=== PATIENT | female | born 1955 | race Caucasian/White ===

== ENCOUNTER 2024-12-29 10:07 | Emergency (ER) | payer MEDICARE, SELFPAY ==
[2024-12-29 10:08] VITALS: BP 123/66; PULSE 81; RESP 14; TEMP 36.1; O2SAT 98; BMI 20.5
--- NOTE | 2024-12-29 10:15 | EDS_ITS ---
HPI HPI - Fall History of Present Illness Chief Complaint: Fall Informant: patient Occured/Mechanism Mechanism/Context: Yes same level fall and Yes trip Usually ambulates: Without assistance Pain/Injury Location: Nose and left infraorbital area Pain Location: face Quality of Pain: - (Pressure) Worsened by: Blowing her nose Relieved by: Nothing Associated Symptoms Associated Symptoms: Negative for Parasthesias, Weakness, Loss of function, Inability to ambulate, Loss of consciousness or Amnesia Narrative Narrative: Patient presents after a fall that occurred today. Patient states she was walking on the sidewalk when she tripped. Patient states she fell forward. Patient states she hit her head and her glasses cut her left eyebrow. Patient denies any loss of consciousness. Patient is unsure of her last tetanus. Patient states she blew her nose and then noted some swelling over the left infraorbital area. Patient describes the pain as a pressure. Patient states nothing makes it better. Patient admits to some abrasions on her left hand and bilateral knees. Tetanus Immunization: Unknown [facility] Medical History (Updated 12/29/24 @ 13:[address] Elliott Moura DO) Hypothyroidism Home Medications ?Medication ?Instructions ?Recorded ?Last Taken ?Type amitriptyline 50 mg tablet 50 mg PO QHS 12/29/2412/28 History amoxicillin 875 mg-potassium 875 mg PO Q12H #20 TABLET S 12/29/24 Unknown Rx clavulanate 125 mg tablet hydrocodone-acetaminophen 5-325mg 1 tab PO Q6H PRN PRN Pain 3 days 12/29/24 Unknown Rx 5mg-325mg #10 TABLETS latanoprost 0.005 % eye drops 1 drp ophthalmic (eye) Q HS 12/29/24 12/28/24 History levothyroxine 112 mcg tablet 112 mcg PO DAILY 12/29/24 12/29/24 History Allergy/AdvReac Type Severity Reaction Status Date / Time No Known Allergies Allergy Verified 12/29/24 10:07 Surgical History no surgical history no surgical history Social History Smoking Status: Never smoker ROS ROS ED Constitutional Constitutional ED: Denies chills or fever(s) Eyes Eyes: Denies blurry vision or change in vision ENT ENT ED: Denies rhinorrhea or sore throat Cardiovascular Cardiovascular: Denies chest pain or palpitations Respiratory/Chest Respiratory/Chest: Denies cough or dyspnea Gastrointestinal Gastrointestinal: Denies nausea or vomiting Genitourinary Genitourinary ED: Denies dysuria or hematuria Musculoskeletal Musculoskeletal: Denies back pain or neck pain Integumentary Denies abscess or rash Neurologic Neurologic: Reports headache(s); Denies weakness Allergic/Immunologic Allergic/Immunologic ED: Denies mouth swelling or urticaria EXAM Physical Exam Const Vital Signs: 12/29/24 10:07 12/29/24 10:08 12/29/24 12:31 Temperature 97 F L Temperature Source Temporal Pulse Rate 81 68 Respiratory Rate 14 12 Respiratory Effort Normal Respiratory Depth Normal Respiratory Pattern Normal Blood Pressure 123/66 H 134/60 H Blood Pressure Mean 85 84 Pulse Ox 98 100 Oxygen Delivery Method Room Air Room Air Room Air Positive well nourished and well developed General Appearance ED: well developed and NAD HEENT HEENT Narrative: There is a 2.5 cm full-thickness linear laceration over the lateral aspect of the left eyebrow. There is mild gapping of the wound margins. There is minimal bleeding noted. There is also mild tenderness over the left infraorbital area. There is no bony crepitance or step-off noted. Eyes PERRL and EOMs intact bilaterally Neck full ROM Chest Wall palpation of chest normal Resp normal respiratory effort and clear to auscultation bilaterally Cardio regular rate and regular rhythm GI non-tender and non-distended Palpation: soft Neuro oriented x3, CN's II-XII intact bilaterally, moves all extremities, no focal motor deficits and no sensory deficits noted Abhijit Coma Scale: document GCS findings Spontaneous Obeys Commands Oriented 15 Sensorium / Orientation: alert Motor Exam: strength 5/5 throughout Psych mental status grossly normal and thought process normal Skin Skin Narrative: There are superficial abrasions over the left hand and anterior knees bilaterally. MDM MDM MDM Narrative Medical decision making narrative: Differential diagnosis includes facial fracture, contusion, closed head injury, and left eyebrow laceration. CT scan of the facial bones will be obtained to assess for facial fracture. Radiography Diagnostic Testing: Clinical Impression(s) from Imaging Studies Facial/Sinus 12/29/24 10:47 IMPRESSION: Trauma to the left face/cheek abundant subcutaneous air in the superficial soft tissues of the cheek. Moderate preseptal air in the left orbit. 2 or 3 tiny bubbles of air in the retro septal fat [facility] scan of the facial bones were obtained. There is preseptal air in the left orbit. There are 2 or 3 tiny bubbles of air in the retro septal fat. There are fractures of the orbital floor. 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 The left eyebrow laceration was cleaned with chlorhexidine. The laceration was closed with Dermabond skin adhesive. Patient tolerated the procedure well. Patient was advised of her findings. Case was discussed with Dr. Romero from ophthalmology. He recommended following up with the patient in the office in 1 to 2 days. Patient was given a prescription for Augmentin and a short course of [place]. Patient was instructed to avoid blowing her nose. Patient was instructed to use ice to the area. Patient was instructed to return if worse in any way. Patient understood and was agreeable with the plan. All questions were answered. Procedures Lacerations Left eyebrow: Length: 2.5 cm Depth: Sub Q Shape: Linear Prep: Sterile Conditions and Chlorhexadine Laceration repair: Dermabond and Wound explored Discharge Plan Triage Chief Complaint: Fall ED Provider: Elliott Moura Dx/Rx/DC Orders Clinical Impression: Orbital floor fracture, Fall Instructions: ED Facial Fracture, ED Head Injury (Adult) Prescriptions: New hydrocodone-acetaminophen 5-325 mg tablet 1 tab PO Q6H PRN PRN (Reason: Pain) 3 Days Qty: 10 0RF amoxicillin-pot clavulanate 875-125 mg tablet 875 mg PO Q12H Qty: 20 0RF No Action levothyroxine 112 mcg tablet 112 mcg PO DAILY latanoprost 0.005 % drops 1 drp ophthalmic (eye) QHS amitriptyline 50 mg tablet 50 mg PO QHS Primary Care Provider: France Castelan Referrals: Derrek Goss MD [Med Staff - Active Staff] - As soon as possible (Call to schedule an appointment for tomorrow or Friday) France Castelan MD [Primary Care Provider] - Print Language: Turkmen Disposition Disposition: Home, Self Care
--- NOTE | 2024-12-29 10:47 | CT_ITS ---
PROCEDURE: SINUS/FACIAL BONE REASON FOR EXAM: FALL Initial encounter. TECHNIQUE: SINUS/FACIAL BONE Coronal and Sagittal reconstruction series were provided. One or more dose reduction techniques were used (e.g., Automated exposure control, adjustment of the mA and/or kV according to patient size, use of iterative reconstruction technique). COMPARISON: None. FINDINGS: Frontal: Clear. Ethmoid: Mucosal thickening in left ethmoid air cells. Sphenoid: Thin band of mucosal thickening sphenoid sinus septum. Sphenoid sinuses predominantly clear otherwise. Maxillary: Left orbital floor defect allows a tiny bubble of air in the left retro septal fat. Anterolateral maxillary sinus wall; fracture of the maxillary bone with extensive subcutaneous air in the left zygomatic face anterior wall. Maxillary sinus shows minimally displaced fracture air-fluid level the left maxillary sinus. Turbinates: Boggy turbinates. Nasal Septum: Left convex nasal septum. Mastoids/Middle Ears: Clear. CT/Sinus/Facial Bone IMPRESSION: Trauma to the left face/cheek abundant subcutaneous air in the superficial soft tissues of the cheek. Moderate preseptal air in the left orbit. 2 or 3 tiny bubbles of air in the retro septal fat [facility]
[2024-12-29] MEDS: Diphth,Pertuss(Acell),Tet Vac 0.5 ML Vial IM (11:08)
[2024-12-29 12:31] VITALS: BP 134/60; PULSE 68; RESP 12; O2SAT 100
[2024-12-29 13:44] VITALS: BP 126/67; PULSE 80; RESP 14; TEMP 36.7; O2SAT 98
== END 2024-12-29 13:46 | disposition home or self-care (01) ==
PROVIDERS: Emergency Provider Emergency Medicine; PCP Internal Medicine; Visit Provider Emergency Medicine
DX: S02.32XA Fracture of orbital floor, left side, initial encounter for closed fracture (principal); S01.112A Laceration without foreign body of left eyelid and periocular area, initial encounter; W01.0XXA Fall on same level from slipping, tripping and stumbling without subsequent striking against object, initial encounter; Y93.01 Activity, walking, marching and hiking; Y92.480 Sidewalk as the place of occurrence of the external cause; Z23 Encounter for immunization
CPT/HCPCS: 12011; 70486; 90471; 90715; 99283

== ENCOUNTER 2025-07-09 18:24 | Emergency (ER) | payer MEDICARE, SELFPAY ==
[2025-07-09 18:26] VITALS: BP 115/64; PULSE 110; RESP 16; TEMP 36.6; O2SAT 100
--- NOTE | 2025-07-09 18:36 | EDS_ITS ---
HPI History of Present Illness Chief Complaint: Chest Pain [facility] Medical History (Updated 07/09/25 @ 18:52 by America Judd) Glaucoma Migraine Hypothyroidism Home Medications ?Medication ?Instructions ?Recorded ?Last Taken ?Type amitriptyline 50 mg tablet 50 mg PO QHS 12/29/2412/28 History latanoprost 0.005 % eye drops 1 drp ophthalmic (eye) Q HS 12/29/24 12/28/24 History levothyroxine 112 mcg tablet 112 mcg PO DAILY 12/29/24 12/29/24 History pantoprazole 20 mg tablet,delayed 20 mg PO DAILY 30 da ys #30 tabs 07/09/25 Unknown Rx release (Protonix) Allergy/AdvReac Type Severity Reaction Status Date / Time No Known Allergies Allergy Verified 07/09/25 18:27 Social History Smoking Status: Never smoker EXAM Physical Exam Const Vital Signs: 07/09/25 18:26 07/09/25 18:50 07/09/25 19:35 Temperature 97.8 F Temperature Source Oral Pulse Rate 110 H 101 H Respiratory Rate 16 16 Respiratory Effort Normal Non-Labored Blood Pressure 115/64 122/63 H Blood Pressure Mean 81 82 Pulse Ox 100 100 Oxygen Delivery Method Room Air Room Air 07/09/25 20:00 07/09/25 21:00 07/09/25 21:21 Temperature 97.8 F Temperature Source Pulse Rate 102 H 98 105 H Respiratory Rate 28 H 15 20 H Respiratory Effort Blood Pressure 129/69 H 130/63 H 124/66 H Blood Pressure Mean 89 85 85 Pulse Ox 98 97 97 Oxygen Delivery Method Room Air Room Air 07/09/25 22:00 Temperature Temperature Source Pulse Rate 96 Respiratory Rate 14 Respiratory Effort Blood Pressure 125/67 H Blood Pressure Mean 86 Pulse Ox 95 Oxygen Delivery Method Room Air MDM MDM MDM Narrative Medical decision making narrative: HISTORY OF PRESENT ILLNESS: Chief complaint: Chest pain 70-year-old female history of hypothyroidism presents with pain around her chest on her breast. She thinks it could have been indigestion but she has no relief. She states this started approximately 4 PM (2-1/2 hours prior to arrival). She notes sharp left-sided chest pain that she thought was indigestion. She states she used her usual indigestion treatments with no relief. This is concerning to her so she presented to the ED. She denies shortness of breath. Denies cough fever chills. Denies history of heart attacks. Denies any exertional component to the discomfort. Denies any radiation component REVIEW OF SYSTEMS: Pertinent positives: Epigastric abdominal pain, left-sided chest pain Pertinent negatives: As per HPI PHYSICAL EXAM: Nursing triage notes reviewed, Vital signs reviewed Constitutional: please see [facility] HENT: MMM Eyes: Pupils equal round and reactive to light, Extraocular muscles intact Neck: No stridor, no JVD, full neck ROM Lungs: Clear to auscultation, No wheezing or rales. No increased work of breathing, no conversational dyspnea, no accessory muscle use, no nasal flaring. No respiratory distress noted Heart: Regular rate and rhythm, No murmurs, No rubs and No gallops, 2+ distal pulses (radial, femoral, posterior tibial) in all extremities Abdomen: Soft, there is no tenderness, rigidity, rebound or guarding, no obvious peritoneal signs, no palpable pulsatile abdominal masses, no auscultated abdominal bruit : No CVAT Extremities: No edema Neuro: No new focal neurological deficits, cranial nerves II through XII intact, 5/5 strength in all present extremities. Intact sensation to light touch in all present extremities, 2+ reflexes bilateral patella tendons. Skin: No rash or lesions noted MEDICAL DECISION MAKING: Chief Complaint: please see HPI External records reviewed: Reviewed prior cardiovascular history. No recent echocardiograms, stress test or cardiac catheterizations noted Factors affecting care: n as per [facility] Social determinants of health: Denies illicit drug use History obtained from others: Family Consults: none [facility] Narrative: The patient was initially hemodynamically stable, afebrile and nontoxic- appearing. Exam without focal cardiopulmonary formalities. Abdomen soft nontender. No stigmata of aortic dissection or PE on initial exam I considered the following differential diagnosis: ACS, arrhythmia, anemia, electrolyte disturbance, PE, aortic dissection, pneumonia I obtained a broad lab and imaging work to further determine if the patient was suffering from a life-threatening etiology. Initially treat the patient with 500 cc bolus, Pepcid and Carafate ALL IMAGES (IF OBTAINED) HAVE BEEN PERSONALLY REVIEWED AND INTERPRETED BY MYSELF. EKG shows normal sinus rhythm, left ax deviation, normal intervals, no STEMI D-dimer negative making VTE and aortic dissection less likely CBC without leukocytosis, severe anemia, no thrombocytopenia. High-sensitivity troponin is negative, no evidence of myocardial ischemia x2 essentially ruling out ACS based on [facility]'s high- sensitivity troponin protocol BMP without evidence of significant electrolyte abnormalities, no anion gap, no acute kidney injury. LFTs show no evidence of hepatobiliary pathology. Lipase is wnl indicating no pancreatic inflammation. I have personally reviewed the patient's chest x-ray. Chest x-ray is unremarkable for pulmonary edema, pneumothorax, pneumonia or focal cardiopulmonary abnormality. CT scan of the abdomen pelvis showed no evidence of obvious acute surgical pathology in the abdomen. Noted heterogeneous abnormality in the uterus. Incidental finding was discussed with the patient. Repeat abdominal exam is benign. Patient remained hemodynamically stable. Heart rate improved from 110-96. The synthesis of the patient's history, physical exam, labs images suggest no acute life or limb radiology specifically no sign of VTE, CHF, ACS, acute surgical pathology in the abdomen. The patient and/or family, caregivers express understanding. The patient and/or family, caregivers agrees with the plan. Shared decision making: I will have a discussion with the patient and or visitors regarding risk/benefits of further testing or admission. They will be made aware of of the risk/benefits inherent in this decision they will be given the opportunity to voice understanding. Total critical care time today provided was at least 0 minutes. This excludes separately billable procedures. Critical care time (if documented) is secondary to the patient having high probability of clinically significant/life threatening deterioration in the patient's condition which required my urgent intervention. Impression: 1. Chest pain 2. Epigastric abdominal pain Dispo: Discharge home This note was generated with [employer] dictation software. It may contain incorrect words, spelling, and punctuation that were not noted in review of the chart prior to signing. Lab Data Labs: Laboratory Results - last 24 hr 07/09/25 07/09/25 18:55 21:18 WBC 8.8 RBC 4.41 Hgb 14.2 Hct 41.9 MCV 95.0 MCH 32.2 H MCHC 33.9 RDW Std Deviation 46.6 H RDW Coeff of Colin 13.2 Plt Count 146 L MPV 9.7 Immature Gran % (Auto) 0.500 Neut % (Auto) 94.6 H Lymph % (Auto) 2.5 L [place] % (Auto) 1.8 Eos % (Auto) 0.5 Baso % (Auto) 0.1 Absolute Neuts (auto) 8.3 H Absolute Lymphs (auto) 0.22 L Nucleated RBC % 0 D-Dimer Quant (PE/DVT) 0.29 Sodium 138 Potassium 4.1 Chloride 101 Carbon Dioxide 27.9 Anion Gap 9 BUN 19 Creatinine 0.83 Estim Creat Clear Calc 56.98 Est GFR (MDRD) Non-Af 76 BUN/Creatinine Ratio 22.5 H Glucose 122 H Calcium 9.0 Total Bilirubin 0.34 AST 28 ALT 22 Alkaline Phosphatase 84 Troponin T High Sens 8 Troponin T Hi Sens 2 Hr 9 Total Protein 6.4 Albumin 4.4 Globulin 2.0 L Albumin/Globulin Ratio 2.2 Lipase 34 Radiography Diagnostic Testing: Clinical Impression(s) from Imaging Studies Abdomen/Pelvis CT 07/09/25 18:50 IMPRESSION: 1. Probable uterine fibroid. 2. Hepatomegaly with fatty infiltration. 3. Distended stomach. Decompression may be beneficial. 4. Fecal retention in the colon consistent with constipation. 5. No obstructive uropathy. Reading Location: [facility] Chest X-Ray 07/09/25 19:22 IMPRESSION: No acute cardiopulmonary process. Reading Location: [facility] Discharge Plan Triage Chief Complaint: Chest Pain ED Provider: Domo Gore Dx/Rx/DC Orders Instructions: ED Chest Pain, Uncertain Cause Prescriptions: New pantoprazole [Protonix] 20 mg tablet,delayed release (DR/EC) 20 mg PO DAILY 30 Days Qty: 30 0RF No Action levothyroxine 112 mcg tablet 112 mcg PO DAILY latanoprost 0.005 % drops 1 drp ophthalmic (eye) QHS amitriptyline 50 mg tablet 50 mg PO QHS Primary Care Provider: France Castelan Referrals: France Castelan MD [Primary Care Provider, Internal Medicine] Friend,DO Candelario [Med Staff - Active Staff, Gastroenterology] Activity Restrictions/Additional Instructions: Thank you for trusting us with your care today! Your labs images are reassuring. Specifically no sign of heart damage, blood clots or severe intra-abdominal surgical pathologies You may be suffering from inflammation of your GI tract. This can be relieved with beginning a medication called Protonix. This has been prescribed to you. Please take Tylenol (2 pills, 650 mg), every 6 hours as needed for pain and fever control. Please return to the emergency department if your symptoms change or worsen. Please follow with Gastroenterology (Dr. Gregg) for further outpatient evaluation and management. Print Language: Japanese Disposition Disposition: Home, Self Care
--- NOTE | 2025-07-09 18:50 | CT_ITS ---
EXAM: CT Abdomen and Pelvis With Intravenous Contrast CLINICAL INDICATION: UPPER ABDOMINAL PAIN TECHNIQUE: Axial computed tomography images of the abdomen and pelvis with intravenous contrast. This CT exam was performed using one or more of the following dose reduction techniques: automated exposure control, adjustment of the mA and/or kV according to patient size, and/or use of iterative reconstruction technique. CONTRAST: 100 cc Isovue 370 RADIATION DOSE: CTDIvol = 12 mGy, DLP = 592 mGy-cm COMPARISON: No relevant prior studies available. FINDINGS: LUNG BASES: Unremarkable. No mass. No consolidation. ABDOMEN: LIVER: Hepatomegaly with fatty infiltration. GALLBLADDER AND BILE DUCTS: Unremarkable. No calcified stones. No ductal dilation. PANCREAS: Unremarkable. No mass. No ductal dilation. SPLEEN: Unremarkable. No splenomegaly. ADRENALS: Unremarkable. No mass.
[2025-07-09] MEDS: Famotidine 200 MG/20 ML MDV 20 MG in 0.9% Normal Saline (Pres. free 8 ML 300 MG IV (19:03)
[2025-07-09] MEDS: 0.9% Normal Saline (500mL Bag) 500 ML IV (19:03)
[2025-07-09 19:07] LABS: Hematocrit 41.9 % (37-47); Hemoglobin 14.2 g/dL (12.0-15.0); Immature Granulocytes Count 0.040 X10^3/uL (0.0-0.0); Mean Corp Hgb Conc 33.9 g/dL (32-36); Mean Corpuscular Volume 95.0 fL (81-99); Mean Platelet Vol. 9.7 fl (6.2-12.0); NRBC Flagged by Analyzer 0 % (0-5); POSITIVE DIFFERENTIAL YES; Platelet Count 146 K/mm3 (150-450); RBC Distribution Width CV 13.2 % (11.6-14.6); RBC Distribution Width SD 46.6 fl (35.1-43.9); Red Blood Count 4.41 M/mm3 (4.2-5.4); White Blood Count 8.8 K/mm3 (4.4-11.0)
[2025-07-09 19:18] LABS: D-Dimer Quantitative (DVT/PE) 0.29 FEU/ug/m (0.27-0.49)
--- NOTE | 2025-07-09 19:22 | RAD_ITS ---
EXAM: XR Chest, 1 View CLINICAL INDICATION: CHEST PAIN TECHNIQUE: Frontal view of the chest. COMPARISON: No relevant prior studies available. FINDINGS: LUNGS AND PLEURAL SPACES: Unremarkable. No consolidation. No pneumothorax. HEART: Unremarkable. No cardiomegaly. MEDIASTINUM: Unremarkable. Normal mediastinal contour. BONES/JOINTS: Unremarkable. No acute fracture. RAD/Chest 1 View (Portable) IMPRESSION: No acute cardiopulmonary process. Reading Location: [id number]
--- OUTSIDE RECORDS SUMMARY | 2025-07-09 19:22 | XMS RPT_ITS | CCD ---
Author Organization [facility] CliniSyct Care Team Providers Care Puppy Walker Name Role Phone Octavio Ulloa MD Primary Care Provider Octavio Ulloa MD Primary Care Provider Cates TAILINGS MAN.PACKAGE LINE RELIEF OPERATOR, Estephania Unavailable Chao TAILINGS MAN.DRY CHAIN OFFBEARER, Omar Unavailable Chao TAILINGS MAN.DRY CHAIN OFFBEARER, Omar Unavailable Chao TAILINGS MAN.DRY CHAIN OFFBEARER, Omar Unavailable Dr. Octavio Ulloa MD Primary Care Provider Dr. Elliott Moura DO Emergency Provider [phone] Cates TAILINGS MAN.PACKAGE LINE RELIEF OPERATOR, Estephania Unavailable Elliott Moura Attending Unavailable Talampas, Octavio D Primary Care Unavailable CATES, ESTEPHANIA Referring Unavailable TALAMPAS, OCTAVIO D Primary Care Unavailable BELIALETICIA MAJOR Attending Unavailable TALAMPAS, OCTAVIO D Primary Care Unavailable TALAMPAS, OCTAVIO D Primary Care Unavailable JENA LR Attending Unavailable CHAOOMAR Attending Unavailable TALAMPAS, OCTAVIO D Primary Care Unavailable SHEILA DOMINIQUE Referring Unavailable TALAMPAS, OCTAVIO D Primary Care Unavailable CHAOOMAR Attending Unavailable SELF Referring Unavailable TALAMPAS, OCTAVIO D Primary Care Unavailable BELIALIDACA Attending Unavailable CATES, ESTEPHANIA Referring Unavailable TALAMPAS, OCTAVIO D Primary Care Unavailable SHEILA DOMINIQUE Attending Unavailable CHAO, OMAR Referring Unavailable TALAMPAS, OCATVIO D Primary Care Unavailable QUEENER SHEILA Referring Unavailable TALAMPAS, OCTAVIO D Primary Care Unavailable TALAMPAS, OCTAVIO D Attending Unavailable TALAMPAS, OCTAVIO D Primary Care Unavailable TALAMPAS, OCTAVIO D Referring Unavailable TALAMPAS, OCTAVIO D Primary Care Unavailable TALAMPAS, OCTAVIO D Referring Unavailable TALAMPAS, OCTAVIO D Primary Care Unavailable TONYAMPAS, OCTAVIO D Referring Unavailable TONYAMPAS, OCTAVIO D Primary Care Unavailable ESTEPHANIA CATES Attending Unavailable LAILA, OCTAVIO Janeen Primary Care Unavailable ESTEPHANIA CATES Referring Unavailable TONYAMPASTRID RIVERAA D Primary Care Unavailable Medications Current Medications Medication Drug Class(es) Dates Sig (Normalized) Sig (Original) acetaminophen 325 mg / HYDROcodone bitartrate 5 mg oral tablet (1 source) Opioid Agonist Start: 12-29-2024 take 1 tablet by mouth every six hours as needed for pain Hydrocodone-Aceta minophen 5-325 mg tablet Active 1 {tbl} PO EVERY 6 HOURS NEEDED as needed for Pain 10 December 29, 2024 Start: 12-29-2024 take 1 tablet by alan th every six hours as needed for pain Hydrocodone-Acetaminophen 5-325 mg table t Active 1 {tbl} PO EVERY 6 HOURS NEEDED as needed for Pain 10 December 29, 2024 amitriptyline hydrochloride 50 mg oral tablet (20 sources) Tricyclic Antidepressant Start: 02-04-2025 take 1 tablet by mouth once daily at bedtime amitriptyline (ELAVIL) 25 mg tablet Take 1 tablet by mouth daily at bedtime. 30 tablet 8 02/04/2025 Active Start: 04-16-2021 End: 03-25-2025 take 1 tablet by mouth once daily at bedtime amitriptyline (ELAVIL) 50 mg tablet Indications: Migraine without aura, not intractable, without status migrainosus Take 1 tablet by mouth daily at bedtime. 90 tablet 3 03/25/2025 Active Comment on above: Take 1 tablet by alan th daily at bedtime. amoxicillin 875 mg / clavulanate 125 mg oral tablet (1 source) Penicillin-class Antibacterial Start: take 1 tablet by mouth every twelve hours Amoxicillin-Pot Clavulanate 875-125 mg tablet Active 875 mg PO Q12H December 29, 2024 12:00am clonazePAM 0.5 mg oral tablet (20 sources) Benzodiazepine Start: 022 End: 025 take 1 tablet by mouth twice daily as needed clonazePAM (KLONOPIN) 0.5 mg tablet Indications: Vertigo Take 1 tablet by mouth two times a day as needed (for vertigo) for up to 30 days. 20 tablet 01/05/2025 Active Comment on above: Take 1 tablet by alan th twice daily as needed (for vertigo) for up to 30 days. Take 1 tablet by alan th twice daily for 30 days. CPAP/BIPAP/OTHER (14 sources) Start: End: CPAP/BIPAP/OTHER Indications: KIARA (obstructive sleep apnea) APAP 5-15 cmH2O 1 each 10/21/2024 03/07/2052 Active frovatriptan 2.5 mg oral tablet (20 sources) Serotonin-1b and Serotonin-1d Receptor Agonist Start: End: take 1 tablet by mouth every two hours as needed for headache, then take 3 tablets by mouth every twenty-four hours as needed for headache frovatriptan (FROVA) 2.5 mg tablet Indications: History of migraine Take 1 tablet by mouth as needed for migraine headache (see administration instructions). If headache recurs, may repeat after 2 hours. Max of 3 tablets in 24 hours. 9 tablet 5 01/05/2025 Active Start: 04-16-2021 End: 04-11-2023 take 1 tablet by mouth every two hours as needed for headache, then take 3 tablets by mouth every twenty-four hours as needed for headache frovatriptan (FROVA) 2.5 mg tablet Indications: History of migraine Take 1 tablet by mouth as needed for Migraine Headache (see administration instructions). If headache recurs, may repeat after 2 hours. Max of 3 tablets in 24 hours. 9 tablet 5 04/16/2021 04/11/2023 Discontinued Comment on above: Take 1 tablet by alan th as needed for Migraine Headache (see administration instructions). If headache recurs, may repeat after 2 hours. Max of 3 tablets in 24 hours. latanoprost 0.05 mg/ml ophthalmic solution (20 sources) Prostaglandin Analog Start: 12-29-2024 Latanoprost 0.005 % drops Active 1 NMA OPHTHALMIC AT BEDTIME December 29, 2024 12:00am Start: 02-09-2024 take 1 drop(s) into the eye(s) once daily at bedtime latanoprost (XALATAN) 0.005 % ophthalmic solution Use 1 Drop in both eyes daily at bedtime. 02/09/2024 Active levothyroxine sodium 0.112 mg oral tablet (20 sources) l-Thyroxine Start: 04-16-2021 End: 03-25-2025 take 1 tablet by mouth once daily, then take 0.5 tablet by mouth every week, then take 7.5 tablets by mouth every week levothyroxine (SYNTHROID) 112 mcg tablet Take 1 tablet by mouth once daily. plus extra half pill once weekly or as directed (7.5 pills per week) 90 tablet 3 03/25/2025 Active Comment on above: Take 1 tablet by alan th once daily. plus extra half pill once weekly or as directed (7.5 pills per week) OTC NUTRITIONAL SUPPLEMENT (1 source) Start: 03-25-2025 OTC NUTRITIONAL SUPPLEMENT Magnesium 500 1.5 tablets daily 03/25/2025 Active traMADol hydrochloride 50 mg oral tablet (2 sources) Opioid Agonist Start: 01-17-2025 End: 01-24-2025 take 1 tablet by mouth three times daily as needed for pain traMADol (ULTRAM) 50 mg tablet Indications: Closed fracture of left orbital floor with routine healing, subsequent encounter Take 1 tablet by mouth three times a day as needed for pain for up to 7 days. 21 tablet 01/17/2025 01/24/2025 Active Completed/Discontinued Medications Medication Drug Class(es) Dates Sig (Normalized) Sig (Original) brimonidine tartrate 2 mg/ml ophthalmic solution (5 sources) alpha-Adrenergic Agonist Start: 02-11-2023 End: 03-17-2024 take 1 drop(s) into the eye(s) twice daily brimonidine (ALPHAGAN) 0.2 % ophthalmic solution Use 1 Drop in the left eye two times a day. 02/11/2023 03/17/2024 Discontinued Comment on above: Use 1 Drop in the le ft eye two times a day. gabapentin 100 mg oral capsule (3 sources) Anti-epileptic Agent Start: 02-01-2025 End: 05-02-2025 take 1 capsule by mouth three times daily gabapentin (NEURONTIN) 100 mg capsule Take 1 capsule by mouth three times a day for 90 days. 90 capsule 2 02/01/2025 03/25/2025 Discontinued predniSONE 10 mg oral tablet (4 sources) Start: 01-05-2025 End: 01-17-2025 predniSONE (DELTASONE) 10 mg tablet Take 2 tabs po BID for 2 days then 1 tab po BID for 2 days then 1/2 tab po BID for 2 days then 1/2 tab daily for 2 days then stop 15 tablet 01/05/2025 01/17/2025 Discontinued Problems Active Problems Problem Classification Problem Date Documented Da te Episodic/Chronic E Codes: Fall (1 source) Fall; Translations: [Unspecified fall, initial encounter] 12-29-2024 Episodic Genitourinary symptoms and ill-defined conditions (1 source) Urgent desire to urinate; Translations: [Urgency of urination] 04-11-2023 Episodic Glaucoma (20 sources) Glaucoma of left eye; Translations: [Unspecified glaucoma] Onset: 05-14-2022 04-11-2023 Chronic Headache; including migraine (4 sources) Migraine variants; Translations: [Other migraine, not intractable, without status migrainosus] Onset: 01-05-2025 Chronic Heart valve disorders (20 sources) Mitral valve prolapse; Translations: [Nonrheumatic mitral (valve) prolapse] Onset: 02-24-2007 07-31-2017 Chronic Open wounds of head; neck; and trunk (1 source) Laceration of left eyelid; Translations: [Laceration without foreign body of left eyelid and periocular area, initial encounter] 12-29-2024 Episodic Osteoporosis (20 sources) Senile osteoporosis; Translations: [Age-related osteoporosis without current pathological fracture] Onset: 04-16-2021 04-16-2021 Chronic Other ear and sense organ disorders (1 source) Bilateral tinnitus; Translations: [Tinnitus, bilateral] Episodic Other gastrointestinal disorders (1 source) Constipation; Translations: [Constipation, unspecified] 03-17-2024 Episodic Other hereditary and degenerative nervous system conditions (2 sources) Essential tremor; Translations: [Essential tremor] 03-17-2024 Chronic Other hereditary and degenerative nervous system conditions (1 source) Essential tremor; Translations: [Benign essential tremor] Onset: 03-25-2025 Chronic Other injuries and conditions due to external causes (1 source) Injury of head; Translations: [Unspecified injury of head, initial encounter] 12-29-2024 Episodic Other injuries and conditions due to external causes (1 source) Encounter for examination and observation following other accident; Translations: [Encounter for examination and observation following other accident] Onset: 01-04-2025 Episodic Other nervous system disorders (10 sources) H/O: migraine; Translations: [Personal history of other diseases of the nervous system and sense organs] Episodic Other non-traumatic joint disorders (1 source) Pain in right knee; Translations: [Pain in joint, lower leg] Episodic Other screening for suspected conditions (not mental disorders or infectious disease) (20 sources) Patient encounter status; Translations: [Encounter for screening mammogram for malignant neoplasm of breast] Onset: 03-25-2025 Episodic Other upper respiratory disease (1 source) Bleeding from nose; Translations: [Epistaxis] 12-29-2024 Episodic Residual codes; unclassified (5 sources) Obstructive sleep apnea syndrome; Translations: [Obstructive sleep apnea (adult) (pediatric)] 08-30-2024 Chronic Residual codes; unclassified (1 source) Daytime somnolence; Translations: [Other hypersomnia] 10-24-2024 Chronic Residual codes; unclassified (2 sources) Obstructive sleep apnea (adult) (pediatric); Translations: [KIARA on CPAP] Onset: 10-21-2024 Chronic Residual codes; unclassified (1 source) Other hypersomnia; Translations: [Excessive daytime sleepiness] Onset: 10-21-2024 Chronic Residual codes; unclassified (2 sources) Postmenopausal state; Translations: [Asymptomatic menopausal state] 03-17-2024 Episodic Residual codes; unclassified (1 source) Medical care unavailable; Translations: [Procedure and treatment not carried out for other reasons] 12-29-2024 Episodic Screening and history of mental health and substance abuse codes (2 sources) Encounter for screening examination for other mental health and behavioral disorders; Translations: [Encounter for screening for depression] Onset: 03-25-2025 Episodic Thyroid disorders (20 sources) Hypothyroidism; Translations: [Hypothyroidism, unspecified] Onset: 02-24-2007 07-31-2017 Chronic Unclassified (1 source) Call to schedule an appointment for tomorrow or Friday Unclassified (1 source) Patient encounter status 03-25-2025 Unclassified (1 source) Persistent headaches; Translations: [Persistent headaches] Onset: 02-10-2025 Past or Other Problems Problem Classification Problem Date Documented Da te Episodic/Chronic Conditions associated with dizziness or vertigo (4 sources) Vertigo; Translations: [Dizziness and giddiness] Onset: 01-05-2025 Episodic Headache; including migraine (20 sources) Headache; Translations: [Headache] Onset: 02-24-2007 01-31-2014 Episodic Intracranial injury (8 sources) Concussion with no loss of consciousness; Translations: [Concussion without loss of consciousness, subsequent encounter] Onset: 01-05-2025 01-05-2025 Episodic Malaise and fatigue (3 sources) Fatigue; Translations: [Other fatigue] Onset: 08-09-2024 08-03-2024 Episodic Other and unspecified benign neoplasm (20 sources) Benign neoplasm of skin of upper limb; Translations: [Other benign neoplasm of skin of unspecified upper limb, including shoulder] Onset: 06-08-2007 06-08-2007 Episodic Other and unspecified benign neoplasm (20 sources) Benign neoplasm of skin of lower limb; Translations: [Other benign neoplasm of skin of unspecified lower limb, including hip] Onset: 01-18-2008 01-18-2008 Episodic Other ear and sense organ disorders (20 sources) Tinnitus; Translations: [Tinnitus, unspecified ear] Onset: 07-14-2021 04-11-2023 Episodic Other nervous system disorders (1 source) Personal history of other diseases of the nervous system and sense organs; Translations: [History of migraine] Onset: 01-05-2025 Episodic Other non-epithelial cancer of skin (20 sources) Malignant neoplasm of skin of face; Translations: [Other and unspecified malignant neoplasm of skin of other and unspecified parts of face] Onset: 07-03-2007 07-03-2007 Episodic Other skin disorders (20 sources) Seborrheic keratosis; Translations: [Other seborrheic keratosis] Onset: 06-08-2007 06-08-2007 Episodic Other skin disorders (20 sources) Sebaceous cyst of skin; Translations: [Sebaceous cyst] Onset: 06-08-2007 Resolved: 01-31-2014 01-31-2014 Episodic Other upper respiratory disease (20 sources) Deviated nasal septum; Translations: [Deviated nasal septum] Onset: 04-27-2015 04-11-2023 Episodic Skull and face fractures (4 sources) Fracture of orbital floor; Translations: [Fracture of orbital floor, unspecified side, initial encounter for closed fracture] Onset: 01-05-2025 12-29-2024 Episodic Superficial injury; contusion (2 sources) Contusion of left hand; Translations: [Contusion of left hand, subsequent encounter] Onset: 01-05-2025 01-05-2025 Episodic Viral infection (20 sources) Hand wart; Translations: [Viral wart, unspecified] Onset: 06-08-2007 01-26-2018 Episodic Results Test Name Value Interpretation Reference Range Facility [facility] LTon 05-24 [facility] * * *Final Report* * * DATE OF EXAM: May 24 2025 1:05PM [facility] 0593 - [facility] / PROCEDURE REASON: Abnormal mammogram * * * * Physician Interpretation * * * * [place] [address] #[id number] - [facility] HISTORY: 69 year-old patient presents for diagnostic evaluation of the finding(s) described on prior mammogram in the left breast. Patient states no personal history of breast cancer. COMPARISOnSTUDIES: No prior imaging studies are available for comparison. ULTRASOUND TECHNIQUE: Targeted ultrasound of the indicated area was performed. Mendoza scale images were saved. ULTRASOUND FINDINGS: There is a simple cyst measuring 1.1 cm at 4 o'clock in the left breast. There are no suspicious findings in the imaged area. IMPRESSION: There are no suspicious sonographic findings in the imaged area. Return to annual screening mammogram is recommended. Annual mammogram will be due in 1 year. BI-RADS Category 2: Benign Interpreting Radiologist: Kaycee Bello M.D. Electronically signed on: 05/24/2025 Restaurant Maintenance Technician: GERBER Transcribe Date/Time: May 24 2025 12:55P Dictated by : KAYCEE BELLO MD This examination was interpreted and the report reviewed and electronically signed by: KAYCEE BELLO MD on May 24 2025 1:11PM EST [id number] Normal [facility] SCREENING W TOMOon 05-11 [facility] SCREENING W GAVIN * * *Final Report* * * DATE OF EXAM: May 11 2025 1:46PM [facility] 0582 - [facility] SCRE[facility]ING [facility] / PROCEDURE REASON: Encounter for screening mammogram for breast cancer * * * * Physician Interpretation * * * * RESULT: [facility] [address] [id number] #[id number] - [facility] SCREENING W GAVIN HISTORY: 69 year-old patient presents for screening. Patient is asymptomatic in both breasts. Patient states no personal history of breast cancer. COMPARISON STUDIES: The present examination has been compared to prior imaging studies dated 01/13/2019 (mammogram), 11/13/2020 (mammogram), 11/14/2021 (mammogram), 02/25/2023 (mammogram) and 05/10/2024 (mammogram). MAMMOGRAM TECHNIQUE: The study was acquired using full field digital technology and interpreted from soft copy. Digital Breast Tomosynthesis (DBT) images were obtained and used to assist in the interpretation of this examination. MAMMOGRAM FINDINGS: There are scattered areas of fibroglandular density. There is an oval mass in the middle depth lower outer quadrant of the left breast. No suspicious masses, calcifications or other abnormalities are seen in the right breast. IMPRESSION: The oval mass in the middle depth lower outer quadrant of the left breast requires additional evaluation. Diagnostic ultrasound is recommended. BI-RADS Category 0: Incomplete: Needs Additional Imaging Evaluation RISK: Based on the Tyrer-Cuzick (TC) risk assessment model, this patient has a 2.2% lifetime risk of developing breast cancer, meaning they are at average risk for developing breast cancer. However, this is only an estimate based on available history provided on the patient's questionnaire. We encourage all patients to talk with their providers about these results, further recommendations for managing breast health, and appropriate supplemental screening options if the patient has dense breast tissue. REF#[id number]. Interpreting Radiologist: Ilia Finley M.D. Electronically signed on: 05/12/2025 Restaurant Maintenance Technician: GERBER Transcribe Date/Time: May 11 2025 1:25P Dictated by: ILIA FINLEY MD This examination was interpreted and the report reviewed and electronically signed by: ILIA FINLEY MD on May 12 2025 12:39PM EST [id number] Normal [facility] [place] 05-10-2025 [facility] Telephone ([facility]) YANET ARAYA ([id number]) 1955 F Date Time Provider Department 05/10/25 LETICIA CELAYA [facility] During your visit today, we recorded the following information about you: Lm Toure RN 05/10/2025 9:01 AM Signed Faxed pressure change order and last office visit notes to: DME name: Sumit Hendrickson Fax confirmation received electronically. Patient notified via [employer] message Thank you, Lm GUERRIER, RN Neuro/Sleep Front Office Supervisor Allergies As of Date: 05/10/2025 (No Known Allergies) Date Reviewed: 03/25/2025 Reviewed by: Yeni Marquez LPN - Fully Assessed Reason for Visit: PAP Rx Faxed [[phone]] Prescriptions as of 05/10/2025 - CPAP/BIPAP/OTHER APAP 5-13 cmH2O [facility] Sumit Landry - amitriptyline (ELAVIL) 50 mg tablet Take 1 tablet by mouth daily at bedtime. - OTC NUTRITIONAL SUPPLEMENT Magnesium 500 1.5 tablets daily - levothyroxine (SYNTHROID) 112 mcg tablet Take 1 tablet by mouth once daily. plus extra half pill once weekly or as directed (7.5 pills per week) - amitriptyline (ELAVIL) 25 mg tablet Take 1 tablet by mouth daily at bedtime. - frovatriptan (FROVA) 2.5 mg tablet Take 1 tablet by mouth as needed for migraine headache (see administration instructions). If headache recurs, may repeat after 2 hours. Max of 3 tablets in 24 hours. - clonazePAM (KLONOPIN) 0.5 mg tablet Take 1 tablet by mouth two times a day as needed (for vertigo) for up to 30 days. - latanoprost (XALATAN) 0.005 % ophthalmic solution Use 1 Drop in both eyes daily at bedtime. Problem List As Of Date 05/10/2025 Noted Resolved Hypothyroidism [E03.9] 02/24/2007 Headache [R51.9] 02/24/2007 MVP (mitral valve prolapse) [I34.1] 02/24/2007 Viral wart on right thumb [B07.9] 06/08/2007 Sebaceous cyst [L72.3] 06/08/2007 01/31/2014 SEBORRHEIC KERATOSIS NOS [L82.1] 06/08/2007 BLUE NEVUS WRIST///BENIGN CAROLYN SKIN ARM [D23.60] 06/08/2007 H/O BCC RIGHT FOREHEADMALIG NEOPLASM SKIN FACE *07/03/2007 BENIGN CAROLYN SKIN LEG [D23.70] 01/18/2008 PERS HX SKIN MALIGNANCY NEC: H/O BCC [Z85.828] 01/18/2008 Age-related osteoporosis without current pathol*04/16/2021 Tinnitus [H93.19] 07/14/2021 Diagnosed: 04/11/2023 Glaucoma [H40.9] 05/14/2022 Diagnosed: 04/11/2023 Deviated septum [J34.2] 04/27/2015 Diagnosed: 04/11/2023 Encounter Status:Closed by LM TOURE on 05/10/25 Normal [facility] 25(OH)D3 [facility] 25-hydroxyvitamin D3 [Mass/Vol] 72.3 ng/mL Normal 31.0-80.0 [facility] Comment on above: Order Comment: Speci men Type: BLOOD SPECIMEN Ordering Facility: [facility] Address: [address] [place] [address] Result Comment: Clas sification of 25 [place] Vitamin D status: Deficiency/Insufficiency: < or = 30 ng/ml. Sufficiency/Optimal Levels: 31-80 ng/mL Toxicity: > 100 ng/mL. Test performed by chemiluminescent immunoassay. Performed By: #### 1 989-3 #### [facility] CLIA [id number] [address] [place] [address] [place] [address] [place] CBC panel Auto (Bld)on 03-25 Erythrocyte distribution width (RBC) [Ratio] 12.6 % Normal 11.5-15.0 [facility] Comment on above: Order Comment: Speci men Type: BLOOD SPECIMEN Ordering Facility: [facility] Address: [address] [place] [address] Performed By: #### 5 8410-2 #### [facility] CLIA [id number] [address] [place] [address] [place] Hematocrit (Bld) [Volume fraction] 42.8 % Normal 36.0-46.0 [facility] Comment on above: Order Comment: Speci men Type: BLOOD SPECIMEN Ordering Facility: [facility] Address: [address] [place] [address] Performed By: #### 5 8410-2 #### [facility] CLIA [id number] [address] [address] [place] Hemoglobin (Bld) [Mass/Vol] 13.9 g/dL Normal 11.5-15.5 [facility] Comment on above: Order Comment: Speci men Type: BLOOD SPECIMEN Ordering Facility: [facility] Address: [address] [place] [address] Performed By: #### 5 8410-2 #### [facility] CLIA [id number] [address] [address] [place] MCH (RBC) [Entitic mass] 32.5 pg Normal 26.0-34.0 [facility] Comment on above: Order Comment: Speci men Type: BLOOD SPECIMEN Ordering Facility: [facility] Address: [address] [place] [address] Performed By: #### 5 8410-2 #### [facility] CLIA [id number] [address] [address] [place] MCHC (RBC) [Mass/Vol] 32.5 g/dL Normal 30.5-36.0 [facility] Comment on above: Order Comment: Speci men Type: BLOOD SPECIMEN Ordering Facility: [facility] Address: [address] [place] [address] Performed By: #### 5 8410-2 #### [facility] CLIA [id number] [address] [address] [place] MCV (RBC) [Entitic vol] 100.0 fL Normal 80.0-100.0 [facility] Comment on above: Order Comment: Speci men Type: BLOOD SPECIMEN Ordering Facility: [facility] Address: [address] [place] [address] Performed By: #### 5 8410-2 #### [facility] CLIA [id number] [address] [address] [place] Nucleated RBC (Bld) [#/Vol] 10*3/uL Normal <0.01 [facility] Comment on above: Order Comment: Speci men Type: BLOOD SPECIMEN Ordering Facility: [facility] Address: [address] [place] [address] Performed By: #### 5 8410-2 #### [facility] CLIA [id number] [address] [address] [place] Platelet mean volume (Bld) [Entitic vol] 10.8 fL Normal 9.0-12.7 [facility] Comment on above: Order Comment: Speci men Type: BLOOD SPECIMEN Ordering Facility: [facility] Address: [address] [place] [address] Performed By: #### 5 8410-2 #### [facility] CLIA [id number] [address] [place] [address] [place] Platelets (Bld) [#/Vol] 177 10*3/uL Normal 150-400 [facility] Comment on above: Order Comment: Speci men Type: BLOOD SPECIMEN Ordering Facility: [facility] Address: [address] [place] [address] Performed By: #### 5 8410-2 #### [facility] CLIA [id number] [address] [address] [place] RBC (Bld) [#/Vol] 4.28 10*6/uL Normal 3.90-5.20 [facility] Comment on above: Order Comment: Speci men Type: BLOOD SPECIMEN Ordering Facility: [facility] Address: [address] [place] [address] Performed By: #### 5 8410-2 #### [facility] CLIA [id number] [address] [address] [place] WBC (Bld) [#/Vol] 5.89 10*3/uL Normal 3.70-11.00 [facility] Comment on above: Order Comment: Speci men Type: BLOOD SPECIMEN Ordering Facility: [facility] Address: [address] [place] [address] Performed By: #### 5 8410-2 #### [facility] CLIA [id number] [address] [place] [address] [place] CNOVon 03-25-2025 CNOV Office Visit (INTMWS ) YANET ARAYA ([id number]) 1955 F Date Time Provider Department 03/25/25 1:40 PM OCTAVIO ULLOA INTMWS During your visit today, we recorded the following information about you: Temperature Pulse Respiration Blood pressure 98.2 degrees 82/minute 12/minute 116/64 Weight Height 60.1 kg 1.702 m Yeni Marquez LPN 03/25/2025 2:52 PM Signed Eye doctor is : Dr.Scott Lemus sees every 6 months Octavio Ulloa MD 03/25/2025 2:52 PM Signed Subjective Yanet Araya is a 69 year old female. 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 plus extra half pill once weekly or as directed (7.5 pills per week) frovatriptan (FROVA) 2.5 mg tablet Take 1 tablet by mouth as needed for migraine headache (see administration instructions). If headache recurs, may repeat after 2 hours. Max of 3 tablets in 24 hours. clonazePAM (KLONOPIN) 0.5 mg tablet Take 1 tablet by mouth two times a day as needed (for vertigo) for up to 30 days. CPAP/BIPAP/OTHER APAP 5-15 cmH2O latanoprost (XALATAN) 0.005 % ophthalmic solution Use 1 Drop in both eyes daily at bedtime. amitriptyline (ELAVIL) 50 mg tablet Take 1 tablet by mouth daily at bedtime. amitriptyline (ELAVIL) 25 mg tablet Take 1 tablet by mouth daily at bedtime. (Patient not taking: Reported on 03/25/2025) No current facility-administered medications for this visit. ALLERGIES No Known Allergies FAMILY HISTORY Problem Relation Age of Onset Diabetes Father other (heart) Father end complications with CHF None Mother SOCIAL HISTORY[1] Review of Systems Objective BP 116/64 Pulse 82 Temp 36.8 ?C (98.2 ?F) (Temporal) Resp 12 Ht 170.2 cm (5' 7) Wt 60.1 kg (132 lb 7.9 oz) SpO2 100% BMI 20.75 kg/m? Physical Exam Vitals reviewed. Constitutional: Appearance: Normal appearance. She is well-developed. HENT: Head: Normocephalic and atraumatic. Right Ear: Tympanic membrane, ear canal and external ear normal. Left Ear: Tympanic membrane, ear canal and external ear normal. Nose: Nose normal. Mouth/Throat: Mouth: Mucous membranes are moist. Eyes: Conjunctiva/sclera: Conjunctivae normal. Pupils: Pupils are equal, round, and reactive to light. Neck: Thyroid: No thyromegaly. Vascular: No carotid bruit. Cardiovascular: Rate and Rhythm: Normal rate and regular rhythm. Pulses: Normal pulses. Heart sounds: Normal heart sounds. No murmur heard. No friction rub. No gallop. Pulmonary: Effort: Pulmonary effort is normal. Breath sounds: Normal breath sounds. Abdominal: General: Bowel sounds are normal. There is no distension. Palpations: Abdomen is soft. There is no mass. Tenderness: There is no abdominal tenderness. Musculoskeletal: General: No deformity. Normal range of motion. Right lower leg: No edema. Left lower leg: No edema. Lymphadenopathy: Cervical: No cervical adenopathy. Skin: General: Skin is warm and dry. Coloration: Skin is not jaundiced or pale. Findings: No rash. Neurological: General: No focal deficit present. Mental Status: She is alert and oriented to person, place, and time. Cranial Nerves: No cranial nerve deficit. Sensory: No sensory deficit. Motor: No abnormal muscle tone. Coordination: Coordination normal. Deep Tendon Reflexes: Reflexes normal. Psychiatric: Attention and Perception: Attention and perception normal. Mood and Affect: Mood and affect normal. Speech: Speech normal. Behavior: Behavior normal. Thought Content: Thought content normal. Cognition and Memory: Cognition and memory normal. Judgment: Judgment normal. Latest Ref Rn 03/17/2024 04/30/2024 08/03/2024 02/01/2025 WBC 3.70 - 11.00 k/uL 5.48 6.49 RBC 3.90 - 5.20 m/uL 4.25 4.34 Hemoglobin 11.5 - 15.5 g/dL 13.9 13.7 Hematocrit 36.0 - 46.0 % 42.4 42.8 MCV 80.0 - 100.0 fL 99.8 98.6 MCH 26.0 - 34.0 pg 32.7 31.6 MCHC 30.5 - 36.0 g/dL 32.8 32.0 RDW-CV 11.5 - 15.0 % 13.0 13.4 Platelet Count 150 - 400 k/uL 172 172 MPV 9.0 - 12.7 fL 10.9 10.8 Neut% % 65.4 Abs Neut (ANC) 1.45 - 7.50 k/uL 4.24 Lymph% % 22.0 Abs Lymph 1.00 - 4.00 k/uL 1.43 [place]% % 9.9 Abs [place] <0.87 k/uL 0.64 Eosin% % 1.8 Abs Eosin <0.46 k/uL 0.12 Baso% % 0.6 Abs Baso <0.11 k/uL 0.04 Immature Gran % % 0.3 IMMATURE GR (more content not included)... Normal [facility] Comprehensive metabolic 2000 panelon 03-25-2025 Albumin [Mass/Vol] 4.7 g/dL Normal 3.9-4.9 [place] Comment on above: Order Comment: Speci men Type: BLOOD SPECIMEN Ordering Facility: [facility] Address: [address] [place] [address] Performed By: #### 1 989-3 #### [facility] CLIA [id number] [address] [place] [address] [place] ALP [Catalytic activity/Vol] 93 U/L Normal 34-123 [facility] Comment on above: Order Comment: Speci men Type: BLOOD SPECIMEN Ordering Facility: [facility] Address: [address] [place] [address] Performed By: #### 1 989-3 #### [facility] CLIA [id number] [address] [address] [place] ALT [Catalytic activity/Vol] 21 U/L Normal 7-38 [facility] Comment on above: Order Comment: Speci men Type: BLOOD SPECIMEN Ordering Facility: [facility] Address: [address] [place] [address] Performed By: #### 1 989-3 #### [facility] CLIA [id number] [address] [address] [place] Anion gap [Moles/Vol] 13 mmol/L Normal 8-15 [facility] Comment on above: Order Comment: Speci men Type: BLOOD SPECIMEN Ordering Facility: [facility] Address: [address] [place] [address] Performed By: #### 1 989-3 #### [facility] CLIA [id number] [address] [address] [place] AST [Catalytic activity/Vol] 32 U/L Normal 13-35 [facility] Comment on above: Order Comment: Speci men Type: BLOOD SPECIMEN Ordering Facility: [facility] Address: [address] [place] [address] Performed By: #### 1 989-3 #### [facility] CLIA [id number] [address] [address] [place] Bilirubin [Mass/Vol] 0.2 mg/dL Normal 0.2-1.3 [facility] Comment on above: Order Comment: Speci men Type: BLOOD SPECIMEN Ordering Facility: [facility] Address: [address] [place] [address] Performed By: #### 1 989-3 #### [facility] CLIA [id number] [address] [address] [place] Calcium [Mass/Vol] 9.1 mg/dL Normal 8.5-10.2 [place] Comment on above: Order Comment: Speci men Type: BLOOD SPECIMEN Ordering Facility: [facility] Address: [address] [place] [address] Performed By: #### 1 989-3 #### [facility] CLIA [id number] [address] [address] [place] Chloride [Moles/Vol] 102 mmol/L Normal 98-107 [facility] Comment on above: Order Comment: Speci men Type: BLOOD SPECIMEN Ordering Facility: [facility] Address: [address] [place] [address] Performed By: #### 1 989-3 #### [facility] CLIA [id number] [address] [place], [place] [id number] [place] CO2 [Moles/Vol] 24 mmol/L Normal 22-30 [facility] Comment on above: Order Comment: Speci men Type: BLOOD SPECIMEN Ordering Facility: [facility] Address: [address] [place] [address] Performed By: #### 1 989-3 #### [facility] CLIA [id number] [address] [place], [place] [id number] [place] Creatinine [Mass/Vol] 0.87 mg/dL Normal 0.58-0.96 [facility] Comment on above: Order Comment: Speci men Type: BLOOD SPECIMEN Ordering Facility: [facility] Address: [address] [place] [address] Performed By: #### 1 989-3 #### [facility] CLIA [id number] [address] [address] [place] eGFRcr SerPlBld CKD-EPI 2020 72 mL/min/1.73m??? Normal >=60 [facility] Comment on above: Order Comment: Speci men Type: BLOOD SPECIMEN Ordering Facility: [facility] Address: [address] [place] [address] Result Comment: Margie mated Glomerular Filtration Rate (eGFR) is calculated using the 2020 CKD-EPI creatinine equation. This equation utilizes serum creatinine, sex, and age as parameters. The creatinine assay has traceable calibration to isotope dilution-mass spectrometry. Refer to KDIGO guidelines for clinical interpretation. In patients with unstable renal function, e.g. those with acute kidney injury, the eGFR may not accurately reflect actual GFR. Performed By: #### 1 989-3 #### [facility] CLIA [id number] [address] [place], [place] [id number] [place] Glucose [Mass/Vol] 87 mg/dL Normal 74-99 [place] Comment on above: Order Comment: Speci men Type: BLOOD SPECIMEN Ordering Facility: [facility] Address: [address] [place] [address] Result Comment: The [place] Diabetes [employer] (ADA) provides guidance for cutoff values for fasting glucose and random glucose. The ADA defines fasting as no caloric intake for at least 8 hours. Fasting plasma glucose results between 100 to 125 mg/dL indicate increased risk for diabetes (prediabetes). Fasting plasma glucose results greater than or equal to 126 mg/dL meet the criteria for diagnosis of diabetes. In the absence of unequivocal hyperglycemia, results should be confirmed by repeat testing. In a patient with classic symptoms of hyperglycemia or hyperglycemic crisis, random plasma glucose results greater than or equal to 200 mg/dL meet the criteria for diagnosis of diabetes. Reference: Standards of Medical Care in Diabetes 2016, [place] [employer] Association. Diabetes Care. 2016.39(Suppl 1). Performed By: #### 1 989-3 #### [facility] CLIA [id number] [address] [address] [place] Potassium [Moles/Vol] 4.4 mmol/L Normal 3.7-5.1 [facility] Comment on above: Order Comment: Speci men Type: BLOOD SPECIMEN Ordering Facility: [facility] Address: [address] [place] [address] Performed By: #### 1 989-3 #### [facility] CLIA [id number] [address] [address] [place] Protein [Mass/Vol] 6.6 g/dL Normal 6.3-8.0 [place] Comment on above: Order Comment: Speci men Type: BLOOD SPECIMEN Ordering Facility: [facility] Address: [address] [place] [address] Performed By: #### 1 989-3 #### [facility] CLIA [id number] [address] [address] [place] Sodium [Moles/Vol] 139 mmol/L Normal 136-144 [place] Comment on above: Order Comment: Speci men Type: BLOOD SPECIMEN Ordering Facility: [facility] Address: [address] [place] [address] Performed By: #### 1 989-3 #### [facility] CLIA [id number] [address] [address] [place] Urea nitrogen [Mass/Vol] 25 mg/dL High 7-21 [facility] Comment on above: Order Comment: Speci men Type: BLOOD SPECIMEN Ordering Facility: [facility] Address: [address] [place] [address] Performed By: #### 1 989-3 #### [facility] CLIA [id number] [address] [address] [place] LIPID PANEL, NONFASTINGon Cholesterol [Mass/Vol] 203 mg/dL High <200 [facility] Comment on above: Order Comment: Speci men Type: BLOOD SPECIMEN Ordering Facility: [facility] Address: [address] [place] [address] Result Comment: <200 mg/dL, Desirable 200-239 mg/dL, Borderline high >239 mg/dL, High Performed By: #### 1 989-3 #### [facility] CLIA [id number] [address] [address] [place] HDL CHOLESTEROL, NF 82 mg/dL Normal >39 [facility] Comment on above: Order Comment: Speci men Type: BLOOD SPECIMEN Ordering Facility: [facility] Address: [address] [place] [address] Result Comment: 40-5 9 mg/dL, Acceptable >59 mg/dL, High: Negative risk factor for coronary heart disease <40 mg/dL, Low: Positive risk factor for coronary heart disease Performed By: #### 1 989-3 #### [facility] CLIA [id number] [address] [address] [place] LDL CHOLESTEROL CALCULATED, NF 111 mg/dL High <100 [facility] Comment on above: Order Comment: Speci men Type: BLOOD SPECIMEN Ordering Facility: [facility] Address: [address] [place] [address] Result Comment: <100 mg/dL, Optimal 100-129 mg/dL, Near optimal/above optimal 130-159 mg/dL, Borderline high 160-189 mg/dL, High >189 mg/dL, Very high Secondary prevention optimal LDL Cholesterol levels are recommended to be <70 mg/dL LDL cholesterol is calculated using the Correia-NIH equation. Performed By: #### 1 989-3 #### [facility] CLIA [id number] [address] [place] [address] LDL/HDL RATIO, NF 1.35 mg/dL Normal <2.54 [facility] Comment on above: Order Comment: Omar velasco Type: BLOOD SPECIMEN Ordering Facility: [facility] Address: [address] [place] [address] Result Comment: Refe rence: 1. National Cholesterol Education Program ATP III Guideline At-A-Glance Quick Desk Reference: National Heart, Lung, and Blood [place]. National Institutes of Health. 2001: NIH Publication No. 01-3305. 2. An International Atherosclerosis Society position paper: global recommendations for the management of dyslipidemia: executive summary, Atherosclerosis. 2014: 232(2):410-413. Performed By: #### 1 989-3 #### [facility] CLIA [id number] [address] [place] [address] NON HDL CHOL, NF 121 mg/dL Normal <130 [facility] Comment on above: Order Comment: Omar velasco Type: BLOOD SPECIMEN Ordering Facility: [facility] Address: [address] [place] [address] Result Comment: <130 mg/dL, Optimal 130-159 mg/dL, Near optimal/above optimal 160-189 mg/dL, Borderline high 190-219 mg/dL, High >219 mg/dL, Very high Secondary prevention optimal non HDL Cholesterol levels are recommended to be <100 mg/dL Performed By: #### 1 989-3 #### [facility] CLIA [id number] [address] [place], [place] [address] [address] [place] T CHOL/HDL RATIO NF 2.48 mg/dL Normal <5.10 [facility] Comment on above: Order Comment: Speci men Type: BLOOD SPECIMEN Ordering Facility: [facility] Address: [address] [place] [address] Performed By: #### 1 989-3 #### [facility] CLIA [id number] [address] [address] [place] TRIGLYCERIDES, NF 54 mg/dL Normal <150 [facility] Comment on above: Order Comment: Speci men Type: BLOOD SPECIMEN Ordering Facility: [facility] Address: [address] [place] [address] Result Comment: <150 mg/dL, Normal 150-199 mg/dL, Borderline high 200-499 mg/dL, High >499 mg/dL, Very high Performed By: #### 1 989-3 #### [facility] CLIA [id number] [address] [address] [place] VLDL CHOLESTEROL, NF 9 mg/dL Normal <30 [facility] Comment on above: Order Comment: Speci men Type: BLOOD SPECIMEN Ordering Facility: [facility] Address: [address] [place] [address] Performed By: #### 1 989-3 #### [facility] CLIA [id number] [address] [address] [place] T4 Free SerPl-mCncon 025 Free T4 [Mass/Vol] 1.6 ng/dL Normal 0.9-1.7 [place] Comment on above: Order Comment: Speci men Type: BLOOD SPECIMEN Ordering Facility: [facility] Address: [address] [place] [address] Performed By: #### 1 989-3 #### [facility] CLIA [id number] [address] [address] [place] TSH SerPl-aCncon 03-25-2025 TSH Qn 1.050 m[IU]/L Normal 0.270-4.200 [facility] Comment on above: Order Comment: Speci men Type: BLOOD SPECIMEN Ordering Facility: [facility] Address: [address] [place] [address] Performed By: #### 1 989-3 #### [facility] CLIA [id number] [address] [place] [address] [place] [address] [place] MR Brain WO contraston 02-10 IMPRESSION: No acute brain findings. Mild chronic microvascular change. Otherwise general brain morphology and volume is within normal limits of age. Restaurant Maintenance Technician: PSCB Transcribe Date/Time: Feb 10 2025 1:43P Dictated by : KRISTIN SMITH MD This examination was interpreted and the report reviewed and electronically signed by: BENJAMIN SOMMER MD on Feb 10 2025 3:32PM [facility] DIVISION OF RADIOLOGY * * *Final Report* * * DATE OF EXAM: Feb 10 2025 1:14PM [facility] 0294 - MRI BRAIN WO IVCON / PROCEDURE REASON: Persistent headaches * * * * Physician Interpretation * * * * EXAMINATION: MRI BRAIN WO IVCON CLINICAL HISTORY: Persistent headaches, worsening. Concussion. TECHNIQUE: Routine noncontrast MRI protocol including diffusion images. MQ: MRBWO_2 COMPARISON: None. RESULT: Acute Change: There is no evidence of restricted diffusion to suggest an acute infarct. Hemorrhage: No evidence of prior parenchymal hemorrhage on the susceptibility weighted images. Mass Lesion/ Mass Effect: No evidence of an intracranial mass or extra-axial fluid collection. No significant mass effect. Chronic Change: Scattered punctate foci of increased T2 and FLAIR signal are noted in the supratentorial white matter which is a nonspecific finding, but likely represents mild chronic microvascular ischemia. Parenchyma: No significant volume loss for age. The brain parenchyma is otherwise within normal limits of morphology. Ventricles: Normal caliber and morphology. Skull Base: Hypothalamic and pituitary region are grossly normal. Craniocervical junction is normal. No significant marrow replacement process. Vasculature: Major intracranial arterial structures, and dural venous sinuses show typical flow void, suggesting patency by spin echo criteria. Other: The visualized paranasal sinuses and mastoid air cells are clear. The orbits and extracranial soft tissues are unremarkable. DIVISION OF RADIOLOGY Provider, Ccjose Mao [facility] - 02/10/2025 * * *Final Report* * * DATE OF EXAM: Feb 10 2025 1:14PM [facility] 0294 - MRI BRAIN WO IVCON / PROCEDURE REASON: Persistent headaches * * * * Physician Interpretation * * * * EXAMINATION: MRI BRAIN WO IVCON CLINICAL HISTORY: Persistent headaches, worsening. Concussion. TECHNIQUE: Routine noncontrast MRI protocol including diffusion images. MQ: MRBWO_2 COMPARISON: None. RESULT: Acute Change: There is no evidence of restricted diffusion to suggest an acute infarct. Hemorrhage: No evidence of prior parenchymal hemorrhage on the susceptibility weighted images. Mass Lesion/ Mass Effect: No evidence of an intracranial mass or extra-axial fluid collection. No significant mass effect. Chronic Change: Scattered punctate foci of increased T2 and FLAIR signal are noted in the supratentorial white matter which is a nonspecific finding, but likely represents mild chronic microvascular ischemia. Parenchyma: No significant volume loss for age. The brain parenchyma is otherwise within normal limits of morphology. Ventricles: Normal caliber and morphology. Skull Base: Hypothalamic and pituitary region are grossly normal. Craniocervical junction is normal. No significant marrow replacement process. Vasculature: Major intracranial arterial structures, and dural venous sinuses show typical flow void, suggesting patency by spin echo criteria. Other: The visualized paranasal sinuses and mastoid air cells are clear. The orbits and extracranial soft tissues are unremarkable. IMPRESSION IMPRESSION: No acute brain findings. Mild chronic microvascular change. Otherwise general brain morphology and volume is within normal limits of age. Restaurant Maintenance Technician: CARLEY Transcribe Date/Time: Feb 10 2025 1:43P Dictated by : KRISTIN SMITH MD This examination was interpreted and the report reviewed and electronically signed by: BENJAMIN SOMMER MD on Feb 10 2025 3:32PM EST [facility] Radiology Study observation (narrative) [facility] MR Brain WO contrastOrdered By: [facility] Provider on 02-10-2025 [facility] MRI BRAIN WO IVCONon 025 MRI BRAIN WO IVCON * * *Final Report* * * DATE OF EXAM: Feb 10 2025 1:14PM [facility] 0294 - MRI BRAIN WO IVCON / PROCEDURE REASON: Persistent headaches * * * * Physician Interpretation * * * * EXAMINATION: MRI BRAIN WO IVCON CLINICAL HISTORY: Persistent headaches, worsening. Concussion. TECHNIQUE: Routine noncontrast MRI protocol including diffusion images. MQ: MRBWO_2 COMPARISON: None. RESULT: Acute Change: There is no evidence of restricted diffusion to suggest an acute infarct. Hemorrhage: No evidence of prior parenchymal hemorrhage on the susceptibility weighted images. Mass Lesion/ Mass Effect: No evidence of an intracranial mass or extra-axial fluid collection. No significant mass effect. Chronic Change: Scattered punctate foci of increased T2 and FLAIR signal are noted in the supratentorial white matter which is a nonspecific finding, but likely represents mild chronic microvascular ischemia. Parenchyma: No significant volume loss for age. The brain parenchyma is otherwise within normal limits of morphology. Ventricles: Normal caliber and morphology. Skull Base: Hypothalamic and pituitary region are grossly normal. Craniocervical junction is normal. No significant marrow replacement process. Vasculature: Major intracranial arterial structures, and dural venous sinuses show typical flow void, suggesting patency by spin echo criteria. Other: The visualized paranasal sinuses and mastoid air cells are clear. The orbits and extracranial soft tissues are unremarkable. IMPRESSION: No acute brain findings. Mild chronic microvascular change. Otherwise general brain morphology and volume is within normal limits of age. Restaurant Maintenance Technician: PSCB Transcribe Date/Time: Feb 10 2025 1:43P Dictated by : KRISTIN SMITH MD This examination was interpreted and the report reviewed and electronically signed by: BENJAMIN SOMMER MD on Feb 10 2025 3:32PM EST [id number] Normal [facility] CNOVon 02-01-2025 CNOV Office Visit (NEMKEVIN ) YANET ARAYA ([id number]) 1955 F Date Time Provider Department 02/01/25 12:30 PM SHEILA DOMINIQUE During your visit today, we recorded the following information about you: Pulse Respiration Blood pressure Weight 86/minute 16/minute 99/66 59.6 kg Sheila Dominique PA-C 02/01/2025 1:23 PM Signed [facility] Name: Yanet Araya Age: [age] year old Gender: female Primary Care Provider: Octavio Ulloa MD Consult requested for concussion by Omar Guidry. Recommendations will be communicated via shared medical record or US mail. Chief Complaint:New Patient (Concussion w/o loss of consciousness, vertigo, KIARA(sees sleep), Hx of Migraine- since fall 12/27/24 having increased, has tingling in head and feeling off but not dizziness.) and Tremor (Not sure if related but tremors have been worse since fall) 02/01/2025 - General Neurology, Sheila Dominique PA-C ASSESSMENT ASSESSMENT/PLAN: 1. Persistent headaches - ICD9: 784.0, ICD10: R51.9 (primary diagnosis) 2. History of migraine - ICD9: V12.49, ICD10: Z86.69 3. Concussion without loss of consciousness, initial encounter - ICD9: 850.0, ICD10: S06.0X0A Patient with chronic migraines, sustained her first concussion on 12-29-24. Mechanism was a trip and fall, she fell face first onto the sidewalk sustaining an orbital floor fracture. No loss of consciousness. She did see ophtho and exam was normal. Went to the emergency department where CT of the face revealed a fracture but no CT of the head was obtained. Initially had worsening headaches, fatigue and concentration issues but now she only has persistent headaches. Prior to fall she was having about 2 migraines a month that were well aborted with frovatriptan but now she is having difficulty aborting the headaches and is having about 8-10 headaches a month since the fall. Does note recently that her frovatriptan did work on her last headache. Headaches are consistent with her migraines along with some occasional stabbing pain over the right eye. Due to persistent headaches in a patient above the age of 50 will order repeat MRI, her last MRI was while she was living in [place] about 23 years ago. Does have history of cervical MRI as well and this was normal in 2016. Additionally, due to the stabbing nature over the I will obtain CRP and ESR to ensure no signs of inflammation or GCA although my suspicion is very low. At this time she is taking Elavil 50 mg which has been a good preventative for her for a long time but is no longer controlling her headaches. Has tried other preventatives including Effexor and Topamax in the past, discussed gabapentin as she does have a tremor as well. Will start at 100 mg and titrate up to 3 times a day if needed and tolerated. Discussed common side effects patient is amenable. Discussed abortive use of frovatriptan or Advil, no more than 10 doses in a month. Patient agreeable to treatment plan of care at this time, questions were answered. Patient to follow-up in 6 to 8 weeks should her headaches persist. Sheila Dominique PA-C -photophobia: blue light filter on glasses, try shift foreman mode for blue light Encounter Diagnosis ICD-10-CM 1. Concussion without loss of consciousness, subsequent encounter S06.0X0D 2. History of migraine Z86.69 No follow-ups on file. Chart, labs,and relevant images reviewed. HPI: Seen on 12/29/24 after head injury. 1. Injury of head, initial encounter (S09.90XA) - Sustained head injury from a fall this morning; denies loss of consciousness. - Experiencing headache and feeling a little off. - Given patient's age, there is a concern for potential intracranial injury. - Referred to the emergency room for further evaluation and CT head. - Patient declined EMS transport, stating she has a friend to take her. Saw PCP on 01/05/25 for FU. Lena reports a fall on the , during which she tripped on a part of the sidewalk, landing on the left side of her face. She was initially seen at [facility] and then referred to the emergency room, where an orbital floor fracture was diagnosed. She expresses concern about a possible concussion, noting an increase in her usual headaches since the fall. Lena has taken Frova three times since the incident due to the severity of the headaches, which are described as involving tingling, numbness, pressure, and pain across the forehead, similar to her typical migraines. She usually manages her headaches with Advil, reserving Frova for more persistent episodes. She denies any neck pain, stiffness, or difficulty moving her neck. Lena also sustained a significant contusion on her hand, which was evaluated by a chiropractor who found no fractures. She reports no vision changes and was evaluated by an dish room worker who confirmed her eye (more content not included)... [facility] CRP [Mass/Vol] mg/L Normal <0.9 [facility] Comment on above: Order Comment: Omar velasco Type: BLOOD SPECIMENOrdering Facility: [facility] Address: [address] [place] [address] Performed By: #### 1 988-5, 2132-03 ####[facility] [id number] [place] [address] [place] ESR Westergren method (Bld) [Velocity]on 02-01-2025 ESR (Bld) [Velocity] 2 mm/h [facility] Interpretation and review of laboratory results Normal [facility] ESR (Bld) [Velocity] 2 mm/h Normal 0-20 [facility] Comment on above: Order Comment: Omar velasco Type: BLOOD SPECIMEN Ordering Facility: [facility] Address: [address] [place] [address] Performed By: #### 1 989-3 #### [facility] CLIA [id number] [address] [place] [address] [facility] Vit B12 [facility] 025 Cobalamin (Vitamin B12) [Mass/Vol] 1450 pg/mL High 232-1245 [facility] Comment on above: Order Comment: Omar velasco Type: BLOOD SPECIMENOrdering Facility: [facility] Address: [address] [place] [address] Performed By: #### 1 988-5, 2132-03 ####[facility] [id number] [address] [place] CNOVon 01-17-2025 CNOV Office Visit (INTMWS ) YANET ARAYA ([id number]) 1955 F Date Time Provider Department 01/17/25 11:20 AM OMAR GUIDRY During your visit today, we recorded the following information about you: Pulse Blood pressure Weight 84/minute 90/62 58.6 kg Omar Guidry APRN.CNP 01/17/2025 12:04 PM Signed SUBJECTIVE Yanet Araya is a 69 year old female here today for a check up on her medical problems. Chief Complaint Patient presents with: Headaches: continues after fall with occasional dizziness HPI Yanet Araya is a 69 year old female. She is an established patient of Octavio Ulloa MD. Here today for follow up. Seen on 01/05 following an ER visit after a fall on 12/29 which resulted in concussion and closed left orbital floor fracture. She has a history of migraines which were exacerbated from the fall. Sleep is okay, took 1 mg melatonin. Still getting intermittent headaches. Frova helps some and ibuprofen helps some. Gets a dull ache across the forehead. Some dizziness occasionally. Meclizine helpful. Her medications were reviewed today and her list is now up to date. Medications Current Outpatient Medications Medication Sig levothyroxine (SYNTHROID) 112 mcg tablet Take 1 tablet by mouth once daily. plus extra half pill once weekly or as directed (7.5 pills per week) frovatriptan (FROVA) 2.5 mg tablet Take 1 tablet by mouth as needed for migraine headache (see administration instructions). If headache recurs, may repeat after 2 hours. Max of 3 tablets in 24 hours. clonazePAM (KLONOPIN) 0.5 mg tablet Take 1 tablet by mouth two times a day as needed (for vertigo) for up to 30 days. latanoprost (XALATAN) 0.005 % ophthalmic solution Use 1 Drop in both eyes daily at bedtime. amitriptyline (ELAVIL) 50 mg tablet Take 1 tablet by mouth daily at bedtime. traMADol (ULTRAM) 50 mg tablet Take 1 tablet by mouth three times a day as needed for pain for up to 7 days. CPAP/BIPAP/OTHER APAP 5-15 cmH2O No current facility-administered medications for this visit. 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 Cardiovascular: Negative. Neurological: Positive for dizziness and headaches. Negative for tremors, seizures, syncope, facial asymmetry, speech difficulty, weakness, light-headedness and numbness. OBJECTIVE BP 90/62 Pulse 84 Wt 129 lb 3 oz (58.6kg) SpO2 98% Physical Exam Vitals and nursing note reviewed. Constitutional: General: She is awake. She is not in acute distress. Appearance: Normal appearance. She is well-developed and well-groomed. She is not ill-appearing, toxic-appearing or diaphoretic. HENT: Head: Normocephalic. Right Ear: External ear normal. Left Ear: External ear normal. Nose: Nose normal. Eyes: General: Vision grossly intact. Conjunctiva/sclera: Conjunctivae normal. Pupils: Pupils are equal, round, and reactive to light. Neck: Vascular: No JVD. Trachea: Trachea normal. Cardiovascular: Heart sounds: Normal heart sounds. Pulmonary: Effort: Pulmonary effort is normal. No accessory muscle usage, prolonged expiration or respiratory distress. Musculoskeletal: Cervical back: Neck supple. Skin: General: Skin is warm and dry. Capillary Refill: Capillary refill takes less than 2 seconds. Neurological: General: No focal deficit present. Mental Status: She is alert and oriented to person, place, and time. Mental status is at baseline. Cranial Nerves: Cranial nerves 2-12 are intact. Motor: Motor function is intact. Coordination: Coordination is intact. Psychiatric: Attention and Perception: Attention and perception normal. Mood and Affect: Mood and affect normal. Speech: Speech normal. Behavior: Behavior normal. Behavior is cooperative. Thought Content: Thought content normal. Cognition and Memory: Cognition and memory normal. Judgment: Judgment normal. ASSESSMENT/PLAN: 1. Closed fracture of left orbital floor with routine healing, subsequent encounter - ICD9: V54.19, ICD10: S02.32XD (primary diagnosis) Suspect she is getting pain secondary to her fracture which is still healing. Wade (more content not included)... Normal [facility] CNOVon 01-05-2025 CNOV Office Visit (INTMWS ) YANET ARAYA ([id number]) 1955 F Date Time Provider Department 01/05/25 3:20 PM OMAR GUIDRY INTDAE During your visit today, we recorded the following information about you: Pulse Blood pressure Weight 85/minute 110/78 58.7 kg Omar Guidry APRN.DRY CHAIN OFFBEARER 01/05/2025 4:01 PM Signed SUBJECTIVE Yanet Araya is a 69 year old female here today for an ER follow up. Chief Complaint Patient presents with: ER F/U: [facility] 12/29/24 from a fall with noted orbital floor fracture on x-ray. HPI Lena Araya is a 69-year-old female presenting for follow-up after a fall resulting in an orbital floor fracture. Lena reports a fall on the , during which she tripped on a part of the sidewalk, landing on the left side of her face. She was initially seen at [facility] and then referred to the emergency room, where an orbital floor fracture was diagnosed. She expresses concern about a possible concussion, noting an increase in her usual headaches since the fall. Lena has taken Frova three times since the incident due to the severity of the headaches, which are described as involving tingling, numbness, pressure, and pain across the forehead, similar to her typical migraines. She usually manages her headaches with Advil, reserving Frova for more persistent episodes. She denies any neck pain, stiffness, or difficulty moving her neck. Lena also sustained a significant contusion on her hand, which was evaluated by a chiropractor who found no fractures. She reports no vision changes and was evaluated by an dish room worker who confirmed her eye is fine. She experienced a significant nosebleed on the side of the fracture immediately after the fall, followed by swelling when she blew her nose. Lena has not been using her CPAP due to discomfort with the nasal interface and plans to resume it after trying a full mask upon returning from a trip to [facility] in 2 weeks. She notes that her headaches interfered with sleep last night, but not prior to that. Her medications were reviewed today and her list is now up to date. Medications Current Outpatient Medications Medication Sig latanoprost (XALATAN) 0.005 % ophthalmic solution Use 1 Drop in both eyes daily at bedtime. amitriptyline (ELAVIL) 50 mg tablet Take 1 tablet by mouth daily at bedtime. levothyroxine (SYNTHROID) 112 mcg tablet Take 1 tablet by mouth once daily. plus extra half pill once weekly or as directed (7.5 pills per week) frovatriptan (FROVA) 2.5 mg tablet Take 1 tablet by mouth as needed for migraine headache (see administration instructions). If headache recurs, may repeat after 2 hours. Max of 3 tablets in 24 hours. clonazePAM (KLONOPIN) 0.5 mg tablet Take 1 tablet by mouth two times a day as needed (for vertigo) for up to 30 days. predniSONE (DELTASONE) 10 mg tablet Take 2 tabs po BID for 2 days then 1 tab po BID for 2 days then 1/2 tab po BID for 2 days then 1/2 tab daily for 2 days then stop CPAP/BIPAP/OTHER APAP 5-15 cmH2O No current facility-administered medications for this visit. 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, Including Hip - 01/18/2008 PERS HX SKIN MALIGNANCY NEC: H/O BCC - 01/18/2008 H/O BCC RIGHT FOREHEADMALIG NEOPLASM SKIN FACE NEC - 07/03/2007 Viral Wart On Right Thumb - 06/08/2007 Other Seborrheic Keratosis - 06/08/2007 BLUE NEVUS WRIST///BENIGN CAROLYN SKIN ARM - 06/08/2007 Hypothyroidism - 02/24/2007 Headache - 02/24/2007 Mvp (Mitral Valve Prolapse) - 02/24/2007 Social History Tobacco Use Smoking status: Never Smokeless tobacco: Never Substance Use Topics Alcohol use: No Drug use: No Constitutional: (+) sleep disturbance Head: (+) headaches, (+) forehead pain Eyes: (-) vision changes Ears/Nose/Mouth/Throa t: (+) nasal congestion Neck: (-) neck pain, (-) neck stiffness, (-) limited neck range of motion Musculoskeletal: (+) left hand swelling Skin: (+) left hand bruising Neurological: (+) tingling, (+) numbness OBJECTIVE BP 110/78 Pulse 85 Wt 129 lb 6.6 oz (58.7kg) SpO2 100% Physical Exam Vitals and nursing note reviewed. Constitutional: General: She is awake. She is not in acute distress. Appearance: Normal appearance. She is well-developed and well-groomed. She is not ill-appearing, toxic-appearing or diaphoretic. HENT: Head: Normocephalic. Comments: Bruising to the left side of face with abrasion above the eye Right Ear: External ear normal. Left Ear: External ear normal. Nose: Nose normal. Eyes: General: Vision grossly intact. Conjunctiva/sclera: Conjunctivae normal. Pupils: Pupils are equal, round, and reactive to light. Neck: Vascular: No J (more content not included)... [facility] ([id number]) 1955 F Date Time Provider Department 01/04/25 OCTAVIO ULLOA During your visit today, we recorded the following information about you: Mira You RN 01/04/2025 1:49 PM Signed Patient calls and states that she took a bad fall last Friday. Patient was seen in ER for this fall and has an orbital fracture. Patient states that she has headaches that are kind of like the migraines that she has had previously. Patient asking if it is ok to take the frovatriptan? Please review and advise, JESICA Singh Terri, APRN.PACKAGE LINE RELIEF OPERATOR 01/06/2025 1:20 PM Signed Triptan medications are for migraines. If she is having a migraine she should be able to take the triptan medication unless she was advised otherwise in the ER. Was she provided with pain medication for her fracture in the ER? if so would recommend taking this if she is not currently. She can be seen in the office if not continuing to feel improved. Schedule if willing. Cony Levi LPN 01/06/2025 2:27 PM Signed Lena given below recommendation, verbalized understanding. Patient is not having an pain d/t fx, has not had to take any pain medication. Cony Levi LPN Allergies As of Date: 01/04/2025 (No Known Allergies) Date Reviewed: 12/22/2024 Reviewed by: Katy Davenport LPN - Fully Assessed Reason for Visit: Patient Question [2297] Prescriptions as of 01/06/2025 - levothyroxine (SYNTHROID) 112 mcg tablet Take 1 tablet by mouth once daily. plus extra half pill once weekly or as directed (7.5 pills per week) - frovatriptan (FROVA) 2.5 mg tablet Take 1 tablet by mouth as needed for migraine headache (see administration instructions). If headache recurs, may repeat after 2 hours. Max of 3 tablets in 24 hours. - clonazePAM (KLONOPIN) 0.5 mg tablet Take 1 tablet by mouth two times a day as needed (for vertigo) for up to 30 days. - predniSONE (DELTASONE) 10 mg tablet Take 2 tabs po BID for 2 days then 1 tab po BID for 2 days then 1/2 tab po BID for 2 days then 1/2 tab daily for 2 days then stop - CPAP/BIPAP/OTHER APAP 5-15 cmH2O - latanoprost (XALATAN) 0.005 % ophthalmic solution Use 1 Drop in both eyes daily at bedtime. - amitriptyline (ELAVIL) 50 mg tablet Take 1 tablet by mouth daily at bedtime. Problem List As Of Date 01/04/2025 Noted Resolved Hypothyroidism [E03.9] 02/24/2007 Headache [R51.9] 02/24/2007 MVP (mitral valve prolapse) [I34.1] 02/24/2007 Viral wart on right thumb [B07.9] 06/08/2007 Sebaceous cyst [L72.3] 06/08/2007 01/31/2014 SEBORRHEIC KERATOSIS NOS [L82.1] 06/08/2007 BLUE NEVUS WRIST///BENIGN CAROLYN SKIN ARM [D23.60] 06/08/2007 H/O BCC RIGHT FOREHEADMALIG NEOPLASM SKIN FACE *07/03/2007 BENIGN CAROLYN SKIN LEG [D23.70] 01/18/2008 PERS HX SKIN MALIGNANCY NEC: H/O BCC [Z85.828] 01/18/2008 Age-related osteoporosis without current pathol*04/16/2021 Tinnitus [H93.19] 07/14/2021 Diagnosed: 04/11/2023 Glaucoma [H40.9] 05/14/2022 Diagnosed: 04/11/2023 Deviated septum [J34.2] 04/27/2015 Diagnosed: 04/11/2023 Encounter Status:Closed by CONY LEVI on 01/06/25 [facility] ([id number]) 1955 F Date Time Provider Department 01/02/25 LETICIA CELAYA During your visit today, we recorded the following information about you: Leticia Celaya APRN.CNP 01/02/2025 8:02 PM Signed Do we have a ResMed AirFit F20 fit pack sample we can give her? Order for PAP supplies to [facility] please JAMEY Robertson Rebecca, APRN.CNP 01/03/2025 12:09 PM Signed We don't get fit pack samples of the F20. Please tell pt. I wrote order to send to [facility] for when she is eligible. JAMEY Robertson Gillian, OCCA 01/03/2025 2:52 PM Signed TC to patient who verbalized understanding of below. Patient states she is not currently using her Cpap and will not be until after she returns from a trip in February. Patient states this was discussed with provider. Order faxed to [facility] as requested. HALLE Goldberg Rebecca, APRN.CNP 01/03/2025 4:56 PM Signed Yes, thanks Leticia Celaya APRN.CNP Allergies As of Date: 01/02/2025 (No Known Allergies) Date Reviewed: 12/22/2024 Reviewed by: Katy Davenport LPN - Fully Assessed Primary Visit Diagnosis:KIARA on CPAP [G47.33] Order(s):PAP THERAPY ORDER [[id number]] Order #: [id number]: 1 Prescriptions as of 01/03/2025 - CPAP/BIPAP/OTHER APAP 5-15 cmH2O - frovatriptan (FROVA) 2.5 mg tablet Take 1 tablet (2.5 mg) by mouth as needed for migraine headache (see administration instructions). If headache recurs, may repeat after 2 hours. Max of 3 tablets in 24 hours. - latanoprost (XALATAN) 0.005 % ophthalmic solution Use 1 Drop in both eyes daily at bedtime. - levothyroxine (SYNTHROID) 112 mcg tablet Take 1 tablet by mouth once daily. plus extra half pill once weekly or as directed (7.5 pills per week) - amitriptyline (ELAVIL) 50 mg tablet Take 1 tablet by mouth daily at bedtime. - clonazePAM (KLONOPIN) 0.5 mg tablet Take 1 tablet by mouth twice daily as needed (for vertigo) for up to 30 days. Problem List As Of Date 01/02/2025 Noted Resolved Hypothyroidism [E03.9] 02/24/2007 Headache [R51.9] 02/24/2007 MVP (mitral valve prolapse) [I34.1] 02/24/2007 Viral wart on right thumb [B07.9] 06/08/2007 Sebaceous cyst [L72.3] 06/08/2007 01/31/2014 SEBORRHEIC KERATOSIS NOS [L82.1] 06/08/2007 BLUE NEVUS WRIST///BENIGN CAROLYN SKIN ARM [D23.60] 06/08/2007 H/O BCC RIGHT FOREHEADMALIG NEOPLASM SKIN FACE *07/03/2007 BENIGN CAROLYN SKIN LEG [D23.70] 01/18/2008 PERS HX SKIN MALIGNANCY NEC: H/O BCC [Z85.828] 01/18/2008 Age-related osteoporosis without current pathol*04/16/2021 Tinnitus [H93.19] 07/14/2021 Diagnosed: 04/11/2023 Glaucoma [H40.9] 05/14/2022 Diagnosed: 04/11/2023 Deviated septum [J34.2] 04/27/2015 Diagnosed: 04/11/2023 Encounter Status:Closed by DEEPTI SHAFFER on 01/03/25 [facility] CNOVon 12-29-2024 CNOV Office Visit (UCWSTR ) YANET ARAYA ([id number]) 1955 F Date Time Provider Department 12/29/24 10:15 AM JENA LR [facility] During your visit today, we recorded the following information about you: Jena Lr APRN.DRY CHAIN OFFBEARER 12/29/2024 10:15 AM Signed [facility] Subjective Yanet Araya is a 69 year old female. No chief complaint on file. HPI Fall with Head Trauma: - Fall occurred this morning, resulting in head trauma. - Laceration above the left eyebrow with dried blood noted. - Denies loss of consciousness. - Experiencing headache and feeling a little off. Review of Systems Constitutional: (+) malaise Head: (+) headache Skin: (+) left eyebrow laceration Neurological: (-) loss of consciousness Objective There were no vitals taken for this visit. Physical Exam General: No acute distress. HEENT: Laceration above left eyebrow with dried blood. {1. Injury of head, initial encounter (S09.90XA) - Sustained head injury from a fall this morning; denies loss of consciousness. - Experiencing headache and feeling a little off. - Given patient's age, there is a concern for potential intracranial injury. - Referred to the emergency room for further evaluation and CT head. - Patient declined EMS transport, stating she has a friend to take her. 2. Laceration of eyelid of left eye without foreign body, initial encounter (S01.112A) - Laceration noted above the left eyebrow with dried blood present. - Will be addressed in the emergency room. 3. Epistaxis (R04.0) 4. Treatment not available (Z53.8) and Recording using [employer] software for draft documentation of the visit was discussed with the patient/authorized sales representative marine supplies; all questions welcomed and answered. 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 supplies agreed to proceed MDM Procedures Allergies As of Date: 12/29/2024 (No Known Allergies) Date Reviewed: 12/22/2024 Reviewed by: Katy Davenport LPN - Fully Assessed Reason for Visit: Fall [218] Primary Visit Diagnosis:Injury of head, initial encounter [S09.90XA] Other Visit Diagnoses:Laceration of eyelid of left eye without foreign body, initial encounter [S01.112A] Epistaxis [R04.0] Treatment not available [Z53.8] Prescriptions as of 12/29/2024 - CPAP/BIPAP/OTHER APAP 5-15 cmH2O - frovatriptan (FROVA) 2.5 mg tablet Take 1 tablet (2.5 mg) by mouth as needed for migraine headache (see administration instructions). If headache recurs, may repeat after 2 hours. Max of 3 tablets in 24 hours. - latanoprost (XALATAN) 0.005 % ophthalmic solution Use 1 Drop in both eyes daily at bedtime. - levothyroxine (SYNTHROID) 112 mcg tablet Take 1 tablet by mouth once daily. plus extra half pill once weekly or as directed (7.5 pills per week) - amitriptyline (ELAVIL) 50 mg tablet Take 1 tablet by mouth daily at bedtime. - clonazePAM (KLONOPIN) 0.5 mg tablet Take 1 tablet by mouth twice daily as needed (for vertigo) for up to 30 days. Problem List As Of Date 12/29/2024 Noted Resolved Hypothyroidism [E03.9] 02/24/2007 Headache [R51.9] 02/24/2007 MVP (mitral valve prolapse) [I34.1] 02/24/2007 Viral wart on right thumb [B07.9] 06/08/2007 Sebaceous cyst [L72.3] 06/08/2007 01/31/2014 SEBORRHEIC KERATOSIS NOS [L82.1] 06/08/2007 BLUE NEVUS WRIST///BENIGN CAROLYN SKIN ARM [D23.60] 06/08/2007 H/O BCC RIGHT FOREHEADMALIG NEOPLASM SKIN FACE *07/03/2007 BENIGN CAROLYN SKIN LEG [D23.70] 01/18/2008 PERS HX SKIN MALIGNANCY NEC: H/O BCC [Z85.828] 01/18/2008 Age-related osteoporosis without current pathol*04/16/2021 Tinnitus [H93.19] 07/14/2021 Diagnosed: 04/11/2023 Glaucoma [H40.9] 05/14/2022 Diagnosed: 04/11/2023 Deviated septum [J34.2] 04/27/2015 Diagnosed: 04/11/2023 Encounter Status:Closed by JENA LR on 12/29/24 Normal [facility] Emergency Department Summary on 12-29-2024 Emergency Department Summary [facility] Medical Records Department [address] [place] [id number] Emergency Department Summary 12/29/24 MR#: [id number] Acct: [id number] Name: YANET ARAYA Rep #: [id number] : 1955 69 From: Elliott Moura DO PCP: Dr. Octavio Ulloa MD Status:DEP ER Location: ED HPI HPI - Fall History of Present Illness Chief Complaint: Fall Informant: patient Occured/Mechanism Mechanism/Context: Yes same level fall and Yes trip Usually ambulates: Without assistance Pain/Injury Location: Nose and left infraorbital area Pain Location: face Quality of Pain: - (Pressure) Worsened by: Blowing her nose Relieved by: Nothing Associated Symptoms Associated Symptoms: Negative for Parasthesias, Weakness, Loss of function, Inability to ambulate, Loss of consciousness or Amnesia Narrative Narrative: Patient presents after a fall that occurred today. Patient states she was walking on the sidewalk when she tripped. Patient states she fell forward. Patient states she hit her head and her glasses cut her left eyebrow. Patient denies any loss of consciousness. Patient is unsure of her last tetanus. Patient states she blew her nose and then noted some swelling over the left infraorbital area. Patient describes the pain as a pressure. Patient states nothing makes it better. Patient admits to some abrasions on her left hand and bilateral knees. Tetanus Immunization: Unknown [facility] Medical History (Updated 12/29/24 @ 13:[address] Elliott Moura, ) Hypothyroidism Home Medications ???Medication ???Instructions ???Recorded ???Last Taken ???Type amitriptyline 50 mg tablet 50 mg PO QHS 12/29/24 12/28/24 His tory amoxicillin 875 mg-potassium 875 mg PO Q12H #20 TABLETS 5 Unknown Rx clavulanate 125 mg tablet hydrocodone-acetamino phen 5-325mg 1 tab PO Q6H PRN PRN Pain 3 days 12/29/24 Unknown Rx 5mg-325mg #10 TABLETS latanoprost 0.005 % eye drops 1 drp ophthalmic (eye) QHS 5 12/28/24 History levothyroxine 112 mcg tablet 112 mcg PO DAILY 12/29/24 12/29/24 History Allergy/AdvReac Type Severity Reaction Status Date / Time No Known Allergies Allergy Verified 12/29/24 10:07 Surgical History no surgical history no surgical history Social History Smoking Status: Never smoker ROS ROS ED Constitutional Constitutional ED: Denies chills or fever(s) Eyes Eyes: Denies blurry vision or change in vision ENT ENT ED: Denies rhinorrhea or sore throat Cardiovascular Cardiovascular: Denies chest pain or palpitations Respiratory/Chest Respiratory/Chest: Denies cough or dyspnea Gastrointestinal Gastrointestinal: Denies nausea or vomiting Genitourinary Genitourinary ED: Denies dysuria or hematuria Musculoskeletal Musculoskeletal: Denies back pain or neck pain Integumentary Denies abscess or rash Neurologic Neurologic: Reports headache(s); Denies weakness Allergic/Immunologic Allergic/Immunologic ED: Denies mouth swelling or urticaria EXAM Physical Exam Const Vital Signs: 12/29/24 10:07 12/29/24 10:08 12/29/24 12:31 Temperature 97 F L Temperature Source Temporal Pulse Rate 81 68 Respiratory Rate 14 12 Respiratory Effort Normal Respiratory Depth Normal Respiratory Pattern Normal Blood Pressure 123/66 H 134/60 H Blood Pressure Mean 85 84 Pulse Ox 98 100 Oxygen Delivery Method Room Air Room Air Room Air Positive well nourished and well developed General Appearance ED: well developed and NAD HEENT HEENT Narrative: There is a 2.5 cm full-thickness linear laceration over the lateral aspect of the left eyebrow. There is mild gapping of the wound margins. There is minimal bleeding noted. There is also mild tenderness over the left infraorbital area. There is no bony crepitance or step-off noted. Eyes PERRL and EOMs intact bilaterally Neck full ROM Chest Wall palpation of chest normal Resp normal respiratory effort and clear to auscultation bilaterally Cardio regular rate and regular rhythm GI non-tender and non-distended Palpation: soft Neuro oriented x3, CN's II-XII intact bilaterally, moves all extremities, no focal motor deficits and no sensory deficits noted [place] Coma Scale: document GCS findings Spontaneous Obeys Commands Oriented 15 Sensorium / Orientation: alert Motor Exam: strength 5/5 throughout Psych mental status grossly normal and thought process normal Skin Skin Narrative: There are superficial abrasions over the left hand and anterior knees bilaterally. MDM MDM MDM Narrative Medical decision making narrative: Differential diagnosis includes facial fracture, contusion, closed head injury, and left eyebrow laceration. CT scan of the facial bones will be obtai (more content not included)... Normal [facility] Sinus/Facial Boneon 12-30-19 Sinus/Facial Bone [facility] Imaging Services [address] [place] [address] Sinus/Facial Bone MR#: [id number] Acct: [id number] Name: YANET ARAYA Rep #: [id number] : 1955 F 69 From: Kevin Castro DO PCP: Dr. Octavio Ulloa MD Status: [facility] ER Study: Sinus/Facial Bone Date of Exam: 12/29/24 Exam# [id number] Ordering Dr: Elliott Moura DO PROCEDURE: SINUS/FACIAL BONE REASON FOR EXAM: FALL Initial encounter. TECHNIQUE: SINUS/FACIAL BONE Coronal and Sagittal reconstruction series were provided. One or more dose reduction techniques were used (e.g., Automated exposure control, adjustment of the mA and/or kV according to patient size, use of iterative reconstruction technique). COMPARISON: None. FINDINGS: Frontal: Clear. Ethmoid: Mucosal thickening in left ethmoid air cells. Sphenoid: Thin band of mucosal thickening sphenoid sinus septum. Sphenoid sinuses predominantly clear otherwise. Maxillary: Left orbital floor defect allows a tiny bubble of air in the left retro septal fat. Anterolateral maxillary sinus wall; fracture of the maxillary bone with extensive subcutaneous air in the left zygomatic face anterior wall. Maxillary sinus shows minimally displaced fracture air-fluid level the left maxillary sinus. Turbinates: Boggy turbinates. Nasal Septum: Left convex nasal septum. Mastoids/Middle Ears: Clear. CT/Sinus/Facial Bone IMPRESSION: Trauma to the left face/cheek abundant subcutaneous air in the superficial soft tissues of the cheek. Moderate preseptal air in the left orbit. 2 or 3 tiny bubbles of air in the retro septal fat Reading Location: [facility] CC: Dr. Elliott Moura DO; Dr. Octavio Ulloa MD Restaurant Maintenance Technician: Signed [facility] CNOVon 12-22-2024 CNOV Office Visit (SLEWST ) YANET ARAYA ([id number]) 1955 F Date Time Provider Department 12/22/24 1:00 PM LETICIA CELAYA During your visit today, we recorded the following information about you: Pulse Respiration Blood pressure Weight 81/minute 16/minute 98/62 59.3 kg Leticia Celaya APRN.CNP 01/02/2025 8:02 PM Signed [facility] Follow up/ Established patient visit Recording using ambient [employer] software for draft documentation of the visit was discussed with the patient/authorized sales representative marine supplies; all questions welcomed and answered. 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 supplies agreed to proceed Assessment/Plan from last visit: Date of last visit : 10/21/2024 Kiara (obstructive sleep apnea) (primary encounter diagnosis) Excessive daytime sleepiness 1. KIARA (obstructive sleep apnea) (G47.33) Home sleep study revealed 102 apneas and 11 hypopneas, with an AHI of 14.2, indicating mild obstructive sleep apnea. Oxygen saturation dropped to 78% with 6.5 minutes at or below 88%. Patient has a crowded oropharynx with scalloping of the tongue, contributing to airway obstruction. Patient experiences excessive daytime sleepiness and morning headaches, likely related to KIARA. - Discussed treatment options, including CPAP therapy. - Prescribed auto CPAP with a pressure range of 5-15 cm H2O. - Patient prefers nasal mask; advised on potential use of chin strap or bandana to maintain nasal breathing. - Referred to [facility] for CPAP equipment and mask fitting. - Scheduled follow-up appointment in 31-90 days to assess compliance and effectiveness of CPAP therapy. 2. ESS 07/06. Will look for possible improvement with treatment of KIARA. Leticia Celaya APRN.CNP CURRENT VISIT: 12/22/2024 1. Concerns: - CPAP Mask Issues - Patient is a 69-year-old female presenting with concerns about her CPAP mask. - Reports that the nasal mask is uncomfortable, especially in warm weather. - Wakes up frequently with the CPAP, initially every hour, then up to four hours before taking it off. - Occasionally, if very tired and able to distract her mind, she can fall asleep with the mask on, but this has only happened two or three times. - Feels that sometimes the pressure gets too high, especially when air comes through her mouth. - Experiences mask leaks, which are irritating and can wake her up. - Has tried nasal pillows during a home sleep study and did not find them bothersome. - Snoring - Reports that snoring is not completely gone. - sometimes hears the machine fluttering or her breathing being 'fluttery'. - Sleepiness - Reports that her sleepiness has worsened, with her [place] Sleepiness Scale score increasing from 12 to 13. 2. Sleep history: - Overall goals of treatment: Improve sleep quality and reduce sleepiness. - Sleep habits: - Nighttime awakening number: Wakes up frequently with the CPAP, initially every hour, then up to four hours. - Use of PAP or prior treatments: - PAP experience: Finds the nasal mask uncomfortable, especially in warm weather. Wakes up frequently with the CPAP, initially every hour, then up to four hours before taking it off. Feels that sometimes the pressure gets too high, especially when air comes through her mouth. Experiences mask leaks, which are irritating and can wake her up. Has tried nasal pillows during a home sleep study and did not find them bothersome. - Current PAP usage: Yes - Types of masks tried: Nasal mask, Nasal pillows - Prior trial with oral appliance: No SLEEP APNEA Sleep apnea type : KIARA, Most Recent Apnea-Hypopnea Index (AHI): 14.2 on HSAT Treatment : PAP therapy DME: [employer] PAP History: Uses AutoPAP for 4.5 hours per night, 7 nights per week (except when she went out of town) Current PAP settin-15 cm H2O. Reviewed objective PAP compliance data: AHI 1.5, P95 12.3 cmH2O Mask type: nasal mask Mask issues: uncomfortable There is a perceived benefit by the patient: health benefits --------- PATIENT-ENTERED QUESTIONNAIRE SLEEP SCORES: 12/20/2024 Sleep Questions Reason for visit: Sleep apnea Average hours of CPAP per night: 4 Percent of nights CPAP used at least 4 hours: 70 Accidents or near accidents due to drowsy drivin 10/19/2024 12/20/2024 [place] Sleepiness Scale Score 12 (Excessive daytime sleepiness present) 13 (Excessive daytime sleepiness present) 10/19/2024 12/20/2024 PROMIS CAT Sleep Disturbance PROMIS Sleep Disturbance T-Score 52 (within normal limits) 56 (mild) PROMIS Sleep Disturbance Percentile 42 27 12/20/2024 Insomnia Severity Index Score 15 03/13/2024 10/19/2024 12/20/2024 PHQ-9 Score 2 2 4 03/13/2024 08/03/2024 12/20/2024 PROMIS Global Health - (T-Scores - the mean of (more content not included)... Normal [facility] CNOVon 10-21-2024 CNOV Office Visit (SLEWST ) YANET ARAYA ([id number]) 1955 F Date Time Provider Department 10/21/24 1:00 PM LETICIA CELAYA During your visit today, we recorded the following information about you: Pulse Blood pressure Weight 75/minute 108/62 59.5 kg Leticia Celaya APRN.CNP 10/24/2024 3:09 PM Addendum Addendum: Recording using ambient [employer] software for draft documentation of the visit was discussed with the patient/authorized sales representative marine supplies; all questions welcomed and answered. 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 supplies agreed to proceed Leticia Celaya APRN.CNP [facility] New Patient Evaluation PATIENT NAME: Yanet Araya DATE OF SERVICE: October 21, 2024 CONSULTING PROVIDER: Estephania Cates [address] [facility] [address] REASON FOR CONSULT: Estephania Cates sends the patient for an opinion about KIARA. My findings and recommendations will be transmitted electronically via shared medical record to the consulting provider. HPI: Yanet Araya is a 69 year old female. Sleep-related history: new diagnosis of at least mild KIARA wondered if KIARA 1. Concerns: - Snoring and Sleep Apnea - Patient is a 69-year-old female presenting with concerns of snoring and potential sleep apnea. - Patient's noticed that she sometimes stops breathing and then gasps for air during sleep. - Patient has been sleeping on her back for the past 9 years due to vertigo, which has exacerbated her snoring. - She has tried various remedies such as nasal inserts, chin straps, and bandanas, but none have been effective. - Patient underwent a home sleep study earlier this year, which recorded 102 apneas and 11 hypopneas, resulting in an AHI of 14.2, indicating at least mild sleep apnea. - Her lowest oxygen saturation during the study was 78%, with 6.5 minutes spent at or below 88%. - Sinus Issues and Nasal Congestion - Patient reports frequent sinus issues and nasal congestion. - She often uses Vicks and nasal sprays to alleviate congestion. - Patient has a deviated septum on the left side, which she believes contributes to her snoring and breathing difficulties. - Daytime Sleepiness and Napping - Patient experiences significant daytime sleepiness and often takes naps, even if just for 15 minutes. - She feels sleepy a lot during the day and believes this has become more prominent in the last 4-5 years. - Headaches - Patient experiences headaches, sometimes waking up with them, which she attributes to possible dehydration. - She drinks 3-4 glasses of water every morning to mitigate this. - Patient was diagnosed with vestibular migraine in [place] and takes amitriptyline for headache management, which she finds helpful. - She also has Fruva Triptan for intense headaches, which she uses sparingly due to cost. - Vertigo - Patient has a history of vertigo, which began with severe attacks and was diagnosed as vestibular migraine. - She takes clonazepam as needed for vertigo, which helps her sleep and alleviates symptoms. 2. Sleep history: - Overall goals of treatment: Reduce snoring, improve sleep quality, and alleviate daytime sleepiness. - Sleep habits: - Typical bedtime: 22:00 - Typical wake time: 06:30-07:00 - Time to fall asleep: Approximately 30 minutes - Nighttime awakening number: Wakes up once or twice to use the bathroom - Time to fall back asleep: Falls back asleep quickly - Nap schedule: Often takes short naps, even if just for 15 minutes - Prior trial with oral appliance: No - Nose Symptoms: - Laterality: Left - Medications tried for nasal symptoms: Nasal sprays 3. Sleep study: - Type: Home sleep study - Date: Earlier this year - Apnea-hypopnea index (AHI): 14.2 - Lowest oxygen saturation: 78% - T90 (Time with saturation <90%): 6.5 minutes at or below 88% Patient Questionnaires Sleep Scores 10/19/2024 Sleep Questions Reason for visit: Sleep apnea Difficulty falling or staying asleep or poor sleep quality On average, hours of sleep in 24 hours: 8 Accidents or near accidents due to drowsy drivin Multiple values from one day are sorted in reverse-chronological order 10/19/2024 [place] Sleepiness Scale Score 12 (Excessive daytime sleepiness present) 10/19/2024 PROMIS CAT Sleep Disturbance PROMIS Sleep Disturbance T-Score 52 (within normal limits) PROMIS Sleep Disturbance Percentile 42 10/19/2024 PHQ-9 Score 2 08/03/2024 PROMIS Global Health - (T-Scores - the mean of general population = 50. Five points is a clinically meaningful difference.) Physical T-Score 47.7 Mental T-Score 59 PAST TREATMENTS: None PRIOR SLEEP STUDIES: A Home Sleep Test (HST) performed on 08/10/24 revealed an AHI of 14.2; supine index of 14.3; and a minimum oxygen saturation of 78%. PAST MEDICAL HISTORY Diagnosis Date ACTINIC DAMAGE// (more content not included)... Normal [facility] POLYSOMNOGRAM (PSG)/HOME SLE EP APNEA TEST (HSAT)on 08-10-2024 POLYSOMNOGRAM (PSG)/HOME SLEEP APNEA TEST (HSAT) [facility] at [address], [address], [place] [id number] ; Home Sleep Apnea Test (HSAT) Study Report Name: YANET ARAYA Date of Study: 08/10/2024 [facility]#: [id number] Age: 69 (: 1955) ESS: Neck Circ. (cm): 32.0 Height (cm): 170.0 Weight (kg): 59.0 BMI: 20.4 Referring Provider: ESTEPHANIA CATES Mailcode: Sleep history: The patient is a 69 year old female with a history of fatigue, daytime napping, snoring, witnessed apneas, snorting, waking up with dry mouth/sore throat, and difficulty initiating sleep. The patient is here for assessment of obstructive sleep apnea. The patient endorses being a habitual supine sleeper. Pertinent medical history: Headaches, Hypothyroidism Medications: Levothyroxine, Amitriptyline, Latanoprost Sleep procedure: PSG unattended Type III, minimum of 4 parameters ([id number]) Procedure: This study was performed using a Type III ambulatory PSG device and was unattended. The patient was instructed on proper use of the device by a registered staff technologist. The monitored parameters included heart rate, oxygen saturation, continuous airflow with thermistor and nasal pressure transducer, snoring via nasal pressure transducer, chest and abdominal effort, and body position. DELROY definition: Respiratory event index (DELROY), calculated as respiratory events x 60 / TRT (total recording time in minutes). Note: the apnea hypopnea index has been replaced by the respiratory event index for home sleep apnea test. Since the home sleep apnea test does not measure sleep, the DELROY is most accurate index of respiratory events. The DELROY is a surrogate of the AHI per the AASM Manual for Scoring of Sleep and Associated Events version 3. Apnea definition: The peak signal excursions drop by >90% of pre-event baseline using an oronasal thermal sensor (diagnostic study), PAP device flow (titration study) or an alternative apnea sensor (diagnostic study). The duration of the >90% drop in signal excursion is >=10 seconds. Hypopnea definition: The peak signal excursions drop by >= 30% of pre-event baseline using nasal pressure (diagnostic study), PAP device flow (titration study) or an alternative hypopnea sensor (diagnostic study). The duration of the >= 30% drop in signal excursion is >=10 seconds. There is a greater than or equal to 4% oxygen desaturation from pre-event baseline. RESPIRATORY DATA: The study started at 22:15:19 and ended at 06:13:19 and the total recording time was 478 minutes. By convention, sleep is assumed for the whole recording. Snoring was noted. There was a total of 113 respiratory events. Of these events, the total number of apneas was 102 (95 obstructive, 0 mixed, and 7 central (6.2%)) and 11 hypopneas. The central apnea index (ITALO) was 0.9. The respiratory event index (DELROY) was 14.2 events per hour of study time. The mean oxygen saturation during the study was 95.0%, with a minimum oxygen saturation of 78.0%. The patient spent 8.4 minutes at oxygen saturation measured less than 90% (1.8% of recording time) and 6.5 minutes at oxygen saturation measured at or less than 88% (1.4% of recording time). Time DELROY/AHI Supine 475.5 min 14.3 Off-Supine 2.5 min 0.0 Total 478.0 min 14.2 ECG DATA: The average heart rate was 66 bpm with a range of 57 bpm to 102 bpm. ICSD DIAGNOSIS: Obstructive Sleep Apnea Syndrome [G47.33] IMPRESSION/RECOMMENDA TIONS: 1. This study confirms a diagnosis of at least mild obstructive sleep apnea. 2. The results of this study may represent an underestimation of the degree of obstructive sleep apnea, especially hypopneas, because of the known limitations of HSAT, such as inability to record arousals because EEG is not recorded. 3. Treatment of mild sleep apnea can include weight loss, positional therapy, treatment of allergies, oral appliance therapy or ENT evaluation of any airway abnormalities. PAP therapy may be considered in patients with documented symptoms of daytime sleepiness, impaired cognition, mood disorder, insomnia, or documented hypertension, ischemic heart disease, or history of stroke. INTERPRETING PHYSICIAN: Nick Barroso MD I attest that I have performed epoch by epoch review of the entire raw data. Report Digitally Signed By: NICK BARROSO (08/17/2024 8:47:36 AM) Normal [facility] CBC W Auto Differential pane l (Bld)on 08-03-2024 Basophils (Bld) [#/Vol] 0.04 10*3/uL [facility] Basophils/100 WBC (Bld) 0.6 % [facility] Differential cell count method Nom (Bld) Auto [facility] Eosinophils (Bld) [#/Vol] 0.12 10*3/uL [facility] Eosinophils/100 WBC (Bld) 1.8 % [facility] Erythrocyte distribution width (RBC) [Ratio] 13.4 % 11.5 - 15.0 % [facility] Hematocrit (Bld) [Volume fraction] 42.8 % 36.0 - 46.0 % [facility] Hemoglobin (Bld) [Mass/Vol] 13.7 g/dL 11.5 - 15.5 g/dL [facility] Immature granulocytes (Bld) [#/Vol] [facility] Immature granulocytes/100 WBC (Bld) 0.3 % [facility] Lymphocytes (Bld) [#/Vol] 1.43 10*3/uL [facility] Lymphocytes/100 WBC (Bld) 22.0 % [facility] MCH (RBC) [Entitic mass] 31.6 pg 26.0 - 34.0 pg [facility] MCHC (RBC) [Mass/Vol] 32.0 g/dL 30.5 - 36.0 g/dL [facility] MCV (RBC) [Entitic vol] 98.6 fL 80.0 - 100.0 fL [facility] Monocytes (Bld) [#/Vol] 0.64 10*3/uL [facility] Monocytes/100 WBC (Bld) 9.9 % [facility] Neutrophils (Bld) [#/Vol] 4.24 10*3/uL [facility] Neutrophils/100 WBC (Bld) 65.4 % [facility] Nucleated RBC (Bld) [#/Vol] [facility] Nucleated RBC/100 WBC (Bld) [Ratio] 0.0 % /100 WBC [facility] Platelet mean volume (Bld) [Entitic vol] 10.8 fL 9.0 - 12.7 fL [facility] Platelets (Bld) [#/Vol] 172 10*3/uL [facility] RBC (Bld) [#/Vol] 4.34 10*6/uL 3.90 - 5.2 0 m/uL [facility] WBC (Bld) [#/Vol] 6.49 10*3/uL [facility] Basophils (Bld) [#/Vol] 0.04 10*3/uL Normal <0.11 [facility] Comment on above: Order Comment: Speci men Type: BLOOD SPECIMENOrdering Facility: [facility] Address: [address] [place] [address] Performed By: #### 5 7021-8 ####[facility] LABCLIA [id number] [place] [address] [place] Basophils/100 WBC (Bld) 0.6 % Normal [facility] Comment on above: Order Comment: Speci men Type: BLOOD SPECIMENOrdering Facility: [facility] Address: [address] [place] [address] Performed By: #### 5 7021-8 ####[facility] LABCLIA [id number] [place] [address] [place] Differential cell count method Nom (Bld) Auto Normal [facility] Comment on above: Order Comment: Speci men Type: BLOOD SPECIMENOrdering Facility: [facility] Address: [address] [place] [address] Performed By: #### 5 7021-8 ####[facility] LABCLIA [id number] [place] [address] [place] Eosinophils (Bld) [#/Vol] 0.12 10*3/uL Normal <0.46 [facility] Comment on above: Order Comment: Speci men Type: BLOOD SPECIMENOrdering Facility: [facility] Address: [address] [place] [address] Performed By: #### 5 7021-8 ####[facility] LABCLIA [id number] [place] [address] [place] Eosinophils/100 WBC (Bld) 1.8 % Normal [facility] Comment on above: Order Comment: Speci men Type: BLOOD SPECIMENOrdering Facility: [facility] Address: [address] [place] [address] Performed By: #### 5 7021-8 ####[facility] LABIA [id number] [place] [address] [place] Erythrocyte distribution width (RBC) [Ratio] 13.4 % Normal 11.5-15.0 [facility] Comment on above: Order Comment: Speci men Type: BLOOD SPECIMENOrdering Facility: [facility] Address: [address] [place] [address] Performed By: #### 5 7021-8 ####[facility] LABIA [id number] [place] [address] [place] Hematocrit (Bld) [Volume fraction] 42.8 % Normal 36.0-46.0 [facility] Comment on above: Order Comment: Speci men Type: BLOOD SPECIMENOrdering Facility: [facility] Address: [address] [place] [address] Performed By: #### 5 7021-8 ####[facility] LABIA [id number] [place] [address] [place] Hemoglobin (Bld) [Mass/Vol] 13.7 g/dL Normal 11.5-15.5 [facility] Comment on above: Order Comment: Speci men Type: BLOOD SPECIMENOrdering Facility: [facility] Address: [address] [place] [address] Performed By: #### 5 7021-8 ####[facility] LABIA [id number] [place] [address] [place] Immature granulocytes (Bld) [#/Vol] 10*3/uL Normal <0.10 [facility] Comment on above: Order Comment: Speci men Type: BLOOD SPECIMENOrdering Facility: [facility] Address: [address] [place] [address] Performed By: #### 5 7021-8 ####[facility] LABCLIA [id number] [place] [address] [place] Immature granulocytes/100 WBC (Bld) 0.3 % Normal [facility] Comment on above: Order Comment: Speci men Type: BLOOD SPECIMENOrdering Facility: [facility] Address: [address] [place] [address] Performed By: #### 5 7021-8 ####[facility] LABCLIA [id number] [place] [address] [place] Lymphocytes (Bld) [#/Vol] 1.43 10*3/uL Normal 1.00-4.00 [facility] Comment on above: Order Comment: Speci men Type: BLOOD SPECIMENOrdering Facility: [facility] Address: [address] [place] [address] Performed By: #### 5 7021-8 ####[facility] LABIA [id number] [place] [address] [place] Lymphocytes/100 WBC (Bld) 22.0 % Normal [facility] Comment on above: Order Comment: Speci men Type: BLOOD SPECIMENOrdering Facility: [facility] Address: [address] [place] [address] Performed By: #### 5 7021-8 ####[facility] LABCLIA [id number] [place] [address] [place] MCH (RBC) [Entitic mass] 31.6 pg Normal 26.0-34.0 [facility] Comment on above: Order Comment: Speci men Type: BLOOD SPECIMENOrdering Facility: [facility] Address: [address] [place] [address] Performed By: #### 5 7021-8 ####[facility] LABCLIA [id number] [place] [address] [place] MCHC (RBC) [Mass/Vol] 32.0 g/dL Normal 30.5-36.0 [facility] Comment on above: Order Comment: Speci men Type: BLOOD SPECIMENOrdering Facility: [facility] Address: [address] [place] [address] Performed By: #### 5 7021-8 ####[facility] LABIA [id number] [place] [address] [place] MCV (RBC) [Entitic vol] 98.6 fL Normal 80.0-100.0 [facility] Comment on above: Order Comment: Speci men Type: BLOOD SPECIMENOrdering Facility: [facility] Address: [address] [place] [address] Performed By: #### 5 7021-8 ####[facility] LABIA [id number] [place] [address] [place] Monocytes (Bld) [#/Vol] 0.64 10*3/uL Normal <0.87 [facility] Comment on above: Order Comment: Speci men Type: BLOOD SPECIMENOrdering Facility: [facility] Address: [address] [place] [address] Performed By: #### 5 7021-8 ####[facility] LABCLIA [id number] [place] [address] [place] Monocytes/100 WBC (Bld) 9.9 % Normal [facility] Comment on above: Order Comment: Speci men Type: BLOOD SPECIMENOrdering Facility: [facility] Address: [address] [place] [address] Performed By: #### 5 7021-8 ####[facility] LABIA [id number] [place] [address] [place] Neutrophils (Bld) [#/Vol] 4.24 10*3/uL Normal 1.45-7.50 [facility] Comment on above: Order Comment: Speci men Type: BLOOD SPECIMENOrdering Facility: [facility] Address: [address] [place] [address] Performed By: #### 5 7021-8 ####[facility] LABCLIA [id number] [place] [address] [place] Neutrophils/100 WBC (Bld) 65.4 % Normal [facility] Comment on above: Order Comment: Speci men Type: BLOOD SPECIMENOrdering Facility: [facility] Address: [address] [place] [address] Performed By: #### 5 7021-8 ####[facility] LABCLIA [id number] [place] [address] [place] Nucleated RBC (Bld) [#/Vol] 10*3/uL Normal <0.01 [facility] Comment on above: Order Comment: Speci men Type: BLOOD SPECIMENOrdering Facility: [facility] Address: [address] [place] [address] Performed By: #### 5 7021-8 ####[facility] LABIA [id number] [place] [address] [place] Nucleated RBC/100 WBC (Bld) [Ratio] 0.0 /100 WBC Normal [facility] Comment on above: Order Comment: Speci men Type: BLOOD SPECIMENOrdering Facility: [facility] Address: [address] [place] [address] Performed By: #### 5 7021-8 ####[facility] LABCLIA [id number] [place] [address] [place] Platelet mean volume (Bld) [Entitic vol] 10.8 fL Normal 9.0-12.7 [facility] Comment on above: Order Comment: Speci men Type: BLOOD SPECIMENOrdering Facility: [facility] Address: [address] [place] [address] Performed By: #### 5 7021-8 ####[facility] LABCLIA [id number] [place] [address] [place] Platelets (Bld) [#/Vol] 172 10*3/uL Normal 150-400 [facility] Comment on above: Order Comment: Speci men Type: BLOOD SPECIMENOrdering Facility: [facility] Address: [address] [place] [address] Performed By: #### 5 7021-8 ####[facility] LABCLIA [id number] [place] [address] [place] RBC (Bld) [#/Vol] 4.34 10*6/uL Normal 3.90-5.20 [facility] Comment on above: Order Comment: Speci men Type: BLOOD SPECIMENOrdering Facility: [facility] Address: [address] [place] [address] Performed By: #### 5 7021-8 ####[facility] LABCLIA [id number] [place] [address] [place] WBC (Bld) [#/Vol] 6.49 10*3/uL Normal 3.70-11.00 [facility] Comment on above: Order Comment: Speci men Type: BLOOD SPECIMENOrdering Facility: [facility] Address: [address] [place] [address] Performed By: #### 5 7021-8 ####[facility] LABIA [id number] [place] [address] [place] CNOVon 08-03-2024 CNOV Office Visit (INTMWS ) YANET ARAYA ([id number]) 1955 F Date Time Provider Department 08/03/24 1:00 PM ESTEPHANIA CATES INTMWS During your visit today, we recorded the following information about you: Pulse Respiration Blood pressure Weight 89/minute 16/minute 113/69 59 kg Estephania Cates APRN.[employer] RELIEF OPERATOR 08/03/2024 1:50 PM Signed SUBJECTIVE: Advance Directive Discussion due on 07/14/2024 DTaP,Tdap,Td Vaccine(2 - Td or Tdap) due on 08/04/2024 HPI Yanet Araya is a 66 year old female. Her past medical history significant for hypothyroid, migraine headache MVP osteoporosis. Presents today reporting fatigue and weakness happening every few months for about 1 year. Notes less frequent occurrences for 10 to 20 years prior to that. She reports earlier this week that she cici from a meal and broke out in a sweat feeling hungry so she sat down and ate more food and felt last week and tired. She reports no recent illness, no fever. She reports sufficient fluid intake and routine meals. She reports no sick contacts. She reports typically sleeping 8 hours. States that she may snore and does not always feel rested when she wakes. She reports no chest pain shortness of breath palpitations edema. She reports no abdominal pain nausea vomiting diarrhea constipation BRBPR black or tarry stool. No change in functional capacity, able to walk flat surface unlimited, can take 2 flight of stairs without difficulty. She notes that blood pressures can run low at home. Notes that she often adds sodium to her diet. Notes blood pressures can range in the 90 systolic range. She notes typically when she has symptoms that if she eats she feels better. She notes family history of diabetes. . STOP BANG Questionnaire 1. Snoring Do you snore loudly (louder than talking or loud enough to be heard through closed doors)? NO 2. Tired Do you often feel tired, fatigued, or sleepy during daytime? Yes 3. Observed Has anyone observed you stop breathing during your sleep? Yes 4. Blood Pressure Do you have or are you being treated for high blood pressure? NO 5. BMI BMI more than 35 kg/m2? NO 6. Age Age over 50 yr old? YES 7. Neck circumference Neck circumference greater than 40 cm? NO 8. Gender Gender male? NO * Neck circumference is measured by staff High risk of KIARA: answering yes to three or more items Low risk of KIARA: answering yes to less than three items Last 14 Encounter BP Readings: Date: BP: 08/03/2024 113/69 03/17/2024 102/62 04/11/2023 90/60 04/02/2022 110/80 11/12/2021 116/74 04/16/2021 100/60 04/11/2020 108/70 01/21/2018 110/72 01/16/2018 102/68 01/12/2018 110/62 12/23/2016 100/49[alan bp- left arm - regular cuff - sitting[ 01/16/2016 106/64 10/20/2014 106/68 01/31/2014 114/66 Review of Systems Constitutional: Positive for fatigue. Respiratory: Negative. Cardiovascular: Negative. Endocrine: Negative. Neurological: Positive for weakness. Objective BP 113/69 (BP Site: Left Arm, BP Position: Standing, BP Cuff Size: Regular Adult) Pulse 89 Resp 16 Wt 59 kg (130 lb 1.1 oz) BMI 20.18 kg/m? Physical Exam Vitals and nursing note reviewed. Constitutional: Appearance: Normal appearance. She is normal weight. HENT: Head: Normocephalic and atraumatic. Eyes: Conjunctiva/sclera: Conjunctivae normal. Neck: Thyroid: No thyromegaly or thyroid tenderness. Vascular: Normal carotid pulses. No JVD. Cardiovascular: Rate and Rhythm: Normal rate and regular rhythm. Pulses: Carotid pulses are 2+ on the right side and 2+ on the left side. Radial pulses are 2+ on the right side and 2+ on the left side. Heart sounds: Normal heart sounds. Pulmonary: Effort: Pulmonary effort is normal. Breath sounds: Normal breath sounds. Abdominal: General: Bowel sounds are normal. Palpations: Abdomen is soft. Musculoskeletal: Right lower leg: No edema. Left lower leg: No edema. Neurological: General: No focal deficit present. Mental Status: She is alert and oriented to person, place, and time. ALLERGIES No Known Allergies Medications frovatriptan (FROVA) 2.5 mg tablet Take 1 tablet (2.5 mg) by mouth as needed for migraine headache (see administration instructions). If headache recurs, may repeat after 2 hours. Max of 3 tablets in 24 hours. latanoprost (XALATAN) 0.005 % ophthalmic solution Use 1 Drop in both eyes daily at bedtime. levothyroxine (SYNTHROID) 112 mcg tablet Take 1 tablet by mouth once daily. plus extra half pill once weekly or as directed (7.5 pills per week) amitriptyline (ELAVIL) 50 mg tablet Take 1 tablet by mouth daily at bedtime. clonazePAM (KLONOPIN) 0.5 mg tablet Take 1 tablet by mouth twice daily as needed (for vertigo) for up to 30 days. PAST MEDICAL HISTORY Diagnosis Date ACTINIC DAMAGE///CHR SOLAR SKIN DAMAGE NOS 06/08/2007 (more content not included)... Normal [facility] Comprehensive metabolic 2000 panelon 08-03-2024 Albumin [Mass/Vol] 4.8 g/dL Normal 3.9-4.9 [place] Comment on above: Order Comment: Speci men Type: BLOOD SPECIMEN [facility] Address: [address] [place] [address] Performed By: #### 1 989-3 #### [facility] CLIA [id number] [address] [address] [place] ALP [Catalytic activity/Vol] 101 U/L Normal 34-123 [facility] Comment on above: Order Comment: Speci men Type: BLOOD SPECIMEN [facility] Address: [address] [place] [address] Performed By: #### 1 989-3 #### [facility] CLIA [id number] [address] [address] [place] ALT [Catalytic activity/Vol] 23 U/L Normal 7-38 [facility] Comment on above: Order Comment: Speci men Type: BLOOD SPECIMEN [facility] Address: [address] [place] [address] Performed By: #### 1 989-3 #### [facility] CLIA [id number] [address] [address] [place] Anion gap [Moles/Vol] 10 mmol/L Normal 8-15 [facility] Comment on above: Order Comment: Speci men Type: BLOOD SPECIMEN [facility] Address: [address] [place] [id number] Performed By: #### 1 989-3 #### [facility] CLIA [id number] [address] [address] [place] AST [Catalytic activity/Vol] 29 U/L Normal 13-35 [facility] Comment on above: Order Comment: Speci men Type: BLOOD SPECIMEN [facility] Address: [address] [place] [address] Performed By: #### 1 989-3 #### [facility] CLIA [id number] [address] [address] [place] Bilirubin [Mass/Vol] mg/dL Low 0.2-1.3 [facility] Comment on above: Order Comment: Speci men Type: BLOOD SPECIMEN [facility] Address: [address] [place] [address] Performed By: #### 1 989-3 #### [facility] CLIA [id number] [address] [address] [place] Calcium [Mass/Vol] 9.5 mg/dL Normal 8.5-10.2 [place] Comment on above: Order Comment: Speci men Type: BLOOD SPECIMEN [facility] Address: [address] [place] [address] Performed By: #### 1 989-3 #### [facility] CLIA [id number] [address] [place], [place] [address] [place] Chloride [Moles/Vol] 101 mmol/L Normal 98-107 [facility] Comment on above: Order Comment: Speci men Type: BLOOD SPECIMEN [facility] Address: [address] [place] [address] Performed By: #### 1 989-3 #### [facility] CLIA [id number] [address] [place], [place] [address] [place] CO2 [Moles/Vol] 29 mmol/L Normal 22-30 [facility] Comment on above: Order Comment: Speci men Type: BLOOD SPECIMEN [facility] Address: [address] [place] [address] Performed By: #### 1 989-3 #### [facility] CLIA [id number] [address] [address] [place] Creatinine [Mass/Vol] 0.96 mg/dL Normal 0.58-0.96 [facility] Comment on above: Order Comment: Speci men Type: BLOOD SPECIMEN [facility] Address: [address] [place] [address] Performed By: #### 1 989-3 #### [facility] CLIA [id number] [address] [address] [place] [facility] Creatinine and Glomerular filtration rate.predicted panel (S/P/Bld) 64 mL/min/1.73m??? Normal >=60 [facility] Comment on above: Order Comment: Speci men Type: BLOOD SPECIMEN [facility] Address: [address] [place] [address] Result Comment: Margie mated Glomerular Filtration Rate (eGFR) is calculated using the 2020 CKD-EPI creatinine equation. This equation utilizes serum creatinine, sex, and age as parameters. The creatinine assay has traceable calibration to isotope dilution-mass spectrometry. Refer to KDIGO guidelines for clinical interpretation. In patients with unstable renal function, e.g. those with acute kidney injury, the eGFR may not accurately reflect actual GFR. Performed By: #### 1 989-3 #### [facility] CLIA [id number] [address] [address] [place] Glucose [Mass/Vol] 81 mg/dL Normal 74-99 [place] Comment on above: Order Comment: Speci men Type: BLOOD SPECIMEN [facility] Address: [address] [place] [address] Result Comment: The [place] [employer] (ADA) provides guidance for cutoff values for fasting glucose and random glucose. The ADA defines fasting as no caloric intake for at least 8 hours. Fasting plasma glucose results between 100 to 125 mg/dL indicate increased risk for diabetes (prediabetes). Fasting plasma glucose results greater than or equal to 126 mg/dL meet the criteria for diagnosis of diabetes. In the absence of unequivocal hyperglycemia, results should be confirmed by repeat testing. In a patient with classic symptoms of hyperglycemia or hyperglycemic crisis, random plasma glucose results greater than or equal to 200 mg/dL meet the criteria for diagnosis of diabetes. Reference: Standards of Medical Care in Diabetes 2016, [place] [employer]. Diabetes Care. 2016.39(Suppl 1). Performed By: #### 1 989-3 #### [facility] CLIA [id number] [address] [address] [place] Potassium [Moles/Vol] 4.6 mmol/L Normal 3.7-5.1 [facility] Comment on above: Order Comment: Speci men Type: BLOOD SPECIMEN [facility] Address: [address] [place] [address] Performed By: #### 1 989-3 #### [facility] CLIA [id number] [address] [address] [place] Protein [Mass/Vol] 6.7 g/dL Normal 6.3-8.0 [place] Comment on above: Order Comment: Speci men Type: BLOOD SPECIMEN [facility] Address: [address] [place] [address] Performed By: #### 1 989-3 #### [facility] CLIA [id number] [address] [address] [place] Sodium [Moles/Vol] 140 mmol/L Normal 136-144 [place] Comment on above: Order Comment: Speci men Type: BLOOD SPECIMEN [facility] Address: [address] [place] [address] Performed By: #### 1 989-3 #### [facility] CLIA [id number] [address] [address] [place] Urea nitrogen [Mass/Vol] 23 mg/dL High - [facility] Comment on above: Order Comment: Speci men Type: BLOOD SPECIMEN [facility] Address: [address] [place] [address] Performed By: #### 1 989-3 #### [facility] CLIA [id number] [address] [address] [place] HbA1c (Bld)on 08-03-2024 Average glucose Estimated from glycated hemoglobin (Bld) [Mass/Vol] 100 mg/dL Normal [facility] Comment on above: Order Comment: Speci men Type: BLOOD SPECIMEN [facility] Address: [address] [place] [address] Result Comment: eAG: (Estimated average glucose) is a calculated value from HgbA1c and is sales representative [employer] of the average blood glucose level in the last 2-3 month period. Performed By: #### 1 989-3 #### [facility] CLIA [id number] [address] [address] [place] HbA1c (Bld) [Mass fraction] 5.1 % Normal 4.3-5.6 [facility] Comment on above: Order Comment: Miriami krista Type: BLOOD SPECIMEN Ordering Facility: [facility] Address: [address] [place] [address] Result Comment: [place] Diabetes Association guidelines indicate that patients with HgbA1c in the range 5.7-6.4% are at increased risk for development of diabetes, and intervention by lifestyle modification may be beneficial. HgbA1c greater or equal to 6.5% is considered diagnostic of diabetes. Performed By: #### 1 989-3 #### [facility] CLIA [id number] [address] [place] [address] [place] TSH W/REFLEX FT4on 5 TSH Qn 2.330 m[IU]/L Normal 0.270-4.200 [facility] Comment on above: Order Comment: Speci men Type: BLOOD SPECIMEN Ordering Facility: [facility] Address: [address] [place] [address] Performed By: #### 1 989-3 #### [facility] CLIA [id number] [address] [place] [address] [place] [address] [place] FECAL IMMUNOCHEMICAL TEST (F IT)on 05-05-2024 Occult Blood, Stool Negative [facility] 25-hydroxyvitamin D3 [Mass/V ol]on 03-18-2024 Interpretation and review of laboratory results Normal [facility] Comprehensive metabolic 2000 panelon 03-18-2024 Albumin [Mass/Vol] 4.5 g/dL 3.9 - 4.9 g/dL [facility] ALP [Catalytic activity/Vol] 87 U/L 34 - 123 U/L [facility] ALT [Catalytic activity/Vol] 21 U/L 7 - 38 U/L [facility] Anion gap [Moles/Vol] 12 mmol/L 8 - 15 mmol/L [facility] AST [Catalytic activity/Vol] 29 U/L 13 - 35 U/L [facility] Bilirubin [Mass/Vol] mg/dL Low 0.2 - 1 .3 mg/dL [facility] Calcium [Mass/Vol] 9.2 mg/dL 8.5 - 10. 2 mg/dL [facility] Chloride [Moles/Vol] 102 mmol/L 98 - 10 7 mmol/L [facility] CO2 [Moles/Vol] 25 mmol/L 22 - 30 mmol/L [facility] Creatinine [Mass/Vol] 0.83 mg/dL 0.58 - 0.96 mg/dL [facility] GFR/1.73 sq M.predicted among non-blacks MDRD (S/P/Bld) [Vol rate/Area] 76 mL/min/{1.73_m2} - PINF [facility] Comment on above: Estimated Glomerular Filtration Rate (eGFR) is calculated using the 2020 CKD-EPI creatinine equation. This equation utilizes serum creatinine, sex, and age as parameters. The creatinine assay has traceable calibration to isotope dilution-mass spectrometry. Refer to KDIGO guidelines for clinical interpretation. In patients with unstable renal function, e.g. those with acute kidney injury, the eGFR may not accurately reflect actual GFR. Glucose [Mass/Vol] 99 mg/dL 74 - 99 mg/dL [facility] Comment on above: The [place] Diab[employer] s Association (ADA) provides guidance for cutoff values for fasting glucose and random glucose. The ADA defines fasting as no caloric intake for at least 8 hours. Fasting plasma glucose results between 100 to 125 mg/dL indicate increased risk for diabetes (prediabetes). Fasting plasma glucose results greater than or equal to 126 mg/dL meet the criteria for diagnosis of diabetes. In the absence of unequivocal hyperglycemia, results should be confirmed by repeat testing. In a patient with classic symptoms of hyperglycemia or hyperglycemic crisis, random plasma glucose results greater than or equal to 200 mg/dL meet the criteria for diagnosis of diabetes. Reference: Standards of Medical Care in Diabetes 2016, [place] Diabetes Association. Diabetes Care. 2016.39(Suppl 1). Interpretation and review of laboratory results Abnormal [facility] Potassium [Moles/Vol] 4.4 mmol/L 3.7 - 5.1 mmol/L [facility] Protein [Mass/Vol] 6.7 g/dL 6.3 - 8.0 g/dL [facility] Sodium [Moles/Vol] 139 mmol/L 136 - 144 mmol/L [facility] Urea nitrogen [Mass/Vol] 24 mg/dL High 7 - 21 mg/dL [facility] No Panel Informationon 03-18 Interpretation and review of laboratory results Normal [facility] T4 FREE/FREE THYROXINEon Free T4 [Mass/Vol] 1.5 ng/dL 0.9 - 1.7 ng/dL [facility] THYROID STIMULATING HORMONEo n 03-18-2024 TSH Qn 1.500 m[IU]/L [facility] VITAMIN D 25 HYDROXYon 03-18 25-hydroxyvitamin D3 [Mass/Vol] 62.0 ng/mL 31.0 - 80.0 ng/mL [facility] CBC panel Auto (Bld)on 03-17 Erythrocyte distribution width (RBC) [Ratio] 13.0 % 11.5 - 15.0 % [facility] Hematocrit (Bld) [Volume fraction] 42.4 % 36.0 - 46.0 % [facility] Hemoglobin (Bld) [Mass/Vol] 13.9 g/dL 11.5 - 15.5 g/dL [facility] Interpretation and review of laboratory results Normal [facility] MCH (RBC) [Entitic mass] 32.7 pg 26.0 - 34.0 pg [facility] MCHC (RBC) [Mass/Vol] 32.8 g/dL 30.5 - 36.0 g/dL [facility] MCV (RBC) [Entitic vol] 99.8 fL 80.0 - 100.0 fL [facility] Nucleated RBC (Bld) [#/Vol] NINF [facility] Platelet mean volume (Bld) [Entitic vol] 10.9 fL 9.0 - 12.7 fL [facility] Platelets (Bld) [#/Vol] 172 10*3/uL [facility] RBC (Bld) [#/Vol] 4.25 10*6/uL 3.90 - 5.2 0 m/uL [facility] WBC (Bld) [#/Vol] 5.48 10*3/uL [facility] CBC W Auto Differential pane l (Bld)on 04-11-2023 Basophils (Bld) [#/Vol] 0.04 10*3/uL <0.11 k/uL [facility] Basophils/100 WBC (Bld) 0.6 % [facility] Differential cell count method Nom (Bld) Auto [facility] Eosinophils (Bld) [#/Vol] 0.08 10*3/uL <0.46 k/uL [facility] Eosinophils/100 WBC (Bld) 1.3 % [facility] Erythrocyte distribution width (RBC) [Ratio] 13.0 % 11.5 - 15.0 % [facility] Hematocrit (Bld) [Volume fraction] 44.3 % 36.0 - 46.0 % [facility] Hemoglobin (Bld) [Mass/Vol] 14.7 g/dL 11.5 - 15.5 g/dL [facility] Immature granulocytes (Bld) [#/Vol] <0.10 k/uL [facility] Immature granulocytes/100 WBC (Bld) 0.3 % [facility] Lymphocytes (Bld) [#/Vol] 1.27 10*3/uL 1.00 - 4.00 k/uL [facility] Lymphocytes/100 WBC (Bld) 20.6 % [facility] MCH (RBC) [Entitic mass] 32.7 pg 26.0 - 34.0 pg [facility] MCHC (RBC) [Mass/Vol] 33.2 g/dL 30.5 - 36.0 g/dL [facility] MCV (RBC) [Entitic vol] 98.4 fL 80.0 - 100.0 fL [facility] Monocytes (Bld) [#/Vol] 0.54 10*3/uL <0.87 k/uL [facility] Monocytes/100 WBC (Bld) 8.7 % [facility] Neutrophils (Bld) [#/Vol] 4.23 10*3/uL 1.45 - 7.50 k/uL [facility] Neutrophils/100 WBC (Bld) 68.5 % [facility] Nucleated RBC (Bld) [#/Vol] <0.01 k/uL [facility] Nucleated RBC/100 WBC (Bld) [Ratio] 0.0 /100 WBC [facility] Platelet mean volume (Bld) [Entitic vol] 10.4 fL 9.0 - 12.7 fL [facility] Platelets (Bld) [#/Vol] 168 10*3/uL 150 - 400 k/uL [facility] RBC (Bld) [#/Vol] 4.50 10*6/uL 3.90 - 5.2 0 m/uL [facility] WBC (Bld) [#/Vol] 6.18 10*3/uL 3.70 - 11. 00 k/uL [facility] Comprehensive metabolic 2000 panelon 04-11-2023 Albumin [Mass/Vol] 4.7 g/dL 3.9 - 4.9 g/dL [facility] ALP [Catalytic activity/Vol] 85 U/L 34 - 123 U/L [facility] ALT [Catalytic activity/Vol] 19 U/L 7 - 38 U/L [facility] Anion gap [Moles/Vol] 12 mmol/L 9 - 18 mmol/L [facility] AST [Catalytic activity/Vol] 30 U/L 13 - 35 U/L [facility] Bilirubin [Mass/Vol] 0.4 mg/dL 0.2 - 1 .3 mg/dL [facility] Calcium [Mass/Vol] 9.7 mg/dL 8.5 - 10. 2 mg/dL [facility] Chloride [Moles/Vol] 99 mmol/L 97 - 10 5 mmol/L [facility] CO2 [Moles/Vol] 27 mmol/L 22 - 30 mmol/L [facility] Creatinine [Mass/Vol] 0.88 mg/dL 0.58 - 0.96 mg/dL [facility] Estimated Glomerular Filtration Rate 72 mL/min/1.73m >=60 mL/min/1.73m [facility] Glucose [Mass/Vol] 80 mg/dL 74 - 99 mg/dL [facility] Potassium [Moles/Vol] 4.8 mmol/L 3.7 - 5.1 mmol/L [facility] Protein [Mass/Vol] 7.1 g/dL 6.3 - 8.0 g/dL [facility] Sodium [Moles/Vol] 138 mmol/L 136 - 144 mmol/L [facility] Urea nitrogen [Mass/Vol] 18 mg/dL 7 - 21 mg/dL [facility] TSH BLDon 04-11-2023 TSH Qn 1.890 m[IU]/L 0.270 - 4.200 mIU/L [facility] LATRICE SCREENINGon 02-25-2023 [facility] LATRICE SCREENINGon 11-14-2021 [facility] CBC panel Auto (Bld)on 11-13 Erythrocyte distribution width (RBC) [Ratio] 12.8 % 11.5 - 15.0 % [facility] Hematocrit (Bld) [Volume fraction] 44.1 % 36.0 - 46.0 % [facility] Hemoglobin (Bld) [Mass/Vol] 14.3 g/dL 11.5 - 15.5 g/dL [facility] MCH (RBC) [Entitic mass] 32.1 pg 26.0 - 34.0 pg [facility] MCHC (RBC) [Mass/Vol] 32.4 g/dL 30.5 - 36.0 g/dL [facility] MCV (RBC) [Entitic vol] 98.9 fL 80.0 - 100.0 fL [facility] Nucleated RBC (Bld) [#/Vol] 10*3/uL <0.01 k/uL [facility] Platelet mean volume (Bld) [Entitic vol] 10.3 fL 9.0 - 12.7 fL [facility] Platelets (Bld) [#/Vol] 161 10*3/uL 150 - 400 k/uL [facility] RBC (Bld) [#/Vol] 4.46 10*6/uL 3.90 - 5.2 0 m/uL [facility] WBC (Bld) [#/Vol] 5.11 10*3/uL 3.70 - 11. 00 k/uL [facility] Comprehensive metabolic 2000 panelon 11-13-2021 Albumin [Mass/Vol] 4.6 g/dL 3.9 - 4.9 g/dL [facility] ALP [Catalytic activity/Vol] 94 U/L 34 - 123 U/L [facility] ALT [Catalytic activity/Vol] 20 U/L 7 - 38 U/L [facility] Anion gap [Moles/Vol] 8 mmol/L Low 9 - 18 mmol/L [facility] AST [Catalytic activity/Vol] 30 U/L 13 - 35 U/L [facility] Bilirubin [Mass/Vol] 0.3 mg/dL 0.2 - 1 .3 mg/dL [facility] Calcium [Mass/Vol] 9.3 mg/dL 8.5 - 10. 2 mg/dL [facility] Chloride [Moles/Vol] 100 mmol/L 97 - 10 5 mmol/L [facility] CO2 [Moles/Vol] 31 mmol/L High 22 - 30 mmol/L [facility] Creatinine [Mass/Vol] 0.83 mg/dL 0.58 - 0.96 mg/dL [facility] Estimated Glomerular Filtration Rate 77 mL/min/1.73m >=60 mL/min/1.73m [facility] Glucose [Mass/Vol] 55 mg/dL Low 74 - 99 mg/dL [facility] Potassium [Moles/Vol] 4.0 mmol/L 3.7 - 5.1 mmol/L [facility] Protein [Mass/Vol] 6.8 g/dL 6.3 - 8.0 g/dL [facility] Sodium [Moles/Vol] 139 mmol/L 136 - 144 mmol/L [facility] Urea nitrogen [Mass/Vol] 16 mg/dL 7 - 21 mg/dL [facility] T3 FREE BLDon 11-13-2021 Free T3 [Mass/Vol] 2.4 pg/mL 2.3 - 4.1 pg/mL [facility] T4 FREE/FREE THYROXon 2021 Free T4 [Mass/Vol] 1.6 ng/dL 0.9 - 1.7 ng/dL [facility] TSH BLDon 11-13-2021 TSH Qn 3.690 m[IU]/L 0.270 - 4.200 mIU/L [facility] VITAMIN D 25 HYDROXYon 11-13 25-hydroxyvitamin D3 [Mass/Vol] 58.1 ng/mL 31.0 - 80.0 ng/mL [facility] Vital Signs Date Time Vital Sign Value Performing Clinician Faci lity 03-25-2025 13:32-0400 Body height 170.2 cm Octavio Ulloa MD Work Phone: [facility] 03-25-2025 13:32-0400 Body mass index (BMI) [Ratio] 20.75 kg/m2 Octavio Ulloa MD Work Phone: [facility] 03-25-2025 13:32-0400 Body temperature 98.2 [degF] Octavio Ulloa MD Work Phone: [facility] 03-25-2025 13:32-0400 Body weight 60.1 kg Octavio Ulloa MD Work Phone: [facility] 03-25-2025 13:32-0400 Diastolic blood pressure 64 mm[Hg] Octavio Ulloa MD Work Phone: [facility] 03-25-2025 13:32-0400 Heart rate 82 /min Octavio Ulloa MD Work Phone: [facility] 03-25-2025 13:32-0400 Respiratory rate 12 /min Octavio Ulloa MD Work Phone: [facility] 03-25-2025 13:32-0400 SaO2% (BldA) [Mass fraction] 100 % Octavio Ulloa MD Work Phone: [facility] 03-25-2025 13:32-0400 Systolic blood pressure 116 mm[Hg] Octavio Ulloa MD Work Phone: [facility] 02-01-2025 12:26-0400 Body mass index (BMI) [Ratio] 20.38 kg/m2 Sheila Queener PA-C Work Phone: [facility] 02-01-2025 12:26-0400 Body weight 59.6 kg Sheila Bradleyer PA-C Work Phone: [facility] 02-01-2025 12:26-0400 Diastolic blood pressure 66 mm[Hg] Sheila Bradleyer PA-C Work Phone: [facility] 02-01-2025 12:26-0400 Heart rate 86 /min Sheila Bradleyer PA-C Work Phone: [facility] 02-01-2025 12:26-0400 Respiratory rate 16 /min Sheila Bradleyer PA-C Work Phone: [facility] 02-01-2025 12:26-0400 SaO2% (BldA) [Mass fraction] 100 % Sheila Bradleyer PA-C Work Phone: [facility] 02-01-2025 12:26-0400 Systolic blood pressure 99 mm[Hg] Sheila Bradleyer PA-C Work Phone: [facility] 01-17-2025 11:15-0400 Body mass index (BMI) [Ratio] 20.04 kg/m2 Omar Chao [employer] Work Phone: [facility] 01-17-2025 11:15-0400 Body weight 58.6 kg Omar Chao [employer] Work Phone: [facility] 01-17-2025 11:15-0400 Diastolic blood pressure 62 mm[Hg] Omar Chao [employer] Work Phone: [facility] 01-17-2025 11:15-0400 Heart rate 84 /min Omar Chao [employer] Work Phone: [facility] 01-17-2025 11:15-0400 SaO2% (BldA) [Mass fraction] 98 % Omar Chao [employer] OFF[employer]ER Work Phone: [facility] 01-17-2025 11:15-0400 Systolic blood pressure 90 mm[Hg] Omar Chao [employer] OFF[employer] Work Phone: [facility] 01-05-2025 15:21-0400 Body mass index (BMI) [Ratio] 20.07 kg/m2 Omar Chao [employer] Work Phone: [facility] 01-05-2025 15:21-0400 Body weight 58.7 kg Omar Chao [employer] Work Phone: [facility] 01-05-2025 15:21-0400 Diastolic blood pressure 78 mm[Hg] Omar Chao [employer] Work Phone: [facility] 01-05-2025 15:21-0400 Heart rate 85 /min Omar Chao [employer] OFF[employer] Work Phone: [facility] 01-05-2025 15:21-0400 SaO2% (BldA) [Mass fraction] 100 % Omar Chao [employer] Work Phone: [facility] 01-05-2025 15:21-0400 Systolic blood pressure 110 mm[Hg] Omar Chao [employer] Work Phone: [facility] 12-29-2024 13:44-0400 Body temperature 98 [degF] Dr. Octavio Ulloa MD Work Phone: [facility] 12-29-2024 13:44-0400 Diastolic blood pressure 67 mm[Hg] Dr. Octavio Ulloa MD Work Phone: [facility] 12-29-2024 13:44-0400 Heart rate 80 /min Dr. Octavio Ulloa MD Work Phone: [facility] 12-29-2024 13:44-0400 Respiratory rate 14 /min Dr. Octavio Ulloa MD Work Phone: [facility] 12-29-2024 13:44-0400 SaO2% (BldA) [Mass fraction] 98 % Dr. Octavio Ulloa MD Work Phone: [facility] 12-29-2024 13:44-0400 Systolic blood pressure 126 mm[Hg] Dr. Octavio Ulloa MD Work Phone: [facility] 12-29-2024 10:08-0400 Body height 170.[address] Octavio Ulloa MD Work Phone: [facility] 12-29-2024 10:08-0400 Body mass index (BMI) [Ratio] 20.5 kg/m2 Dr. Octavio Ulloa MD Work Phone: [facility] 12-29-2024 10:08-0400 Body weight 59.[address] Octavio Ulloa MD Work Phone: [facility] 12-22-2024 12:58-0400 Body mass index (BMI) [Ratio] 20.29 kg/m2 Leticia Belia [employer] Work Phone: [facility] 12-22-2024 12:58-0400 Body weight 59.33 kg Leticia Belia [employer] Work Phone: [facility] 12-22-2024 12:58-0400 Diastolic blood pressure 62 mm[Hg] Leticia Belia [employer] Work Phone: [facility] 12-22-2024 12:58-0400 Heart rate 81 /min Leticia Belia [employer] Work Phone: [facility] 12-22-2024 12:58-0400 Respiratory rate 16 /min Leticia Belia [employer] Work Phone: [facility] 12-22-2024 12:58-0400 SaO2% (BldA) [Mass fraction] 98 % Leticia Belia [employer] OFF[employer]ER Work Phone: [facility] 12-22-2024 12:58-0400 Systolic blood pressure 98 mm[Hg] Letciia Belia [employer] Work Phone: [facility] 10-21-2024 12:56-0400 Body mass index (BMI) [Ratio] 20.35 kg/m2 Leticia Belia [employer] Work Phone: [facility] 10-21-2024 12:56-0400 Body weight 59.51 kg Leticia Belia [employer] Work Phone: [facility] 10-21-2024 12:56-0400 Diastolic blood pressure 62 mm[Hg] Leticia Belia [employer]ER Work Phone: [facility] 10-21-2024 12:56-0400 Heart rate 75 /min Leticia Belia [employer] OFF[employer]ER Work Phone: [facility] 10-21-2024 12:56-0400 SaO2% (BldA) [Mass fraction] 100 % Leticia Belia [employer] OFF[employer]ER Work Phone: [facility] 10-21-2024 12:56-0400 Systolic blood pressure 108 mm[Hg] Leticia Belia [employer]IL[employer] OFF[employer]ER Work Phone: [facility] 08-03-2024 13:06-0500 Diastolic blood pressure 69 mm[Hg] Estephania Cates [employer]IE[employer] OPERATOR Work Phone: [facility] 08-03-2024 13:06-0500 Heart rate 89 /min Estephania Cates [employer]IEF OPERATOR Work Phone: [facility] 08-03-2024 13:06-0500 Systolic blood pressure 113 mm[Hg] Estephania Cates [employer]IL[employer]IEF OPERATOR Work Phone: [facility] 08-03-2024 13:04-0500 Body mass index (BMI) [Ratio] 20.18 kg/m2 Estephania Catse [employer]IL[employer]IEF OPERATOR Work Phone: [facility] 08-03-2024 13:04-0500 Body weight 59 kg Estephania Cates [employer]IL[employer]IEF OPERATOR Work Phone: [facility] 08-03-2024 13:04-0500 Respiratory rate 16 /min Estephania Cates [employer]IL[employer]IEF OPERATOR Work Phone: [facility] 03-17-2024 13:48-0400 Body height 171 cm Octavio Ulloa MD Work Phone: [facility] 03-17-2024 13:48-0400 Body mass index (BMI) [Ratio] 20.55 kg/m2 Octavio Ulloa MD Work Phone: [facility] 03-17-2024 13:48-0400 Body temperature 96.6 [degF] Octavio Ulloa MD Work Phone: [facility] 03-17-2024 13:48-0400 Body weight 60.1 kg Octavio Ulloa MD Work Phone: [facility] 03-17-2024 13:48-0400 Diastolic blood pressure 62 mm[Hg] Octavio Ulloa MD Work Phone: [facility] 03-17-2024 13:48-0400 Heart rate 80 /min Octavio Ulloa MD Work Phone: [facility] 03-17-2024 13:48-0400 Respiratory rate 16 /min Octavio Ulloa MD Work Phone: [facility] 03-17-2024 13:48-0400 SaO2% (BldA) [Mass fraction] 98 % Octavio Ulloa MD Work Phone: [facility] 03-17-2024 13:48-0400 Systolic blood pressure 102 mm[Hg] Octavio Ulloa MD Work Phone: [facility] 04-11-2023 10:03-0400 Diastolic blood pressure 60 mm[Hg] Estephania Cates [employer]IEF OPERATOR Work Phone: [facility] 04-11-2023 10:03-0400 Systolic blood pressure 90 mm[Hg] Estephania Cates [employer]IEF OPERATOR Work Phone: [facility] 04-11-2023 09:26-0400 Body height 170.2 cm Estephania Cates [employer]IEF OPERATOR Work Phone: [facility] 04-11-2023 09:26-0400 Body weight 58.06 kg Estephania Cates [employer]IEF OPERATOR Work Phone: [facility] 04-11-2023 09:26-0400 Heart rate 88 /min Estephania Cates [employer]IL[employer]IEF OPERATOR Work Phone: [facility] 04-11-2023 09:26-0400 Respiratory rate 16 /min Estephania Cates [employer]IL[employer]IEF OPERATOR Work Phone: [facility] 04-02-2022 12:22-0400 Body weight 57.61 kg Estephania Cates [employer]IL[employer]IEF OPERATOR Work Phone: [facility] 04-02-2022 12:22-0400 Diastolic blood pressure 80 mm[Hg] Estephania Cates TAILINGS MAN.PACKAGE LINE RELIEF OPERATOR Work Phone: [facility] 04-02-2022 12:22-0400 Heart rate 83 /min Estephania Cates TAILINGS MAN.PACKAGE LINE RELIEF OPERATOR Work Phone: [facility] 04-02-2022 12:22-0400 Respiratory rate 16 /min Estephania Cates TAILINGS MAN.PACKAGE LINE RELIEF OPERATOR Work Phone: [facility] 04-02-2022 12:22-0400 SaO2% (BldA) [Mass fraction] 98 % Estephania Cates TAILINGS MAN.PACKAGE LINE RELIEF OPERATOR Work Phone: [facility] 04-02-2022 12:22-0400 Systolic blood pressure 110 mm[Hg] Estephania Cates TAILINGS MAN.PACKAGE LINE RELIEF OPERATOR Work Phone: [facility] 11-12-2021 12:56-0400 Body height 175.6 cm Octavio Ulloa MD Work Phone: [facility] 11-12-2021 12:56-0400 Body weight 56.7 kg Octavio Ulloa MD Work Phone: [facility] 11-12-2021 12:56-0400 Diastolic blood pressure 74 mm[Hg] Octavio Ulloa MD Work Phone: [facility] 11-12-2021 12:56-0400 Heart rate 76 /min Octavio Ulloa MD Work Phone: [facility] 11-12-2021 12:56-0400 Respiratory rate 16 /min Octavio Ulloa MD Work Phone: [facility] 11-12-2021 12:56-0400 Systolic blood pressure 116 mm[Hg] Octavio Ulloa MD Work Phone: [facility] Encounters Encounter Date Encounter Type Care Provider Facility Start: 05-24-2025 ambulatory OCTAVIO D TALAMPAS Facilit y:[facility] Start: 05-11-2025 ambulatory OCTAVIO D TALAMPAS Facilit y:[facility] Start: 03-25-2025 End: 03-25-2025 ambulatory OCTAVIO D TALAMPAS Facility:[facility] Start: 03-25-2025 End: 03-25-2025 ambulatory OCTAVIO D TALAMPAS Facility:[facility] Start: 03-25-2025 End: 03-25-2025 Patient encounter procedure Octavio Ulloa MD Work Phone: [facility] [place] Comment on above: Medicare annual well ness visit, subsequent (Primary Dx); Acquired hypothyroidism; Migraine without aura, not intractable, without status migrainosus; Vertigo; Age-related osteoporosis without current pathological fracture; Encounter for screening examination for other mental health and behavioral disorders; Screening for depression; Encounter for screening mammogram for breast cancer; Screening for lipid disorders; Benign essential tremor Start: 02-10-2025 ambulatory SHEILA CAROL Facilit y:[facility] Start: 02-10-2025 End: 02-10-2025 Subsequent hospital visit by physician Mri Radio [facility] (I-Stat/1.5t) Work Phone: Radiology Comment on above: Persistent headaches [R51.9] Start: 02-01-2025 End: 02-01-2025 Patient encounter procedure Sheila Dominique PARylee Work Phone: Neurology Comment on above: Persistent headaches (Primary Dx); History of migraine; Concussion without loss of consciousness, initial encounter Start: 02-01-2025 End: 02-01-2025 ambulatory SHEILA DOMINIQUE Facility:[facility] Start: 01-28-2025 End: 01-28-2025 ambulatory [facility] Provider [facility] [place] Start: 01-28-2025 End: 01-28-2025 Patient encounter procedure [facility] Provider [facility] [place] Comment on above: Cancellation of appo intment Start: 01-20-2025 End: 01-21-2025 ambulatory [facility] [place] Start: 01-20-2025 End: 01-21-2025 Letter encounter [facility] [place] Comment on above: Letter for airline Start: 01-17-2025 End: 01-17-2025 Patient encounter procedure Omar Guidry APRN.DRY CHAIN OFFBEARER Work Phone: [facility] [place] Comment on above: Closed fracture of l eft orbital floor with routine healing, subsequent encounter (Primary Dx); Post-concussion headache; History of migraine Start: 01-17-2025 End: 01-17-2025 [facility] Facility:[facility] Start: 01-11-2025 End: 01-11-2025 ambulatory [facility] Provider [facility] [place] Comment on above: Headaches Start: 01-06-2025 End: 01-07-2025 ambulatory [facility] Provider [facility] [place] Comment on above: Frova prescription Start: 01-05-2025 End: 01-05-2025 Patient encounter procedure Omar Guidry TAILINGS MAN.DRY CHAIN OFFBEARER Work Phone: [facility] [place] Comment on above: Closed fracture of l eft orbital floor with routine healing, subsequent encounter (Primary Dx); Contusion of left hand, subsequent encounter; History of migraine; Vertigo; Concussion without loss of consciousness, subsequent encounter; Migraine without aura, not intractable, without status migrainosus Start: 01-05-2025 End: 01-05-2025 [facility] Facility:[facility] Start: 01-04-2025 End: 01-06-2025 Telephone encounter Octavio Ulloa MD Work Phone: [facility] [place] Comment on above: Patient Question Start: 01-02-2025 End: 01-03-2025 Telephone encounter Leticia Celaya APRN.CNP Work Phone: Neurology Start: 12-29-2024 End: 12-29-2024 Patient encounter procedure Jena Lr APRN.DRY CHAIN OFFBEARER Work Phone: [facility] Comment on above: Injury of head, init ial encounter (Primary Dx); Laceration of eyelid of left eye without foreign body, initial encounter; Epistaxis; Treatment not available Start: 12-29-2024 End: 12-29-2024 Emergency department patient visit Dr. Octavio Ulloa MD Work Phone: -Emergency Department Work Phone: Start: 12-29-2024 End: 12-29-2024 ambulatory OCTAVIO ULLOA Facility:[facility] Start: 12-22-2024 End: 12-22-2024 Patient encounter procedure Leticia Belia TAILINGS MAN.DRY CHAIN OFFBEARER Work Phone: Neurology Comment on above: KIARA on CPAP (Primary Dx) Start: 12-22-2024 End: 12-22-2024 ambulatory LETICIA BELIA Facility:[facility] Start: 10-21-2024 End: 10-21-2024 Patient encounter procedure Leticia Belia TAILINGS MAN.DRY CHAIN OFFBEARER Work Phone: Neurology Comment on above: KIARA (obstructive sle ep apnea) (Primary Dx); Excessive daytime sleepiness Start: 10-21-2024 End: 10-21-2024 ambulatory LETICIA BELIA Facility:[facility] Start: 09-14-2024 End: 11-14-2024 Follow-up encounter Estephania Cates TAILINGS MAN.PACKAGE LINE RELIEF OPERATOR Work Phone: [facility] [place] Start: 08-18-2024 End: 08-30-2024 ambulatory Estephania Cates TAILINGS MAN.PACKAGE LINE RELIEF OPERATOR Work Phone: [facility] [place] Comment on above: Test results Start: 08-13-2024 End: 08-13-2024 ambulatory Estephania Cates TAILINGS MAN.PACKAGE LINE RELIEF OPERATOR Work Phone: [facility] [place] Comment on above: Dtap, Tdap, Td vacci ne Start: 08-09-2024 End: 08-10-2024 ambulatory ESTEPHANIA CATES Facility:[facility] Start: 08-06-2024 End: 08-12-2024 [facility] Work Phone: Neurology Start: 08-03-2024 End: 08-03-2024 ambulatory ESTEPHANIA CATES Facility:[facility] Start: 08-03-2024 End: 08-03-2024 Office outpatient visit 25 minutes Estephania Cates APRN.PACKAGE LINE RELIEF OPERATOR Work Phone: [facility] [place] Comment on above: Other fatigue (Prima ry Dx); Weakness; Encounter for immunization Start: 05-10-2024 End: 05-10-2024 Subsequent hospital visit by physician Screen Mammo [facility] Mammogram Comment on above: Encounter for screen ing mammogram for breast cancer [Z12.31] Start: 05-05-2024 End: 05-11-2024 Telephone encounter Octavio Ulloa MD Work Phone: [facility] [place] Comment on above: Results Start: 04-29-2024 End: 04-29-2024 Subsequent hospital visit by physician Bone Density [facility] Work Phone: Radiology Comment on above: Asymptomatic postmen opausal status [Z78.0] Start: 03-31-2024 End: 03-31-2024 Telephone encounter Octavio Ulloa MD Work Phone: [facility] [place] Comment on above: Patient Request Start: 03-30-2024 End: 03-30-2024 Refill Octavio Ulloa MD Work Phone: [facility] [place] Comment on above: Refill Request; Migr faina Start: 03-17-2024 End: 03-17-2024 Patient encounter procedure Octavio Ulloa MD Work Phone: [facility] [place] Comment on above: Medicare annual well ness visit, subsequent (Primary Dx); Benign essential tremor; Asymptomatic postmenopausal status; Acquired hypothyroidism; Age-related osteoporosis without current pathological fracture; Encounter for screening mammogram for breast cancer; Screening for colon cancer; Encounter for immunization; Screening for depression; Encounter for screening examination for other mental health and behavioral disorders; Constipation, unspecified constipation type Start: 03-04-2024 End: 03-04-2024 Refill Estephania Cates APRN.CNS Work Phone: [facility] [place] Comment on above: Refill Request Start: 05-07-2023 Refill Estephania Cates A PRN.PACKAGE LINE RELIEF OPERATOR Work Phone: [facility] [place] Comment on above: Refill Request Start: 04-11-2023 End: 04-11-2023 Patient encounter procedure Estephania Cates TAILINGS MAN.PACKAGE LINE RELIEF OPERATOR Work Phone: [facility] [place] Comment on above: Medicare annual well ness visit, subsequent (Primary Dx); Glaucoma of left eye, unspecified glaucoma type; Acquired hypothyroidism; Urinary urgency; Encounter for screening mammogram for breast cancer Start: 03-17-2023 Refill Estephania Cates A PRN.PACKAGE LINE RELIEF OPERATOR Work Phone: [facility] [place] Comment on above: Refill Request Start: 02-26-2023 Documentation procedure Mammog des Coordinator [facility] Start: 02-26-2023 Letter encounter Mammography Coordinator [facility] Department Start: 02-25-2023 End: 02-25-2023 Subsequent hospital visit by physician Screen Mammo [facility] Mammogram Comment on above: Encounter for screen ing mammogram for breast cancer [Z12.31] Start: 04-02-2022 End: 04-02-2022 Patient encounter procedure Estephania Cates TAILINGS MAN.PACKAGE LINE RELIEF OPERATOR Work Phone: [facility] [place] Comment on above: Acquired hypothyroid ism (Primary Dx); History of migraine; Encounter for immunization; Colon cancer screening; Vertigo; Age-related osteoporosis without current pathological fracture Start: 01-22-2022 ambulatory Estephania Moraless A PRN.PACKAGE LINE RELIEF OPERATOR Work Phone: [facility] [place] Comment on above: Clonazepam 0.5 mg Start: 11-28-2021 ambulatory Octavio moe MD Work Phone: [facility] [place] Comment on above: Claritox Pro Start: 11-14-2021 Documentation procedure Mammog des Coordinator [facility] Start: 11-14-2021 Letter encounter Mammography Coordinator [facility] Department Start: 11-14-2021 End: 11-14-2021 Subsequent hospital visit by physician Screen Mammo [facility] Mammogram Comment on above: Encounter for screen ing mammogram for breast cancer [Z12.31] Start: 11-13-2021 Telephone encounter Estephania luciano TAILINGS MAN.PACKAGE LINE RELIEF OPERATOR Work Phone: [facility] [place] Comment on above: Results (BMD) Start: 11-12-2021 End: 11-12-2021 Patient encounter procedure Octavio Ulloa MD Work Phone: [facility] [place] Comment on above: Medicare annual well ness visit, subsequent (Primary Dx); Acquired hypothyroidism; Encounter for long-term current use of medication; Vestibular migraine; Tinnitus of both ears; Age-related osteoporosis without current pathological fracture; Chronic pain of right knee Start: 11-07-2021 Telephone encounter Octavio sorto MD Work Phone: [facility] [place] Comment on above: Opened In Error Procedures Date Procedure Procedure Detail Performing Clinician Start: 03-25-2025 Adult depression scr eening assessment Octavio Ulloa MD Work Phone: Start: 02-10-2025 Mri brain brain stem w/o contrast material Sheila Dominique PA-C Work Phone: Start: 12-29-[address] Octavio suresh MD Work Phone: Start: 04-19-2024 Hemoglobin.gastroint estina l.lower [Presence] in Stool by Immunoassay [facility] Provider Start: 03-17-2024 Adult depression scr eening assessment Octavio Ulloa MD Work Phone: Start: 02-25-2023 End: 02-25-2023 Mammography Bulk Order Provider Start: 11-14-2021 End: 11-14-2021 Screening mammography bi 2-view breast inc cad Estephania Cates TAILINGS MAN.PACKAGE LINE RELIEF OPERATOR Work Phone: Start: 04-12-2021 Adult depression scr eening assessment Octavio Ulloa MD Work Phone: Start: 11-13-2020 Mammography Octavio mckay MD Work Phone: Start: 04-12-2020 Lipid 1996 panel - S apryl or Plasma Estephania Cates TAILINGS MAN.PACKAGE LINE RELIEF OPERATOR Work Phone: Start: 03-08-2011 Colonoscopy Octavio mckay MD Work Phone: Plan of Treatment Date Care Activity Detail Author Start: 12-29-2034 Urine microalbumin profile DTaP,Tdap,Td Vaccine (4 - Td or Tdap) [facility] Start: 08-13-2034 Urine microalbumin profile DTaP,Tdap,Td Vaccine (3 - Td or Tdap) [facility] Start: 2029 RSV Vaccine (1 - 1-d ose 75+ series) RSV Vaccine (1 - 1-dose 75+ series) [facility] Start: 08-03-2027 Diabetes Screening Diabetes Screenin g [facility] Start: 04-30-2027 Screening for malign ant neoplasm of colon [facility] Start: 03-17-2027 Diabetes Screening Diabetes Screenin [facility] Start: 04-29-2026 Screening for osteoporosis Bone Density Screening [facility] Start: 04-11-2026 [facility] Start: 03-25-2026 Annual PCP Team Binder Cutter pam Disease Visit Annual PCP Team Chronic Disease Visit [facility] Start: 03-25-2026 Anxiety Screening Anxiety Screening [facility] Start: 03-25-2026 Depression Screening Depression Scre ing [facility] Start: 03-25-2026 Pneumococcal Vaccine : 50+ (2 of 2 - PCV) Pneumococcal Vaccine: 50+ (2 of 2 - PCV) [facility] Comment on above: Postponed from 04/11 (Declined at this time) Start: 03-17-2026 End: 03-17-2026 Patient encounter procedure 03/17/2026 1:40 PM EDT Office Visit [facility] [place] [address] [place], [place] [id number] Octavio Ulloa MD [address] [place], [place] [id number] medicare wellness [facility] [place] Comment on above: medicare wellness Start: 01-17-2026 Annual PCP Team Binder Cutter pam Disease Visit Annual PCP Team Chronic Disease Visit [facility] Start: 01-10-2026 Influenza vaccination Influenza Vacc ine (#1) [facility] Comment on above: Postponed from 03/14 (Declined at this time) Start: 01-05-2026 Annual PCP Team Binder Cutter pam Disease Visit Annual PCP Team Chronic Disease Visit [facility] Start: 05-11-2025 End: 05-11-2025 Patient encounter procedure 05/11/2025 1:30 PM EDT Appointment Mammogram [address] [place], [place] [id number] Dx: Encounter for screening mammogram for breast cancer [Z12.31] Mammogram Comment on above: Dx: Encounter for sc reening mammogram for breast cancer [Z12.31] Start: 05-10-2025 Screening for malign ant neoplasm of breast Mammogram Screening [facility] Start: 04-19-2025 Screening for malign ant neoplasm of colon Fecal Occult Blood [facility] Start: 04-12-2025 Lipid 1996 panel - S apryl or Plasma Lipid Screening [facility] Start: 04-12-2025 Lipid panel Lipid Screening [facility] Start: 04-12-2025 LIPID SCREEN LIPID SCREEN [facility] Start: 03-25-2025 End: 06-24-2025 25-hydroxyvitamin D3 [Mass/volume] in Serum or Plasma [facility] Comment on above: Expected: 03/25/2025 , Expires: 06/24/2025 Start: 03-25-2025 End: 06-24-2025 CBC panel - Blood by Automated count [facility] Comment on above: Expected: 03/25/2025 , Expires: 06/24/2025 Start: 03-25-2025 End: 06-24-2025 Comprehensive metabolic 2000 panel - Serum or Plasma [facility] Comment on above: Expected: 03/25/2025 , Expires: 06/24/2025 Start: 03-25-2025 End: 06-24-2025 LIPID PANEL, NONFASTING [facility] Comment on above: Expected: 03/25/2025 , Expires: 06/24/2025 Start: 03-25-2025 End: 06-24-2025 Thyrotropin [Units/volume] in Serum or Plasma [facility] Comment on above: Expected: 03/25/2025 , Expires: 06/24/2025 Start: 03-25-2025 End: 06-24-2025 Thyroxine (T4) free [Mass/volume] in Serum or Plasma [facility] Comment on above: Expected: 03/25/2025 , Expires: 06/24/2025 Start: 03-25-2025 End: 03-25-2025 Patient encounter procedure 03/25/2025 1:40 PM EDT Office Visit [facility] [place] [address] [place] [address] Octavio Ulloa MD [address] [place] [address] Medicare Wellness [facility] [place] Comment on above: Medicare Wellness Start: 03-17-2025 Annual PCP Team Binder Cutter pam Disease Visit Annual PCP Team Chronic Disease Visit [facility] Start: 03-17-2025 Anxiety Screening Anxiety Screening [facility] Start: 03-17-2025 Depression Screening Depression Scre ening [facility] Start: 03-17-2025 Pneumococcal Vaccine : 50+ (2 of 2 - PCV) Pneumococcal Vaccine: 50+ (2 of 2 - PCV) [facility] Comment on above: Postponed from 04/11 (Declined at this time) Start: 03-17-2025 Pneumococcal Vaccine : 65+ (2 of 2 - PCV) Pneumococcal Vaccine: 65+ (2 of 2 - PCV) [facility] Comment on above: Postponed from 04/11 (Declined at this time) Start: 03-17-2025 RSV Vaccine (1 - 1-d ose 60+ series) RSV Vaccine (1 - 1-dose 60+ series) [facility] Comment on above: Postponed from 05/31 (Declined at this time) Start: 03-14-2025 Influenza vaccination Influenza Vacc ine (#1) [facility] Start: 02-16-2025 End: 02-16-2025 Patient encounter procedure 02/16/2025 12:30 PM EDT Office Visit Neurology [address] [place] [address] Sheila Dominique PA-C [address] [place], [place] [address] Concussion without loss of consciousness, subsequent encounter [S06.0X0D] Neurology Comment on above: Concussion without l oss of consciousness, subsequent encounter [S06.0X0D] Start: 02-16-2025 End: 02-16-2025 Patient encounter procedure 02/16/2025 8:30 AM EDT Office Visit Neurology [address] [facility] [address] Sheila Dominique PA-C [address] [place] [address] Concussion without loss of consciousness, subsequent encounter [S06.0X0D] Neurology Comment on above: Concussion without l oss of consciousness, subsequent encounter [S06.0X0D] Start: 02-10-2025 End: 02-10-2025 Patient encounter procedure 02/10/2025 1:00 PM EDT Appointment Radiology [address] [place] [address] Dx: Persistent headaches [R51.9] Radiology Comment on above: Dx: Persistent heada ches [R51.9] Start: 02-01-2025 End: 05-03-2025 C reactive protein [Mass/volume] in Serum or Plasma [facility] Comment on above: Expected: 02/01/2025 , Expires: 05/03/2025 Start: 02-01-2025 End: 05-03-2025 Cobalamin (Vitamin B12) [Mass/volume] in Serum or Plasma [facility] Comment on above: Expected: 02/01/2025 , Expires: 05/03/2025 Start: 01-31-2025 End: 01-31-2025 Patient encounter procedure 01/31/2025 1:40 PM EDT Office Visit [facility] [place] [address] [facility] [address] Omar Guidry APRN.DRY CHAIN OFFBEARER [address] [place] [address] 2 week follow up of headaches from fall [facility] [place] Comment on above: 2 week follow up of headaches from fall Start: 01-17-2025 End: 01-17-2025 Patient encounter procedure 01/17/2025 11:20 AM EDT Office Visit [facility] [place] [address] [facility] [address] Omar Guidry APRN.DRY CHAIN OFFBEARER [address] [facility] [place] [id number] headaches [facility] [place] Comment on above: headaches Start: 12-29-2024 [place] [facility] Start: 12-22-2024 End: 12-22-2024 Patient encounter procedure 12/22/2024 1:00 PM EDT Office Visit Neurology [address] [place] [address] Leticia Celaya APRN.DRY CHAIN OFFBEARER [address] [place] [address] CHAVA 10/21/24- 2-3 mth F/U KIARA Neurology Comment on above: CHAVA 10/21/24- 2-3 mth F/U KIARA Start: 11-13-2024 DIABETES SCREEN DIABETES SCREEN [facility] Start: 11-13-2024 Diabetes Screening Diabetes Screenin g [facility] Start: 08-04-2024 Urine microalbumin profile [facility] Start: 08-03-2024 End: 11-02-2024 Comprehensive metabolic 2000 panel - Serum or Plasma [facility] Comment on above: Expected: 08/03/2024 , Expires: 11/02/2024 Start: 08-03-2024 End: 11-02-2024 Hemoglobin A1c in Blood [facility] Comment on above: Expected: 08/03/2024 , Expires: 11/02/2024 Start: 08-03-2024 End: 11-02-2024 TSH W/REFLEX FT4 [facility] Work Phone: Comment on above: Expected: 08/03/2024 , Expires: 11/02/2024 Start: 07-14-2024 Advance Directive Discussion Advance Directive Discussion [facility] Start: 07-14-2024 Medicare Advantage Annual Wellness Visit Medicare Advantage Annual Wellness Visit [facility] Start: 05-10-2024 End: 05-10-2024 Patient encounter procedure 05/10/2024 2:50 PM EDT Appointment Mammogram [address] [place] [address] Encounter for screening mammogram for breast cancer [Z12.31 Mammogram Comment on above: Encounter for screen ing mammogram for breast cancer [Z12.31 Start: 04-29-2024 End: 04-29-2024 Patient encounter procedure 04/29/2024 2:10 PM EDT Appointment Mammogram [address] [place], [place] [address] Encounter for screening mammogram for breast cancer [Z12.31] Mammogram Comment on above: Encounter for screen ing mammogram for breast cancer [Z12.31] Start: 04-29-2024 End: 04-29-2024 Patient encounter procedure 04/29/2024 1:05 PM EDT Appointment Radiology [address] [place] [id number] Asymptomatic postmenopausal status [Z78.0]; Age-related osteoporosis without current pathological fracture [M81.0] Radiology Comment on above: Asymptomatic postmen opausal status [Z78.0]; Age-related osteoporosis without current pathological fracture [M81.0] Start: 04-20-2024 Screening for malign ant neoplasm of colon [facility] Start: 04-16-2024 DIABETES SCREEN DIABETES SCREEN [facility] Start: 04-13-2024 Cologuard (FIT-DNA) Cologuard (FIT-D NA) [facility] Start: 04-13-2024 Colorectal Cancer Screening Colorectal Cancer Screening [facility] Start: 04-11-2024 Annual PCP Team Binder Cutter pam Disease Visit Annual PCP Team Chronic Disease Visit [facility] Start: 04-11-2024 Covid-19 Vaccine ( season) Covid-19 Vaccine () [facility] Comment on above: Postponed from 03/14 (Declined at this time) Start: 04-11-2024 Covid-19 Vaccine (5 - Pfizer series) Covid-19 Vaccine (5 - Pfizer series) [facility] Comment on above: Postponed from 12/21 (Declined at this time) Start: 03-17-2024 End: 03-17-2024 Patient encounter procedure 03/17/2024 1:40 PM EDT Office Visit [facility] [place] [address] [place] [address] Octavio Ulloa MD [address] [place], [place] [id number] Medicare wellness visit [facility] Comment on above: Medicare wellness vi sit Start: 03-14-2024 Influenza vaccination Influenza Vacc ine (#1) [facility] Start: 02-27-2024 End: 05-10-2024 LATRICE SCREENING LATRICE SCREENING Radiology Routine Encounter for screening mammogram for breast cancer Expected: 02/27/2024 (Approximate), Expires: 05/10/2024 [facility] Work Phone: Comment on above: Expected: 02/27/2024 (Approximate), Expires: 05/10/2024 Start: 02-26-2024 Mammography [facility] Start: 02-26-2024 Screening for malign ant neoplasm of breast Mammogram Screening [facility] Start: 11-14-2023 Screening for osteoporosis Bone Density Screening [facility] Start: 07-14-2023 Advance Directive Discussion Advance Directive Discussion [facility] Start: 07-14-2023 Influenza vaccination Influenza Vacc ine (#1) [facility] Comment on above: Postponed from 03/14 (Declined at this time) Start: 07-14-2023 Pneumococcal Vaccine : 65+ (2 - PCV) Pneumococcal Vaccine: 65+ (2 - PCV) [facility] Comment on above: Postponed from 04/11 (Postponed To Appropriate Date) Start: 03-14-2023 Influenza vaccination INFLUENZA (#1) [facility] Start: 02-11-2023 End: 04-01-2023 25-hydroxyvitamin D3 [Mass/volume] in Serum or Plasma VITAMIN D 25 HYDROXY Lab Routine Age-related osteoporosis without current pathological fracture Expected: 02/11/2023, Expires: 04/01/2023 [facility] Work Phone: Comment on above: Expected: 02/11/2023 , Expires: 04/01/2023 Start: 02-11-2023 End: 04-01-2023 CBC W Auto Differential panel - Blood CBC + DIFF Lab Routine History of migraine Expected: 02/11/2023, Expires: 04/01/2023 [facility] Work Phone: Comment on above: Expected: 02/11/2023 , Expires: 04/01/2023 Start: 02-11-2023 End: 04-01-2023 Comprehensive metabolic 2000 panel - Serum or Plasma COMP METABOLIC PANEL Lab Routine Acquired hypothyroidism History of migraine Expected: 02/11/2023, Expires: 04/01/2023 [facility] Work Phone: Comment on above: Expected: 02/11/2023 , Expires: 04/01/2023 Start: 02-11-2023 End: 04-01-2023 Thyrotropin [Units/volume] in Serum or Plasma TSH BLD Lab Routine Acquired hypothyroidism Expected: 02/11/2023, Expires: 04/01/2023 [facility] Work Phone: Comment on above: Expected: 02/11/2023 , Expires: 04/01/2023 Start: 02-11-2023 End: 04-01-2023 Thyroxine (T4) free [Mass/volume] in Serum or Plasma T4 FREE/FREE THYROX Lab Routine Acquired hypothyroidism Expected: 02/11/2023, Expires: 04/01/2023 [facility] Work Phone: Comment on above: Expected: 02/11/2023 , Expires: 04/01/2023 Start: 11-14-2022 Mammography MAMMOGRAM [facility] Start: 11-12-2022 ANNUAL PCP TEAM RELIABILITY TECHNICIAN PAM DISEASE VISIT ANNUAL PCP TEAM CHRONIC DISEASE VISIT [facility] Start: 07-14-2022 ADVANCE DIRECTIVE DISCUSSION ADVANCE DIRECTIVE DISCUSSION [facility] Start: 07-14-2022 DEPRESSION ASSESSMENT DEPRESSION ASS ESSMENT [facility] Start: 04-12-2022 Adult depression screening assessment DEPRESSION SCREENING [facility] Start: 03-14-2022 Influenza vaccination INFLUENZA (#1) [facility] Start: 12-21-2021 COVID-19 VACCINE (5 - Booster for Pfizer series) COVID-19 VACCINE (5 - Booster for Pfizer series) [facility] Start: 12-21-2021 COVID-19 VACCINE (5 - Pfizer series) COVID-19 VACCINE (5 - Pfizer series) [facility] Start: 11-13-2021 Mammography MAMMOGRAM [facility] Start: 11-07-2021 SHINGRIX VACCINE (2 of 2) SHINGRIX VACCINE (2 of 2) [facility] Start: 07-14-2021 ADVANCE DIRECTIVE DISCUSSION ADVANCE DIRECTIVE DISCUSSION [facility] Start: 07-14-2021 DEPRESSION ASSESSMENT DEPRESSION ASS ESSMENT [facility] Start: 04-12-2021 COLORECTAL CANCER SCREENING COLORECTAL CANCER SCREENING [facility] Start: 04-12-2021 FECAL OCCULT BLOOD FECAL OCCULT BLOO D [facility] Start: 04-12-2021 Screening for malign ant neoplasm of colon Fecal Occult Blood [facility] Start: 04-11-2021 ANNUAL PCP TEAM RELIABILITY TECHNICIAN PAM DISEASE VISIT ANNUAL PCP TEAM CHRONIC DISEASE VISIT [facility] Start: 04-11-2021 Pneumococcal Vaccine : 65+ (2 of 2 - PCV) Pneumococcal Vaccine: 65+ (2 of 2 - PCV) [facility] Start: 04-11-2021 PNEUMOCOCCAL: 65+ (2 - PCV) PNEUMOCOCCAL: 65+ (2 - PCV) [facility] Start: 03-12-2021 COVID-19 VACCINE (3 - Booster for Pfizer series) COVID-19 VACCINE (3 - Booster for Pfizer series) [facility] Start: 04-13-2020 COLORECTAL CANCER SCREENING COLORECTAL CANCER SCREENING [facility] Start: 2014 RSV Vaccine (1 - 1-d ose 60+ series) RSV Vaccine (1 - 1-dose 60+ series) [facility] Start: 03-08-2012 Colonoscopy COLONOSCOPY [facility] Start: 03-08-2012 Screening for malign ant neoplasm of colon Colonoscopy [facility] Start: 2004 SHINGRIX VACCINE (1 of 2) SHINGRIX VACCINE (1 of 2) [facility] Start: 1999 COLOGUARD (FIT-DNA) COLOGUARD (FIT-D NA) [facility] Start: [address] COLONOGRAPHY [facility] Start: 1999 Screening for malign ant neoplasm of colon [facility] Start: 1999 SIGMOIDOSCOPY SIGMOIDOSCOPY [facility] Start: 1972 Anxiety Screening Anxiety Screening [facility] Start: 1972 Depression Screening Depression Scre ening [facility] End: 04-16-2025 BD DXA TRABECULAR BONE SCORE (TBS) BD DXA TRABECULAR BONE SCORE (TBS) Radiology Routine Asymptomatic postmenopausal status Age-related osteoporosis without current pathological fracture 1 Occurrences starting 03/17/2024 until 04/16/2025 [facility] Comment on above: 1 Occurrences starti ng 03/17/2024 until 04/16/2025 BD DXA TRABECULAR JUICE NE SCORE (TBS) BD DXA TRABECULAR BONE SCORE (TBS) Radiology Routine Asymptomatic postmenopausal status Age-related osteoporosis without current pathological fracture 04/29/2024 1:32 PM EDT [facility] COLOGUARD COLOGUARD Lab Ro utine Screening for colon cancer Ordered: 03/17/2024 [facility] Comment on above: Ordered: 03/17/2024 End: 04-24-2026 DBT Breast - bilateral screening LATRICE SCREENING W GAVIN Radiology Routine Encounter for screening mammogram for breast cancer 1 Occurrences starting 03/25/2025 until 04/24/2026 [facility] Work Phone: Comment on above: 1 Occurrences starti ng 03/25/2025 until 04/24/2026 End: 04-16-2025 DXA Skeletal system.axial Views for bone density DXA-AXIAL SKELETON Radiology Routine Asymptomatic postmenopausal status Age-related osteoporosis without current pathological fracture 1 Occurrences starting 03/17/2024 until 04/16/2025 [facility] Work Phone: Comment on above: 1 Occurrences starti ng 03/17/2024 until 04/16/2025 DXA Skeletal system.axial Views for bone density DXA-AXIAL SKELETON Radiology Routine Asymptomatic postmenopausal status Age-related osteoporosis without current pathological fracture 04/29/2024 1:32 PM EDT [facility] Work Phone: End: 08-03-2025 HOME SLEEP APNEA TEST (HSAT) HOME SLEEP APNEA TEST (HSAT) Procedures Routine Other fatigue 1 Occurrences starting 08/03/2024 until 08/03/2025 [facility] Comment on above: 1 Occurrences starti ng 08/03/2024 until 08/03/2025 MG Breast Screening LATRICE SCREENIN G Radiology Routine Encounter for screening mammogram for breast cancer 05/10/2024 3:08 PM EDT [facility] Work Phone: End: 03-03-2026 MR Brain WO contrast MRI BRAIN WO IVCON Radiology Routine Persistent headaches 1 Occurrences starting 02/01/2025 until 03/03/2026 [facility] Work Phone: Comment on above: 1 Occurrences starti ng 02/01/2025 until 03/03/2026 Patient Education ED Facial Frac ture ED Head Injury (Adult) [facility] Work Phone: Patient referral [facility] Work Phone: PFIZER-BIONTECH COVI D-19 BIVALENT BOOSTER VACCINE, AGE 12+ YR PFIZER-BIONTECH COVID-19 BIVALENT BOOSTER VACCINE, AGE 12+ YR Immunization/Injection Routine Encounter for immunization 1 Occurrences starting 04/02/2022 [facility] Work Phone: Comment on above: 1 Occurrences starti ng 04/02/2022 Pneumococcal vaccination PNEUMOC OCCAL VACCINE (PREVNAR 20) Immunization/Injection Routine Encounter for immunization 1 Occurrences starting 04/02/2022 [facility] Work Phone: Comment on above: 1 Occurrences starti ng 04/02/2022 [facility] Immunizations Immunization Date Immunization Notes Care Provider [facility] 12-29-2024 tetanus toxoid, redu christine diphtheria toxoid, and acellular pertussis vaccine, adsorbed Dr. Octavio Ulloa MD Work Phone: [facility] 08-13-2024 tetanus toxoid, redu christine diphtheria toxoid, and acellular pertussis vaccine, adsorbed Estephania Cates APRN.PACKAGE LINE RELIEF OPERATOR Work Phone: [facility] 03-17-2024 influenza, high dose seasonal, preservative-free Octavio Ulloa MD Work Phone: [facility] 03-17-2024 influenza virus vacc ine, unspecified formulation [facility] Provider [facility] 05-01-2023 influenza (HD-IIV4) vaccine, age 65+ yr, high dose, quadrivalent, PF (FLUZONE HIGH-DOSE) Octavio Ulloa MD Work Phone: [facility] 02-25-2022 influenza virus vacc ine, unspecified formulation Estephania Cates TAILINGS MAN.PACKAGE LINE RELIEF OPERATOR Work Phone: [facility] Work Phone: 02-25-2022 zoster vaccine recombinant Estephania Darryn TAILINGS MAN.PACKAGE LINE RELIEF OPERATOR Work Phone: [facility] 10-26-2021 COVID-19 vaccine, ag e 12+ yr (PFIZER-BIONTECH - PURPLE TOP) Screen [facility] 09-12-2021 zoster vaccine recombinant Screen [facility] 05-01-2021 COVID-19 vaccine, ag e 12+ yr (PFIZER-BIONTECH - PURPLE TOP) Screen [facility] 04-16-2021 influenza, high-dose , quadrivalent vaccine (FLUZONE HIGH DOSE QUADRIVALENT) Octavio Ulloa MD Work Phone: [facility] Work Phone: 10-10-2020 COVID-19 vaccine, ag e 12+ yr (PFIZER-BIONTECH - PURPLE TOP) Octavio Ulloa MD Work Phone: [facility] Work Phone: 09-11-2020 COVID-19 vaccine, ag e 12+ yr (PFIZER-BIONTECH - PURPLE TOP) Octavio Ulloa MD Work Phone: [facility] Work Phone: 04-11-2020 influenza, high-dose , quadrivalent vaccine (FLUZONE HIGH DOSE QUADRIVALENT) Octavio Ulloa MD Work Phone: [facility] Work Phone: 04-11-2020 pneumococcal polysaccharide vaccine, 23 valent Octavio Ulloa MD Work Phone: [facility] Work Phone: 07-03-2018 influenza, injectabl e, quadrivalent, preservative free [facility] TAILINGS MAN.PACKAGE LINE RELIEF OPERATOR Work Phone: [facility] Work Phone: 08-04-2014 tetanus toxoid, redu christine diphtheria toxoid, and acellular pertussis vaccine, adsorbed Octavio Ulloa MD Work Phone: [facility] Payers Date Payer Category Payer Self-pay 2023 Medicare (Managed Care) [employer] [place] [id number] 2023 Private Health Insurance 101 [id number] 2021 Medicare AETNA MEDICARE A ETNA MEDICARE PPO [id number] 2021-Present [phone] [address] [place] [address] [facility] [id number] 2021 Medicare [id number] Unknown COMMERCIAL OTHER [id number] Unknown [id number] Social History Date Type Detail Facility Start: 01-12-2018 End: 04-02-2022 Tobacco smoking status NHIS Never smoked tobacco [facility] Work Phone: Start: 04-16-2021 End: 03-25-2025 Alcohol intake Current non-drinker of alcohol (finding) [facility] Start: 04-12-2021 End: 11-08-2021 History SDOH Alcohol Frequency 1 [facility] Start: 04-12-2021 History SDOH Alcohol Std Drinks 98 [facility] Start: 04-12-2021 End: 11-08-2021 History SDOH Social Connections Get Together 2 [facility] Start: 04-12-2021 History SDOH Social Connections Moravian 3 [facility] Start: 04-12-2021 History SDOH Physical Activity DPW 6 [facility] Start: 04-12-2021 History SDOH Financial 5 [facility] Start: 04-12-2021 Education 18 [facility] Start: 1955 Sex Assigned At Not on file [facility] Start: 11-04-2021 End: 11-14-2021 Exposure to SARS-CoV-2 (event) Not sure [facility] Start: 01-12-2018 End: 04-02-2022 Tobacco use and exposure Smokeless tobacco non-user [facility] Work Phone: Start: 04-12-2021 End: 04-08-2023 History of Social function [facility] Start: 04-12-2021 End: 04-08-2023 Social connection and isolation panel [facility] Start: 06-14-2012 In a typical week, how many times do you talk on the telephone with family, friends, or neighbors? Patient refused [facility] Do you belong to any clubs or organizations such as mormonism groups, unions, fraCollactive or athletic groups, or school groups? Yes [facility] Are you now , , , , never or living with a partner? [facility] How often to you hav e a drink containing alcohol? Never [facility] Do you feel stress - tense, restless, nervous, or anxious, or unable to sleep at night because your mind is troubled all the time - these days [OSQ] Not at all [facility] (I/We) worried wheth er (my/our) food would run out before (I/we) got money to buy more. Never true [facility] In the past 12 month s, was there a time when you were not able to pay the mortgage or rent on time? No [facility] Start: 11-07-2020 Sexual orientation Heterosexual (finding) [facility] Start: 1955 Sex Assigned At Female [facility] Functional Status Date Assessment Result Facility 10-20-2014 Are you deaf, or do you have serious difficulty hearing No 10/20/2014 12:48 PM EDT Deysi Willoughby LPN No [facility] 10-20-2014 Are you blind, or do you have serious difficulty seeing, even when wearing glasses No 10/20/2014 12:48 PM EDT Deysi Willoughby LPN No [facility] 10-20-2014 Do you have serious difficulty walking or climbing stairs No 10/20/2014 12:48 PM EDT Deysi Willoughby LPN No [facility] 10-20-2014 Do you have difficul ty dressing or bathing No 10/20/2014 12:48 PM EDT Deysi Willoughby LPN [facility] 10-20-2014 Because of a physica l, mental, or emotional condition, do you have difficulty doing errands alone such as visiting a physician's office or shopping No 10/20/2014 12:48 PM EDT Deysi Willoughby LPN No [facility] Mental Status Date Assessment Result Facility 10-20-2014 Because of a physica l, mental, or emotional condition, do you have serious difficulty concentrating, remembering, or making decisions No 10/20/2014 12:48 PM EDT Deysi Willoughby LPN [facility] Clinical Notes 06-08-2007 to 05-11-2025 Octavio Ulloa MD - 03/25/2025 2:04 PM EDTCYeni howe LPN - 03/25/2025 1:41 PM EDTPatient InstructionsKanika Brice RT(R) - 02/10/2025 1:00 PM EDTPatient InstructionsPatient Instructions Note Date & Type Note Facility 05-11-2025 Note HNO ID: [id number] Author: RINA BRICENO [employer] Service: ? Author Type: Broke Man Type: Progress Notes Filed: 05/11/2025 14:14 Note Text: Radiology Service Progress Note PATIENT NAME: Yanet Araya DATE OF SERVICE: May 11, 2025 TIME: 2:08 PM PATIENT IDENTITY VERIFICATION COMPLETED USING TWO (2) IDENTIFIERS: Name and Date of confirmed by patient verbally. FALL SCREENING: Has the patient had 2 falls in the last year or 1 fall with injury or currently using an Ambulatory Assistive Device (Walker, Cane, Wheelchair, Crutches, etc.)? No PATIENT GENDER DATA: Assigned female at . status: : No status: NO. PATIENT RELEVANT IMPLANT DATA REVIEWED: Not Applicable PATIENT PRESENTS WITH AN IMPLANTABLE OR ATTACHED SAILOR: No RADIOLOGY DEPARTMENT: Mammography PERIPHERAL IV DATA: Not applicable SIGNED BY: Rina Briceno Táximo May 11, 2025 2:08 PM [facility] 03-25-2025 Note HNO ID: [id number] Author: OCTAVIO ULLOA MD Service: ? Author Type: Physician Type: Progress Notes Filed: 03/25/2025 14:52 Note Text: Subjective Yanet Araya is a 69 year old female. 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 plus extra half pill once weekly or as directed (7.5 pills per week) frovatriptan (FROVA) 2.5 mg tablet Take 1 tablet by mouth as needed for migraine headache (see administration instructions). If headache recurs, may repeat after 2 hours. Max of 3 tablets in 24 hours. clonazePAM (KLONOPIN) 0.5 mg tablet Take 1 tablet by mouth two times a day as needed (for vertigo) for up to 30 days. CPAP/BIPAP/OTHER APAP 5-15 cmH2O latanoprost (XALATAN) 0.005 % ophthalmic solution Use 1 Drop in both eyes daily at bedtime. amitriptyline (ELAVIL) 50 mg tablet Take 1 tablet by mouth daily at bedtime. amitriptyline (ELAVIL) 25 mg tablet Take 1 tablet by mouth daily at bedtime. (Patient not taking: Reported on 03/25/2025) No current facility-administered medications for this visit. ALLERGIES No Known Allergies FAMILY HISTORY Problem Relation Age of Onset Diabetes Father other (heart) Father end complications with CHF None Mother SOCIAL HISTORY[1] Review of Systems Objective BP 116/64 Pulse 82 Temp 36.8 ?C (98.2 ?F) (Temporal) Resp 12 Ht 170.2 cm (5' 7) Wt 60.1 kg (132 lb 7.9 oz) SpO2 100% BMI 20.75 kg/m? Physical Exam Vitals reviewed. Constitutional: Appearance: Normal appearance. She is well-developed. HENT: Head: Normocephalic and atraumatic. Right Ear: Tympanic membrane, ear canal and external ear normal. Left Ear: Tympanic membrane, ear canal and external ear normal. Nose: Nose normal. Mouth/Throat: Mouth: Mucous membranes are moist. Eyes: Conjunctiva/sclera: Conjunctivae normal. Pupils: Pupils are equal, round, and reactive to light. Neck: Thyroid: No thyromegaly. Vascular: No carotid bruit. Cardiovascular: Rate and Rhythm: Normal rate and regular rhythm. Pulses: Normal pulses. Heart sounds: Normal heart sounds. No murmur heard. No friction rub. No gallop. Pulmonary: Effort: Pulmonary effort is normal. Breath sounds: Normal breath sounds. Abdominal: General: Bowel sounds are normal. There is no distension. Palpations: Abdomen is soft. There is no mass. Tenderness: There is no abdominal tenderness. Musculoskeletal: General: No deformity. Normal range of motion. Right lower leg: No edema. Left lower leg: No edema. Lymphadenopathy: Cervical: No cervical adenopathy. Skin: General: Skin is warm and dry. Coloration: Skin is not jaundiced or pale. Findings: No rash. Neurological: General: No focal deficit present. Mental Status: She is alert and oriented to person, place, and time. Cranial Nerves: No cranial nerve deficit. Sensory: No sensory deficit. Motor: No abnormal muscle tone. Coordination: Coordination normal. Deep Tendon Reflexes: Reflexes normal. Psychiatric: Attention and Perception: Attention and perception normal. Mood and Affect: Mood and affect normal. Speech: Speech normal. Behavior: Behavior normal. Thought Content: Thought content normal. Cognition and Memory: Cognition and memory normal. Judgment: Judgment normal. Latest Ref Rng 03/17/2024 04/30/2024 08/03/2024 02/01/2025 WBC 3.70 - 11.00 k/uL 5.48 6.49 RBC 3.90 - 5.20 m/uL 4.25 4.34 Hemoglobin 11.5 - 15.5 g/dL 13.9 13.7 Hematocrit 36.0 - 46.0 % 42.4 42.8 MCV 80.0 - 100.0 fL 99.8 98.6 MCH 26.0 - 34.0 pg 32.7 31.6 MCHC 30.5 - 36.0 g/dL 32.8 32.0 RDW-CV 11.5 - 15.0 % 13.0 13.4 Platelet Count 150 - 400 k/uL 172 172 MPV 9.0 - 12.7 fL 10.9 10.8 Neut% % 65.4 Abs Neut (ANC) 1.45 - 7.50 k/uL 4.24 Lymph% % 22.0 Abs Lymph 1.00 - 4.00 k/uL 1.43 [place]% % 9.9 Abs [place] <0.87 k/uL 0.64 Eosin% % 1.8 Abs Eosin <0.46 k/uL 0.12 Baso% % 0.6 Abs Baso <0.11 k/uL 0.04 Immature Gran % % 0.3 IMMATURE GRANS (ABS) <0.10 k/uL <0.03 NRBC /100 WBC 0.0 Absolute nRBC <0.01 k/uL <0.01 <0.01 DTYPE Auto Protein, Total 6.3 - 8.0 g/dL 6.7 6.7 Albumin 3.9 - 4.9 g/dL 4.5 4.8 Calcium 8.5 - 10.2 mg/dL 9.2 9.5 Bilirubin, Total 0.2 - 1.3 mg/dL <0.2 (L) <0.2 (L) Alkaline Phosphatase 34 - 123 U/L 87 101 AST 13 - 35 U/L 29 29 ALT 7 - 38 U/L 21 23 Glucose 74 - 99 mg/dL 99 81 BUN 7 - 21 mg/dL 24 (H) 23 (H) Crea (more content not included)... [facility] 03-25-2025 History of Presen t illness Narrative Images from the original note were not included. Subjective Yanet Araya is a 69 year old female. 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 plus extra half pill once weekly or as directed (7.5 pills per week) frovatriptan (FROVA) 2.5 mg tablet Take 1 tablet by mouth as needed for migraine headache (see administration instructions). If headache recurs, may repeat after 2 hours. Max of 3 tablets in 24 hours. clonazePAM (KLONOPIN) 0.5 mg tablet Take 1 tablet by mouth two times a day as needed (for vertigo) for up to 30 days. CPAP/BIPAP/OTHER APAP 5-15 cmH2O latanoprost (XALATAN) 0.005 % ophthalmic solution Use 1 Drop in both eyes daily at bedtime. amitriptyline (ELAVIL) 50 mg tablet Take 1 tablet by mouth daily at bedtime. amitriptyline (ELAVIL) 25 mg tablet Take 1 tablet by mouth daily at bedtime. (Patient not taking: Reported on 03/25/2025) No current facility-administered medications for this visit. ALLERGIES No Known Allergies FAMILY HISTORY Problem Relation Age of Onset Diabetes Father other (heart) Father end complications with CHF None Mother SOCIAL HISTORY[1] Review of Systems Objective BP 116/64 Pulse 82 Temp 36.8 C (98.2 F) (Temporal) Resp 12 Ht 170.2 cm (5' 7) Wt 60.1 kg (132 lb 7.9 oz) SpO2 100% BMI 20.75 kg/m Physical Exam Vitals reviewed. Constitutional: Appearance: Normal appearance. She is well-developed. HENT: Head: Normocephalic and atraumatic. Right Ear: Tympanic membrane, ear canal and external ear normal. Left Ear: Tympanic membrane, ear canal and external ear normal. Nose: Nose normal. Mouth/Throat: Mouth: Mucous membranes are moist. Eyes: Conjunctiva/sclera: Conjunctivae normal. Pupils: Pupils are equal, round, and reactive to light. Neck: Thyroid: No thyromegaly. Vascular: No carotid bruit. Cardiovascular: Rate and Rhythm: Normal rate and regular rhythm. Pulses: Normal pulses. Heart sounds: Normal heart sounds. No murmur heard. No friction rub. No gallop. Pulmonary: Effort: Pulmonary effort is normal. Breath sounds: Normal breath sounds. Abdominal: General: Bowel sounds are normal. There is no distension. Palpations: Abdomen is soft. There is no mass. Tenderness: There is no abdominal tenderness. Musculoskeletal: General: No deformity. Normal range of motion. Right lower leg: No edema. Left lower leg: No edema. Lymphadenopathy: Cervical: No cervical adenopathy. Skin: General: Skin is warm and dry. Coloration: Skin is not jaundiced or pale. Findings: No rash. Neurological: General: No focal deficit present. Mental Status: She is alert and oriented to person, place, and time. Cranial Nerves: No cranial nerve deficit. Sensory: No sensory deficit. Motor: No abnormal muscle tone. Coordination: Coordination normal. Deep Tendon Reflexes: Reflexes normal. Psychiatric: Attention and Perception: Attention and perception normal. Mood and Affect: Mood and affect normal. Speech: Speech normal. Behavior: Behavior normal. Thought Content: Thought content normal. Cognition and Memory: Cognition and memory normal. Judgment: Judgment normal. Latest Ref [facility] 03/17/2024 04/30/2024 08/03/2024 02/01/2025 WBC 3.70 - 11.00 k/uL 5.48 6.49 RBC 3.90 - 5.20 m/uL 4.25 4.34 Hemoglobin 11.5 - 15.5 g/dL 13.9 13.7 Hematocrit 36.0 - 46.0 % 42.4 42.8 MCV 80.0 - 100.0 fL 99.8 98.6 MCH 26.0 - 34.0 pg 32.7 31.6 MCHC 30.5 - 36.0 g/dL 32.8 32.0 RDW-CV 11.5 - 15.0 % 13.0 13.4 Platelet Count 150 - 400 k/uL 172 172 MPV 9.0 - 12.7 fL 10.9 10.8 Neut% % 65.4 Abs Neut (ANC) 1.45 - 7.50 k/uL 4.24 Lymph% % 22.0 Abs Lymph 1.00 - 4.00 k/uL 1.43 [place]% % 9.9 Abs [place] <0.87 k/uL 0.64 Eosin% % 1.8 Abs Eosin <0.46 k/uL 0.12 Baso% % 0.6 Abs Baso <0.11 k/uL 0.04 Immature Gran % % 0.3 IMMATURE GRANS (ABS) <0.10 k/uL <0.03 NRBC /100 WBC 0.0 Absolute nRBC <0.01 k/uL <0.01 <0.01 DTYPE Auto Protein, Total 6.3 - 8.0 g/dL 6.7 6.7 Albumin 3.9 - 4.9 g/dL 4.5 4.8 Calcium 8.5 - 10.2 mg/dL 9.2 9.5 Bilirubin, Total 0.2 - 1.3 mg/dL <0.2 (L) <0.2 (L) Alkaline Phosphatase 34 - 123 U/L 87 101 AST 13 - 35 U/L 29 29 ALT 7 - 38 U/L 21 23 Glucose 74 - 99 mg/dL 99 81 BUN 7 - 21 mg/dL 24 (H) 23 (H) Creatinine 0.58 - 0.96 mg/dL 0.83 0.96 Sodium 136 - 144 mmol/L 139 140 Potassium 3.7 - 5.1 mmol/L 4.4 4.6 Chloride 98 - 107 mmol/L 102 101 CO2 22 - 30 mmol/L 25 29 Anion Gap 8 - 15 mmol/L 12 10 eGFR >=60 mL/min/1.73m 76 64 Hemoglobin A1C 4.3 - 5.6 % 5.1 Estimated Average Glucose mg/dL 100 Stool DNA Negative Negative TSH 0.270 - 4.200 mIU/L 1.500 2.330 Free T4 0.9 - 1.7 ng/dL 1.5 Vitamin D 25 Hydroxy 31.0 - 80.0 ng/mL 62.0 CRP <0.9 mg/dL <0.3 WSR 0 - 20 mm/hr 2 Vitamin B12 232 - 1,245 pg/mL 1,450 (H) Legend: (L) Low (H) High ASSESSMENT AND PLAN Yanet Araya is a 69 year old female here for a Medicare wellness visit. Medicare Health Risk Assessment General Health Very good Exercise: Minutes/Day 20 min Exercise: Days/Week 6 days Alcohol: Daily Use Never Alcohol: Drinks/Day Patient does not drink Alcohol: 6 or more drinks Never Feel off balance No Concerns: Teeth/Dentures No Concerns: Sexual function No Troubled by feelings None of the above Frequency: Eating healthy diet Nearly every day ADLs requiring help Managing urine leakage--with urgency Safety precautions in home/vehicle Decline Smoke, vape, chews tobacco No Difficulty hearing No Difficulty seeing No Current Providers Specialists: I have reviewed specialist-related care of the patient in the medical record. Outside specialists seen: Dr. Fabien Lemus ([facility]); [facility] Dermatology (Superficial spreading melanoma so every 3 months for 2 years then every 6 months afterwards--Grace Torres) Medical/Family history review Reviewed and updated problem list, medical/surgical/family/social history, medications, and allergies. Opioid use review Opioid Medications (last 90 days) 01/17/2025 00:00 01/24/2025 23:59 Opioid Medications tramadol HCl 50 mg TID PRN PO -Rx End Details Outpatient prescription Anxiety/Depression screening PHQ-2 Score: 0 (Lower risk for depression) CRISTA-7 Score: 0. Recommendation: no further intervention at this time Cognitive screening Mini Cog Score: 5 Cognitive screening reviewed and No further action needed (score 3-5). Functional Observation Was the patient's Timed Up & Go test unsteady or >= 12 seconds? No Advance Care Planning Surrogate decision maker and/or advance care plan documented Will drop off copy again. is surrogate decision maker. Measurements BP 116/64 Pulse 82 Temp 36.8 C (98.2 F) (Temporal) Resp 12 Ht 170.2 cm (5' 7) Wt 60.1 kg (132 lb 7.9 oz) SpO2 100% BMI 20.75 kg/m Vision Screening: Follows with optometry/ophthalmology Assessment/Plan Medicare annual wellness visit, subsequent (Z00.00) - Counseled on healthy diet and regular exercise - Fall avoidance information provided - Personalized prevention plan provided Octavio Ulloa MD Recording using ambient [employer] software for draft documentation of the visit was discussed with the patient/authorized sales representative [employer]; all questions welcomed and answered. 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 agreed to proceed [1] Social History Tobacco Use Smoking status: Never Smokeless tobacco: Never Substance Use Topics Alcohol use: No Drug use: No Eye doctor is : Dr.Scott Lemus sees every 6 months documented in this encounter [facility] 03-25-2025 Instructions Octavio Ulloa MD - 03/25/2025 2:04 PM EDT - Continue amitriptyline as prescribed. - Continue to take 500 mg magnesium supplement plus half of a 250 mg tablet each day to help with constipation and prevent headaches. - Aim for 1,200-1,500 mg of calcium daily from food and supplements. Review how much you get from dairy and other foods before adding pills. - If you feel shakiness or weakness a few hours after eating, have a fast-acting carbohydrate first (for example, juice or a piece of fruit), then follow with protein (cheese, nuts, or a protein shake). To prevent these episodes, include more protein at meals and plan a protein-rich snack 2-3 hours after meals. - Continue walking daily and use your stretching/balance exercise DVD a few times a week to support muscle strength, balance, and body composition. - Okay to reduce overall carbs, shift toward lean protein and healthy oils, and keep up regular exercise to help manage weight and redistribute body fat. - Stay well hydrated and increase your salt intake to help prevent lightheadedness when you stand up. Consider wearing compression stockings on hot days if you notice persistent drops in blood pressure. - When you feel a sudden urge to urinate, pause for a moment and let the bladder settle before hurrying to the bathroom. Track your fluid and caffeine intake, and let us know if urgency worsens. - During balance exercises or when changing positions, keep your eyes open and lightly hold on to a stable surface to offset vertigo-related signals. - Upload or bring a copy of your Advance Directives to the clinic so we can add it to your chart. Your , Fabien Araya, is your designated surrogate decision maker. - Complete the bundled non-fasting lipid panel and metabolic labs today--or within the next 3 months, whichever is easiest for you. These orders include cholesterol, thyroid, B12, vitamin D, and sed rate. - Declined the influenza vaccine today. Get your flu shot and the updated pneumococcal vaccine (PCV 20/21) at your pharmacy when you go next. - Your next bone density test is due in one year. Keep up weight-bearing exercises, vitamin D intake, and the daily calcium goal above. - Continue routine eye care with Dr. Fabien Lemus at [facility] - Maintain melanoma surveillance visits at [facility] with Grace Torres every 3 months for 2 years, then every 6 months as advised. Screening schedule The following prevention plan is recommended: Lipid Screening due on 04/12/2025 Mammogram Screening due on 05/10/2025 WHAT YOU CAN DO TO PREVENT FALLS Many falls can be prevented. By making some changes, you can lower your chances of falling. Four things YOU can do to prevent falls for you* and your caregiver 1. Begin a regular exercise program Exercise is one of the most important ways to lower your chances of falling. It makes you stronger and helps you feel better. Exercises that improve balance and coordination (like Cj Chi) are the most helpful. Lack of exercise leads to weakness and increases your chances of falling. Ask your doctor or health care provider about the best type of exercise program for you. 2. Have your health care provider review your medicines Have your doctor or pharmacist review all the medicines you take, even [id number] medicines. As you get older, the way medicines work in your body can change. Some medicines, or combinations of medicines, can make you sleepy or dizzy and can cause you to fall. 3. Have your vision checked Have your eyes checked by an eye doctor at least once a year. You may be wearing the wrong glasses or have a condition like glaucoma or cataracts that limits your vision. Poor vision can increase your chances of falling. 4. Make your home safer About half of all falls happen at home. To make your home safer: Remove things you can trip over (like papers, books, clothes, and shoes) from stairs and places where you walk. Remove small throw rugs or use double-sided tape to keep the rugs from slipping. Keep items you use often in cabinets you can reach easily without using a step stool. Have grab bars put in next to your toilet and in the tub or shower. Use non-slip mats in the bathtub and on shower floors. Improve the lighting in your home. As you get older, you need brighter lights to see well. Hang light-weight curtains or shades to reduce glare. Have handrails and lights put in on all staircases. Wear shoes both inside and outside the house. Avoid going barefoot or wearing slippers. For more information, contact: Centers for Disease Control and Prevention www.cdc.gov/injury * This information may not apply if you have certain medical conditions. documented in this encounter [facility] 03-25-2025 Note HNO ID: [id number] Author: YENI MARQUEZ LPN Service: ? Author Type: Licensed Nurse Type: Progress Notes Filed: 03/25/2025 14:52 Note Text: Eye doctor is : Dr.Scott Lemus sees every 6 months [facility] 02-10-2025 History of Presen t illness Narrative Radiology Service Progress Note PATIENT NAME: Yanet Araya DATE OF SERVICE: February 10, 2025 TIME: 12:54 PM PATIENT IDENTITY VERIFICATION COMPLETED USING TWO (2) IDENTIFIERS: Name and Date of confirmed by patient verbally. FALL SCREENING: Has the patient had 2 falls in the last year or 1 fall with injury or currently using an Ambulatory Assistive Device (Walker, Cane, Wheelchair, Crutches, etc.)? No PATIENT GENDER DATA: Assigned female at . status: : No status: NO. PATIENT RELEVANT IMPLANT DATA REVIEWED: Yes PATIENT PRESENTS WITH AN IMPLANTABLE OR ATTACHED SAILOR: No RADIOLOGY DEPARTMENT: MR; Exam(s) Completed: Head: Routine Brain. Aromatherapy Administered: No PERIPHERAL IV DATA: Not applicable SIGNED BY: RT Guillermina(R) February 10, 2025 12:54 PM documented in this encounter [facility] 02-10-2025 Note HNO ID: [id number] Author: KANIKA BRICE RT(R) Service: ? Author Type: Technologist Type: Progress Notes Filed: 02/10/2025 12:54 Note Text: Radiology Service Progress Note PATIENT NAME: Yanet Araya DATE OF SERVICE: February 10, 2025 TIME: 12:54 PM PATIENT IDENTITY VERIFICATION COMPLETED USING TWO (2) IDENTIFIERS: Name and Date of confirmed by patient verbally. FALL SCREENING: Has the patient had 2 falls in the last year or 1 fall with injury or currently using an Ambulatory Assistive Device (Walker, Cane, Wheelchair, Crutches, etc.)? No PATIENT GENDER DATA: Assigned female at . status: : No status: NO. PATIENT RELEVANT IMPLANT DATA REVIEWED: Yes PATIENT PRESENTS WITH AN IMPLANTABLE OR ATTACHED SAILOR: No RADIOLOGY DEPARTMENT: MR; Exam(s) Completed: Head: Routine Brain. Aromatherapy Administered: No PERIPHERAL IV DATA: Not applicable SIGNED BY: LAINEY Sarmiento) February 10, 2025 12:54 PM [facility] 02-01-2025 Instructions Sheila Dominique PA-C - 02/01/2025 12:59 PM EDT Images from the original note were not included. Will start gabapentin 100mg at bedtime (can increase to 3 times a day) MRI of the brain Laboratory studies Follow up in 6-8 weeks if symptoms persist Frequently Asked Questions about Concussion What is a concussion? A concussion, or mild traumatic brain injury, is caused by a bump, jolt, or blow to the head that causes the brain to shift or twist rapidly inside the skull. A jolt to the body can also cause concussion if the impact causes the head to jerk forcefully backwards, forwards, rotate, or move to the side as in whiplash. A concussion is called mild because it is not usually life-threatening, and the symptoms are usually short-lived. However, the effects from a concussion can be serious and can last for days, weeks, or even longer. What are the common causes of concussion? The most common causes of concussions are falls, motor vehicle accidents, bicycling, and sport injuries. Any sport in which there is contact among the players, or which involves moving objects like a puck or a ball, can place the athlete at a higher risk for a concussion. Suffering a concussion increases the risk of suffering another during the first year following the injury. People with a history of previous concussion(s) are also at increased risk for prolonged symptoms after concussion. How is a concussion diagnosed? A medical professional should provide a thorough examination. This includes a history of the injury, a review of concussion symptoms, a comprehensive physical and neurological exam, balance testing and cognitive function testing. Most concussions do not require brain imaging with a CT or MRI. All [facility] states have laws to protect youth/student athletes from returning to the sport before it is safe. A note from a licensed medical professional is required to certify the athlete s is recovered prior to athletic return. What are the common symptoms of concussion? Concussion symptoms usually appear immediately or just a few minutes after the head injury however, in some instances, symptoms may take several hours or even days to appear. The most common symptom of a concussion is a headache. Other common symptoms include dizziness, nausea, sensitivity to light and noise, sleep difficulties, fatigue, trouble with concentration, changes in behavior, irritability, sadness, nervousness and anxiety. For additional information or to make an appointment, go to [email or web address] on or call [phone] ([phone]). What does concussion treatment/management involve? Most patients symptoms can be managed by observation and encouraging rest for the first few days. An appointment with a health care provider will individualize a gradual return to work/school and physical activity after initial rest. Medications for pain relief, unless prescribed, are not recommended as they may hide symptoms are worsening each day. If symptoms are only worsening, seek medical evaluation immediately. Treatment of concussion is based on a plan called relative rest . The purpose is for the brain to be active, but not overactive and it should not become underactive either. There is a need to find balance in activities because the overactive brain can develop more symptoms and the underactive brain can become more sluggish. Both scenarios can make concussion recovery take longer. Four Principles of Relative Rest are as follows: Recognize when your symptoms worsen with activity. Temporarily remove yourself from those activities - take a break. Rest until the symptoms improve or go away - close your eyes and put head down. Return to those activities once you feel better. Can I exercise with a concussion? Yes, light cardiovascular exercise 2 days after concussion injury has been shown to improve a patient s recovery time and symptoms however, it is recommended that a patient refrain from the same level of physical activity as prior to the injury. Gym classes should not be attended until cleared by your medical team. Walking or light riding on a stationary bike for exercise is okay in order to keep the body moving increasing blood flow to the brain but you ll want to avoid anything that significantly increases heart rate. Exercise should not provoke symptoms. If symptoms worsen with light cardiovascular exercise, slow down the tempo of the exercise and see if symptoms improve. If it does, continue at that intensity. If symptoms continue despite slowing down, discontinue activity for the day. Patients who are student athletes should focus on becoming a student first, adding athletic activity as their recovery allows under the guidance of a licensed medical professional whenever possible. For additional information or to make an appointment, go to [email or web address] on or call [phone] ([phone]). I can t seem to focus or concentrate now. Should I be going to school? It's helpful to identify and limit things that cause symptoms to return or increase. Most of the time, you can control the environment at home, where the lights can be turned down, the noise level controlled, and studies paced by taking frequent breaks and resting as needed. Patients can go back to work/school as soon as they feel they are ready. For many, this means when patients can handle 25-45 minutes of reading/studying at home without increasing symptoms but requiring breaks. When going back to work/school, start with the easiest subjects/activities and increase as tolerated. That doesn t necessarily mean that a patient go to work/school for a set amount of time. The patient should start off with some easier tasks/classes each day and moving towards the harder ones when they feel able. If symptoms start during work/class, the patient should take a small break by closing their eyes or putting their head down until symptoms start to go away. If symptoms don t improve or start to get worse, they can go to the nurse s office/quiet room to lie down, or even go home to rest. Note taking can be challenging with a concussion due to light sensitivity from screens, painful eye and neck movements or even multi-tasking. To control symptoms, pre-printed notes in advance of a meeting or lesson are helpful. Focus on one task at a time. Utilize the sheet to add content from the discussion as needed. Just like getting into shape, mental stamina will improve as the patient listens to and manages symptoms. A patient shouldn t be afraid to rest and recover when they get home, they may be very tired and fatigued. Just like a phone they need to recharge and can nap but should do so briefly to not affect sleep. The power of diet and hydration: Though you may not be hungry or thirsty, make sure to get a balanced diet and hydration. Low blood sugar and dehydration mimic concussion symptoms. Making sure these are not a factor aids in faster recovery. What should I do if I have trouble falling asleep or sleeping through the night? Avoid screen time at least 1 hour prior to going to bed. This include phones, TVs, computers and other electronic devices. Blue light wavelengths affects the body s natural ability to produce melatonin, a hormone that helps regulate sleep. An over the counter supplement of melatonin is also available and can be used to assist in falling and staying asleep. Begin with 1-3mg if needed. If sleep does not improve, see your medical provider as soon as possible. For additional information or to make an appointment, go to [email or web address] on or call [phone] ([phone]). 1 How to Manage Concussion Symptoms The following information is to help guide you through the different symptoms that you may experience during your recovery. Symptom management is designed to give you tips to assist you in decreasing symptoms, as well as speeding up your recovery. LIMIT TRIGGERS CAUSING SYMPTOMS: TIPS FOR MANAGEMENT Any activity that produces or increases your symptoms is considered a trigger. It is important for you to know what aggravates your individual symptoms. Limiting triggers will help decrease symptoms each day This can allow for faster recovery and a return to activities sooner RELATIVE REST: We want the brain to remain active, but only as tolerated. This will require you to limit physical and mental activities that worsen your symptoms. When symptoms develop or worsen, stop that activity immediately, rest until your symptoms improve or resolve, and then resume the activity as tolerated. Try shorter activity periods (start at 5 minutes & increase as tolerated) Limit electronic device use (cellphones, computers, tablet pcs, etc.) as these can aggravate symptoms Adapt your schedule to accommodate your symptoms each day APPROPRIATE SLEEP: Our brains recover during sleep. Sleep makes you feel more rested and focused. Your sleep pattern may be disrupted after a concussion, causing daytime tiredness. If sleep is difficult, inform your medical team. Go to bed and get up at the same time each day Take a short nap (30-60 minutes) if tired during the day Naps should not affect night time sleep Eliminate bedroom distractions: i.e. TV, cellphones, computers, tablet pcs, etc. HEADACHE: May vary in location and intensity Typically will worsen with mental/physical stress as the day progresses Can worsen with the position of your head and neck, especially with reading, working on a computer, texting or studying If your headache becomes more intense or worsens, consult your medical team Take medication sparingly as directed. Do not mask symptoms and push through tasks. DIZZINESS: Common after concussion and is described as: Lightheadedness Room is spinning Pressure or feeling of a full head Fogginess or can t think clearly Woozy Off balance It is important that you communicate any of these symptoms of dizziness to your medical team, even if the symptoms are temporary or come and go For more information or to make an appointment, go to [email or web address] or call [phone] ([phone]). 1 NECK PAIN: TIPS FOR MANAGEMENT Discomfort along your hairline or on the top of your shoulders is common with concussion Numbness and pain into your arms and hands is not common and should be reported can worsen with the position of your head and neck, especially with reading, working on a computer, texting or studying Physical therapy may be needed for resolution. It is important to let your medical team know if you develop neck pain after your concussion Use ice or cold pack at the base of the skull as needed for neck pain for about 15-20 minutes Try to use correct back and neck posture for relief LIGHT AND NOISE SENSITIVITY: Both are common after an injury Different kinds of light and noise can affect each person differently Limit exposure to these triggers by controlling the environment around you whenever possible Gradually reintroduce these stimuli, increasing exposure over time Turning indoor lights down and closing blinds may be necessary Sunglasses and hats can be used outside or with bright lights Limit electronic devices (cellphones, computers, TV, etc.) as these are known to aggravate symptoms Keep volume low on TVs or music Use foam earplugs to control noise in outdoor/public environments Report these to your medical team For more information or to make an appointment, go to [email or web address] on or call [phone] ([phone]). documented in this encounter [facility] 02-01-2025 Note HNO ID: [id number] Author: SHEILA DOMINIQUE PA-C Service: ? Author Type: Physician Installer Inspector Final Type: Progress Notes Filed: 02/01/2025 13:23 Note Text: [facility] Name: Yanet Araya Age: [age] year old Gender: female Primary Care Provider: Octavio Ulloa MD Consult requested for concussion by Omar Guidry. Recommendations will be communicated via shared medical record or US mail. Chief Complaint:New Patient (Concussion w/o loss of consciousness, vertigo, KIARA(sees sleep), Hx of Migraine- since fall 12/27/24 having increased, has tingling in head and feeling off but not dizziness.) and Tremor (Not sure if related but tremors have been worse since fall) 02/01/2025 - General Neurology, Sheila Dominique PA-C ASSESSMENT ASSESSMENT/PLAN: 1. Persistent headaches - ICD9: 784.0, ICD10: R51.9 (primary diagnosis) 2. History of migraine - ICD9: V12.49, ICD10: Z86.69 3. Concussion without loss of consciousness, initial encounter - ICD9: 850.0, ICD10: S06.0X0A Patient with chronic migraines, sustained her first concussion on 12-29-24. Mechanism was a trip and fall, she fell face first onto the sidewalk sustaining an orbital floor fracture. No loss of consciousness. She did see ophtho and exam was normal. Went to the emergency department where CT of the face revealed a fracture but no CT of the head was obtained. Initially had worsening headaches, fatigue and concentration issues but now she only has persistent headaches. Prior to fall she was having about 2 migraines a month that were well aborted with frovatriptan but now she is having difficulty aborting the headaches and is having about 8-10 headaches a month since the fall. Does note recently that her frovatriptan did work on her last headache. Headaches are consistent with her migraines along with some occasional stabbing pain over the right eye. Due to persistent headaches in a patient above the age of 50 will order repeat MRI, her last MRI was while she was living in [place] about 23 years ago. Does have history of cervical MRI as well and this was normal in 2016. Additionally, due to the stabbing nature over the I will obtain CRP and ESR to ensure no signs of inflammation or GCA although my suspicion is very low. At this time she is taking Elavil 50 mg which has been a good preventative for her for a long time but is no longer controlling her headaches. Has tried other preventatives including Effexor and Topamax in the past, discussed gabapentin as she does have a tremor as well. Will start at 100 mg and titrate up to 3 times a day if needed and tolerated. Discussed common side effects patient is amenable. Discussed abortive use of frovatriptan or Advil, no more than 10 doses in a month. Patient agreeable to treatment plan of care at this time, questions were answered. Patient to follow-up in 6 to 8 weeks should her headaches persist. Sheila Dominique PA-C -photophobia: blue light filter on glasses, try shift foreman mode for blue light Encounter Diagnosis ICD-10-CM 1. Concussion without loss of consciousness, subsequent encounter S06.0X0D 2. History of migraine Z86.69 No follow-ups on file. Chart, labs,and relevant images reviewed. HPI: Seen on 12/29/24 after head injury. 1. Injury of head, initial encounter (S09.90XA) - Sustained head injury from a fall this morning; denies loss of consciousness. - Experiencing headache and feeling a little off. - Given patient's age, there is a concern for potential intracranial injury. - Referred to the emergency room for further evaluation and CT head. - Patient declined EMS transport, stating she has a friend to take her. Saw PCP on 01/05/25 for FU. Lena reports a fall on the , during which she tripped on a part of the sidewalk, landing on the left side of her face. She was initially seen at [facility] and then referred to the emergency room, where an orbital floor fracture was diagnosed. She expresses concern about a possible concussion, noting an increase in her usual headaches since the fall. Lena has taken Frova three times since the incident due to the severity of the headaches, which are described as involving tingling, numbness, pressure, and pain across the forehead, similar to her typical migraines. She usually manages her headaches with Advil, reserving Frova for more persistent episodes. She denies any neck pain, stiffness, or difficulty moving her neck. Lena also sustained a significant contusion on her hand, which was evaluated by a chiropractor who found no fractures. She reports no vision changes and was evaluated by an dish room worker who confirmed her eye is fine. She experienced a significant nosebleed on the side of the fracture immediately after the fall Was given 8 days of steroids. This is a 69 year old female presenting with headaches after head injury. Patient notes around 12-29-2024 she was on her (more content not included)... [facility] 02-01-2025 History of Presen t illness Narrative Images from the original note were not included. [facility] Name: Yanet Araya Age: [age] year old Gender: female Primary Care Provider: Octavio Ulloa MD Consult requested for concussion by Omar Guidry. Recommendations will be communicated via shared medical record or US mail. Chief Complaint:New Patient (Concussion w/o loss of consciousness, vertigo, KIARA(sees sleep), Hx of Migraine- since fall 12/27/24 having increased, has tingling in head and feeling off but not dizziness.) and Tremor (Not sure if related but tremors have been worse since fall) 02/01/2025 - General Neurology, Sheila Dominique PA-C ASSESSMENT ASSESSMENT/PLAN: 1. Persistent headaches - ICD9: 784.0, ICD10: R51.9 (primary diagnosis) 2. History of migraine - ICD9: V12.49, ICD10: Z86.69 3. Concussion without loss of consciousness, initial encounter - ICD9: 850.0, ICD10: S06.0X0A Patient with chronic migraines, sustained her first concussion on 12-29-24. Mechanism was a trip and fall, she fell face first onto the sidewalk sustaining an orbital floor fracture. No loss of consciousness. She did see ophtho and exam was normal. Went to the emergency department where CT of the face revealed a fracture but no CT of the head was obtained. Initially had worsening headaches, fatigue and concentration issues but now she only has persistent headaches. Prior to fall she was having about 2 migraines a month that were well aborted with frovatriptan but now she is having difficulty aborting the headaches and is having about 8-10 headaches a month since the fall. Does note recently that her frovatriptan did work on her last headache. Headaches are consistent with her migraines along with some occasional stabbing pain over the right eye. Due to persistent headaches in a patient above the age of 50 will order repeat MRI, her last MRI was while she was living in [facility] about 23 years ago. Does have history of cervical MRI as well and this was normal in 2016. Additionally, due to the stabbing nature over the I will obtain CRP and ESR to ensure no signs of inflammation or GCA although my suspicion is very low. At this time she is taking Elavil 50 mg which has been a good preventative for her for a long time but is no longer controlling her headaches. Has tried other preventatives including Effexor and Topamax in the past, discussed gabapentin as she does have a tremor as well. Will start at 100 mg and titrate up to 3 times a day if needed and tolerated. Discussed common side effects patient is amenable. Discussed abortive use of frovatriptan or Advil, no more than 10 doses in a month. Patient agreeable to treatment plan of care at this time, questions were answered. Patient to follow-up in 6 to 8 weeks should her headaches persist. Sheila Dominique PA-C -photophobia: blue light filter on glasses, try shift foreman mode for blue light Encounter Diagnosis ICD-10-CM 1. Concussion without loss of consciousness, subsequent encounter S06.0X0D 2. History of migraine Z86.69 No follow-ups on file. Chart, labs,and relevant images reviewed. HPI: Seen on 12/29/24 after head injury. 1. Injury of head, initial encounter (S09.90XA) - Sustained head injury from a fall this morning; denies loss of consciousness. - Experiencing headache and feeling a little off. - Given patient's age, there is a concern for potential intracranial injury. - Referred to the emergency room for further evaluation and CT head. - Patient declined EMS transport, stating she has a friend to take her. Saw PCP on 01/05/25 for FU. Lena reports a fall on the , during which she tripped on a part of the sidewalk, landing on the left side of her face. She was initially seen at [facility] and then referred to the emergency room, where an orbital floor fracture was diagnosed. She expresses concern about a possible concussion, noting an increase in her usual headaches since the fall. Lena has taken Frova three times since the incident due to the severity of the headaches, which are described as involving tingling, numbness, pressure, and pain across the forehead, similar to her typical migraines. She usually manages her headaches with Advil, reserving Frova for more persistent episodes. She denies any neck pain, stiffness, or difficulty moving her neck. Lena also sustained a significant contusion on her hand, which was evaluated by a chiropractor who found no fractures. She reports no vision changes and was evaluated by an dish room worker who confirmed her eye is fine. She experienced a significant nosebleed on the side of the fracture immediately after the fall Was given 8 days of steroids. This is a 69 year old female presenting with headaches after head injury. Patient notes around 12-29-2024 she was on her normal walk when she tripped on the sidewalk and fell face first. Also injured her left hand. Sustained an orbital floor fracture after being seen in the emergency department. Was not admitted, did follow-up with ophthalmology which exam was normal. Notes she did have some concentration issues as well as some fatigue but these significantly improved. However her headaches have persisted. Does have chronic migraines, states that she lived in [place] for 37 years and saw neurology over there, [place] she has been following with her primary care. Was getting about 2 migraines a month that were well aborted with her frovatriptan and occasionally, plan for her vestibular migraines. However, since her head injury she has been getting anywhere from 8-10 headaches in a month. Many are consistent with her previous migraines, but she will occasionally get a stabbing pain in her right eye. Has been using Advil and frovatriptan with good relief but her headaches have not improved since her head injury. Has had some dizziness consistent with her previous vestibular migraines, no room spinning or presyncope. Will occasionally take meclizine which does help with the dizziness feeling. Associated with her headaches includes some mild nausea and dizziness, no real photophobia or phonophobia. Patient was given 8 days of prednisone by primary care for headaches which she notes was helpful initially but at day 5 her headaches returned. Notes some numbness over the left cheek still since the fall. She did have some numbness over the teeth on the left side but this has resolved. Of note, patient does have a chronic tremor, slightly worse in the left upper extremity but present in both upper extremities. Father with similar tremor. Is never been treated for it in the past. Date of head injury 12/29/24 Mechanism of injury mechanical fall Lost of consciousness? No Memory issues: Yes, concentration issues, but this resolved. Mood issues:No Headaches: Yes, see above Balance/dizziness: Yes, but has this chronically Sleep issues: waking up, has a CPAP but does not help Fatigue: Yes, at first but improved Photosensitivity: no Vision changes (double/blurred): no Previous meds: TPM Elavil Effexor Frova Review of Systems ACTIVE PROBLEM LIST Hypothyroidism Headache Mvp (Mitral Valve Prolapse) Viral Wart On Right Thumb Other Seborrheic Keratosis BLUE NEVUS WRIST///BENIGN CAROLYN SKIN ARM H/O BCC RIGHT FOREHEADMALIG NEOPLASM SKIN FACE NEC Benign Neoplasm of Skin of Lower Limb, Including Hip PERS HX SKIN MALIGNANCY NEC: H/O BCC Age-Related Osteoporosis Without Current Pathological Fracture Tinnitus Glaucoma Deviated Septum PAST MEDICAL HISTORY Diagnosis Date ACTINIC DAMAGE///CHR SOLAR SKIN DAMAGE NOS 06/08/2007 Basal cell carcinoma 2007 scalp Headache(784.0) 1993 diagnosed was worked up by neurologist and was treated as migraine; also managed as tension type headache with doxepin MVP (mitral valve prolapse) last echocardiogram in [place] SEBORRHEIC KERATOSIS NOS 06/08/2007 Unspecified hypothyroidism Medications: Reviewed levothyroxine (SYNTHROID) 112 mcg tablet Take 1 tablet by mouth once daily. plus extra half pill once weekly or as directed (7.5 pills per week) frovatriptan (FROVA) 2.5 mg tablet Take 1 tablet by mouth as needed for migraine headache (see administration instructions). If headache recurs, may repeat after 2 hours. Max of 3 tablets in 24 hours. clonazePAM (KLONOPIN) 0.5 mg tablet Take 1 tablet by mouth two times a day as needed (for vertigo) for up to 30 days. CPAP/BIPAP/OTHER APAP 5-15 cmH2O latanoprost (XALATAN) 0.005 % ophthalmic solution Use 1 Drop in both eyes daily at bedtime. amitriptyline (ELAVIL) 50 mg tablet Take 1 tablet by mouth daily at bedtime. ALLERGIES No Known Allergies FAMILY HISTORY Problem Relation Age of Onset Diabetes Father other (heart) Father end complications with CHF None Mother PAST SURGICAL HISTORY Procedure Laterality Date COLONOSCOPY FLX DX W/COLLJ SPEC WHEN PFRMD 03/08/11 PAST SURGICAL HISTORY OF 01/19/1998 Excision right breast mass PAST SURGICAL HISTORY OF 09/13/1986 hystersalpingogram & EMB PAST SURGICAL HISTORY OF 2007 cyst removed from finger PAST SURGICAL HISTORY OF 2006 removal of BCC from scalp SOCIAL HISTORY No social history on file. Tobacco Use: Low Risk (01/17/2025) Patient History Smoking Tobacco Use: Never Smokeless Tobacco Use: Never Passive Exposure: Not on file PHYSICAL EXAM 02/01/25 1226 BP: 99/66 Pulse: 86 Neurological Exam Cognitive and Language: Alert and answered questions appropriately. Language was fluent. Followed simple and complex commands. Cranial Nerves: Visual melchor were full tested binocularly to finger counting in all 4 quadrants with no visual extinction. Pupils were equal and both reactive to light. Extraocular movements were full with no diplopia or nystagmus.. Facial sensation was normal to light touch in V1 to V3. Facial strength was symmetric. Normal hearing grossly bilaterally. Palatal raise was symmetric. Shoulder shrug was symmetric. Tongue protrusion was symmetric with no fasciculations. Right Left Shoulder Abduction: 5 5 Elbow Extension 5 5 Elbow Flexion 5 5 Wrist Extension 5 5 Finger Extension 5 5 Finger Abduction 5 5 Right Left Hip Flexion 5 5 Knee Extension 5 5 Knee Flexion 5 5 Dorsiflexion 5 5 Plantar Flexion 5 5 Rest tremor: absent Tone: Normal in all four limbs Reflexes: Right Left Brachioradialis 2 2 Biceps 2 2 Triceps 2 2 Patella 2 2 Ankle 2 2 Sensory: normal to light touch and pinprick x 4 limbs. Coordination: Normal finger to nose. Negative romberg. Normal gait. Labs: Lab Results Component Value Date WBC 6.49 08/03/2024 HCT 42.8 08/03/2024 MCV 98.6 08/03/2024 PLT 172 08/03/2024 Lab Results Component Value Date HBA1C 5.1 08/03/2024 Cholesterol, Total Date Value Ref Range Status 04/12/2020 186 <200 mg/dL Final Comment: <200 mg/dL, Desirable 200-239 mg/dL, Borderline high >239 mg/dL, High HDL Cholesterol Date Value Ref Range Status 04/12/2020 74 >39 mg/dL Final Comment: 40-59 mg/dL, Acceptable >59 mg/dL, High: Negative risk factor for coronary heart disease <40 mg/dL, Low: Positive risk factor for coronary heart disease LDL Cholesterol, Calculated Date Value Ref Range Status 04/12/2020 99 <100 mg/dL Final Comment: <100 mg/dL, Optimal 100-129 mg/dL, Near optimal/above optimal 130-159 mg/dL, Borderline high 160-189 mg/dL, High >189 mg/dL, Very high Secondary prevention optimal LDL Cholesterol levels are recommended to be < 70 mg/dL Triglyceride Date Value Ref Range Status 04/12/2020 63 <150 mg/dL Final Comment: <150 mg/dL, Normal 150-199 mg/dL, Borderline high 200-499 mg/dL, High >499 mg/dL, Very high Radiology: MRI Head/Brain - Last 2 Impressions No resulted procedures found. , MRI Spine - Last 2 Impressions MRI CERVICAL SPINE WO CONTRAST Collected: 01/18/2016 10:51 AM (Final result) Impression: IMPRESSION: NORMAL EXAMINATION. Restaurant Maintenance Technician: CARLEY Transcribe Date/Time: Jan 18 2016 12:11P Dictated by : CHEYENNE CHRISTIAN MD This examination was interpreted and the report reviewed and electronically signed by: CHEYENNE CHRISTIAN MD on Jan 18 2016 12:13PM EST , and CT Head/Brain - Last 2 Impressions No resulted procedures found. This note was dictated using [employer] speech recognition software and may contain some errors that were a result of the program not accurately transcribing what was dictated, despite efforts to make corrections. Note that unless urgent, test and MRI results will be discussed at next follow-up visit. PROMIS (Patient-Reported Outcomes Measurement Information System) is a set of person-centered measures that evaluates and monitors physical, social, and emotional health. It can be used with the general population and with individuals living with chronic conditions. PROMIS 10: PHYSICAL AND MENTAL HEALTH: 12/20/2024 PHQ-9 PHQ-2 Score 0 PHQ-9 Score 4 I spent a total of 50 minutes on the date of the service which included preparing to see the patient, [id number] patient care, completing clinical documentation, obtaining and/or reviewing separately obtained history, performing a medically appropriate examination, counseling and educating the patient/family/caregiver, and ordering medications, tests, or procedures. 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 [employer] agreed to proceed 01/29/2025 Sleep Apnea Probability Snores loudly: Yes Tired, fatigued or sleepy in daytime: Yes Stops breathing or choking/gasping during sleep: Yes High blood pressure: No Sleep Apnea Probability Score: 33 (Sleep study not recommended) documented in this encounter [facility] 01-21-2025 Telephone encounter Note Letter wrote [facility] 01-21-2025 Miscellaneous Notes Letter wrote documented in this encounter [facility] 01-17-2025 Note HNO ID: [id number] Author: OMAR GUIDRY APRN.CNP Service: ? Author Type: Nurse Practitioner Type: Progress Notes Filed: 01/17/2025 12:04 Note Text: SUBJECTIVE Yanet Araya is a 69 year old female here today for a check up on her medical problems. Chief Complaint Patient presents with: Headaches: continues after fall with occasional dizziness HPI Yanet Araya is a 69 year old female. She is an established patient of Octavio Ulloa MD. Here today for follow up. Seen on 01/05 following an ER visit after a fall on 12/29 which resulted in concussion and closed left orbital floor fracture. She has a history of migraines which were exacerbated from the fall. Sleep is okay, took 1 mg melatonin. Still getting intermittent headaches. Frova helps some and ibuprofen helps some. Gets a dull ache across the forehead. Some dizziness occasionally. Meclizine helpful. Her medications were reviewed today and her list is now up to date. Medications Current Outpatient Medications Medication Sig levothyroxine (SYNTHROID) 112 mcg tablet Take 1 tablet by mouth once daily. plus extra half pill once weekly or as directed (7.5 pills per week) frovatriptan (FROVA) 2.5 mg tablet Take 1 tablet by mouth as needed for migraine headache (see administration instructions). If headache recurs, may repeat after 2 hours. Max of 3 tablets in 24 hours. clonazePAM (KLONOPIN) 0.5 mg tablet Take 1 tablet by mouth two times a day as needed (for vertigo) for up to 30 days. latanoprost (XALATAN) 0.005 % ophthalmic solution Use 1 Drop in both eyes daily at bedtime. amitriptyline (ELAVIL) 50 mg tablet Take 1 tablet by mouth daily at bedtime. traMADol (ULTRAM) 50 mg tablet Take 1 tablet by mouth three times a day as needed for pain for up to 7 days. CPAP/BIPAP/OTHER APAP 5-15 cmH2O No current facility-administered medications for this visit. 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 Cardiovascular: Negative. Neurological: Positive for dizziness and headaches. Negative for tremors, seizures, syncope, facial asymmetry, speech difficulty, weakness, light-headedness and numbness. OBJECTIVE BP 90/62 Pulse 84 Wt 129 lb 3 oz (58.6kg) SpO2 98% Physical Exam Vitals and nursing note reviewed. Constitutional: General: She is awake. She is not in acute distress. Appearance: Normal appearance. She is well-developed and well-groomed. She is not ill-appearing, toxic-appearing or diaphoretic. HENT: Head: Normocephalic. Right Ear: External ear normal. Left Ear: External ear normal. Nose: Nose normal. Eyes: General: Vision grossly intact. Conjunctiva/sclera: Conjunctivae normal. Pupils: Pupils are equal, round, and reactive to light. Neck: Vascular: No JVD. Trachea: Trachea normal. Cardiovascular: Heart sounds: Normal heart sounds. Pulmonary: Effort: Pulmonary effort is normal. No accessory muscle usage, prolonged expiration or respiratory distress. Musculoskeletal: Cervical back: Neck supple. Skin: General: Skin is warm and dry. Capillary Refill: Capillary refill takes less than 2 seconds. Neurological: General: No focal deficit present. Mental Status: She is alert and oriented to person, place, and time. Mental status is at baseline. Cranial Nerves: Cranial nerves 2-12 are intact. Motor: Motor function is intact. Coordination: Coordination is intact. Psychiatric: Attention and Perception: Attention and perception normal. Mood and Affect: Mood and affect normal. Speech: Speech normal. Behavior: Behavior normal. Behavior is cooperative. Thought Content: Thought content normal. Cognition and Memory: Cognition and memory normal. Judgment: Judgment normal. ASSESSMENT/PLAN: 1. Closed fracture of left orbital floor with routine healing, subsequent encounter - ICD9: V54.19, ICD10: S02.32XD (primary diagnosis) Suspect she is getting pain secondary to her fracture which is still healing. Short term tramadol script given. Although Ultram/tramadol is not a narcotic it does carry the risk of addiction if taken over a long period of time. OARRS report reviewed and prescription is reasonable. Discussed that in addition this (more content not included)... [facility] 01-17-2025 History of Presen t illness Narrative SUBJECTIVE Yanet Araya is a 69 year old female here today for a check up on her medical problems. Chief Complaint Patient presents with: Headaches: continues after fall with occasional dizziness HPI Yanet Araya is a 69 year old female. She is an established patient of Octavio Ulloa MD. Here today for follow up. Seen on 01/05 following an ER visit after a fall on 12/29 which resulted in concussion and closed left orbital floor fracture. She has a history of migraines which were exacerbated from the fall. Sleep is okay, took 1 mg melatonin. Still getting intermittent headaches. Frova helps some and ibuprofen helps some. Gets a dull ache across the forehead. Some dizziness occasionally. Meclizine helpful. Her medications were reviewed today and her list is now up to date. Medications Current Outpatient Medications Medication Sig levothyroxine (SYNTHROID) 112 mcg tablet Take 1 tablet by mouth once daily. plus extra half pill once weekly or as directed (7.5 pills per week) frovatriptan (FROVA) 2.5 mg tablet Take 1 tablet by mouth as needed for migraine headache (see administration instructions). If headache recurs, may repeat after 2 hours. Max of 3 tablets in 24 hours. clonazePAM (KLONOPIN) 0.5 mg tablet Take 1 tablet by mouth two times a day as needed (for vertigo) for up to 30 days. latanoprost (XALATAN) 0.005 % ophthalmic solution Use 1 Drop in both eyes daily at bedtime. amitriptyline (ELAVIL) 50 mg tablet Take 1 tablet by mouth daily at bedtime. traMADol (ULTRAM) 50 mg tablet Take 1 tablet by mouth three times a day as needed for pain for up to 7 days. CPAP/BIPAP/OTHER APAP 5-15 cmH2O No current facility-administered medications for this visit. 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 Cardiovascular: Negative. Neurological: Positive for dizziness and headaches. Negative for tremors, seizures, syncope, facial asymmetry, speech difficulty, weakness, light-headedness and numbness. OBJECTIVE BP 90/62 Pulse 84 Wt 129 lb 3 oz (58.6kg) SpO2 98% Physical Exam Vitals and nursing note reviewed. Constitutional: General: She is awake. She is not in acute distress. Appearance: Normal appearance. She is well-developed and well-groomed. She is not ill-appearing, toxic-appearing or diaphoretic. HENT: Head: Normocephalic. Right Ear: External ear normal. Left Ear: External ear normal. Nose: Nose normal. Eyes: General: Vision grossly intact. Conjunctiva/sclera: Conjunctivae normal. Pupils: Pupils are equal, round, and reactive to light. Neck: Vascular: No JVD. Trachea: Trachea normal. Cardiovascular: Heart sounds: Normal heart sounds. Pulmonary: Effort: Pulmonary effort is normal. No accessory muscle usage, prolonged expiration or respiratory distress. Musculoskeletal: Cervical back: Neck supple. Skin: General: Skin is warm and dry. Capillary Refill: Capillary refill takes less than 2 seconds. Neurological: General: No focal deficit present. Mental Status: She is alert and oriented to person, place, and time. Mental status is at baseline. Cranial Nerves: Cranial nerves 2-12 are intact. Motor: Motor function is intact. Coordination: Coordination is intact. Psychiatric: Attention and Perception: Attention and perception normal. Mood and Affect: Mood and affect normal. Speech: Speech normal. Behavior: Behavior normal. Behavior is cooperative. Thought Content: Thought content normal. Cognition and Memory: Cognition and memory normal. Judgment: Judgment normal. ASSESSMENT/PLAN: 1. Closed fracture of left orbital floor with routine healing, subsequent encounter - ICD9: V54.19, ICD10: S02.32XD (primary diagnosis) Suspect she is getting pain secondary to her fracture which is still healing. Short term tramadol script given. Although Ultram/tramadol is not a narcotic it does carry the risk of addiction if taken over a long period of time. OARRS report reviewed and prescription is reasonable. Discussed that in addition this medicine can lower the seizure threshold and if patient had any history of seizures or seizure like activity which was not shared with provider today, they should not take this medicine. While taking ultram/tramadol patient was instructed to not drive or operate or be in vicinity of heavy machinery. - TRAMADOL 50 MG TABLET 2. Post-concussion headache - ICD9: 339.20, ICD10: G44.309 See above. 3. History of migraine - ICD9: V12.49, ICD10: Z86.69 See above. Portions of this note have been entered by ancillary staff. I have reviewed and when necessary edited, so that they are an adequate record of my encounter with this patient Please note that parts of this document were created using voice recognition software and therefore may contain grammatical errors. Patient verbalizes understanding of instructions from today's visit and in agreement with treatment plan. Questions answered. Agrees to call the office if questions, concerns of issues with acute symptoms not improving or if they worsen. See diagnoses and orders for additional plan(s). Allergies and medications were reviewed, list was updated, and refills given if needed. Past medical, surgical, social, and family history reviewed and updated as appropriate. Encouraged proper diet & exercise as well as compliance with taking medications. Age-appropriate health preventative measures were discussed. Return in about 2 weeks (around 01/31/2025) for Follow up on chronic conditions and medications.. ZITA Licona documented in this encounter [facility] 01-06-2025 Telephone encounter Note Lena given below recommendation, verbalized understanding. Patient is not having an pain d/t fx, has not had to take any pain medication. Cony Levi LPN [facility] 01-06-2025 Miscellaneous Notes Lena given below recommendation, verbalized understanding. Patient is not having an pain d/t fx, has not had to take any pain medication. Cony Levi LPN Triptan medications are for migraines. If she is having a migraine she should be able to take the triptan medication unless she was advised otherwise in the ER. Was she provided with pain medication for her fracture in the ER? if so would recommend taking this if she is not currently. She can be seen in the office if not continuing to feel improved. Schedule if willing. Patient calls and states that she took a bad fall last Friday. Patient was seen in ER for this fall and has an orbital fracture. Patient states that she has headaches that are kind of like the migraines that she has had previously. Patient asking if it is ok to take the frovatriptan? Please review and advise, Mira You RN documented in this encounter [facility] 01-06-2025 Telephone encounter Note Triptan medications are for migraines. If she is having a migraine she should be able to take the triptan medication unless she was advised otherwise in the ER. Was she provided with pain medication for her fracture in the ER? if so would recommend taking this if she is not currently. She can be seen in the office if not continuing to feel improved. Schedule if willing. [facility] 01-05-2025 Note HNO ID: [id number] Author: OMAR GUIDRY APRN.DRY CHAIN OFFBEARER Service: ? Author Type: Nurse Practitioner Type: Progress Notes Filed: 01/05/2025 16:01 Note Text: SUBJECTIVE Yanet Araya is a 69 year old female here today for an ER follow up. Chief Complaint Patient presents with: ER F/U: [facility] 12/29/24 from a fall with noted orbital floor fracture on x-ray. HPI Lena Araya is a 69-year-old female presenting for follow-up after a fall resulting in an orbital floor fracture. Lena reports a fall on the , during which she tripped on a part of the sidewalk, landing on the left side of her face. She was initially seen at [facility] and then referred to the emergency room, where an orbital floor fracture was diagnosed. She expresses concern about a possible concussion, noting an increase in her usual headaches since the fall. Lena has taken Frova three times since the incident due to the severity of the headaches, which are described as involving tingling, numbness, pressure, and pain across the forehead, similar to her typical migraines. She usually manages her headaches with Advil, reserving Frova for more persistent episodes. She denies any neck pain, stiffness, or difficulty moving her neck. Lena also sustained a significant contusion on her hand, which was evaluated by a chiropractor who found no fractures. She reports no vision changes and was evaluated by an dish room worker who confirmed her eye is fine. She experienced a significant nosebleed on the side of the fracture immediately after the fall, followed by swelling when she blew her nose. Lena has not been using her CPAP due to discomfort with the nasal interface and plans to resume it after trying a full mask upon returning from a trip to [facility] in 2 weeks. She notes that her headaches interfered with sleep last night, but not prior to that. Her medications were reviewed today and her list is now up to date. Medications Current Outpatient Medications Medication Sig latanoprost (XALATAN) 0.005 % ophthalmic solution Use 1 Drop in both eyes daily at bedtime. amitriptyline (ELAVIL) 50 mg tablet Take 1 tablet by mouth daily at bedtime. levothyroxine (SYNTHROID) 112 mcg tablet Take 1 tablet by mouth once daily. plus extra half pill once weekly or as directed (7.5 pills per week) frovatriptan (FROVA) 2.5 mg tablet Take 1 tablet by mouth as needed for migraine headache (see administration instructions). If headache recurs, may repeat after 2 hours. Max of 3 tablets in 24 hours. clonazePAM (KLONOPIN) 0.5 mg tablet Take 1 tablet by mouth two times a day as needed (for vertigo) for up to 30 days. predniSONE (DELTASONE) 10 mg tablet Take 2 tabs po BID for 2 days then 1 tab po BID for 2 days then 1/2 tab po BID for 2 days then 1/2 tab daily for 2 days then stop CPAP/BIPAP/OTHER APAP 5-15 cmH2O No current facility-administered medications for this visit. 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, Including Hip - 01/18/2008 PERS HX SKIN MALIGNANCY NEC: H/O BCC - 01/18/2008 H/O BCC RIGHT FOREHEADMALIG NEOPLASM SKIN FACE NEC - 07/03/2007 Viral Wart On Right Thumb - 06/08/2007 Other Seborrheic Keratosis - 06/08/2007 BLUE NEVUS WRIST///BENIGN CAROLYN SKIN ARM - 06/08/2007 Hypothyroidism - 02/24/2007 Headache - 02/24/2007 Mvp (Mitral Valve Prolapse) - 02/24/2007 Social History Tobacco Use Smoking status: Never Smokeless tobacco: Never Substance Use Topics Alcohol use: No Drug use: No Constitutional: (+) sleep disturbance Head: (+) headaches, (+) forehead pain Eyes: (-) vision changes Ears/Nose/Mouth/Throat: (+) nasal congestion Neck: (-) neck pain, (-) neck stiffness, (-) limited neck range of motion Musculoskeletal: (+) left hand swelling Skin: (+) left hand bruising Neurological: (+) tingling, (+) numbness OBJECTIVE BP 110/78 Pulse 85 Wt 129 lb 6.6 oz (58.7kg) SpO2 100% Physical Exam Vitals and nursing note reviewed. Constitutional: General: She is awake. She is not in acute distress. Appearance: Normal appearance. She is well-developed and well-groomed. She is not ill-appearing, toxic-appearing or diaphoretic. HENT: Head: Normocephalic. Comments: Bruising to the left side of face with abrasion above the eye Right Ear: External ear normal. Left Ear: External ear normal. Nose: Nose normal. Eyes: General: Vision grossly intact. Conjunctiva/sclera: Conjunctivae normal. Pupils: Pupils are equal, round, and reactive to light. Neck: Vascular: No JVD. Trachea: Trachea normal. Pulmonary: Effort: Pulmonary effort is normal. No accessory muscle usage, prolonged expiration or respiratory distress. Musculoskeletal: Cervical back: Neck supple. Skin: General: Skin is warm a (more content not included)... [facility] 01-05-2025 History of Presen t illness Narrative Images from the original note were not included. SUBJECTIVE Yanet Araya is a 69 year old female here today for an ER follow up. Chief Complaint Patient presents with: ER F/U: [facility] 12/29/24 from a fall with noted orbital floor fracture on x-ray. HPI Lena Araya is a 69-year-old female presenting for follow-up after a fall resulting in an orbital floor fracture. Lena reports a fall on the , during which she tripped on a part of the sidewalk, landing on the left side of her face. She was initially seen at [facility] and then referred to the emergency room, where an orbital floor fracture was diagnosed. She expresses concern about a possible concussion, noting an increase in her usual headaches since the fall. Lena has taken Frova three times since the incident due to the severity of the headaches, which are described as involving tingling, numbness, pressure, and pain across the forehead, similar to her typical migraines. She usually manages her headaches with Advil, reserving Frova for more persistent episodes. She denies any neck pain, stiffness, or difficulty moving her neck. Lena also sustained a significant contusion on her hand, which was evaluated by a chiropractor who found no fractures. She reports no vision changes and was evaluated by an dish room worker who confirmed her eye is fine. She experienced a significant nosebleed on the side of the fracture immediately after the fall, followed by swelling when she blew her nose. Lena has not been using her CPAP due to discomfort with the nasal interface and plans to resume it after trying a full mask upon returning from a trip to [facility] in 2 weeks. She notes that her headaches interfered with sleep last night, but not prior to that. Her medications were reviewed today and her list is now up to date. Medications Current Outpatient Medications Medication Sig latanoprost (XALATAN) 0.005 % ophthalmic solution Use 1 Drop in both eyes daily at bedtime. amitriptyline (ELAVIL) 50 mg tablet Take 1 tablet by mouth daily at bedtime. levothyroxine (SYNTHROID) 112 mcg tablet Take 1 tablet by mouth once daily. plus extra half pill once weekly or as directed (7.5 pills per week) frovatriptan (FROVA) 2.5 mg tablet Take 1 tablet by mouth as needed for migraine headache (see administration instructions). If headache recurs, may repeat after 2 hours. Max of 3 tablets in 24 hours. clonazePAM (KLONOPIN) 0.5 mg tablet Take 1 tablet by mouth two times a day as needed (for vertigo) for up to 30 days. predniSONE (DELTASONE) 10 mg tablet Take 2 tabs po BID for 2 days then 1 tab po BID for 2 days then 1/2 tab po BID for 2 days then 1/2 tab daily for 2 days then stop CPAP/BIPAP/OTHER APAP 5-15 cmH2O No current facility-administered medications for this visit. 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, Including Hip - 01/18/2008 PERS HX SKIN MALIGNANCY NEC: H/O BCC - 01/18/2008 H/O BCC RIGHT FOREHEADMALIG NEOPLASM SKIN FACE NEC - 07/03/2007 Viral Wart On Right Thumb - 06/08/2007 Other Seborrheic Keratosis - 06/08/2007 BLUE NEVUS WRIST///BENIGN CAROLYN SKIN ARM - 06/08/2007 Hypothyroidism - 02/24/2007 Headache - 02/24/2007 Mvp (Mitral Valve Prolapse) - 02/24/2007 Social History Tobacco Use Smoking status: Never Smokeless tobacco: Never Substance Use Topics Alcohol use: No Drug use: No Constitutional: (+) sleep disturbance Head: (+) headaches, (+) forehead pain Eyes: (-) vision changes Ears/Nose/Mouth/Throat: (+) nasal congestion Neck: (-) neck pain, (-) neck stiffness, (-) limited neck range of motion Musculoskeletal: (+) left hand swelling Skin: (+) left hand bruising Neurological: (+) tingling, (+) numbness OBJECTIVE BP 110/78 Pulse 85 Wt 129 lb 6.6 oz (58.7kg) SpO2 100% Physical Exam Vitals and nursing note reviewed. Constitutional: General: She is awake. She is not in acute distress. Appearance: Normal appearance. She is well-developed and well-groomed. She is not ill-appearing, toxic-appearing or diaphoretic. HENT: Head: Normocephalic. Comments: Bruising to the left side of face with abrasion above the eye Right Ear: External ear normal. Left Ear: External ear normal. Nose: Nose normal. Eyes: General: Vision grossly intact. Conjunctiva/sclera: Conjunctivae normal. Pupils: Pupils are equal, round, and reactive to light. Neck: Vascular: No JVD. Trachea: Trachea normal. Pulmonary: Effort: Pulmonary effort is normal. No accessory muscle usage, prolonged expiration or respiratory distress. Musculoskeletal: Cervical back: Neck supple. Skin: General: Skin is warm and dry. Capillary Refill: Capillary refill takes less than 2 seconds. Comments: Left hand with contusion Neurological: General: No focal deficit present. Mental Status: She is alert and oriented to person, place, and time. Mental status is at baseline. Psychiatric: Attention and Perception: Attention and perception normal. Mood and Affect: Mood and affect normal. Speech: Speech normal. Behavior: Behavior normal. Behavior is cooperative. Thought Content: Thought content normal. Cognition and Memory: Cognition and memory normal. Judgment: Judgment normal. ASSESSMENT/PLAN: 1. Closed fracture of left orbital floor with routine healing, subsequent encounter (S02.32XD) Minimally displaced fracture confirmed by imaging in the emergency room on the . Ophthalmology evaluation on Friday confirmed no vision impairment. - Advised against blowing nose for 1-2 weeks to allow healing. - Recommended saline nasal spray and use of a humidifier to alleviate congestion. 2. Contusion of left hand, subsequent encounter (S60.222D) Significant bruising observed, no fractures detected by chiropractor. Past initial swelling phase. - Advised application of heat and gentle massage to facilitate healing. 3. History of migraine (Z86.69) Migraine without aura, not intractable, without status migrainosus (G43.009) Exacerbation of migraine symptoms post-fall, with headaches described as tingling, numbness, and pressure. Relief achieved with Advil and Frova. - Prescribed an 8-day prednisone taper to interrupt headache cycle and reduce inflammation. - Advised against use of Aleve or ibuprofen during prednisone course; Tylenol and Frova are permissible. - Refilled prescriptions for Frova, levothyroxine, and clonazepam. 4. Vertigo (R42) Chronic issue, no new symptoms reported post-fall. 5. Concussion without loss of consciousness, subsequent encounter (S06.0X0D) Likely concussion due to significant impact during fall. Headaches and cognitive strain noted. - Recommended mental rest: avoid bright lights, limit screen time, and reduce cognitive activities. - Monitor headache severity as a guide for activity level; expect symptom improvement over 1-2 weeks. 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 agreed to proceed Portions of this note have been entered by ancillary staff. I have reviewed and when necessary edited, so that they are an adequate record of my encounter with this patient Please note that parts of this document were created using voice recognition software and therefore may contain grammatical errors. Patient verbalizes understanding of instructions from today's visit and in agreement with treatment plan. Questions answered. Agrees to call the office if questions, concerns of issues with acute symptoms not improving or if they worsen. See diagnoses and orders for additional plan(s). Allergies and medications were reviewed, list was updated, and refills given if needed. Past medical, surgical, social, and family history reviewed and updated as appropriate. Encouraged proper diet & exercise as well as compliance with taking medications. Age-appropriate health preventative measures were discussed. Return if symptoms worsen or fail to improve, for Keep next scheduled appointment.. Omar Guidry APRN-ANNA documented in this encounter [facility] 01-04-2025 Telephone encounter Note Patient calls and states that she took a bad fall last Friday. Patient was seen in ER for this fall and has an orbital fracture. Patient states that she has headaches that are kind of like the migraines that she has had previously. Patient asking if it is ok to take the frovatriptan? Please review and advise, Mira You RN [facility] 01-03-2025 Telephone encounter Note Yes, thanks Leticia Celaya APRN.CNP [facility] 01-03-2025 Miscellaneous Notes Yes, thanks Leticia Celaya APRN.CNP TC to patient who verbalized understanding of below. Patient states she is not currently using her Cpap and will not be until after she returns from a trip in February. Patient states this was discussed with provider. Order faxed to [facility] as requested. HALLE Goldberg We don't get fit pack samples of the F20. Please tell pt. I wrote order to send to [facility] for when she is eligible. Leticia Celaya APRN.CNP Do we have a [employer]Med AirFit F20 fit pack sample we can give her? Order for PAP supplies to [facility] please Leticia Celaya APRN.CNP documented in this encounter [facility] 01-03-2025 Telephone encounter Note TC to patient who verbalized understanding of below. Patient states she is not currently using her Cpap and will not be until after she returns from a trip in February. Patient states this was discussed with provider. Order faxed to [facility] as requested. HALLE Goldberg [facility] 01-03-2025 Note HNO ID: [id number] Author: SUDHAKAR LAU LPN Service: ? Author Type: LICENSED NURSE Type: Progress Notes Filed: 01/03/2025 13:34 Note Text: Cpap settings/pressure change order faxed to [facility]. Sudhakar Lau LPN [facility] 01-03-2025 Telephone encounter Note We don't get fit pack samples of the F20. Please tell pt. I wrote order to send to [facility] for when she is eligible. Leticia Celaya APRN.ANNA [facility] 01-02-2025 Telephone encounter Note Do we have a ResMed AirFit F20 fit pack sample we can give her? Order for PAP supplies to [facility] please Leticia Celaya APRN.DRY CHAIN OFFBEARER [facility] 12-29-2024 Radiology Diagnostic study note [facility] Imaging Services [address], [place] [id number] Sinus/Facial Bone MR#: [id number] Acct: [id number] Name: YANET ARAYA Rep #: [id number] : [id number] F 69 From: [facility] DO PCP: Dr. Octavio Ulloa MD Status: RE G ER Study:Sinus/Facial Bone Date of Exam: Exam# [id number] Ordering Dr: Elliott Moura DO PROCEDURE: SINUS/FACIAL BONE REASON FOR EXAM: FALL Initial encounter. TECHNIQUE: SINUS/FACIAL BONE Coronal and Sagittal reconstruction series were provided. One or more dose reduction techniques were used (e.g., Automated exposure control, adjustment of the mA and/or kV according to patient size, use of iterative reconstruction technique). COMPARISON: None. FINDINGS: Frontal: Clear. Ethmoid: Mucosal thickening in left ethmoid air cells. Sphenoid: Thin band of mucosal thickening sphenoid sinus septum. Sphenoid sinuses predominantly clear otherwise. Maxillary: Left orbital floor defect allows a tiny bubble of air in the left retro septal fat. Anterolateral maxillary sinus wall; fracture of the maxillary bone with extensive subcutaneous air in the leftzygomatic face anterior wall. Maxillary sinus shows minimally displaced fracture air-fluid level the left maxillary sinus. Turbinates: Boggy turbinates. Nasal Septum: Left convex nasal septum. Mastoids/Middle Ears: Clear. CT/Sinus/Facial Bone IMPRESSION: Trauma to the left face/cheek abundant subcutaneous air in the superficial soft tissues of the cheek. Moderate preseptal air in the left orbit. 2 or 3 tiny bubbles of air in the retro septal fat Reading Location: [facility] CC: Dr. Elliott Moura DO; Dr. Octavio Ulloa MD ~ Restaurant Maintenance Technician: Signed [facility] 12-29-2024 Note HNO ID: [id number] Author: JENA LR APRN.[facility] Service: ? Author Type: Nurse Practitioner Type: Progress Notes Filed: 12/29/2024 10:15 Note Text: [facility] Subjective Yanet Araya is a 69 year old female. No chief complaint on file. HPI Fall with Head Trauma: - Fall occurred this morning, resulting in head trauma. - Laceration above the left eyebrow with dried blood noted. - Denies loss of consciousness. - Experiencing headache and feeling a little off. Review of Systems Constitutional: (+) malaise Head: (+) headache Skin: (+) left eyebrow laceration Neurological: (-) loss of consciousness Objective There were no vitals taken for this visit. Physical Exam General: No acute distress. HEENT: Laceration above left eyebrow with dried blood. {1. Injury of head, initial encounter (S09.90XA) - Sustained head injury from a fall this morning; denies loss of consciousness. - Experiencing headache and feeling a little off. - Given patient's age, there is a concern for potential intracranial injury. - Referred to the emergency room for further evaluation and CT head. - Patient declined EMS transport, stating she has a friend to take her. 2. Laceration of eyelid of left eye without foreign body, initial encounter (S01.112A) - Laceration noted above the left eyebrow with dried blood present. - Will be addressed in the emergency room. 3. Epistaxis (R04.0) 4. Treatment not available (Z53.8) and Recording using [employer] software for draft documentation of the visit was discussed with the patient/authorized sales representative marine supplies; all questions welcomed and answered. 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 supplies agreed to proceed MDM Procedures [facility] 12-29-2024 History of Presen t illness Narrative [facility] Subjective Yanet Araya is a 69 year old female. No chief complaint on file. HPI Fall with Head Trauma: - Fall occurred this morning, resulting in head trauma. - Laceration above the left eyebrow with dried blood noted. - Denies loss of consciousness. - Experiencing headache and feeling a little off. Review of Systems Constitutional: (+) malaise Head: (+) headache Skin: (+) left eyebrow laceration Neurological: (-) loss of consciousness Objective There were no vitals taken for this visit. Physical Exam General: No acute distress. HEENT: Laceration above left eyebrow with dried blood. {1. Injury of head, initial encounter (S09.90XA) - Sustained head injury from a fall this morning; denies loss of consciousness. - Experiencing headache and feeling a little off. - Given patient's age, there is a concern for potential intracranial injury. - Referred to the emergency room for further evaluation and CT head. - Patient declined EMS transport, stating she has a friend to take her. 2. Laceration of eyelid of left eye without foreign body, initial encounter (S01.112A) - Laceration noted above the left eyebrow with dried blood present. - Will be addressed in the emergency room. 3. Epistaxis (R04.0) 4. Treatment not available (Z53.8) and Recording using ambient AI software for draft documentation of the visit was discussed with the patient/authorized sales representative marine supplies; all questions welcomed and answered. 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 supplies agreed to proceed MDM Procedures documented in this encounter [facility] 12-22-2024 Instructions Leticia Celaya APRN.CNP - 12/22/2024 1:32 PM EDT PAP Supply Guidelines Below are the guidelines for reordering your supplies. You will be responsible for your deductible, co-payments, and out of pocket expenses. Item Medicare & Commercial Insurance Medicaid & HCAP Nasal Mask (no headgear) 1 every 3 months 1 per year Nasal Mask Cushion 1 every month 2 per year Full Face Mask (no headgear) 1 every 3 months 1 per year Full Face Mask Cushion 1 every month *Self-Pay Nasal Pillows 2 every month 2 per year Headgear 1 every 6 months 1 per year Chin Strap 1 every 6 months 2 per year Tubing 1 every 3 months 1 per year Filters: Reusable 1 every 6 months 4 per year Filters: Disposable 2 every month 1 per month Humidifier Chamber(disposable) 1 every 6 months *Self-Pay documented in this encounter [facility] 12-22-2024 History of Presen t illness Narrative Images from the original note were not included. [facility] Follow up/ Established patient visit Recording using ambient [employer] software for draft documentation of the visit was discussed with the patient/authorized sales representative marine supplies; all questions welcomed and answered. 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 supplies agreed to proceed Assessment/Plan from last visit: Date of last visit : 10/21/2024 Kiara (obstructive sleep apnea) (primary encounter diagnosis) Excessive daytime sleepiness 1. KIARA (obstructive sleep apnea) (G47.33) Home sleep study revealed 102 apneas and 11 hypopneas, with an AHI of 14.2, indicating mild obstructive sleep apnea. Oxygen saturation dropped to 78% with 6.5 minutes at or below 88%. Patient has a crowded oropharynx with scalloping of the tongue, contributing to airway obstruction. Patient experiences excessive daytime sleepiness and morning headaches, likely related to KIARA. - Discussed treatment options, including CPAP therapy. - Prescribed auto CPAP with a pressure range of 5-15 cm H2O. - Patient prefers nasal mask; advised on potential use of chin strap or bandana to maintain nasal breathing. - Referred to [facility] in [facility] for CPAP equipment and mask fitting. - Scheduled follow-up appointment in 31-90 days to assess compliance and effectiveness of CPAP therapy. 2. ESS 07/06. Will look for possible improvement with treatment of KIARA. Leticia Celaya APRN.DRY CHAIN OFFBEARER CURRENT VISIT: 12/22/2024 1. Concerns: - CPAP Mask Issues - Patient is a 69-year-old female presenting with concerns about her CPAP mask. - Reports that the nasal mask is uncomfortable, especially in warm weather. - Wakes up frequently with the CPAP, initially every hour, then up to four hours before taking it off. - Occasionally, if very tired and able to distract her mind, she can fall asleep with the mask on, but this has only happened two or three times. - Feels that sometimes the pressure gets too high, especially when air comes through her mouth. - Experiences mask leaks, which are irritating and can wake her up. - Has tried nasal pillows during a home sleep study and did not find them bothersome. - Snoring - Reports that snoring is not completely gone. - sometimes hears the machine fluttering or her breathing being 'fluttery'. - Sleepiness - Reports that her sleepiness has worsened, with her [place] Sleepiness Scale score increasing from 12 to 13. 2. Sleep history: - Overall goals of treatment: Improve sleep quality and reduce sleepiness. - Sleep habits: - Nighttime awakening number: Wakes up frequently with the CPAP, initially every hour, then up to four hours. - Use of PAP or prior treatments: - PAP experience: Finds the nasal mask uncomfortable, especially in warm weather. Wakes up frequently with the CPAP, initially every hour, then up to four hours before taking it off. Feels that sometimes the pressure gets too high, especially when air comes through her mouth. Experiences mask leaks, which are irritating and can wake her up. Has tried nasal pillows during a home sleep study and did not find them bothersome. - Current PAP usage: Yes - Types of masks tried: Nasal mask, Nasal pillows - Prior trial with oral appliance: No SLEEP APNEA Sleep apnea type : KIARA, Most Recent Apnea-Hypopnea Index (AHI): 14.2 on HSAT Treatment : PAP therapy DME: [facility] PAP History: Uses AutoPAP for 4.5 hours per night, 7 nights per week (except when she went out of town) Current PAP settin-15 cm H2O. Reviewed objective PAP compliance data: AHI 1.5, P95 12.3 cmH2O Mask type: nasal mask Mask issues: uncomfortable There is a perceived benefit by the patient: health benefits PATIENT-ENTERED QUESTIONNAIRE SLEEP SCORES: 12/20/2024 Sleep Questions Reason for visit: Sleep apnea Average hours of CPAP per night: 4 Percent of nights CPAP used at least 4 hours: 70 Accidents or near accidents due to drowsy drivin 10/19/2024 12/20/2024 [place] Sleepiness Scale Score 12 (Excessive daytime sleepiness present) 13 (Excessive daytime sleepiness present) 10/19/2024 12/20/2024 PROMIS CAT Sleep Disturbance PROMIS Sleep Disturbance T-Score 52 (within normal limits) 56 (mild) PROMIS Sleep Disturbance Percentile 42 27 12/20/2024 Insomnia Severity Index Score 15 03/13/2024 10/19/2024 12/20/2024 PHQ-9 Score 2 2 4 03/13/2024 08/03/2024 12/20/2024 PROMIS Global Health - (T-Scores - the mean of general population = 50. Five points is a clinically meaningful difference.) Physical T-Score 47.7 47.7 44.9 Mental T-Score 62.5 59 56 ALLERGIES No Known Allergies CURRENT MEDICATIONS: CPAP/BIPAP/OTHER APAP 5-15 cmH2O frovatriptan (FROVA) 2.5 mg tablet Take 1 tablet (2.5 mg) by mouth as needed for migraine headache (see administration instructions). If headache recurs, may repeat after 2 hours. Max of 3 tablets in 24 hours. latanoprost (XALATAN) 0.005 % ophthalmic solution Use 1 Drop in both eyes daily at bedtime. levothyroxine (SYNTHROID) 112 mcg tablet Take 1 tablet by mouth once daily. plus extra half pill once weekly or as directed (7.5 pills per week) amitriptyline (ELAVIL) 50 mg tablet Take 1 tablet by mouth daily at bedtime. clonazePAM (KLONOPIN) 0.5 mg tablet Take 1 tablet by mouth twice daily as needed (for vertigo) for up to 30 days. PHYSICAL EXAMINATION: Vital Signs: BP 98/62 Pulse 81 Resp 16 Wt 59.3 kg (130 lb 12.8 oz) SpO2 98% BMI 20.29 kg/m PHYSICAL EXAM: General appearance: pleasant, NAD Mental status: alert and oriented, able to provide own history Constitutional: WNL Skin: No visible rashes on exposed skin Neuro: No focal deficits observed, no tremors Assessment /Plan Kiara on cpap (primary encounter diagnosis) Yanet Araya is a 69 year old female with 1. KIARA on CPAP (G47.33) Patient experiencing frequent awakenings and discomfort with current nasal mask, particularly during warmer weather. AHI is well-controlled at 1.5, but mask leaks are present, contributing to sleep disturbances. Patient reports feeling pressure is sometimes too high, especially when air escapes through the mouth. Snoring is not completely resolved. Sleepiness has worsened - Discussed trying a different mask to improve comfort and reduce leaks. Patient expressed interest in a full face mask. - Will write a prescription for a full face mask and coordinate with [facility] to see if they can provide one. - Patient advised to check with [facility] regarding insurance coverage for new mask and supplies. - Patient planning to travel to [facility] from January 20 to February 15 and may not use CPAP during this time. Will arrange for a sample Air8digits F20 mask to be available for trial upon return. - Documented current usage and benefits of CPAP in the medical record. - Follow-up as needed based on patient's comfort and effectiveness of new mask. --Patient is compliant with PAP therapy and reports subjective benefits from treatment --We reviewed PAP compliance report; AHI is normalized Sleeps with Invisalign retainers so OAT not an option Get her a sample AirFit F20 mask January 20-Feb 15 Bob Celaya APRN.CNP documented in this encounter [facility] 12-22-2024 Note HNO ID: [id number] Author: LETICIA CELAYA APRN.CNP Service: ? Author Type: Nurse Practitioner Type: Progress Notes Filed: 01/02/2025 20:02 Note Text: [facility] Follow up/ Established patient visit Recording using ambient AI software for draft documentation of the visit was discussed with the patient/authorized sales representative marine supplies; all questions welcomed and answered. 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 supplies agreed to proceed Assessment/Plan from last visit: Date of last visit : 10/21/2024 Kiara (obstructive sleep apnea) (primary encounter diagnosis) Excessive daytime sleepiness 1. KIARA (obstructive sleep apnea) (G47.33) Home sleep study revealed 102 apneas and 11 hypopneas, with an AHI of 14.2, indicating mild obstructive sleep apnea. Oxygen saturation dropped to 78% with 6.5 minutes at or below 88%. Patient has a crowded oropharynx with scalloping of the tongue, contributing to airway obstruction. Patient experiences excessive daytime sleepiness and morning headaches, likely related to KIARA. - Discussed treatment options, including CPAP therapy. - Prescribed auto CPAP with a pressure range of 5-15 cm H2O. - Patient prefers nasal mask; advised on potential use of chin strap or bandana to maintain nasal breathing. - Referred to [facility] for CPAP equipment and mask fitting. - Scheduled follow-up appointment in 31-90 days to assess compliance and effectiveness of CPAP therapy. 2. ESS 07/06. Will look for possible improvement with treatment of KIARA. Leticia Celaya APRN.CNP CURRENT VISIT: 12/22/2024 1. Concerns: - CPAP Mask Issues - Patient is a 69-year-old female presenting with concerns about her CPAP mask. - Reports that the nasal mask is uncomfortable, especially in warm weather. - Wakes up frequently with the CPAP, initially every hour, then up to four hours before taking it off. - Occasionally, if very tired and able to distract her mind, she can fall asleep with the mask on, but this has only happened two or three times. - Feels that sometimes the pressure gets too high, especially when air comes through her mouth. - Experiences mask leaks, which are irritating and can wake her up. - Has tried nasal pillows during a home sleep study and did not find them bothersome. - Snoring - Reports that snoring is not completely gone. - sometimes hears the machine fluttering or her breathing being 'fluttery'. - Sleepiness - Reports that her sleepiness has worsened, with her [place] Sleepiness Scale score increasing from 12 to 13. 2. Sleep history: - Overall goals of treatment: Improve sleep quality and reduce sleepiness. - Sleep habits: - Nighttime awakening number: Wakes up frequently with the CPAP, initially every hour, then up to four hours. - Use of PAP or prior treatments: - PAP experience: Finds the nasal mask uncomfortable, especially in warm weather. Wakes up frequently with the CPAP, initially every hour, then up to four hours before taking it off. Feels that sometimes the pressure gets too high, especially when air comes through her mouth. Experiences mask leaks, which are irritating and can wake her up. Has tried nasal pillows during a home sleep study and did not find them bothersome. - Current PAP usage: Yes - Types of masks tried: Nasal mask, Nasal pillows - Prior trial with oral appliance: No SLEEP APNEA Sleep apnea type : KIARA, Most Recent Apnea-Hypopnea Index (AHI): 14.2 on HSAT Treatment : PAP therapy DME: [facility] PAP History: Uses AutoPAP for 4.5 hours per night, 7 nights per week (except when she went out of town) Current PAP settin-15 cm H2O. Reviewed objective PAP compliance data: AHI 1.5, P95 12.3 cmH2O Mask type: nasal mask Mask issues: uncomfortable There is a perceived benefit by the patient: health benefits PATIENT-ENTERED QUESTIONNAIRE SLEEP SCORES: 12/20/2024 Sleep Questions Reason for visit: Sleep apnea Average hours of CPAP per night: 4 Percent of nights CPAP used at least 4 hours: 70 Accidents or near accidents due to drowsy drivin 10/19/2024 12/20/2024 [place] Sleepiness Scale Score 12 (Excessive daytime sleepiness present) 13 (Excessive daytime sleepiness present) 10/19/2024 12/20/2024 PROMIS CAT Sleep Disturbance PROMIS Sleep Disturbance T-Score 52 (within normal limits) 56 (mild) PROMIS Sleep Disturbance Percentile 42 27 12/20/2024 Insomnia Severity Index Score 15 03/13/2024 10/19/2024 12/20/2024 PHQ-9 Score 2 2 4 03/13/2024 08/03/2024 12/20/2024 PROMIS Global Health - (T-Scores - the mean of general population = 50. Five points is a clinically meaningful difference.) Physical T-Score 47.7 47.7 44.9 Mental T-Score 62.5 59 56 ALLERGIES No Known Allergies CURRENT MEDICATIONS: CPAP/BIPAP/OTHER APAP 5-15 cmH2O frovatriptan (FROVA) 2.5 mg ta (more content not included)... [facility] 10-21-2024 Instructions Leticia Celaya APRN.DRY CHAIN OFFBEARER - 10/21/2024 1:22 PM EDT Images from the original note were not included. Sleep Apnea What is sleep apnea? Sleep apnea is a serious sleep disorder that occurs when a person s breathing is interrupted during sleep. People with untreated sleep apnea stop breathing repeatedly during their sleep, sometimes hundreds of times during the night. There are two types of sleep apnea: obstructive and central. Obstructive sleep apnea (KIARA) is the more common of the two. Obstructive sleep apnea occurs as repetitive episodes of complete or partial upper airway blockage during sleep. During an apnea episode, the diaphragm and chest muscles work harder as the pressure increases to open the airway. Breathing usually resumes with a loud gasp or body jerk. These episodes can interfere with sound sleep, reduce the flow of oxygen to vital organs, and cause heart rhythm irregularities. In central sleep apnea (CSA), the airway is not blocked but the brain fails to signal the muscles to breathe due to instability in the respiratory control center. Central apnea is named as such because it is related to the function of the central nervous system. Who gets sleep apnea? Sleep apnea occurs in about 25 percent of men and nearly 10 percent of women. Sleep apnea can affect people of all ages, including babies and children and particularly people over the age of forty and those who are overweight. Certain physical traits and clinical features are common in patients with obstructive sleep apnea. These include excessive weight, large neck, and structural abnormalities reducing the diameter of the upper airway, such as nasal obstruction, a low-hanging soft palate, enlarged tonsils, or a small jaw with an overbite. The figures below illustrate the upper airway in normal sleep: (A) person is lying on back, face up, and (B) in obstructive sleep apnea. The arrows indicate complete obstruction in the back of the throat. Normal (A) Sleep apnea (B): What causes sleep apnea? Obstructive sleep apnea is caused by a blockage of the airway, usually when the soft tissues in the rear of the throat collapse during sleep. Central sleep apnea is usually observed in patients with central nervous system dysfunction, such as following a stroke or in patients with neuromuscular diseases like amyotrophic lateral sclerosis. It is also common in patients with heart failure and other forms of cardiac and pulmonary disease. What are the symptoms of sleep apnea? Often the first signs of obstructive sleep apnea are recognized not by the patient, but by the bed partner. Many of those affected have no sleep complaints. The most common symptoms of KIARA include: Snoring Daytime sleepiness or fatigue Restlessness during sleep Sudden awakenings with a sensation of gasping or choking Dry mouth or sore throat upon awakening Intellectual impairment, such as trouble concentrating, forgetfulness, or irritability Night sweats Sexual dysfunction Headaches People with central sleep apnea more often report recurrent awakenings or insomnia, although they may also experience a choking or gasping sensation with sudden awakenings. Symptoms in children may not be as obvious and include: Poor school performance Sluggishness or sleepiness, often misinterpreted as laziness in the classroom Daytime mouth breathing and swallowing difficulty Inward movement of the ribcage when inhaling Unusual sleeping positions, such as sleeping on the hands and knees, or with the neck hyper-extended Excessive sweating at night Learning and behavioral disorders Bedwetting What are the effects of sleep apnea? If left untreated, sleep apnea can result in a number of health problems including hypertension, stroke, arrhythmias, cardiomyopathy (enlargement of the muscle tissue of the heart), congestive heart failure, diabetes, and heart attacks. In addition, untreated sleep apnea may be responsible for job impairment, work-related accidents, and motor vehicle crashes as well as academic underachievement. How is sleep apnea diagnosed? The diagnosis of sleep apnea is relatively straightforward, based on sleep history and an overnight sleep study called a polysomnogram. Polysomnogram is performed in a sleep laboratory under the direct supervision of a trained technologist. During the test, a variety of body functions, such as the electrical activity of the brain, eye movements, muscle activity, heart rate, breathing patterns, air flow, and blood oxygen levels are recorded at night during sleep. After the study is completed, the number of times breathing is impaired during sleep is tallied and the severity of sleep apnea is graded. In some cases, a multiple sleep latency test is performed on the day after the overnight test to measure the speed of falling asleep. In this test, patients are given several opportunities to fall asleep during the course of a day when they normally would be awake. If you have symptoms of sleep apnea, your doctor may ask you to have a sleep evaluation in a sleep disorder center. What are the treatments for sleep apnea? Conservative treatments: In mild cases of sleep apnea, conservative therapy may be all that is needed. Overweight persons can benefit from losing weight. Even a ten percent weight loss can reduce the number of apneic events for most patients. Individuals with apnea should avoid the use of alcohol and sleeping pills, which make the airway more likely to collapse during sleep and prolong the apneic periods. In some patients with mild sleep apnea, breathing pauses occur only when they sleep on their backs. In such cases, using pillows and other devices that help them sleep in a side position may be helpful. People with sinus problems or nasal congestion (such people are more likely to experience sleep apnea) should use nasal sprays or breathing strips to reduce snoring and improve airflow for more comfortable nighttime breathing. Avoiding sleep deprivation is important for all patients with sleep disorders. Mechanical therapy: Continuous Positive Airway Pressure (CPAP) is the preferred initial treatment for most people with obstructive sleep apnea. With CPAP, patients wear a mask over their nose and/or mouth. An air blower forces air through the nose and/or mouth. The air pressure is adjusted so that it is just enough to prevent the upper airway tissues from collapsing during sleep. The pressure is constant and continuous. CPAP prevents airway closure while in use, but apnea episodes return when CPAP is stopped or it is used improperly. Other styles and types of positive airway pressure devices are available for people who have difficulty tolerating CPAP. These include Bilevel Positive Airway Pressure (BiPAP), Auto Positive Airway Pressure (AutoPAP), Auto/Adaptive Servo-Ventilation (ASV), etc Oral appliances: For patients with mild/moderate sleep apnea, dental appliances or oral mandibular advancement devices that prevent the tongue from blocking the throat and/or advance the lower jaw forward can be made. These devices help keep the airway open during sleep. A sleep specialist and auto club travel counselor (with expertise in oral appliances for this purpose) should jointly determine if this treatment is best for you. Surgery: Surgical procedures may help people with sleep apnea. There are many types of surgical procedures, some of which are performed as outpatient procedures. Surgery is reserved for people who have excessive or malformed tissue obstructing airflow through the nose or throat, such as a deviated nasal septum, markedly enlarged tonsils, or small lower jaw with an overbite that causes the throat to be abnormally narrow. These procedures are typically performed after sleep apnea has failed to respond to conservative measures and a trial of positive airway pressure treatment. Types of surgery include: Somnoplasty: A minimally invasive procedure that uses radiofrequency energy to reduce the soft tissue in the upper airway. Uvulopalatopharyngoplasty (UPPP): A procedure that removes soft tissue on the back of the throat and palate, increasing the width of the airway at the throat opening. Maxillary/Mandibular advancement surgery: A surgical correction of certain facial abnormalities or throat obstructions that contribute to sleep apnea. This is an invasive procedure that is reserved for patients with severe sleep apnea with head-face abnormalities. Nasal surgery: Correction of nasal obstructions, such as a deviated septum. Hypoglossal nerve stimulator: FDA approved 2013. (Implant that sends a lead that goes to bottom of tongue to stimulate it forward out of the area of the back of the throat) Resources: The [facility] Guide to Sleep Disorders by Jaky Gasca DO [employer] [address] [facility]. [address] [email or web address]/ [employer] [address], [address] [place] [address] [email or web address].[email or web address]/ - A prescription for auto CPAP has been sent to [facility] in [facility]. They will contact you to set up an appointment. - Use the CPAP machine as instructed by [facility]. Start with a nasal mask and use a chin strap or bandana if needed to keep your mouth closed. - Report any issues with the CPAP machine or mask to [facility] or our office within the first 30 days. - A follow-up appointment will be scheduled within 31 to 90 days after you receive the CPAP machine to assess your progress. PAP Supply Guidelines Below are the guidelines for reordering your supplies. You will be responsible for your deductible, co-payments, and out of pocket expenses. Item Medicare & Commercial Insurance Medicaid & HCAP Nasal Mask (no headgear) 1 every 3 months 1 per year Nasal Mask Cushion 1 every month 2 per year Full Face Mask (no headgear) 1 every 3 months 1 per year Full Face Mask Cushion 1 every month *Self-Pay Nasal Pillows 2 every month 2 per year Headgear 1 every 6 months 1 per year Chin Strap 1 every 6 months 2 per year Tubing 1 every 3 months 1 per year Filters: Reusable 1 every 6 months 4 per year Filters: Disposable 2 every month 1 per month Humidifier Chamber(disposable) 1 every 6 months *Self-Pay About Your PAP Therapy Continuous Positive Airway Pressure/Bilevel Therapy You have been prescribed Positive Airway Pressure (PAP) therapy to treat sleep apnea. The most common type of sleep apnea is obstructive sleep apnea (KIARA), a condition in which the upper airway collapses during sleep. This obstruction keeps air from getting into your lungs. The prescribed PAP machine (CPAP or Bilevel or ASV) will smoothly blow air into your airway to prevent it from closing. The machine will use a mask to deliver the air through your nose and/or mouth. These devices are available in various sizes and styles. It will take some time for you to get used to the new equipment and it may take a while for you to begin to feel the benefits of PAP therapy. Please be patient. If you are having problems adjusting to your machine, please contact us for help. Beginning your PAP Therapy Assembly: Place your PAP machine on a level surface near your bed. To prevent injury, do not place the machine higher than your head. Keep the machine at least 12 inches away from anything that may block the vents. Plug the machine into a properly grounded electrical outlet. It is better to avoid using an extension cord. If necessary, use a heavy-duty one. If you are NOT using a humidifier with you PAP equipment: Attach one end of your 6-foot tubing to the PAP unit outlet and the other end to your mask. (If your mask does not have a built-in exhalation port, a special exhalation valve should be used between the mask and the 6-foot tubing.) Attach the headgear to your mask. If you are using a humidifier with your PAP equipment: Fill the humidifier with DISTILLED water to the maximum fill line. Attach the humidifier to the PAP unit s outlet as instructed by the respiratory therapist with your home care company. Attach one end of your 6-foot tubing to the humidifier outlet and the other end to your mask. (If your mask does not have a built-in exhalation port, a special exhalation valve should be used between the mask and the 6-foot tubing.) If you have been prescribed oxygen to be used with the PAP machine, you will be instructed on how to attach your oxygen tubing. Always turn off the oxygen tank before turning off your PAP machine. Getting Started: Wash your face and apply the mask and headgear as instructed by the staff technologist or respiratory therapist. The mask should fit snugly to prevent air leaks, but not so tight as to cause skin irritation or discomfort. Turn the PAP power switch to the ON position. You should feel air blowing through the mask. Breathe normally and adjust the mask gently if you feel an air leak. If there are no leaks, activate the ramp feature on your PAP machine. The ramp allows a lower pressure to be delivered for a designated period of time (usually 5 to 45 minutes) to allow you to relax and fall asleep more easily. The pressure will then gradually increase to the prescribed pressure that controls your apnea. Remember to turn OFF your PAP unit when it is not in use. Care and Maintenance Headgear should be washed as needed. Daily inspection and weekly washings are recommended. Do not disassemble the straps. Machine wash in warm water, making sure to attach Velcro hooks and tabs before washing. Line dry or machine dry on a low setting. Masks should be washed every other day. Daily inspection is recommended. Leave the mask and tubing attached. Gently wash the mask with a soft cloth using warm water and mild detergent, concentrating on the mask cushion flaps. DO NOT use alcohol or bleach. Rinse thoroughly and air dry. Tubing should be washed every other day. Daily inspection is recommended. Wash in warm water and mild detergent and rinse thoroughly. Hook the tubing to the machine and blow until dry. Humidifier should be washed daily and filled with DISTILLED water before use. Wash with warm water and mild detergent. Disinfect weekly by soaking with a solution of 1 part white vinegar and 3 parts water for 30 minutes. Rinse thoroughly and air dry. Disposable filters should be replaced once a month. Wash reusable foam filters with warm water and mild detergent at least once a month. Rinse thoroughly and dry with paper towels. Avoid youth minister that contain fragrance or conditioners, as these will leave a residue. NEVER iron any soft goods. Troubleshooting If the machine fails to turn on: Make sure that the PAP machine is plugged into a grounded outlet. Make sure that the ON/OFF switch is in the ON position. Make sure that the wall outlet has power. If there is no pressure coming from your machine: Make sure that the inlet filter is clean and unblocked. Make sure that the cooling fan is unblocked and that air is flowing freely. Make sure that all tubing is securely connected. If your PAP machine still fails to operate, please call [phone] or your home care company for assistance. What You Should Know About Insurance There are many different insurance policies and coverage for PAP equipment will vary. Find out what your coverage provides and what your responsibilities are as a consumer. PAP therapy equipment is considered Durable Medical Equipment (DME). Here are a few questions to ask your insurance provider. What benefits do I have for DME? Do I have a deductible and/or co pay for DME? Is there a repair or replacement plan for durable medical equipment? How often can I receive a replacement mask, tubing, headgear and filters? Do I have to demonstrate that I am using my PAP device? How do I do that? Important Information It is very important to keep your PAP equipment and supplies clean. The life of the supplies depends on the care they receive. Under normal circumstances, expect the mask and headgear to last 9-12 months. Refer to the pricing actuary s manual for more information. Important Safety Reminders Keep equipment free from obstruction. Use your PAP equipment as directed. DO NOT try to adjust your pressure setting. DO NOT block the exhalation port or valve. Keep filters clean to prevent overheating. If a humidifier is being used, place it at a level lower than your head. If using a heated humidifier, allow unit to cool before cleaning or refilling. Follow safety guidelines regarding oxygen equipment.DO NOT operate multiple electrical devices from one outlet. If you have a medical emergency, contact the Emergency Medical Services. Below are the links to follow to watch a PAP education video: http://my.[facility].org/[facility]_care/services/home_respirator y_therapy.aspx http://www.[employer].com/watch?v=p eJ_epDGzEw http://my.[facility].org/[facility]/sleep-disor [facility]/treatment-services/p ap-therapy.aspx documented in this encounter [facility] 10-21-2024 History of Presen t illness Narrative Images from the original note were not included. Addendum: Recording using ambient [employer] software for draft documentation of the visit was discussed with the patient/authorized sales representative marine supplies; all questions welcomed and answered. 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 supplies agreed to proceed Leticia Celaya APRN.ANNA [facility] Sleep Disorders Center New Patient Evaluation PATIENT NAME: Yanet Araya DATE OF SERVICE: October 21, 2024 CONSULTING PROVIDER: Estephania Cates [address] [facility] [address] REASON FOR CONSULT: Estephania Cates sends the patient for an opinion about KIARA. My findings and recommendations will be transmitted electronically via shared medical record to the consulting provider. HPI: Yanet Araya is a 69 year old female. Sleep-related history: new diagnosis of at least mild KIARA wondered if KIARA 1. Concerns: - Snoring and Sleep Apnea - Patient is a 69-year-old female presenting with concerns of snoring and potential sleep apnea. - Patient's noticed that she sometimes stops breathing and then gasps for air during sleep. - Patient has been sleeping on her back for the past 9 years due to vertigo, which has exacerbated her snoring. - She has tried various remedies such as nasal inserts, chin straps, and bandanas, but none have been effective. - Patient underwent a home sleep study earlier this year, which recorded 102 apneas and 11 hypopneas, resulting in an AHI of 14.2, indicating at least mild sleep apnea. - Her lowest oxygen saturation during the study was 78%, with 6.5 minutes spent at or below 88%. - Sinus Issues and Nasal Congestion - Patient reports frequent sinus issues and nasal congestion. - She often uses Vicks and nasal sprays to alleviate congestion. - Patient has a deviated septum on the left side, which she believes contributes to her snoring and breathing difficulties. - Daytime Sleepiness and Napping - Patient experiences significant daytime sleepiness and often takes naps, even if just for 15 minutes. - She feels sleepy a lot during the day and believes this has become more prominent in the last 4-5 years. - Headaches - Patient experiences headaches, sometimes waking up with them, which she attributes to possible dehydration. - She drinks 3-4 glasses of water every morning to mitigate this. - Patient was diagnosed with vestibular migraine in [place] and takes amitriptyline for headache management, which she finds helpful. - She also has Fruva Triptan for intense headaches, which she uses sparingly due to cost. - Vertigo - Patient has a history of vertigo, which began with severe attacks and was diagnosed as vestibular migraine. - She takes clonazepam as needed for vertigo, which helps her sleep and alleviates symptoms. 2. Sleep history: - Overall goals of treatment: Reduce snoring, improve sleep quality, and alleviate daytime sleepiness. - Sleep habits: - Typical bedtime: 22:00 - Typical wake time: 06:30-07:00 - Time to fall asleep: Approximately 30 minutes - Nighttime awakening number: Wakes up once or twice to use the bathroom - Time to fall back asleep: Falls back asleep quickly - Nap schedule: Often takes short naps, even if just for 15 minutes - Prior trial with oral appliance: No - Nose Symptoms: - Laterality: Left - Medications tried for nasal symptoms: Nasal sprays 3. Sleep study: - Type: Home sleep study - Date: Earlier this year - Apnea-hypopnea index (AHI): 14.2 - Lowest oxygen saturation: 78% - T90 (Time with saturation <90%): 6.5 minutes at or below 88% Patient Questionnaires Sleep Scores 10/19/2024 Sleep Questions Reason for visit: Sleep apnea Difficulty falling or staying asleep or poor sleep quality On average, hours of sleep in 24 hours: 8 Accidents or near accidents due to drowsy drivin Multiple values from one day are sorted in reverse-chronological order 10/19/2024 [place] Sleepiness Scale Score 12 (Excessive daytime sleepiness present) 10/19/2024 PROMIS CAT Sleep Disturbance PROMIS Sleep Disturbance T-Score 52 (within normal limits) PROMIS Sleep Disturbance Percentile 42 10/19/2024 PHQ-9 Score 2 08/03/2024 PROMIS Global Health - (T-Scores - the mean of general population = 50. Five points is a clinically meaningful difference.) Physical T-Score 47.7 Mental T-Score 59 PAST TREATMENTS: None PRIOR SLEEP STUDIES: A Home Sleep Test (HST) performed on 08/10/24 revealed an AHI of 14.2; supine index of 14.3; and a minimum oxygen saturation of 78%. PAST MEDICAL HISTORY Diagnosis Date ACTINIC DAMAGE///CHR SOLAR SKIN DAMAGE NOS 06/08/2007 Basal cell carcinoma 2007 scalp Headache(784.0) 1993 diagnosed was worked up by neurologist and was treated as migraine; also managed as tension type headache with doxepin MVP (mitral valve prolapse) last echocardiogram in [place] SEBORRHEIC KERATOSIS NOS 06/08/2007 Unspecified hypothyroidism PAST SURGICAL HISTORY Procedure Laterality Date COLONOSCOPY FLX DX W/COLLJ SPEC WHEN PFRMD 03/08/11 PAST SURGICAL HISTORY OF 01/19/1998 Excision right breast mass PAST SURGICAL HISTORY OF 09/13/1986 hystersalpingogram & EMB PAST SURGICAL HISTORY OF 2007 cyst removed from finger PAST SURGICAL HISTORY OF 2006 removal of BCC from scalp ACTIVE PROBLEM LIST Hypothyroidism Headache Mvp (Mitral Valve Prolapse) Viral Wart On Right Thumb Other Seborrheic Keratosis BLUE NEVUS WRIST///BENIGN CAROLYN SKIN ARM H/O BCC RIGHT FOREHEADMALIG NEOPLASM SKIN FACE NEC Benign Neoplasm of Skin of Lower Limb, Including Hip PERS HX SKIN MALIGNANCY NEC: H/O BCC Age-Related Osteoporosis Without Current Pathological Fracture Tinnitus Glaucoma Deviated Septum Allergies As of Date: 10/21/2024 (No Known Allergies) Fully Assessed 08/03/2024 CURRENT MEDICATIONS: frovatriptan (FROVA) 2.5 mg tablet Take 1 tablet (2.5 mg) by mouth as needed for migraine headache (see administration instructions). If headache recurs, may repeat after 2 hours. Max of 3 tablets in 24 hours. latanoprost (XALATAN) 0.005 % ophthalmic solution Use 1 Drop in both eyes daily at bedtime. levothyroxine (SYNTHROID) 112 mcg tablet Take 1 tablet by mouth once daily. plus extra half pill once weekly or as directed (7.5 pills per week) amitriptyline (ELAVIL) 50 mg tablet Take 1 tablet by mouth daily at bedtime. clonazePAM (KLONOPIN) 0.5 mg tablet Take 1 tablet by mouth twice daily as needed (for vertigo) for up to 30 days. Constitutional: (+) sleep disturbance, (-) weight changes Head: (+) headaches Ears/Nose/Mouth/Throat: (+) congestion Cardiovascular: (-) palpitations Respiratory: (+) snoring Gastrointestinal: (+) occasional heartburn Genitourinary: (+) nocturia Neurological: (-) restless legs Psychiatric: (+) occasional nightmares, (-) anxiety SOCIAL HISTORY: Social History Tobacco Use Smoking status: Never Smokeless tobacco: Never Substance Use Topics Alcohol use: No Drug use: No FAMILY HISTORY: FAMILY HISTORY Problem Relation Age of Onset Diabetes Father other (heart) Father end complications with CHF None Mother There is no family history of sleep disorders. PHYSICAL EXAMINATION: Vital Signs: BP 108/62 (BP Site: Right Arm, BP Position: Sitting) Pulse 75 Wt 59.5 kg (131 lb 3.2 oz) SpO2 100% BMI 20.35 kg/m PHYSICAL EXAM: General appearance: pleasant, NAD Mental status: alert and oriented, able to provide own history Constitutional: WNL Skin: No visible rashes on exposed skin Neuro: + tremor (her father had essential tremor) ENT : Posterior airspace: Nguyen tongue position 3, retognathia absent. Tongue scalloping/ridging absent. Kiara (obstructive sleep apnea) (primary encounter diagnosis) Excessive daytime sleepiness 1. KIARA (obstructive sleep apnea) (G47.33) Home sleep study revealed 102 apneas and 11 hypopneas, with an AHI of 14.2, indicating mild obstructive sleep apnea. Oxygen saturation dropped to 78% with 6.5 minutes at or below 88%. Patient has a crowded oropharynx with scalloping of the tongue, contributing to airway obstruction. Patient experiences excessive daytime sleepiness and morning headaches, likely related to KIARA. - Discussed treatment options, including CPAP therapy. - Prescribed auto CPAP with a pressure range of 5-15 cm H2O. - Patient prefers nasal mask; advised on potential use of chin strap or bandana to maintain nasal breathing. - Referred to [facility] in [facility] for CPAP equipment and mask fitting. - Scheduled follow-up appointment in 31-90 days to assess compliance and effectiveness of CPAP therapy. 2. ESS 07/06. Will look for possible improvement with treatment of KIARA. Leticia Celaya APRN.CNP documented in this encounter [facility] 10-21-2024 Note HNO ID: [id number] Author: LETICIA CELAYA APRN.CNP Service: ? Author Type: Nurse Practitioner Type: Progress Notes Filed: 10/24/2024 15:09 Note Text: Addendum: Recording using ambient [employer] software for draft documentation of the visit was discussed with the patient/authorized sales representative marine supplies; all questions welcomed and answered. 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 supplies agreed to proceed Leticia Celaya APRN.CNP [facility] Sleep Disorders Center New Patient Evaluation PATIENT NAME: Yanet Araya DATE OF SERVICE: October 21, 2024 CONSULTING PROVIDER: Estephania Cates [address] [facility] [address] REASON FOR CONSULT: Estephania Cates sends the patient for an opinion about KIARA. My findings and recommendations will be transmitted electronically via shared medical record to the consulting provider. HPI: Yanet Araya is a 69 year old female. Sleep-related history: new diagnosis of at least mild KIARA wondered if KIARA 1. Concerns: - Snoring and Sleep Apnea - Patient is a 69-year-old female presenting with concerns of snoring and potential sleep apnea. - Patient's noticed that she sometimes stops breathing and then gasps for air during sleep. - Patient has been sleeping on her back for the past 9 years due to vertigo, which has exacerbated her snoring. - She has tried various remedies such as nasal inserts, chin straps, and bandanas, but none have been effective. - Patient underwent a home sleep study earlier this year, which recorded 102 apneas and 11 hypopneas, resulting in an AHI of 14.2, indicating at least mild sleep apnea. - Her lowest oxygen saturation during the study was 78%, with 6.5 minutes spent at or below 88%. - Sinus Issues and Nasal Congestion - Patient reports frequent sinus issues and nasal congestion. - She often uses Vicks and nasal sprays to alleviate congestion. - Patient has a deviated septum on the left side, which she believes contributes to her snoring and breathing difficulties. - Daytime Sleepiness and Napping - Patient experiences significant daytime sleepiness and often takes naps, even if just for 15 minutes. - She feels sleepy a lot during the day and believes this has become more prominent in the last 4-5 years. - Headaches - Patient experiences headaches, sometimes waking up with them, which she attributes to possible dehydration. - She drinks 3-4 glasses of water every morning to mitigate this. - Patient was diagnosed with vestibular migraine in [place] and takes amitriptyline for headache management, which she finds helpful. - She also has Fruva Triptan for intense headaches, which she uses sparingly due to cost. - Vertigo - Patient has a history of vertigo, which began with severe attacks and was diagnosed as vestibular migraine. - She takes clonazepam as needed for vertigo, which helps her sleep and alleviates symptoms. 2. Sleep history: - Overall goals of treatment: Reduce snoring, improve sleep quality, and alleviate daytime sleepiness. - Sleep habits: - Typical bedtime: 22:00 - Typical wake time: 06:30-07:00 - Time to fall asleep: Approximately 30 minutes - Nighttime awakening number: Wakes up once or twice to use the bathroom - Time to fall back asleep: Falls back asleep quickly - Nap schedule: Often takes short naps, even if just for 15 minutes - Prior trial with oral appliance: No - Nose Symptoms: - Laterality: Left - Medications tried for nasal symptoms: Nasal sprays 3. Sleep study: - Type: Home sleep study - Date: Earlier this year - Apnea-hypopnea index (AHI): 14.2 - Lowest oxygen saturation: 78% - T90 (Time with saturation <90%): 6.5 minutes at or below 88% Patient Questionnaires Sleep Scores 10/19/2024 Sleep Questions Reason for visit: Sleep apnea Difficulty falling or staying asleep or poor sleep quality On average, hours of sleep in 24 hours: 8 Accidents or near accidents due to drowsy drivin Multiple values from one day are sorted in reverse-chronological order 10/19/2024 [place] Sleepiness Scale Score 12 (Excessive daytime sleepiness present) 10/19/2024 PROMIS CAT Sleep Disturbance PROMIS Sleep Disturbance T-Score 52 (within normal limits) PROMIS Sleep Disturbance Percentile 42 10/19/2024 PHQ-9 Score 2 08/03/2024 PROMIS Global Health - (T-Scores - the mean of general population = 50. Five points is a clinically meaningful difference.) Physical T-Score 47.7 Mental T-Score 59 PAST TREATMENTS: None PRIOR SLEEP STUDIES: A Home Sleep Test (HST) performed on 08/10/24 revealed an AHI of 14.2; supine index of 14.3; and a minimum oxygen saturation of 78%. PAST MEDICAL HISTORY Diagnosis Date ACTINIC DAMAGE///CHR SOLAR SKIN DAMAGE NOS 06/08/2007 Basal cell carcinoma 2007 scalp Headache(784.0) 1993 diagnosed was worked up by neurologist and was treated as migraine; also managed as tension type headache with doxepin MVP (mitral valve prola (more content not included)... [facility] 09-14-2024 Progress note Formatting of t his note might be different from the original. At least mild KIARA, has sleep medicine appointment scheduled in October [facility] 09-14-2024 Miscellaneous Notes At least mild KIARA, has sleep medicine appointment scheduled in October documented in this encounter [facility] 08-30-2024 Telephone encounter Note Needs sleep medicine visit scheduled. [facility] 08-30-2024 Miscellaneous Notes Needs sleep medicine visit scheduled. documented in this encounter [facility] 08-12-2024 Note HNO ID: [id number] Author: ?, ?, ? Service: ? Author Type: ? Type: Progress Notes Filed: 08/12/2024 15:23 Note Text: Date: August 12, 2024 Name: Yanet Araya Comments: HST was returned in working order with all sleep questionnaires Lou Zabala [facility] 08-12-2024 History of Presen t illness Narrative Date: August 12, 2024 Name: Yanet Araya Comments: HST was returned in working order with all sleep questionnaires Lou Zabala Nomad # [id number], date shipped out [employer] only Tracking mailout: [id number] Tracking return: [id number] August 09, 2024 Standing PSG Orders signed in the last 90 days None Future PSG Orders signed in the last 90 days Ordered Auth. provider HOME SLEEP APNEA TEST (HSAT) [[id number]] 08/03/24 Estephania Cates APRN.PACKAGE LINE RELIEF OPERATOR Assoc. diagnoses: Other fatigue [R53.83] Q: Indications: A: Obstructive sleep apnea Q: STOP-BANG conditions - Select All That Apply: A: AGE > 50 A2: SNORING that is loud or disruptive A3: TIREDNESS, fatigue or sleepiness during the day Q: Current use of supplemental oxygen during sleep period?: A: No All Prior Sleep Studies (past 365 days) 08/03/2024 13:28 Sleep Studies HOME SLEEP APNEA TEST (HSAT) HOME SLEEP APNEA TEST (HSAT) Order Status: Ordered, Future Expires: 08/03/25 BMI Readings from Last 2 Encounters: 08/03/24 : 20.18 kg/m 03/17/24 : 20.55 kg/m PAST MEDICAL HISTORY Diagnosis Date ACTINIC DAMAGE///CHR SOLAR SKIN DAMAGE NOS 06/08/2007 Basal cell carcinoma 2006 scalp Headache(784.0) 1993 diagnosed was worked up by neurologist and was treated as migraine; also managed as tension type headache with doxepin MVP (mitral valve prolapse) last echocardiogram in [facility] SEBORRHEIC KERATOSIS NOS 06/08/2007 Unspecified hypothyroidism The medical record was reviewed to determine if the proposed sleep study conforms to the AASM Practice Parameters for the Indications for Polysomnography and Related Procedures, or if the sleep study is indicated for other reasons. Indications for study: KIARA suspected without comorbid medical or sleep disorders Sleep study to be performed: Home Sleep Apnea Test (HSAT) Special instructions: None-follow laboratory protocol Chichi Franco - Sleep Medicine Staff Note: I have read the above protocol, edited as needed, and agree to the plan. Sherice Bertrand III, PhD 3:49 PM, 08/09/2024 August 06, 2024 An order has been received for Home Sleep Apnea Test (HSAT) from Estephania Beal [facility] Staff. Visit prep complete. Comments :No The sleep study is scheduled for 08/10. Insurance: Payor: A[employer] MEDICARE / Plan: [employer] MEDICARE PPO / Product Type: PPO / Payer/Plan Subscr Sex Relation Sub. Ins. ID Effective Group Num 1. [employer] MEDICAR* YANET ARAYA 1955 Female Self [id number] 03[birth year]23 [id number] [address] Partah Colbert documented in this encounter [facility] 08-09-2024 Note HNO ID: [id number] Author: ?, ?, ? Service: ? Author Type: ? Type: Progress Notes Filed: 08/12/2024 15:23 Note Text: Nomad # [id number], date shipped out [employer] Ex only Tracking mailout: [id number] Tracking return: [id number] [facility] 08-09-2024 Note HNO ID: [id number] Author: SHERICE BERTRAND III, PhD Service: ? Author Type: Physician Type: Progress Notes Filed: 08/12/2024 15:23 Note Text: August 09, 2024 Standing PSG Orders signed in the last 90 days None Future PSG Orders signed in the last 90 days Ordered Auth. provider HOME SLEEP APNEA TEST (HSAT) [[id number]] 08/03/24 Estephania Cates APRN.PACKAGE LINE RELIEF OPERATOR Assoc. diagnoses: Other fatigue [R53.83] Q: Indications: A: Obstructive sleep apnea Q: STOP-BANG conditions - Select All That Apply: A: AGE > 50 A2: SNORING that is loud or disruptive A3: TIREDNESS, fatigue or sleepiness during the day Q: Current use of supplemental oxygen during sleep period?: A: No All Prior Sleep Studies (past 365 days) 08/03/2024 13:28 Sleep Studies HOME SLEEP APNEA TEST (HSAT) HOME SLEEP APNEA TEST (HSAT) Order Status: Ordered, Future Expires: 08/03/25 BMI Readings from Last 2 Encounters: 08/03/24 : 20.18 kg/m? 03/17/24 : 20.55 kg/m? PAST MEDICAL HISTORY Diagnosis Date ACTINIC DAMAGE///CHR SOLAR SKIN DAMAGE NOS 06/08/2007 Basal cell carcinoma 2007 scalp Headache(784.0) 1993 diagnosed was worked up by neurologist and was treated as migraine; also managed as tension type headache with doxepin MVP (mitral valve prolapse) last echocardiogram in [place] SEBORRHEIC KERATOSIS NOS 06/08/2007 Unspecified hypothyroidism The medical record was reviewed to determine if the proposed sleep study conforms to the AASM Practice Parameters for the Indications for Polysomnography and Related Procedures, or if the sleep study is indicated for other reasons. Indications for study: KIARA suspected without comorbid medical or sleep disorders Sleep study to be performed: Home Sleep Apnea Test (HSAT) Special instructions: None-follow laboratory protocol Chichi Hyun Tech - Sleep Medicine Staff Note: I have read the above protocol, edited as needed, and agree to the plan. Sherice Bertrand III, PhD 3:49 PM, 08/09/2024 [facility] 08-06-2024 Note HNO ID: [id number] Author: ?, ?, ? Service: ? Author Type: ? Type: Progress Notes Filed: 08/12/2024 15:23 Note Text: August 06, 2024 An order has been received for Home Sleep Apnea Test (HSAT) from Estephania Beal [facility] Staff. Visit prep complete. Comments :No The sleep study is scheduled for 08/10. Insurance: Payor: AETNA MEDICARE / Plan: AETNA MEDICARE PPO / Product Type: PPO / Payer/Plan Subscr Sex Relation Sub. Ins. ID Effective Group Num 1. [employer] MEDICAR* YANET ARAYA 1955 Female Self [id number] [birth year] [id number] [address] Partha Colbert [facility] 08-03-2024 History of Presen t illness Narrative SUBJECTIVE: Advance Directive Discussion due on 07/14/2024 DTaP,Tdap,Td Vaccine(2 - Td or Tdap) due on 08/04/2024 HPI Yanet Araya is a 66 year old female. Her past medical history significant for hypothyroid, migraine headache MVP osteoporosis. Presents today reporting fatigue and weakness happening every few months for about 1 year. Notes less frequent occurrences for 10 to 20 years prior to that. She reports earlier this week that she cici from a meal and broke out in a sweat feeling hungry so she sat down and ate more food and felt last week and tired. She reports no recent illness, no fever. She reports sufficient fluid intake and routine meals. She reports no sick contacts. She reports typically sleeping 8 hours. States that she may snore and does not always feel rested when she wakes. She reports no chest pain shortness of breath palpitations edema. She reports no abdominal pain nausea vomiting diarrhea constipation BRBPR black or tarry stool. No change in functional capacity, able to walk flat surface unlimited, can take 2 flight of stairs without difficulty. She notes that blood pressures can run low at home. Notes that she often adds sodium to her diet. Notes blood pressures can range in the 90 systolic range. She notes typically when she has symptoms that if she eats she feels better. She notes family history of diabetes. . STOP BANG Questionnaire 1. Snoring Do you snore loudly (louder than talking or loud enough to be heard through closed doors)? NO 2. Tired Do you often feel tired, fatigued, or sleepy during daytime? Yes 3. Observed Has anyone observed you stop breathing during your sleep? Yes 4. Blood Pressure Do you have or are you being treated for high blood pressure? NO 5. BMI BMI more than 35 kg/m2? NO 6. Age Age over 50 yr old? YES 7. Neck circumference Neck circumference greater than 40 cm? NO 8. Gender Gender male? NO * Neck circumference is measured by staff High risk of KIARA: answering yes to three or more items Low risk of KIARA: answering yes to less than three items Last 14 Encounter BP Readings: Date: BP: 08/03/2024 113/69 03/17/2024 102/62 04/11/2023 90/60 04/02/2022 110/80 11/12/2021 116/74 04/16/2021 100/60 04/11/2020 108/70 01/21/2018 110/72 01/16/2018 102/68 01/12/2018 110/62 12/23/2016 100/49[alan bp- left arm - regular cuff - sitting[ 01/16/2016 106/64 10/20/2014 106/68 01/31/2014 114/66 Review of Systems Constitutional: Positive for fatigue. Respiratory: Negative. Cardiovascular: Negative. Endocrine: Negative. Neurological: Positive for weakness. Objective BP 113/69 (BP Site: Left Arm, BP Position: Standing, BP Cuff Size: Regular Adult) Pulse 89 Resp 16 Wt 59 kg (130 lb 1.1 oz) BMI 20.18 kg/m Physical Exam Vitals and nursing note reviewed. Constitutional: Appearance: Normal appearance. She is normal weight. HENT: Head: Normocephalic and atraumatic. Eyes: Conjunctiva/sclera: Conjunctivae normal. Neck: Thyroid: No thyromegaly or thyroid tenderness. Vascular: Normal carotid pulses. No JVD. Cardiovascular: Rate and Rhythm: Normal rate and regular rhythm. Pulses: Carotid pulses are 2+ on the right side and 2+ on the left side. Radial pulses are 2+ on the right side and 2+ on the left side. Heart sounds: Normal heart sounds. Pulmonary: Effort: Pulmonary effort is normal. Breath sounds: Normal breath sounds. Abdominal: General: Bowel sounds are normal. Palpations: Abdomen is soft. Musculoskeletal: Right lower leg: No edema. Left lower leg: No edema. Neurological: General: No focal deficit present. Mental Status: She is alert and oriented to person, place, and time. ALLERGIES No Known Allergies Medications frovatriptan (FROVA) 2.5 mg tablet Take 1 tablet (2.5 mg) by mouth as needed for migraine headache (see administration instructions). If headache recurs, may repeat after 2 hours. Max of 3 tablets in 24 hours. latanoprost (XALATAN) 0.005 % ophthalmic solution Use 1 Drop in both eyes daily at bedtime. levothyroxine (SYNTHROID) 112 mcg tablet Take 1 tablet by mouth once daily. plus extra half pill once weekly or as directed (7.5 pills per week) amitriptyline (ELAVIL) 50 mg tablet Take 1 tablet by mouth daily at bedtime. clonazePAM (KLONOPIN) 0.5 mg tablet Take 1 tablet by mouth twice daily as needed (for vertigo) for up to 30 days. PAST MEDICAL HISTORY Diagnosis Date ACTINIC DAMAGE///CHR SOLAR SKIN DAMAGE NOS 06/08/2007 Basal cell carcinoma 2006 scalp Headache(784.0) 1993 diagnosed was worked up by neurologist and was treated as migraine; also managed as tension type headache with doxepin MVP (mitral valve prolapse) last echocardiogram in [place] SEBORRHEIC KERATOSIS NOS 06/08/2007 Unspecified hypothyroidism Social History Tobacco Use Smoking status: Never Smokeless tobacco: Never Substance Use Topics Alcohol use: No Drug use: No Latest Ref Rng 03/17/2024 Protein, Total 6.3 - 8.0 g/dL 6.7 Albumin 3.9 - 4.9 g/dL 4.5 Calcium 8.5 - 10.2 mg/dL 9.2 Bilirubin, Total 0.2 - 1.3 mg/dL <0.2 (L) Alkaline Phosphatase 34 - 123 U/L 87 AST 13 - 35 U/L 29 ALT 7 - 38 U/L 21 Glucose 74 - 99 mg/dL 99 BUN 7 - 21 mg/dL 24 (H) Creatinine 0.58 - 0.96 mg/dL 0.83 Sodium 136 - 144 mmol/L 139 Potassium 3.7 - 5.1 mmol/L 4.4 Chloride 98 - 107 mmol/L 102 CO2 22 - 30 mmol/L 25 Anion Gap 8 - 15 mmol/L 12 eGFR >=60 mL/min/1.73m 76 WBC 3.70 - 11.00 k/uL 5.48 RBC 3.90 - 5.20 m/uL 4.25 Hemoglobin 11.5 - 15.5 g/dL 13.9 Hematocrit 36.0 - 46.0 % 42.4 MCV 80.0 - 100.0 fL 99.8 MCH 26.0 - 34.0 pg 32.7 MCHC 30.5 - 36.0 g/dL 32.8 RDW-CV 11.5 - 15.0 % 13.0 Platelet Count 150 - 400 k/uL 172 MPV 9.0 - 12.7 fL 10.9 Absolute nRBC <0.01 k/uL <0.01 TSH 0.270 - 4.200 mIU/L 1.500 Free T4 0.9 - 1.7 ng/dL 1.5 Vitamin D 25 Hydroxy 31.0 - 80.0 ng/mL 62.0 ASSESSMENT/PLAN: 1. Other fatigue - ICD9: 780.79, ICD10: R53.83 (primary diagnosis) 2. Weakness - ICD9: 780.79, ICD10: R53.1 She notes chronic sensation of fatigue and weakness that has been present for 10 to 20 years worse over the last year. No other symptomatic complaints other than a lower blood pressure at home. Is possible she may have sleep apnea. Suspect blood pressures running in the lower normal range may be contributing. Endorse wearing compression socks when seated for long periods of time, add sodium or sports drink to sufficient daily intake of fluids. 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 Declines to be checked for HIV hepatitis C or TB today. Declines to schedule an appointment today, will let us know if she would like to come back again after lab test are completed. No muscle or extremity weakness, just generalized sensation is reported. - TSH W/REFLEX FT4 - COMPREHENSIVE METABOLIC PANEL - COMPLETE BLOOD COUNT AND DIFFERENTIAL - HOME SLEEP APNEA TEST (HSAT) - HEMOGLOBIN A1C 3. Encounter for immunization - ICD9: V03.89, ICD10: Z23 - TDAP PRINTED PHARMACY INSTRUCTIONS Estephania Cates APRN.CNS Medical Decision Making: Problems: Moderate: New problem with uncertain prognosis Data: Unique test(s) ordered: 3+ Medical Decision Making Level: 4 - Moderate documented in this encounter [facility] 08-03-2024 Note HNO ID: [id number] Author: ESTEPHANIA CATES APRN.PACKAGE LINE RELIEF OPERATOR Service: ? Author Type: Nurse Specialist Type: Progress Notes Filed: 08/03/2024 13:50 Note Text: SUBJECTIVE: Advance Directive Discussion due on 07/14/2024 DTaP,Tdap,Td Vaccine(2 - Td or Tdap) due on 08/04/2024 HPI Yanet Araya is a 66 year old female. Her past medical history significant for hypothyroid, migraine headache MVP osteoporosis. Presents today reporting fatigue and weakness happening every few months for about 1 year. Notes less frequent occurrences for 10 to 20 years prior to that. She reports earlier this week that she cici from a meal and broke out in a sweat feeling hungry so she sat down and ate more food and felt last week and tired. She reports no recent illness, no fever. She reports sufficient fluid intake and routine meals. She reports no sick contacts. She reports typically sleeping 8 hours. States that she may snore and does not always feel rested when she wakes. She reports no chest pain shortness of breath palpitations edema. She reports no abdominal pain nausea vomiting diarrhea constipation BRBPR black or tarry stool. No change in functional capacity, able to walk flat surface unlimited, can take 2 flight of stairs without difficulty. She notes that blood pressures can run low at home. Notes that she often adds sodium to her diet. Notes blood pressures can range in the 90 systolic range. She notes typically when she has symptoms that if she eats she feels better. She notes family history of diabetes. . STOP BANG Questionnaire 1. Snoring Do you snore loudly (louder than talking or loud enough to be heard through closed doors)? NO 2. Tired Do you often feel tired, fatigued, or sleepy during daytime? Yes 3. Observed Has anyone observed you stop breathing during your sleep? Yes 4. Blood Pressure Do you have or are you being treated for high blood pressure? NO 5. BMI BMI more than 35 kg/m2? NO 6. Age Age over 50 yr old? YES 7. Neck circumference Neck circumference greater than 40 cm? NO 8. Gender Gender male? NO * Neck circumference is measured by staff High risk of KIARA: answering yes to three or more items Low risk of KIARA: answering yes to less than three items Last 14 Encounter BP Readings: Date: BP: 08/03/2024 113/69 03/17/2024 102/62 04/11/2023 90/60 04/02/2022 110/80 11/12/2021 116/74 04/16/2021 100/60 04/11/2020 108/70 01/21/2018 110/72 01/16/2018 102/68 01/12/2018 110/62 12/23/2016 100/49[alan bp- left arm - regular cuff - sitting[ 01/16/2016 106/64 10/20/2014 106/68 01/31/2014 114/66 Review of Systems Constitutional: Positive for fatigue. Respiratory: Negative. Cardiovascular: Negative. Endocrine: Negative. Neurological: Positive for weakness. Objective BP 113/69 (BP Site: Left Arm, BP Position: Standing, BP Cuff Size: Regular Adult) Pulse 89 Resp 16 Wt 59 kg (130 lb 1.1 oz) BMI 20.18 kg/m? Physical Exam Vitals and nursing note reviewed. Constitutional: Appearance: Normal appearance. She is normal weight. HENT: Head: Normocephalic and atraumatic. Eyes: Conjunctiva/sclera: Conjunctivae normal. Neck: Thyroid: No thyromegaly or thyroid tenderness. Vascular: Normal carotid pulses. No JVD. Cardiovascular: Rate and Rhythm: Normal rate and regular rhythm. Pulses: Carotid pulses are 2+ on the right side and 2+ on the left side. Radial pulses are 2+ on the right side and 2+ on the left side. Heart sounds: Normal heart sounds. Pulmonary: Effort: Pulmonary effort is normal. Breath sounds: Normal breath sounds. Abdominal: General: Bowel sounds are normal. Palpations: Abdomen is soft. Musculoskeletal: Right lower leg: No edema. Left lower leg: No edema. Neurological: General: No focal deficit present. Mental Status: She is alert and oriented to person, place, and time. ALLERGIES No Known Allergies Medications frovatriptan (FROVA) 2.5 mg tablet Take 1 tablet (2.5 mg) by mouth as needed for migraine headache (see administration instructions). If headache recurs, may repeat after 2 hours. Max of 3 tablets in 24 hours. latanoprost (XALATAN) 0.005 % ophthalmic solution Use 1 Drop in both eyes daily at bedtime. levothyroxine (SYNTHROID) 112 mcg tablet Take 1 tablet by mouth once daily. plus extra half pill once weekly or as directed (7.5 pills per week) amitriptyline (ELAVIL) 50 mg tablet Take 1 tablet by mouth daily at bedtime. clonazePAM (KLONOPIN) 0.5 mg tablet Take 1 tablet by mouth twice daily as needed (for vertigo) for up to 30 days. PAST MEDICAL HISTORY Diagnosis Date ACTINIC DAMAGE///CHR SOLAR SKIN DAMAGE NOS 06/08/2007 Basal cell carcinoma 2006 scalp Headache(784.0) 1993 diagnosed was worked up by neurologist and was treated as migraine; also managed as tension type headache with doxepin MVP (mitral valve prolapse) last echocardiogram in [place] SEBORRHEIC KERAT (more content not included)... [facility] 05-11-2024 Telephone encounter Note Pt has reviewed these results via my chart. [facility] 05-11-2024 Miscellaneous Notes Pt has reviewed these results via my chart. Rec'd via mail from [facility] lab fecal immunochemical test. This was completed 04/19/24 and negative. documented in this encounter [facility] 05-10-2024 History of Presen t illness Narrative Radiology Service Progress Note PATIENT NAME: Yanet Araya DATE OF SERVICE: May 10, 2024 TIME: 3:12 PM PATIENT IDENTITY VERIFICATION COMPLETED USING TWO (2) IDENTIFIERS: Name and Date of confirmed by patient verbally. FALL SCREENING: Has the patient had 2 falls in the last year or 1 fall with injury or currently using an Ambulatory Assistive Device (Walker, Cane, Wheelchair, Crutches, etc.)? No PATIENT GENDER DATA: Female. status: : No status: NO. PATIENT RELEVANT IMPLANT DATA REVIEWED: Not Applicable PATIENT PRESENTS WITH AN IMPLANTABLE OR ATTACHED SAILOR: No RADIOLOGY DEPARTMENT: Mammography PERIPHERAL IV DATA: Not applicable SIGNED BY: Lety Mccrayo Salvador May 10, 2024 3:12 PM documented in this encounter [facility] 05-05-2024 Telephone encounter Note Rec'd via mail from [facility] lab fecal immunochemical test. This was completed 04/19/24 and negative. [facility] 04-29-2024 History of Presen t illness Narrative Radiology Service Progress Note PATIENT NAME: Yanet Araya DATE OF SERVICE: April 29, 2024 TIME: 1:06 PM PATIENT IDENTITY VERIFICATION COMPLETED USING TWO (2) IDENTIFIERS: Name and Date of confirmed by patient verbally. FALL SCREENING: Has the patient had 2 falls in the last year or 1 fall with injury or currently using an Ambulatory Assistive Device (Walker, Cane, Wheelchair, Crutches, etc.)? No PATIENT GENDER DATA: Female. status: : No status: NO. PATIENT RELEVANT IMPLANT DATA REVIEWED: Not Applicable PATIENT PRESENTS WITH AN IMPLANTABLE OR ATTACHED SAILOR: No RADIOLOGY DEPARTMENT: Bone Density PERIPHERAL IV DATA: Not applicable SIGNED BY: RT Lala(R) April 29, 2024 1:06 PM documented in this encounter [facility] 03-31-2024 Telephone encounter Note PATIENT NOTIFIED OF SAME. [facility] 03-31-2024 Miscellaneous Notes PATIENT NOTIFIED OF SAME. The following approved medication requests have been transmitted electronically. Requested Prescriptions Signed Prescriptions Disp Refills frovatriptan (FROVA) 2.5 mg tablet 9 tablet 5 Sig: Take 1 tablet (2.5 mg) by mouth as needed for migraine headache (see administration instructions). If headache recurs, may repeat after 2 hours. Max of 3 tablets in 24 hours. Authorizing Provider: OCTAVIO ULLOA MD Patient calling, states she needs this sent today. She is leaving for a trip early tomorrow morning and the pharmacy closes at 6pm tonight. Please advise. Patient states her recent Rx for Frovatriptan was sent to incorrect pharmacy. Please send to pended pharmacy, [facility]. Please call patient once this has been sent, . Thank you. documented in this encounter [facility] 03-31-2024 Telephone encounter Note The following approved medication requests have been transmitted electronically. Requested Prescriptions Signed Prescriptions Disp Refills frovatriptan (FROVA) 2.5 mg tablet 9 tablet 5 Sig: Take 1 tablet (2.5 mg) by mouth as needed for migraine headache (see administration instructions). If headache recurs, may repeat after 2 hours. Max of 3 tablets in 24 hours. Authorizing Provider: OCTAVIO ULLOA MD [facility] 03-31-2024 Telephone encounter Note Patient calling, states she needs this sent today. She is leaving for a trip early tomorrow morning and the pharmacy closes at 6pm tonight. Please advise. [facility] 03-31-2024 Telephone encounter Note Patient states her recent Rx for Frovatriptan was sent to incorrect pharmacy. Please send to pended pharmacy, [facility]. Please call patient once this has been sent, . Thank you. [facility] 03-30-2024 Telephone encounter Note The following approved medication requests have been transmitted electronically. Requested Prescriptions Signed Prescriptions Disp Refills frovatriptan (FROVA) 2.5 mg tablet 9 tablet 5 Sig: Take 1 tablet (2.5 mg) by mouth as needed for migraine headache (see administration instructions). If headache recurs, may repeat after 2 hours. Max of 3 tablets in 24 hours. Authorizing Provider: OCTAVIO ULLOA MD Okay to see if affordable now as we had tried to send order before [facility] 03-30-2024 Miscellaneous Notes The following approved medication requests have been transmitted electronically. Requested Prescriptions Signed Prescriptions Disp Refills frovatriptan (FROVA) 2.5 mg tablet 9 tablet 5 Sig: Take 1 tablet (2.5 mg) by mouth as needed for migraine headache (see administration instructions). If headache recurs, may repeat after 2 hours. Max of 3 tablets in 24 hours. Authorizing Provider: OCTAVIO ULLOA MD Okay to see if affordable now as we had tried to send order before Last OV: 03/17/24. Pt reports she has a migraine x 3 days. Pt reports she used to take frovatriptan 2.5 mg but had to stop because of the hale. Pt reports she looked at [facility] and it looks like she can get med for a good hale through them. Pt is asking if med can be prescribed. Prescription Refill Information The patient has been identified by name and date of : Yes Caregiver verified no other encounters exist for this prescription request: Yes Caregiver confirmed with patient/requestor that no other refills are due, in the near future, with this provider at this time: Yes The last office visit in the department: 03/17/24 Does the patient have a future office visit with this provider/department: Yes 03/25/25 Requested Prescriptions Pending Prescriptions Disp Refills frovatriptan (FROVA) 2.5 mg tablet 9 tablet 5 Sig: Take 1 tablet (2.5 mg) by mouth as needed for migraine headache (see administration instructions). If headache recurs, may repeat after 2 hours. Max of 3 tablets in 24 hours. Rhona Pickering LPN March 30, 2024 11:47 AM documented in this encounter [facility] 03-30-2024 Telephone encounter Note Last OV: 03/17/24. Pt reports she has a migraine x 3 days. Pt reports she used to take frovatriptan 2.5 mg but had to stop because of the hale. Pt reports she looked at [facility] and it looks like she can get med for a good hale through them. Pt is asking if med can be prescribed. Prescription Refill Information The patient has been identified by name and date of : Yes Caregiver verified no other encounters exist for this prescription request: Yes Caregiver confirmed with patient/requestor that no other refills are due, in the near future, with this provider at this time: Yes The last office visit in the department: 03/17/24 Does the patient have a future office visit with this provider/department: Yes 03/25/25 Requested Prescriptions Pending Prescriptions Disp Refills frovatriptan (FROVA) 2.5 mg tablet 9 tablet 5 Sig: Take 1 tablet (2.5 mg) by mouth as needed for migraine headache (see administration instructions). If headache recurs, may repeat after 2 hours. Max of 3 tablets in 24 hours. Rhona Pickering LPN March 30, 2024 11:47 AM [facility] 03-17-2024 Instructions Octavio Ulloa MD - 03/17/2024 2:18 PM EDT -Continue to monitor the cyst on your left middle finger and contact a hand specialist if it starts to cause discomfort or interferes with hand function. - Consider starting CoQ10 supplementation at a lower dose (e.g., 100 mg once daily) and adjust based on your response; take CoQ10 at least an hour after your thyroid medication. - Perform Kegel exercises regularly to help manage sudden urges to urinate. - Maintain a balanced diet and stay hydrated. - Continue weight-bearing exercises to support bone density. - Complete the Cologuard test when it arrives at your home. - Schedule your mammogram and bone density test. - Flu shot will be administered today. - Complete additional lab tests today. - Upload a copy of your Prev 20 vaccination record from August 2022 to [employer]. - Next appointment is already scheduled. Screening schedule The following prevention plan is recommended: Depression Screening Never done Anxiety Screening Never done Advance Directive Discussion due on 07/14/2023 Bone Density Screening due on 11/14/2023 Mammogram Screening due on 02/26/2024 Influenza Vaccine(1) due on 03/14/2024 Colorectal Cancer Screening due on 04/20/2024 WHAT YOU CAN DO TO PREVENT FALLS Many falls can be prevented. By making some changes, you can lower your chances of falling. Four things YOU can do to prevent falls for you* and your caregiver 1. Begin a regular exercise program Exercise is one of the most important ways to lower your chances of falling. It makes you stronger and helps you feel better. Exercises that improve balance and coordination (like Cj Chi) are the most helpful. Lack of exercise leads to weakness and increases your chances of falling. Ask your doctor or health care provider about the best type of exercise program for you. 2. Have your health care provider review your medicines Have your doctor or pharmacist review all the medicines you take, even kose-fom-yjdhxgo medicines. As you get older, the way medicines work in your body can change. Some medicines, or combinations of medicines, can make you sleepy or dizzy and can cause you to fall. 3. Have your vision checked Have your eyes checked by an eye doctor at least once a year. You may be wearing the wrong glasses or have a condition like glaucoma or cataracts that limits your vision. Poor vision can increase your chances of falling. 4. Make your home safer About half of all falls happen at home. To make your home safer: Remove things you can trip over (like papers, books, clothes, and shoes) from stairs and places where you walk. Remove small throw rugs or use double-sided tape to keep the rugs from slipping. Keep items you use often in cabinets you can reach easily without using a step stool. Have grab bars put in next to your toilet and in the tub or shower. Use non-slip mats in the bathtub and on shower floors. Improve the lighting in your home. As you get older, you need brighter lights to see well. Hang light-weight curtains or shades to reduce glare. Have handrails and lights put in on all staircases. Wear shoes both inside and outside the house. Avoid going barefoot or wearing slippers. For more information, contact: Centers for Disease Control and Prevention www.cdc.gov/injury * This information may not apply if you have certain medical conditions. BONE MINERAL DENSITY PATIENT INSTRUCTIONS ========= Bone mineral density testing measures the amount of calcium in certain parts of your bones. This information determines how strong your bones are. The test is used to detect osteoporosis, a disease in which the bone's mineral content and density are low, increasing a person's risk of fractures. The lumbar spine (lower back) and the hip are the skeletal sites usually examined. For the test, remember that: 1. You cannot take this test if you are . 2. Eat a normal diet on the day of the test. 3. Take your medications as you normally would. 4. DO NOT take calcium supplements (such as Tums) for 24 hours before the test. 5. On the day of the test, leave valuables (jewelry or credit cards) at home. 6. The test should be performed prior to oral, rectal or IV contrast studies, or at least 7 days after any of these studies. For the test, you may be asked to wear a hospital gown. You will lie on your back, on a padded table, in a comfortable position. Generally, you can resume your usual activities immediately. documented in this encounter [facility] 03-17-2024 History of Presen t illness Narrative Images from the original note were not included. This note was created using [employer]. Subjective Yanet Araya is a 68 year old female. HISTORY Yanet Araya is a 68 year old lady here for yearly exam and follow up appointment. Patient is a 68-year-old female presenting for a Medicare wellness visit with additional concerns about a cyst on her left middle finger, a tremor, and sudden urges to urinate. Patient reports a non-painful cyst on the palmar side of her left middle finger. She notes a similar cyst on the same finger years ago, which was removed by an orthopedic surgeon in [place]. She denies any recent hand injuries and does not engage in activities that put pressure on the area, such as gripping objects. She does play the piano but does not believe this contributes to the cyst. Patient also reports a tremor, which she believes is an essential tremor, as her father had a similar condition. The tremor primarily affects her hands and occasionally her head. It worsens after walking and sometimes causes her to type two letters instead of one. She notes that the tremor has not affected her piano playing but has changed her handwriting over the past 10 years, making it shakier and harder to control. She has not been formally diagnosed with essential tremor. Patient experiences sudden urges to urinate, describing it as I've got to go right now. She drinks a cup of tea in the morning and consumes a piece of chocolate daily. She believes she drinks a lot of water, consuming four glasses in the morning and two to four more throughout the day. She denies any persistent urgency, frequency, pain, or hematuria. Patient inquires about taking CoQ10, as recommended by her chiropractor for general energy and brain health. She has read that it is beneficial for brain health and is considering starting it but wanted to consult first. Patient has a history of constipation and takes 500 mg of magnesium daily, sometimes increasing to 750 mg if needed. She also consumes psyllium with every meal and eats prunes for breakfast. She has not tried Miralax. Patient has a history of osteoporosis and is not currently taking any medications for it. She engages in weight-bearing exercises, including walking and using weights with her arms. Patient has a history of vestibular migraines and occasionally feels off balance. She takes meclizine as needed to help stabilize her balance. Patient received the Prevnar 20 vaccine in August 2022 and declines further COVID-19 vaccinations, having had COVID-19 once in the spring. She is due for a mammogram and a bone density scan and is interested in scheduling these appointments. She also inquires about the Cologuard test, which she last completed in 2020. PAST MEDICAL HISTORY 06/08/2007: ACTINIC DAMAGE///CHR SOLAR SKIN DAMAGE NOS 2006: Basal cell carcinoma Comment: scalp 1992 diagnosed: Headache(784.0) Comment: was worked up by neurologist and was treated as migraine; also managed as tension type headache with doxepin No date: MVP (mitral valve prolapse) Comment: last echocardiogram in [place] 06/08/2007: SEBORRHEIC KERATOSIS NOS No date: Unspecified hypothyroidism Current Outpatient Medications Medication Sig latanoprost (XALATAN) 0.005 % ophthalmic solution Use 1 Drop in both eyes daily at bedtime. levothyroxine (SYNTHROID) 112 mcg tablet Take 1 tablet by mouth once daily. plus extra half pill once weekly or as directed (7.5 pills per week) amitriptyline (ELAVIL) 50 mg tablet Take 1 tablet by mouth daily at bedtime. clonazePAM (KLONOPIN) 0.5 mg tablet Take 1 tablet by mouth twice daily as needed (for vertigo) for up to 30 days. brimonidine (ALPHAGAN) 0.2 % ophthalmic solution Use 1 Drop in the left eye two times a day. No current facility-administered medications for this visit. ALLERGIES No Known Allergies FAMILY HISTORY Problem Relation Age of Onset Diabetes Father other (heart) Father end complications with CHF None Mother Social History Tobacco Use Smoking status: Never Smokeless tobacco: Never Substance Use Topics Alcohol use: No Drug use: No Review of Systems Objective BP 102/62 Pulse 80 Temp (!) 35.9 C (96.6 F) Resp 16 Ht 171 cm (5' 7.32) Wt 60.1 kg (132 lb 7.9 oz) SpO2 98% BMI 20.55 kg/m Physical Exam Vitals reviewed. Constitutional: Appearance: Normal appearance. She is well-developed. HENT: Head: Normocephalic and atraumatic. Right Ear: Tympanic membrane, ear canal and external ear normal. Left Ear: Tympanic membrane, ear canal and external ear normal. Nose: Nose normal. Mouth/Throat: Mouth: Mucous membranes are moist. Eyes: Conjunctiva/sclera: Conjunctivae normal. Neck: Thyroid: No thyromegaly. Vascular: No carotid bruit. Cardiovascular: Rate and Rhythm: Normal rate and regular rhythm. Pulses: Normal pulses. Heart sounds: Normal heart sounds. No murmur heard. No friction rub. No gallop. Pulmonary: Effort: Pulmonary effort is normal. Breath sounds: Normal breath sounds. Abdominal: General: Bowel sounds are normal. There is no distension. Palpations: Abdomen is soft. There is no mass. Tenderness: There is no abdominal tenderness. Musculoskeletal: General: No deformity. Normal range of motion. Right lower leg: No edema. Left lower leg: No edema. Lymphadenopathy: Cervical: No cervical adenopathy. Skin: General: Skin is warm and dry. Coloration: Skin is not jaundiced or pale. Findings: No rash. Neurological: General: No focal deficit present. Mental Status: She is alert and oriented to person, place, and time. Cranial Nerves: No cranial nerve deficit. Sensory: No sensory deficit. Motor: Tremor (Mild and with F2N test) present. No abnormal muscle tone. Coordination: Coordination normal. Deep Tendon Reflexes: Reflexes normal. Psychiatric: Mood and Affect: Mood normal. Behavior: Behavior normal. Thought Content: Thought content normal. Judgment: Judgment normal. Assessment and Plan Yanet Araya is a 68 year old female here for a Medicare wellness visit. Medicare Health Risk Assessment General Health Very good Exercise: Minutes/Day 20 min Exercise: Days/Week 6 days Alcohol: Daily Use Never Alcohol: Drinks/Day Patient does not drink Alcohol: 6 or more drinks Never Feel off balance Yes (Occasionally feels like goes off to the sidfe while walking; can be with migraine) Concerns: Teeth/Dentures No Concerns: Sexual function No Troubled by feelings None of the above Frequency: Eating healthy diet Nearly every day ADLs requiring help None of the above Safety precautions in home/vehicle Yes Smoke, vape, chews tobacco No Difficulty hearing No Difficulty seeing No Current Providers Specialists: I have reviewed specialist-related care of the patient in the medical record. Outside specialists seen: Fiber Drier Operator Dr. Lemus ([facility]). 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 Opioid use review Opioid Medications (last 90 days) No data to display Anxiety/Depression screening PHQ-9 Score: 2 (Minimal Depression) CRISTA-7 Score: 0. Recommendation: no further intervention at this time Cognitive screening Mini Cog Score: 5 Cognitive screening reviewed and No further action needed (score 3-5). Functional Observation Was the patient's Timed Up & Go test unsteady or >= 12 seconds? No Advance Care Planning Surrogate decision maker and/or advance care plan documented Does have HCDPOA and LW. Surrogate Decision Maker is Measurements BP 102/62 Pulse 80 Temp (!) 35.9 C (96.6 F) Resp 16 Ht 171 cm (5' 7.32) Wt 60.1 kg (132 lb 7.9 oz) SpO2 98% BMI 20.55 kg/m Vision Screening: Follows with optometry/ophthalmology Assessment/Plan Medicare annual wellness visit, subsequent (Z00.00) - Counseled on healthy diet and regular exercise - Fall avoidance information provided - Personalized prevention plan provided # Medicare annual wellness visit, subsequent - Completed Medicare annual wellness visit. - Reviewed and updated health maintenance, including vaccinations and screenings. - Patient is up to date with vaccinations, including flu shot administered today. - Discussed safety precautions, diet, and exercise. - Scheduled follow-up appointment for next year. # Benign essential tremor - Mild tremor observed, primarily affecting hands; occasionally affects head. - Family history of essential tremor. - Discussed potential exacerbating factors such as fatigue and anxiety. - No current pharmacological treatment initiated; will monitor for progression. # Asymptomatic postmenopausal status - Discussed current health status and management. # Acquired hypothyroidism - Stable on current thyroid medication. - Ordered TSH and T4 labs to monitor thyroid function. - Advised patient to take thyroid medication separately from other supplements by at least one hour. # Age-related osteoporosis without current pathological fracture - Discussed importance of weight-bearing exercises to improve bone density. - Ordered bone density scan to assess current status. - Reviewed vitamin D levels; previous levels were adequate. # Encounter for screening mammogram for breast cancer - Mammogram due; previous mammogram was in February last year. - Extended order for mammogram to be completed soon. # Screening for colon cancer - Cologuard test ordered; patient prefers this method. - Test to be completed every three years. # Encounter for immunization - Administered flu vaccine today. - Patient received Prevnar 20 in August 2022; no further pneumococcal vaccination needed at this time. - Declined RSV and COVID-19 vaccines. # Screening for depression # Encounter for screening examination for other mental health and behavioral disorders - No signs of depression or anxiety observed. - Patient reports no feelings of isolation, stress, or thoughts of self-harm. # Constipation, unspecified constipation type - Managed with magnesium 500 mg daily and psyllium fiber with meals. - Discussed potential use of Miralax if needed. - Advised to monitor for any correlation between constipation and urinary urgency. Octavio Ulloa MD documented in this encounter [facility] 03-04-2024 Telephone encounter Note Patient has been identified by name and date of : Yes Patient phones for refill(s): Requested Prescriptions Pending Prescriptions Disp Refills levothyroxine (SYNTHROID) 112 mcg tablet 90 tablet 3 Sig: Take 1 tablet by mouth once daily. plus extra half pill once weekly or as directed (7.5 pills per week) Date of last office visit in primary care: 04/11/2023 Date of next office visit in primary care: 03/04/2024 Please advise. Thank you. Cony Levi LPN. [facility] 03-04-2024 Miscellaneous Notes Patient has been identified by name and date of : Yes Patient phones for refill(s): Requested Prescriptions Pending Prescriptions Disp Refills levothyroxine (SYNTHROID) 112 mcg tablet 90 tablet 3 Sig: Take 1 tablet by mouth once daily. plus extra half pill once weekly or as directed (7.5 pills per week) Date of last office visit in primary care: 04/11/2023 Date of next office visit in primary care: 03/04/2024 Please advise. Thank you. Cony Levi LPN. documented in this encounter [facility] 03-04-2024 Telephone encounter Note Patient has been identified by name and date of : Yes Patient phones for refill(s): Requested Prescriptions Pending Prescriptions Disp Refills amitriptyline (ELAVIL) 50 mg tablet 90 tablet 3 Sig: Take 1 tablet by mouth daily at bedtime. Date of last office visit in primary care: 04/11/2023 Date of next office visit in primary care: 03/17/2024 Please advise. Thank you. Cony Levi LPN. [facility] 03-04-2024 Miscellaneous Notes Patient has been identified by name and date of : Yes Patient phones for refill(s): Requested Prescriptions Pending Prescriptions Disp Refills amitriptyline (ELAVIL) 50 mg tablet 90 tablet 3 Sig: Take 1 tablet by mouth daily at bedtime. Date of last office visit in primary care: 04/11/2023 Date of next office visit in primary care: 03/17/2024 Please advise. Thank you. Cony Levi LPN. documented in this encounter [facility] 05-07-2023 Miscellaneous Notes Last office visit: 04/11/23 Next appointment scheduled: 03/17/24 Patient phones requesting refills as follows: Requested Prescriptions Pending Prescriptions Disp Refills amitriptyline (ELAVIL) 50 mg tablet 90 tablet 3 Sig: Take 1 tablet by mouth daily at bedtime. Please review and advise. Betsy Simmons LPN documented in this encounter [facility] 04-11-2023 History of Presen t illness Narrative Yanet Araya is a 67 year old female here for a Medicare wellness visit. Health Risk Assessment In general, health is: Very good Concerns with balance: Not at all Concerns with teeth or dentures: Not at all Concerns with sexual function: Not at all [place] anxious, stressed, angry, irritable, lonely, isolated, or had thoughts of hurting themself: Not at all Has little interest or pleasure in doing things: Not at all Bothered by feeling down, depressed, or hopeless: Not at all Needs help with grocery shopping, cooking, housework, bathing, grooming, dressing, eating, sitting or standing, walking, using the toilet, handling finances, taking medications, using the telephone, or driving: No Following safety precautions in the home environment and vehicle: removed throw rugs from floors, installed grab bars in the bathroom, handrails in stairwells, having adequate lighting, wearing seatbelt at all times?: Yes Smokes cigarettes, vapes, or chew tobacco: No Eats healthy foods including fruits, vegetables, whole grains, and fiber-rich foods: Nearly every day Number of days per week engages in exercise: 6 days Average alcohol consumption: Never She notes urinary urgency, would prefer any natural treatment to medication. Intermittently bothersome. No leakage. Current Providers Specialists: I have reviewed specialist-related care of the patient in the medical record. 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 Opioid use review Patient is not currently using opioids. Depression screening Depression Screening PHQ-2 Score CRISTA-2 Total Score 04/11/2023 0 - Depression screening tool completed and reviewed. Based on score and interview, patient is not at risk for depression. Screening tool discussed with patient, and I recommended no further intervention at this time. Cognitive screening Mini Cog Score: Score: 5 Functional Observation Was the patient's timed Up & Go test unsteady or ? 12 seconds? No Advance Care Planning End of Life planning discussed, including patient's advanced directive wishes: Yes Spouse Measurements BP 90/60 Pulse 88 Resp 16 Ht 5' 7 (1.70m) Wt 128 lb (58.1kg) BMI 20.04 kg/(m^2). CV: RRR, no ectopy, no edema Resp: LCTA, not labored, Visual acuity (required for Welcome to Medicare): Right: 20/25 Left: 20/ 30 Both: 20/25 Hearing Evaluation: within normal limits Assessment/Plan Medicare annual wellness visit, subsequent (Z00.00) 1. Medicare annual wellness visit, subsequent - ICD9: V70.0, ICD10: Z00.00 (primary diagnosis) - Counseled on healthy diet and regular exercise - Calcium intake with supplements or by diet of 1000 mg/day for under 50, [id number] mg/day for 50+ - ADVANCE CARE PLAN DISCUSSION - DEPRESSION SCREENING/ASSESSMENT 2. Glaucoma of left eye, unspecified glaucoma type - ICD9: 365.9, ICD10: H40.9 - CONSULT TO OPHTHALMOLOGY 3. Acquired hypothyroidism - ICD9: 244.9, ICD10: E03.9 - TSH BLD - COMP METABOLIC PANEL - CBC + DIFF - CONSULT TO OPHTHALMOLOGY 4. Urinary urgency - ICD9: 788.63, ICD10: R39.15 Discussed lifestyle measures, physical therapy medication. Defers all for now. States most interested in natural treatments if needed. Blood pressure in low normal range today. Endorse sufficient fluid intake take, liberalize sodium intake, wear compression socks if seated or standing for prolonged periods. Plans to get flu vaccine at pharmacy. - Counseled on healthy diet and regular exercise - Fall avoidance information provided 6-12 mo follow up Octavio Ulloa MD documented in this encounter [facility] 04-11-2023 Instructions Estephania Cates APRN.CNS - 04/11/2023 9:40 AM EDT Screening schedule The following prevention plan is recommended: Pneumococcal Vaccine: 65+(2 - PCV) due on 04/11/2021 Covid-19 Vaccine(5 - Pfizer series) due on 12/21/2021 Advance Directive Discussion due on 07/14/2022 Depression Assessment Never done Annual PCP Team Chronic Disease Visit due on 11/12/2022 Influenza Vaccine(1) due on 03/14/2023 WHAT YOU CAN DO TO PREVENT FALLS Many falls can be prevented. By making some changes, you can lower your chances of falling. Four things YOU can do to prevent falls for you* and your caregiver 1. Begin a regular exercise program Exercise is one of the most important ways to lower your chances of falling. It makes you stronger and helps you feel better. Exercises that improve balance and coordination (like Cj Chi) are the most helpful. Lack of exercise leads to weakness and increases your chances of falling. Ask your doctor or health care provider about the best type of exercise program for you. 2. Have your health care provider review your medicines Have your doctor or pharmacist review all the medicines you take, even [id number] medicines. As you get older, the way medicines work in your body can change. Some medicines, or combinations of medicines, can make you sleepy or dizzy and can cause you to fall. 3. Have your vision checked Have your eyes checked by an eye doctor at least once a year. You may be wearing the wrong glasses or have a condition like glaucoma or cataracts that limits your vision. Poor vision can increase your chances of falling. 4. Make your home safer About half of all falls happen at home. To make your home safer: Remove things you can trip over (like papers, books, clothes, and shoes) from stairs and places where you walk. Remove small throw rugs or use double-sided tape to keep the rugs from slipping. Keep items you use often in cabinets you can reach easily without using a step stool. Have grab bars put in next to your toilet and in the tub or shower. Use non-slip mats in the bathtub and on shower floors. Improve the lighting in your home. As you get older, you need brighter lights to see well. Hang light-weight curtains or shades to reduce glare. Have handrails and lights put in on all staircases. Wear shoes both inside and outside the house. Avoid going barefoot or wearing slippers. For more information, contact: Centers for Disease Control and Prevention www.cdc.gov/injury * This information may not apply if you have certain medical conditions. documented in this encounter [facility] 03-18-2023 Miscellaneous Notes Sent a [employer] message for pt to stop in and get lab work done. Patient has been identified by name and date of : Yes, Provider Dr. Ulloa Date 03/18/23 Time 4:25 pm Patient phones for refill(s): Requested Prescriptions Pending Prescriptions Disp Refills levothyroxine (SYNTHROID) 112 mcg tablet 90 tablet 3 Sig: Take 1 tablet by mouth once daily. plus extra half pill once weekly or as directed (7.5 pills per week) Date of last office visit in primary care: 04/02/22 next apt 03/26/23 Last 2 Encounter Wt Readings: Date: Wt: 04/02/2022 57.6 kg (127 lb) 11/12/2021 56.7 kg (125 lb) Previous labs/tests for medication: Thyroid: TSH Date Value 11/13/2021 3.690 mIU/L 04/16/2021 3.180 uU/mL Thank you. Rohini Alston LPN documented in this encounter [facility] 02-26-2023 Miscellaneous Notes February 27, 2023 PID: [id number] Yanet Araya [address] [address] Dear Ms. Araya, We are pleased to inform you that the results of your recent breast imaging exam on 02/25/2023 are normal. Early detection of cancer is very important. We also understand recommendations regarding breast cancer screening are controversial. Please discuss with your primary care provider which strategy is best for you and whether a mammogram is right for you. Your imaging studies and report will be kept on file at [facility] as part of your permanent medical record and are available for your continuing care. Thank you for allowing us to help in meeting your health care needs. Sincerely, Dr. Diggs Interpreting Radiologist [facility] (Normal over 40) documented in this encounter [facility] 02-25-2023 History of Presen t illness Narrative Radiology Service Progress Note PATIENT NAME: Yanet Araya DATE OF SERVICE: February 25, 2023 TIME: 9:23 AM PATIENT IDENTITY VERIFICATION COMPLETED USING TWO (2) IDENTIFIERS: Name and Date of confirmed by patient verbally. FALL SCREENING: Has the patient had 2 falls in the last year or 1 fall with injury or currently using an Ambulatory Assistive Device (Walker, Cane, Wheelchair, Crutches, etc.)? No PATIENT GENDER DATA: Female. status: : No status: NO. PATIENT RELEVANT IMPLANT DATA REVIEWED: Not Applicable RADIOLOGY DEPARTMENT: Mammography PERIPHERAL IV DATA: Not applicable SIGNED BY: Sudhakar Iverson RT(R) February 25, 2023 9:23 AM documented in this encounter [facility] 02-25-2023 Miscellaneous Notes Negative, 1 year screening follow-up documented in this encounter [facility] 04-02-2022 History of Presen t illness Narrative SUBJECTIVE: COLORECTAL CANCER SCREENING due on 04/13/2020 PNEUMOCOCCAL: 65+(2 - PCV) due on 04/11/2021 TIFFANIE Araya is a 66 year old female. Her past medical history significant for hypothyroid, migraine headache MVP osteoporosis. She was previously in [facility] doing [employer] work. Currently living in [place] area with her who is working at headquarters for the [employer] group. Plans to return to [place] . Hypothyroidism. She is doing well on her current dose of levothyroxine. Without complaint of fatigue, constipation, diarrhea, LE edema, palpitations, tremors, weight gain, weight loss, hair loss, dry skin, cold intolerance, heat intolerance, trouble swallowing and neck pain/pressure. TSH Date Value 11/13/2021 3.690 mIU/L 04/16/2021 3.180 uU/mL 04/12/2020 2.430 uU/mL ) Notes history of migraine, diagnosed by OSH provider prior to being [facility] patient. Notes has been taking elavil and frova with good effect for some time. Notes migraine headache about once every 2 to 3 months helped with Frova. Headaches tend to be more mild now. She notes occasionally taking ibuprofen for headaches when they occur and finding it effective. Takes vitamin D an calcium daily. No osteoporosis medication, has preferred not to take this Request refill of clonazepam for vertigo. States a neurologist in [place] ordered this for her in the past. She states she has used has used the 60 tablets prescribed over the last 4 years. Has been effective for treating vertigo. . Review of Systems Constitutional: Negative. Respiratory: Negative. Cardiovascular: Negative. Endocrine: Negative. Neurological: Positive for headaches. Objective BP 110/80 Pulse 83 Resp 16 Wt 57.6 kg (127 lb) SpO2 98% BMI 18.68 kg/m Physical Exam Vitals and nursing note reviewed. Constitutional: Appearance: Normal appearance. She is normal weight. HENT: Head: Normocephalic and atraumatic. Eyes: Conjunctiva/sclera: Conjunctivae normal. Neck: Thyroid: No thyromegaly or thyroid tenderness. Cardiovascular: Rate and Rhythm: Normal rate and regular rhythm. Pulses: Carotid pulses are 2+ on the right side and 2+ on the left side. Radial pulses are 2+ on the right side and 2+ on the left side. Dorsalis pedis pulses are 2+ on the right side and 2+ on the left side. Heart sounds: Normal heart sounds. Pulmonary: Effort: Pulmonary effort is normal. Breath sounds: Normal breath sounds. Abdominal: General: Bowel sounds are normal. Palpations: Abdomen is soft. Musculoskeletal: Right lower leg: No edema. Left lower leg: No edema. Neurological: General: No focal deficit present. Mental Status: She is alert and oriented to person, place, and time. ALLERGIES No Known Allergies frovatriptan (FROVA) 2.5 mg tablet Take 1 tablet by mouth as needed for Migraine Headache (see administration instructions). If headache recurs, may repeat after 2 hours. Max of 3 tablets in 24 hours. levothyroxine (SYNTHROID) 112 mcg tablet Take 1 tablet by mouth once daily. plus extra half pill once weekly or as directed (7.5 pills per week) amitriptyline (ELAVIL) 50 mg tablet Take 1 tablet by mouth daily at bedtime. PAST MEDICAL HISTORY Diagnosis Date ACTINIC DAMAGE///CHR SOLAR SKIN DAMAGE NOS 06/08/2007 Basal cell carcinoma 2006 scalp Headache(784.0) 1993 diagnosed was worked up by neurologist and was treated as migraine; also managed as tension type headache with doxepin MVP (mitral valve prolapse) last echocardiogram in [facility] SEBORRHEIC KERATOSIS NOS 06/08/2007 Unspecified hypothyroidism Social History Tobacco Use Smoking status: Never Smokeless tobacco: Never Substance Use Topics Alcohol use: No Drug use: No Component Latest Ref Rng & Units 11/13/2021 Protein, Total 6.3 - 8.0 g/dL 6.8 Albumin 3.9 - 4.9 g/dL 4.6 Calcium 8.5 - 10.2 mg/dL 9.3 Bilirubin, Total 0.2 - 1.3 mg/dL 0.3 Alkaline Phosphatase 34 - 123 U/L 94 AST 13 - 35 U/L 30 ALT 7 - 38 U/L 20 Glucose 74 - 99 mg/dL 55 (L) BUN 7 - 21 mg/dL 16 Creatinine 0.58 - 0.96 mg/dL 0.83 Sodium 136 - 144 mmol/L 139 Potassium 3.7 - 5.1 mmol/L 4.0 Chloride 97 - 105 mmol/L 100 CO2 22 - 30 mmol/L 31 (H) Anion Gap 9 - 18 mmol/L 8 (L) eGFR >=60 mL/min/1.73m 77 WBC 3.70 - 11.00 k/uL 5.11 RBC 3.90 - 5.20 m/uL 4.46 Hemoglobin 11.5 - 15.5 g/dL 14.3 Hematocrit 36.0 - 46.0 % 44.1 MCV 80.0 - 100.0 fL 98.9 MCH 26.0 - 34.0 pg 32.1 MCHC 30.5 - 36.0 g/dL 32.4 RDW-CV 11.5 - 15.0 % 12.8 Platelet Count 150 - 400 k/uL 161 MPV 9.0 - 12.7 fL 10.3 Absolute nRBC <0.01 k/uL <0.01 TSH 0.270 - 4.200 mIU/L 3.690 Free T4 0.9 - 1.7 ng/dL 1.6 Free T3 2.3 - 4.1 pg/mL 2.4 Vitamin D 25 Hydroxy 31.0 - 80.0 ng/mL 58.1 ASSESSMENT/PLAN: 1. Acquired hypothyroidism - ICD9: 244.9, ICD10: E03.9 (primary diagnosis) - Continue taking on an empty stomach either first thing in the morning or at bedtime. - continue current dose of Synthroid defers labs today, will complete at next visit - LEVOTHYROXINE 112 MCG TABLET 2. History of migraine - ICD9: V12.49, ICD10: Z86.69 Stable, currently controlled, continue to monitor. - AMITRIPTYLINE 50 MG TABLET 3. Encounter for immunization - ICD9: V03.89, ICD10: Z23 - PNEUMOCOCCAL VACCINE (PREVNAR 20) - PFIZER-BIONTECH COVID-19 BIVALENT BOOSTER VACCINE, AGE 12+ YR 5. Vertigo - ICD9: 780.4, ICD10: R42 Rare intermittent use, has been effective. PDMP website checked and validated. All prescriptions have been APPROPRIATELY filled. No suspicious activity was identified. 04/02/2022 by Estephania Cates APRN.PACKAGE LINE RELIEF OPERATOR - CLONAZEPAM 0.5 MG TABLET 1 year follow up MD Estephania Vazquez APRN.PACKAGE LINE RELIEF OPERATOR Medical Decision Making: Problems: Moderate: 2+ stable chronic illnesses Risk: Moderate: Drug management Medical Decision Making Level: 4 - Moderate documented in this encounter [facility] 03-11-2022 Miscellaneous Notes Patient called to scheduled appointment for anytime 04/01/22-04/10/22. Patient asked for a call back to schedule appointent # [phone].She got the impression that Dr. lUloa will work her in on the schedule. See MyChart reply documented in this encounter [facility] 02-23-2022 Miscellaneous Notes See MyChart reply documented in this encounter [facility] 11-15-2021 Miscellaneous Notes Pt called and is notified of providers message and instructions. Pt voices understanding. Jolie Lujan RN Note declines treatment with medication of osteoporosis at this time. She should be getting 1200 mg of calcium through diet or supplement, at least 800 IUvitamin D 3 daily and routine weight bearing exercise such as walking Pt called and is notified of providers message and instructions. Pt voices understanding. She reports she does not want to try Fosamax at this time. Pt is asking how much Vit D provider thinks she should be taking. She also states tat she does take in food with calcium, but could increase how much she takes. Pt reports she walks daily. Jolie Lujan RN If wanting to treat osteoporosis with with medications such as Fosamax, please let us know. Concerned that she is getting enough vitamin D. Calcium should be 1200 mg through diet or supplements daily. Routine weightbearing exercise such as walking can help keep bones strong and is recommended Patient notified of bone density results and verbalized understanding. Supplements were not discussed at visit but she is taking calcium/with vitamin D 600 mg and vitamin d3 2000 international unit(s) daily. Please let her know that BMD showed osteoporosis in the lumbar spine and both femoral necks. Seen by PCP yesterday, may have discussed vitamin D, calcium and treatment for osteoporosis at her visit. documented in this encounter [facility] 11-14-2021 Miscellaneous Notes November 14, 2021 PID: [id number] Yanet Araya [address] [place] [address] Dear Ms. Araya, We are pleased to inform you that the results of your recent breast imaging exam on 11/14/2021 are normal. Your mammogram demonstrates that you have dense breast tissue, which could hide abnormalities. Dense breast tissue, in and of itself, is a relatively common condition. Therefore, this information is not provided to cause undue concern; rather, it is to raise your awareness and promote discussion with your health care provider regarding the presence of dense breast tissue in addition to other risk factors. Early detection of cancer is very important. We also understand recommendations regarding breast cancer screening are controversial. Please discuss with your primary care provider which strategy is best for you and whether a mammogram is right for you. Your imaging studies and report will be kept on file at [facility] as part of your permanent medical record and are available for your continuing care. Thank you for allowing us to help in meeting your health care needs. Sincerely, Dr. Myers Interpreting Radiologist [facility] (Normal over 40) documented in this encounter [facility] 11-14-2021 History of Presen t illness Narrative Radiology Service Progress Note PATIENT NAME: Yanet Araya DATE OF SERVICE: November 14, 2021 TIME: 9:09 AM PATIENT IDENTITY VERIFICATION COMPLETED USING TWO (2) IDENTIFIERS: Name and Date of confirmed by patient verbally. FALL SCREENING: Has the patient had 2 falls in the last year or 1 fall with injury or currently using an Ambulatory Assistive Device (Walker, Cane, Wheelchair, Crutches, etc.)? No PATIENT GENDER DATA: Female. status: : No status: NO. PATIENT RELEVANT IMPLANT DATA REVIEWED: Not Applicable RADIOLOGY DEPARTMENT: Mammography PERIPHERAL IV DATA: Not applicable SIGNED BY: RT Isma(R) November 14, 2021 9:09 AM documented in this encounter [facility] 11-12-2021 Instructions Octavio Ulloa MD - 11/12/2021 2:07 PM EDT ASSESSMENT/PLAN: 66 year old female The following prevention plan was discussed during the office visit and provided to the patient: - Vaccines recommended Pneumococcal, Influenza and Shingrix at pharmacy--vaccines are up to date. Will complete Shingrix series. - Glaucoma screening - Colorectal Cancer screening--up to date with Cologuard done 2020 - Mammogram recommended and ordered as discussed - Lipid panel--done 04/12/2020 Octavio Ulloa MD documented in this encounter [facility] 11-12-2021 History of Presen t illness Narrative Medicare Yearly Visit Medical B eligibilty date 05/2019 Date of last exam 04/16/21 follow up appt with [facility] PAST MEDICAL HISTORY Diagnosis Date ACTINIC DAMAGE///CHR SOLAR SKIN DAMAGE NOS 06/08/2007 Basal cell carcinoma 2006 scalp Headache(784.0) 1992 diagnosed was worked up by neurologist and was treated as migraine; also managed as tension type headache with doxepin MVP (mitral valve prolapse) last echocardiogram in [facility] SEBORRHEIC KERATOSIS NOS 06/08/2007 Unspecified hypothyroidism PAST SURGICAL HISTORY Procedure Laterality Date COLONOSCOP W/ OR W/O BRSH SPEC 03/08/11 PAST SURGICAL HISTORY OF 01/19/1998 Excision right breast mass PAST SURGICAL HISTORY OF 09/13/1986 hystersalpingogram & EMB PAST SURGICAL HISTORY OF 2007 cyst removed from finger PAST SURGICAL HISTORY OF 2006 removal of BCC from scalp ALLERGIES: Patient has no known allergies. Medications reviewed: Yes FAMILY HISTORY Problem Relation Age of Onset Diabetes Father other (heart) Father end complications with CHF None Mother SOCIAL HISTORY: Social History Tobacco Use Smoking status: Never Smoker Smokeless tobacco: Never Used Substance Use Topics Alcohol use: No Drug use: No Yanet works out regularly 7 times per week with walking and also cuevas stretching, video exercises (low impact aerobics). She watches her diet for sodium, low fat and low cholesterol most of the time. List of current specialists seen: Had seen Neurologist in [place] for Vertigo End of Live Planning discussed including patients advanced directive wishes: Yes I am willing to follow Yanet's advanced directives. PHQ-2 / Depression screen She in the past two weeks denies having felt down, depressed, hopeless or with little interest or pleasure in doing things. Functional Ability/Safety Screen 1. Was the patient's timed Up and Go test unsteady or longer than 30 seconds? No 2. Does the patient need help with the phone, transportation, shopping,preparing meals, housework, laundry, medications or managing money? No 3. Does your home have rugs in the hallway, lack of grab bars in the bathroom, lack of handrails on the stairs or have poor lighting? No Hearing Evaluation: normal PHYSICAL EXAM BP 116/74 Pulse 76 Resp 16 Ht 175.6 cm (5' 9.13) Wt 56.7 kg (125 lb) BMI 18.39 kg/m Alert and oriented X 3: YES Body mass index is 18.39 kg/m . Visual acuity: Reviewed See below ASSESSMENT/PLAN: 66 year old female The following prevention plan was discussed during the office visit and provided to the patient: - Vaccines recommended Pneumococcal, Influenza and Shingrix at pharmacy--vaccines are up to date. Will complete Shingrix series. - Glaucoma screening - Colorectal Cancer screening--discussed; will decide later - Mammogram recommended and ordered as discussed - Lipid panel--done 04/12/2020 Octavio Ulloa MD This note was created using NoteWriter. Subjective Yanet Araya is a 66 year old female. HISTORY Yanet Araya is a 66 year old lady here for yearly exam and follow up appointment. Noted issues with knee pain Vertigo is doing better. Going to chiropractor helps--went 6 weeks without headache--longest for a long time without headaches. Not too bad with spinning. Once in a while loses balance then feels some spinning. Had seen neurologist in [place]. Diagnosed vestibular migraines. She had prescribed clonazepam for prn use. Not needed for a long time and still has some. Can feel like she is spinning sometimes (last time 2015) and other times room spins (2016 also last time). Sometimes just feels like she is moving even when not moving (this can be once a month or less). States that reviewed Claritox Pro for treating ringing (sounds like high pitched crickets) in the ears--every day noted; some days worse than others. Worse when quiet. Reviewed that none of the ingredients seem out of the ordinary. Prevents constipation from Elavil--prunes (3) daily; dextran supplement 2 teaspoons per glass of water TID; 2 Benefiber chewables; plus walking daily. If does not walk, can get constipation. Told in [place] that has a deviated septum. Cannot breathe through both nostrils at the same time. Can get really congested at night. Plain saline by Vicks every night--helps with th drainaged (less than used to). Has to sleep on back but that causes snoring. Harness to hold mouth closed. No[problems with overt KIARA. Wart on left thumb not resolved with prior attempts at freezing and Compound W. Plans to see Derm. Bladder issues noted. Sometimes feels like wet but undergarments are dry. Resolves after urinates tough lasts a while. Sometimes does have some incontinence. Usually when bladder full. Right knee bothers her going up and down stairs. No giving out on her. No injuries. PAST MEDICAL HISTORY Diagnosis Date ACTINIC DAMAGE///CHR SOLAR SKIN DAMAGE NOS 06/08/2007 Basal cell carcinoma 2006 scalp Headache(784.0) 1993 diagnosed was worked up by neurologist and was treated as migraine; also managed as tension type headache with doxepin MVP (mitral valve prolapse) last echocardiogram in [facility] SEBORRHEIC KERATOSIS NOS 06/08/2007 Unspecified hypothyroidism Current Outpatient Medications Medication Sig frovatriptan (FROVA) 2.5 mg tablet Take 1 tablet by mouth as needed for Migraine Headache (see administration instructions). If headache recurs, may repeat after 2 hours. Max of 3 tablets in 24 hours. levothyroxine (SYNTHROID) 112 mcg tablet Take 1 tablet by mouth once daily. plus extra half pill once weekly or as directed (7.5 pills per week) amitriptyline (ELAVIL) 50 mg tablet Take 1 tablet by mouth daily at bedtime. No current facility-administered medications for this visit. ALLERGIES No Known Allergies FAMILY HISTORY Problem Relation Age of Onset Diabetes Father other (heart) Father end complications with CHF None Mother Social History Tobacco Use Smoking status: Never Smoker Smokeless tobacco: Never Used Substance Use Topics Alcohol use: No Drug use: No Review of Systems Objective BP 116/74 Pulse 76 Resp 16 Ht 175.6 cm (5' 9.13) Wt 56.7 kg (125 lb) BMI 18.39 kg/m Physical Exam Vitals reviewed. Constitutional: Appearance: Normal appearance. She is well-developed. HENT: Head: Normocephalic and atraumatic. Right Ear: External ear normal. Left Ear: External ear normal. Nose: Nose normal. Eyes: Conjunctiva/sclera: Conjunctivae normal. Neck: Thyroid: No thyromegaly. Vascular: No carotid bruit. Cardiovascular: Rate and Rhythm: Normal rate and regular rhythm. Pulses: Normal pulses. Heart sounds: Normal heart sounds. No murmur heard. No friction rub. No gallop. Pulmonary: Effort: Pulmonary effort is normal. Breath sounds: Normal breath sounds. Abdominal: General: Bowel sounds are normal. There is no distension. Palpations: Abdomen is soft. There is no mass. Tenderness: There is no abdominal tenderness. Musculoskeletal: General: No deformity. Normal range of motion. Lymphadenopathy: Cervical: No cervical adenopathy. Skin: General: Skin is warm and dry. Coloration: Skin is not jaundiced or pale. Findings: No rash. Neurological: General: No focal deficit present. Mental Status: She is alert and oriented to person, place, and time. Cranial Nerves: No cranial nerve deficit. Sensory: No sensory deficit. Motor: No abnormal muscle tone. Coordination: Coordination normal. Deep Tendon Reflexes: Reflexes normal. Psychiatric: Attention and Perception: Attention and perception normal. Mood and Affect: Mood and affect normal. Speech: Speech normal. Behavior: Behavior normal. Thought Content: Thought content normal. Cognition and Memory: Cognition and memory normal. Judgment: Judgment normal. Assessment and Plan ASSESSMENT/PLAN: 1. Medicare annual wellness visit, subsequent - ICD9: V70.0, ICD10: Z00.00 (primary diagnosis) - Counseled on healthy diet and regular exercise - Calcium intake with supplements or by diet of 1000 mg/day for under 50, 4589-2992 mg/day for 50+ - Follow up for annual exam in one year 2. Acquired hypothyroidism - ICD9: 244.9, ICD10: E03.9 - Instructed patient on importance of taking on an empty stomach either first thing in the morning or at bedtime. - TSH BLD - T4 FREE/FREE THYROX - T3 FREE BLD 3. Encounter for long-term current use of medication - ICD9: V58.69, ICD10: Z79.899 - COMP METABOLIC PANEL - CBC 4. Vestibular migraine - ICD9: 346.80, ICD10: G43.809 5. Tinnitus of both ears - ICD9: 388.30, ICD10: H93.13 Continue present management. Further evaluation and treatment as indicated. 6. Age-related osteoporosis without current pathological fracture - ICD9: 733.01, ICD10: M81.0 - Reviewed the need for Calcium and Vitamin D supplements and weight bearing exercise as tolerated - VITAMIN D 25 HYDROXY 7. Chronic pain of right knee - ICD9: 719.46, 338.29, ICD10: M25.561, G89.29 Further evaluation and treatment as indicated. Octavio Ulloa MD documented in this encounter [facility] 06-08-2007 History of Past i llness Narrative Problem Noted Date Resolved Date Sebaceous cyst 06/08/2007 01/31/2014 documented as of this encounter (statuses as of 11/07/2021) [facility]11-26-2007 History of Past illness Narrative* Problem Noted Date Resolved Date Sebaceous cyst 06/08/2007 01/31/2014 documented as of this encounter (statuses as of 11/15/2021) [address]26-2007 History of Past illness Narrative* Problem Noted Date Resolved Date Sebaceous cyst 06/08/2007 01/31/2014 documented as of this encounter (statuses as of 11/15/2021) [facility] History of Past illness Narrative* Problem Noted Date Resolved Date Sebaceous cyst 06/08/2007 01/31/2014 documented as of this encounter (statuses as of 11/16/2021) [facility]-26-2007 History of Past illness Narrative* Problem Noted Date Resolved Date Sebaceous cyst 06/08/2007 01/31/2014 documented as of this encounter (statuses as of 01/10/2022) [address]26-2007 History of Past illness Narrative* Problem Noted Date Resolved Date Sebaceous cyst 06/08/2007 01/31/2014 documented as of this encounter (statuses as of 03/12/2022) [address]26-2007 History of Past illness Narrative* Problem Noted Date Resolved Date Sebaceous cyst 06/08/2007 01/31/2014 documented as of this encounter (statuses as of 04/02/2022) [address]26-2007 History of Past illness Narrative* Problem Noted Date Resolved Date Sebaceous cyst 06/08/2007 01/31/2014 documented as of this encounter (statuses as of 05/08/2022) [address] History of Past illness Narrative* Problem Noted Date Diagnosed Date Resolved Date Sebaceous cyst 06/08/2007 01/31/2014 documented as of this encounter (statuses as of 02/28/2023) [address]26-2007 History of Past illness Narrative* Problem Noted Date Diagnosed Date Resolved Date Sebaceous cyst 06/08/2007 01/31/2014 documented as of this encounter (statuses as of 03/19/2023) [address] History of Past illness Narrative* Problem Noted Date Diagnosed Date Resolved Date Sebaceous cyst 06/08/2007 01/31/2014 documented as of this encounter (statuses as of 04/11/2023) [address]26-2007 History of Past illness Narrative* Problem Noted Date Diagnosed Date Resolved Date Sebaceous cyst 06/08/2007 01/31/2014 documented as of this encounter (statuses as of 05/07/2023) [address] History of Past illness Narrative* Problem Noted Date Diagnosed Date Resolved Date Sebaceous cyst 06/08/2007 01/31/2014 documented as of this encounter (statuses as of 05/18/2023) [facility] [place] [facility] Diagnosis Encounter for screening mammogram for breast cancer [facility] [place] [facility]* Diagnosis Medicare annual wellness visit, subsequent- Primary Routine general medical examination at a [facility] care facility Acquired hypothyroidism Unspecified hypothyroidism Encounter for long-term current use of medication Vestibular migraine Tinnitus of both ears Unspecified tinnitus Age-related osteoporosis without current pathological fracture Senile osteoporosis Chronic [facility] of [facility] Acquired hypothyroidism- Primary Unspecified hypothyroidism History of migraine Personal history of other disorders of nervous system and sense organs Encounter for immunization Need for other specified prophylactic vaccination against single bacterial disease Colon cancer screening Special screening for malignant neoplasms, colon Vertigo Dizziness and giddiness Age-related osteoporosis without current pathological fracture Senile osteoporosis [facility] Diagnosis Acquired hypothyroidism Unspecified hypothyroidism [facility] [place] [facility] Diagnosis Medicare annual wellness visit, subsequent- Primary Routine general medical examination at a health care facility Glaucoma of left eye, unspecified glaucoma type Acquired hypothyroidism Unspecified hypothyroidism Urinary urgency Urgency of urination Encounter for screening mammogram for breast cancer [facility] [place] [facility] Diagnosis History of migraine Personal history of other disorders of nervous system and sense organs [facility] [place] [facility] Diagnosis Encounter for screening mammogram for breast cancer [facility] [place] [facility]* Diagnosis HYPOTHYROIDISM NOS- Primary Unspecified hypothyroidism HEADACHE Headache MITRAL VALVE PROLAPSE Mitral valve disorders Breast screening, unspecified Acquired hypothyroidism Unspecified hypothyroidism documented [facility] [place] [facility] Diagnosis HYPOTHYROIDISM NOS- Primary Unspecified hypothyroidism HEADACHE Headache MITRAL VALVE PROLAPSE Mitral valve disorders Breast screening, unspecified History of migraine Personal history of other disorders of nervous system and sense organs [facility] [place] [facility] Diagnosis HYPOTHYROIDISM NOS- Primary Unspecified hypothyroidism HEADACHE Headache MITRAL VALVE PROLAPSE Mitral valve disorders Breast screening, unspecified History of migraine Personal history of other disorders of nervous system and sense organs [facility] [place] [facility] Diagnosis HYPOTHYROIDISM NOS- Primary Unspecified hypothyroidism HEADACHE Headache MITRAL VALVE PROLAPSE Mitral valve disorders Breast screening, unspecified History of migraine Personal history of other disorders of nervous system and sense organs [facility] [place] [facility] Diagnosis HYPOTHYROIDISM NOS- Primary Unspecified hypothyroidism HEADACHE Headache MITRAL VALVE PROLAPSE Mitral valve disorders Breast screening, unspecified Medicare annual wellness visit, subsequent- Primary Routine general medical examination at a health care facility Benign essential tremor Essential and other specified forms of tremor Asymptomatic postmenopausal status Acquired hypothyroidism Unspecified hypothyroidism Age-related osteoporosis without current pathological fracture Senile osteoporosis Encounter for screening mammogram for breast cancer Screening for colon cancer Special screening for malignant neoplasms, colon Encounter for immunization Need for other specified prophylactic vaccination against single bacterial disease Screening for depression Encounter for screening examination for other mental health and behavioral disorders Constipation, unspecified constipation type documented [facility] this [facility] [place] [facility]* Diagnosis HYPOTHYROIDISM NOS- Primary Unspecified hypothyroidism HEADACHE Headache MITRAL VALVE PROLAPSE Mitral valve disorders Breast screening, unspecified Asymptomatic postmenopausal status Age-related osteoporosis without current pathological fracture Senile osteoporosis [facility] [place] [facility]* Diagnosis HYPOTHYROIDISM NOS- Primary Unspecified hypothyroidism HEADACHE Headache MITRAL VALVE PROLAPSE Mitral valve disorders Breast screening, unspecified Encounter for screening mammogram for breast cancer documented [facility] [place] [facility]* Diagnosis HYPOTHYROIDISM NOS- Primary Unspecified hypothyroidism HEADACHE Headache MITRAL VALVE PROLAPSE Mitral valve disorders Breast screening, unspecified Other fatigue- Primary Weakness Other malaise and fatigue Encounter for immunization Need for other specified prophylactic vaccination against single bacterial disease documented [facility] [place] [facility]* Diagnosis HYPOTHYROIDISM NOS- Primary Unspecified hypothyroidism HEADACHE Headache MITRAL VALVE PROLAPSE Mitral valve disorders Breast screening, unspecified KIARA (obstructive sleep apnea)- Primary Obstructive sleep apnea (adult) (pediatric) documented in this encounter [facility] [place] [facility]* Diagnosis HYPOTHYROIDISM NOS- Primary Unspecified hypothyroidism HEADACHE Headache MITRAL VALVE PROLAPSE Mitral valve disorders Breast screening, unspecified KIARA (obstructive sleep apnea)- Primary Obstructive sleep apnea (adult) (pediatric) Excessive daytime sleepiness documented [facility] this encounter [facility] [place] noteNo assessment information availableWMiddletown Hospital Work Phone: Evaluation note* Diagnosis HYPOTHYROIDISM NOS- Primary Unspecified hypothyroidism HEADACHE Headache MITRAL VALVE PROLAPSE Mitral valve disorders Breast screening, unspecified Injury of head, initial encounter- Primary Laceration of eyelid of left eye without foreign body, initial encounter Epistaxis Treatment not available Procedure not carried out for other reasons documented [facility] this [facility] [place] [facility]* Diagnosis HYPOTHYROIDISM NOS- Primary Unspecified hypothyroidism HEADACHE Headache MITRAL VALVE PROLAPSE Mitral valve disorders Breast screening, unspecified KIARA on CPAP- Primary Obstructive sleep apnea (adult) (pediatric) documented [facility] this [facility] [place] [facility]* Diagnosis HYPOTHYROIDISM NOS- Primary Unspecified hypothyroidism HEADACHE Headache MITRAL VALVE PROLAPSE Mitral valve disorders Breast screening, unspecified KIARA on CPAP- Primary Obstructive sleep apnea (adult) (pediatric) documented [facility] this [facility] [place] [facility]* Diagnosis HYPOTHYROIDISM NOS- Primary Unspecified hypothyroidism HEADACHE Headache MITRAL VALVE PROLAPSE Mitral valve disorders Breast screening, unspecified Closed fracture of left orbital floor with routine healing, subsequent encounter- Primary Contusion of left hand, subsequent encounter History of migraine Personal history of other disorders of nervous system and sense organs Vertigo Dizziness and giddiness Concussion without loss of consciousness, subsequent encounter Migraine without aura, not intractable, without status migrainosus documented [facility] this [facility] [place] [facility]* Diagnosis HYPOTHYROIDISM NOS- Primary Unspecified hypothyroidism HEADACHE Headache MITRAL VALVE PROLAPSE Mitral valve disorders Breast screening, unspecified Concussion without loss of consciousness, subsequent encounter- Primary History of migraine Personal history of other disorders of nervous system and sense organs documented [facility] this [facility] [place] [facility]* Diagnosis HYPOTHYROIDISM NOS- Primary Unspecified hypothyroidism HEADACHE Headache MITRAL VALVE PROLAPSE Mitral valve disorders Breast screening, unspecified Closed fracture of left orbital floor with routine healing, subsequent encounter- Primary Post-concussion headache Post-traumatic headache, unspecified History of migraine Personal history of other disorders of nervous system and sense organs documented [facility] this [facility] [place] [facility]* Diagnosis HYPOTHYROIDISM NOS- Primary Unspecified hypothyroidism HEADACHE Headache MITRAL VALVE PROLAPSE Mitral valve disorders Breast screening, unspecified Persistent headaches- Primary Headache History of migraine Personal history of other disorders of nervous system and sense organs Concussion without loss of consciousness, initial encounter documented in this [facility] [place] [facility]* Diagnosis HYPOTHYROIDISM NOS- Primary Unspecified hypothyroidism HEADACHE Headache MITRAL VALVE PROLAPSE Mitral valve disorders Breast screening, unspecified Persistent headaches Headache documented [facility] [place] [facility]* Diagnosis HYPOTHYROIDISM NOS- Primary Unspecified hypothyroidism HEADACHE Headache MITRAL VALVE PROLAPSE Mitral valve disorders Breast screening, unspecified Medicare annual wellness visit, subsequent- Primary Routine general medical examination at a [facility] facility Acquired hypothyroidism Unspecified hypothyroidism Migraine without aura, not intractable, without status migrainosus Vertigo Dizziness and giddiness Age-related osteoporosis without current pathological fracture Senile osteoporosis Encounter for screening examination for other mental health and behavioral disorders Screening for depression Encounter for screening mammogram for breast cancer Screening for lipid disorders Benign essential tremor Essential and other specified forms of tremor [facility] Diagnostic Procedure Only (Routine) - Closed Specialty Diagnoses / Procedures Referred By Daniel witt Referred To Contact [facility] Diagnoses Encounter for screening mammogram for breast cancer Procedures LATRICE SCREENING SCREENING MAMMOGRAPHY BI 2-VIEW BREAST INC Estephania Fletcher APRN.PACKAGE LINE RELIEF OPERATOR [address] [place] [address] [facility] [address] [place] [id number] Referral ID Status Reason Start Date Expiration Date V isits Requested Visits Authorized [id number] Closed Auto-Generate d Referral 04/16/2021 05/16/2022 1 1 [facility] Diagnostic Procedure Only (Routine) - Pending Review Specialty Diagnoses / Procedures Referred By Daniel witt Referred To Contact [facility] Diagnoses Encounter for screening mammogram for breast cancer Procedures LATRICE SCREENING SCREENING MAMMOGRAPHY BI 2-VIEW BREAST INC Estephania Fletcher APRN.CNS [address] [place] [address] [facility] [address] [place] [address] Referral ID Status Reason Start Date Expiration Date Visits Requested Visits Authorized [id number] Pending Review Auto-Generat ed Referral 02/27/2024 05/10/2024 1 1 * Consult, Test, Treat (Routine) - Pending Review Specialty Diagnoses / Procedures Referred By Contac t Referred To Contact Ophthalmology Diagnoses Glaucoma of left eye, unspecified glaucoma type Acquired hypothyroidism Procedures CONSULT TO OPHTHALMOLOGY OFFICE/OUTPATIENT [facility] 60-74 MINUTES Estephania Cates APRN.CNS [address] [place] [address] Referral ID Status Reason Start Date Expiration Date Visits Requested Visits Authorized [id number] Pending Review PCP Requested Referral 04/11/2023 04/10/2024 1 1 [facility] for referral (narrative)* Diagnostic Procedure Only (Routine) - Closed Specialty Diagnoses / Procedures Referred By Daniel t Referred To Contact [facility] Diagnoses Encounter for screening mammogram for breast cancer Procedures LATRICE SCREENING SCREENING MAMMOGRAPHY BI 2-VIEW BREAST INC CAD Octavio Ulloa MD [address] [place] [address] [facility] [address] [place] [address] Referral ID Status Reason Start Date Expiration Date V isits Requested Visits Authorized [id number] Closed Auto-Generate d Referral 12/18/2022 01/17/2024 1 1 [facility] for referral (narrative)* Diagnostic Procedure Only (Routine) - Authorized Specialty Diagnoses / Procedures Referred By Contac t Referred To Contact XR IMAGING Diagnoses Asymptomatic postmenopausal status Age-related osteoporosis without current pathological fracture Procedures DXA-AXIAL SKELETON Octavio Ulloa MD [address] [place] [address] [facility] [id number] Referral ID Status Reason Start Date Expiration Date Visits Requested Visits Authorized [id number] Authorized Auto-Generat ed Referral 03/17/2024 04/16/2025 1 1 [facility] for referral (narrative)* Diagnostic Procedure Only (Routine) - New Request Specialty Diagnoses / Procedures Referred By Daniel witt Referred To [facility] Diagnoses Other fatigue Procedures HOME SLEEP APNEA TEST (HSAT) SLEEP STD AIRFLOW HRT RATE&O2 SAT EFFORT HEBERTT Estephania Cates, TAILINGS MAN.PACKAGE LINE RELIEF OPERATOR [address] [place] [address] [facility] [place] [address] [place] [address] Referral ID Status Reason Start Date Expiration Date Visits Requested Visits Authorized [id number] New Request Auto-Generat ed Referral 08/03/2024 08/03/2025 1 1 [facility] for visit Narrative* Diagnostic Procedure Only (Routine) - Closed Specialty Diagnoses / Procedures Referred By Daniel witt Referred To Contact [facility] Diagnoses Encounter for screening mammogram for breast cancer Procedures LATRICE SCREENING SCREENING MAMMOGRAPHY BI 2-VIEW BREAST INC CAD Estephania Cates, TAILINGS MAN.PACKAGE LINE RELIEF OPERATOR [address] [place] [address] [facility] [address] [place] [address] Referral ID Status Reason Start Date Expiration Date V isits Requested Visits Authorized [id number] Closed Auto-Generate d Referral 04/16/2021 05/16/2022 1 1 [facility] for visit Narrative* Diagnostic Procedure Only (Routine) - Closed Specialty Diagnoses / Procedures Referred By Daniel witt Referred To Contact [facility] Diagnoses Encounter for screening mammogram for breast cancer Procedures LATRICE SCREENING SCREENING MAMMOGRAPHY BI 2-VIEW BREAST INC CAD Octavio Ulloa MD [address] [place] [address] [facility] [address] [place] [address] Referral ID Status Reason Start Date Expiration Date V isits Requested Visits Authorized [id number] Closed Auto-Generate d Referral 12/18/2022 01/17/2024 1 1 [facility] for visit Narrative* Diagnostic Procedure Only (Routine) - Closed Specialty Diagnoses / Procedures Referred By Contac t Referred To Contact XR IMAGING Diagnoses Asymptomatic postmenopausal status Age-related osteoporosis without current pathological fracture Procedures DXA-AXIAL SKELETON Octavio Ulloa MD [address] [place] [id number] [place] [address] Referral ID Status Reason Start Date Expiration Date V isits Requested Visits Authorized [id number] Closed Auto-Generate d Referral 03/17/2024 04/16/2025 1 1 [facility] for visit Narrative* Diagnostic Procedure Only (Routine) - Closed Specialty Diagnoses / Procedures Referred By Contac t Referred To Contact [facility] Diagnoses Encounter for screening mammogram for breast cancer Procedures LATRICE SCREENING SCREENING MAMMOGRAPHY BI 2-VIEW BREAST INC CAD Estephania Cates, TAILINGS MAN.PACKAGE LINE RELIEF OPERATOR [address] [place] [id number] [facility] [address] [place] [address] Referral ID Status Reason Start Date Expiration Date V isits Requested Visits Authorized [id number] Closed Auto-Generate d Referral 02/27/2024 05/10/2024 1 1 [facility] for visit Narrative* MRI/CT (Routine) - Closed Specialty Diagnoses / Procedures Referred By Contac t Referred To Contact MR IMAGING Diagnoses Concussion without loss of consciousness, subsequent encounter Persistent headaches Procedures MRI BRAIN WO IVCON MRI BRAIN BRAIN STEM W/O CONTRAST MATERIAL Sheila Dominique PA-C [address] [place] [address] Phone: tel: fax: [place] [address] Referral ID Status Reason Start Date Expiration Date V isits Requested Visits Authorized [id number] Closed Auto-Generate d Referral 02/01/2025 03/03/2026 1 1 [facility] Chief Complaint and Reason for Visit Chief Complaint Admit Date FACE December 29, 2024 10:0 7am Advance Directives No Advanced Directives Records Found Advance Directive Response Recorded Date/ Time Do you have a Healthcare Power of Ore Miner? No December 29, 2024 10:07am Summary Purpose Family History No Family History Records FoundNo Family History Records Found Additional Source Comments Source Comments (unrecognize d section and content) In the event this informatio n is protected by the Federal Confidentiality of Alcohol and Drug Abuse Patient Records regulations: The Federal rules restrict any use of the information to criminally investigate or prosecute any alcohol or drug abuse patient.[facility] the event this information is protected by the Federal Confidentiality of Alcohol and Drug Abuse Patient Records regulations: The Federal rules restrict any use of the information to criminally investigate or prosecute any alcohol or drug abuse patient.[facility] the event this information is protected by the Federal Confidentiality of Alcohol and Drug Abuse Patient Records regulations: The Federal rules restrict any use of the information to criminally investigate or prosecute any alcohol or drug abuse patient.[facility] the event this information is protected by the Federal Confidentiality of Alcohol and Drug Abuse Patient Records regulations: The Federal rules restrict any use of the information to criminally investigate or prosecute any alcohol or drug abuse patient.[facility] the event this information is protected by the Federal Confidentiality of Alcohol and Drug Abuse Patient Records regulations: The Federal rules restrict any use of the information to criminally investigate or prosecute any alcohol or drug abuse patient.[facility] the event this information is protected by the Federal Confidentiality of Alcohol and Drug Abuse Patient Records regulations: The Federal rules restrict any use of the information to criminally investigate or prosecute any alcohol or drug abuse patient.[facility] [facility] HospitalIn the event this information is protected by the Federal Confidentiality of Alcohol and Drug Abuse Patient Records regulations: The Federal rules restrict any use of the information to criminally investigate or prosecute any alcohol or drug abuse patient.[facility] HospitalIn the event this information is protected by the Federal Confidentiality of Alcohol and Drug Abuse Patient Records regulations: The Federal rules restrict any use of the information to criminally investigate or prosecute any alcohol or drug abuse patient.[facility] HospitalIn the event this information is protected by the Federal Confidentiality of Alcohol and Drug Abuse Patient Records regulations: The Federal rules restrict any use of the information to criminally investigate or prosecute any alcohol or drug abuse patient.[facility] HospitalIn the event this information is protected by the Federal Confidentiality of Alcohol and Drug Abuse Patient Records regulations: The Federal rules restrict any use of the information to criminally investigate or prosecute any alcohol or drug abuse patient.[facility] HospitalIn the event this information is protected by the Federal Confidentiality of Alcohol and Drug Abuse Patient Records regulations: The Federal rules restrict any use of the information to criminally investigate or prosecute any alcohol or drug abuse patient.[facility] HospitalIn the event this information is protected by the Federal Confidentiality of Alcohol and Drug Abuse Patient Records regulations: The Federal rules restrict any use of the information to criminally investigate or prosecute any alcohol or drug abuse patient.[facility] HospitalIn the event this information is protected by the Federal Confidentiality of Alcohol and Drug Abuse Patient Records regulations: The Federal rules restrict any use of the information to criminally investigate or prosecute any alcohol or drug abuse patient.[facility] HospitalIn the event this information is protected by the Federal Confidentiality of Alcohol and Drug Abuse Patient Records regulations: The Federal rules restrict any use of the information to criminally investigate or prosecute any alcohol or drug abuse patient.[facility] HospitalIn the event this information is protected by the Federal Confidentiality of Alcohol and Drug Abuse Patient Records regulations: The Federal rules restrict any use of the information to criminally investigate or prosecute any alcohol or drug abuse patient.[facility] HospitalIn the event this information is protected by the Federal Confidentiality of Alcohol and Drug Abuse Patient Records regulations: The Federal rules restrict any use of the information to criminally investigate or prosecute any alcohol or drug abuse patient.[facility] HospitalIn the event this information is protected by the Federal Confidentiality of Alcohol and Drug Abuse Patient Records regulations: The Federal rules restrict any use of the information to criminally investigate or prosecute any alcohol or drug abuse patient.[facility] HospitalIn the event this information is protected by the Federal Confidentiality of Alcohol and Drug Abuse Patient Records regulations: The Federal rules restrict any use of the information to criminally investigate or prosecute any alcohol or drug abuse patient.[facility] HospitalIn the event this information is protected by the Federal Confidentiality of Alcohol and Drug Abuse Patient Records regulations: The Federal rules restrict any use of the information to criminally investigate or prosecute any alcohol or drug abuse patient.[facility] HospitalIn the event this information is protected by the Federal Confidentiality of Alcohol and Drug Abuse Patient Records regulations: The Federal rules restrict any use of the information to criminally investigate or prosecute any alcohol or drug abuse patient.[facility] HospitalIn the event this information is protected by the Federal Confidentiality of Alcohol and Drug Abuse Patient Records regulations: The Federal rules restrict any use of the information to criminally investigate or prosecute any alcohol or drug abuse patient.[facility] HospitalIn the event this information is protected by the Federal Confidentiality of Alcohol and Drug Abuse Patient Records regulations: The Federal rules restrict any use of the information to criminally investigate or prosecute any alcohol or drug abuse patient.[facility] HospitalIn the event this information is protected by the Federal Confidentiality of Alcohol and Drug Abuse Patient Records regulations: The Federal rules restrict any use of the information to criminally investigate or prosecute any alcohol or drug abuse patient.[facility] HospitalIn the event this information is protected by the Federal Confidentiality of Alcohol and Drug Abuse Patient Records regulations: The Federal rules restrict any use of the information to criminally investigate or prosecute any alcohol or drug abuse patient.[facility] HospitalIn the event this information is protected by the Federal Confidentiality of Alcohol and Drug Abuse Patient Records regulations: The Federal rules restrict any use of the information to criminally investigate or prosecute any alcohol or drug abuse patient.[facility] HospitalIn the event this information is protected by the Federal Confidentiality of Alcohol and Drug Abuse Patient Records regulations: The Federal rules restrict any use of the information to criminally investigate or prosecute any alcohol or drug abuse patient.[facility] HospitalIn the event this information is protected by the Federal Confidentiality of Alcohol and Drug Abuse Patient Records regulations: The Federal rules restrict any use of the information to criminally investigate or prosecute any alcohol or drug abuse patient.[facility] HospitalIn the event this information is protected by the Federal Confidentiality of Alcohol and Drug Abuse Patient Records regulations: The Federal rules restrict any use of the information to criminally investigate or prosecute any alcohol or drug abuse patient.[facility] HospitalIn the event this information is protected by the Federal Confidentiality of Alcohol and Drug Abuse Patient Records regulations: The Federal rules restrict any use of the information to criminally investigate or prosecute any alcohol or drug abuse patient.[facility] HospitalIn the event this information is protected by the Federal Confidentiality of Alcohol and Drug Abuse Patient Records regulations: The Federal rules restrict any use of the information to criminally investigate or prosecute any alcohol or drug abuse patient.[facility] HospitalIn the event this information is protected by the Federal Confidentiality of Alcohol and Drug Abuse Patient Records regulations: The Federal rules restrict any use of the information to criminally investigate or prosecute any alcohol or drug abuse patient.[facility] HospitalIn the event this information is protected by the Federal Confidentiality of Alcohol and Drug Abuse Patient Records regulations: The Federal rules restrict any use of the information to criminally investigate or prosecute any alcohol or drug abuse patient.[facility] HospitalIn the event this information is protected by the Federal Confidentiality of Alcohol and Drug Abuse Patient Records regulations: The Federal rules restrict any use of the information to criminally investigate or prosecute any alcohol or drug abuse patient.[facility] HospitalIn the event this information is protected by the Federal Confidentiality of Alcohol and Drug Abuse Patient Records regulations: The Federal rules restrict any use of the information to criminally investigate or prosecute any alcohol or drug abuse patient.[facility] HospitalIn the event this information is protected by the Federal Confidentiality of Alcohol and Drug Abuse Patient Records regulations: The Federal rules restrict any use of the information to criminally investigate or prosecute any alcohol or drug abuse patient.[facility] HospitalIn the event this information is protected by the Federal Confidentiality of Alcohol and Drug Abuse Patient Records regulations: The Federal rules restrict any use of the information to criminally investigate or prosecute any alcohol or drug abuse patient.[facility] HospitalIn the event this information is protected by the Federal Confidentiality of Alcohol and Drug Abuse Patient Records regulations: The Federal rules restrict any use of the information to criminally investigate or prosecute any alcohol or drug abuse patient.[facility] HospitalIn the event this information is protected by the Federal Confidentiality of Alcohol and Drug Abuse Patient Records regulations: The Federal rules restrict any use of the information to criminally investigate or prosecute any alcohol or drug abuse patient.[facility] HospitalIn the event this information is protected by the Federal Confidentiality of Alcohol and Drug Abuse Patient Records regulations: The Federal rules restrict any use of the information to criminally investigate or prosecute any alcohol or drug abuse patient.[facility] HospitalIn the event this information is protected by the Federal Confidentiality of Alcohol and Drug Abuse Patient Records regulations: The Federal rules restrict any use of the information to criminally investigate or prosecute any alcohol or drug abuse patient.[facility] Reason for Visit (unrecogniz ed section and content) Reason Comments Opened In Error Reason Comments Results BMD Reason Comments Wellness Medicare wellness Reason Comments Recheck medication Reason Onset Date Comments Refill Request 03/17/2023 Reason Comments Medicare Wellness Exam Reason Onset Date Comments Refill Request 05/07/2023 Reason Onset Date Comments Refill Request 03/04/2024 Reason Onset Date Comments Refill Request 03/30/2024 Migraine 03/30/2024 Reason Comments Patient Request Reason Comments Medicare Wellness Exam Reason Comments Results Reason Comments Fatigue Reason Comments Established Patient KIARA, HSAT August 02- c/o being tired throughout the day, hard time falling asleep, gets up 1-2 x to go to bathroom. Specialty Diagnoses / Procedures Referred By Daniel witt Referred To Contact Diagnoses KIARA (obstructive sleep apnea) Procedures CONSULT TO SLEEP MEDICINE - ADULT OFFICE/OUTPATIENT [facility] 60 MINUTES Estephania Cates, ERICA.PACKAGE LINE RELIEF OPERATOR [address] [place] [address] Phone: tel: fax: Referral ID Status Reason Start Date Expiration Date V isits Requested Visits Authorized [id number] Closed PCP Requested Referral 08/30/2024 08/30/2025 1 1 Reason Comments Fall Reason Comments Follow Up CPAP-patient reports she is using it but did not use 1 week while in [place]. Reports not doing well with unit. Doesn't feel any better than she did before she started using CPAP. Wakes frequently. Reason Comments ER F/U [facility] 12/29/24 from a fall with noted orbital floor fracture on x-ray. Reason Comments Patient Question Reason Comments Headaches continues after fall with occasional dizziness Reason Comments New Patient Concussion w/o loss of consciousness, vertigo, KIARA(sees sleep), Hx of Migraine- since fall 12/27/24 having increased, has tingling in head and feeling off but not dizziness. Tremor Not sure if related but tremors have been worse since fall Specialty Diagnoses / Procedures Referred By Contac t Referred To Contact Neurology Diagnoses Concussion without loss of consciousness, subsequent encounter History of migraine Procedures CONSULT TO NEUROLOGY OFFICE/OUTPATIENT [facility] 60 MINUTES Omar Guidry, ERICA.DRY CHAIN OFFBEARER [address] [place] [address] Phone: tel: fax: Referral ID Status Reason Start Date Expiration Date V isits Requested Visits Authorized [id number] Closed PCP Requested Referral 01/11/2025 01/11/2026 1 1 Care Teams (unrecognized sec tion and content) Puppy Walker Relationship Specialty Start Date End Date Octavio Ulloa MD [address] [place], [place] [id number] PCP - General Internal Medicine 01/29/11 Puppy Walker Relationship Specialty Start Date End Date Octavio Ulloa MD [address] [place], [place] [id number] PCP - General Internal Medicine 01/29/11 Puppy Walker Relationship Specialty Start Date End Date Octavio Ulloa MD [address] [place], [place] [id number] PCP - General Internal Medicine 01/29/11 Puppy Walker Relationship Specialty Start Date End Date Octavio Ulloa MD [address] [place] [address] PCP - General Internal Medicine 01/29/11 Puppy Walker Relationship Specialty Start Date End Date Octavio Ulloa MD [address] [place] [address] PCP - General Internal Medicine 01/29/11 Puppy Walker Relationship Specialty Start Date End Date Octavio Ulloa MD [address] [place] [address] PCP - General Internal Medicine 01/29/11 Puppy Walker Relationship Specialty Start Date End Date Octavio Ulloa MD [address] [place] [address] PCP - General Internal Medicine 01/29/11 Puppy Walker Relationship Specialty Start Date End Date Octavio Ulloa MD [address] [place] [address] PCP - General Internal Medicine 01/29/11 Puppy Walker Relationship Specialty Start Date End Date Octavio Ulloa MD [address] [place] [address] PCP - General Internal Medicine 01/29/11 Puppy Walker Relationship Specialty Start Date End Date Octavio Ulloa MD [address] [place] [address] PCP - General Internal Medicine 01/29/11 Puppy Walker Relationship Specialty Start Date End Date Octavio Ulloa MD [address] [place] [address] PCP - General Internal Medicine 01/29/11 Puppy Walker Relationship Specialty Start Date End Date Octavio Ulloa MD [address] [place] [address] PCP - General Internal Medicine 01/29/11 Puppy Walker Relationship Specialty Start Date End Date Octavio Ulloa MD [address] [place] [address] PCP - General Internal Medicine 01/29/11 Puppy Walker Relationship Specialty Start Date End Date Octavio Ulloa MD [address] [place] [address] PCP - General Internal Medicine 01/29/11 Puppy Walker Relationship Specialty Start Date End Date Octavio Ulloa MD [address] [place] [address] PCP - General Internal Medicine 01/29/11 Puppy Walker Relationship Specialty Start Date End Date Octavio Ulloa MD [address] [place] [address] PCP - General Internal Medicine 01/29/11 Puppy Walker Relationship Specialty Start Date End Date Octavio Ulloa MD [address] [place] [address] PCP - General Internal Medicine 01/29/11 Puppy Walker Relationship Specialty Start Date End Date Octavio Ulloa MD [address] [place] [address] PCP - General Internal Medicine 01/29/11 Puppy Walker Relationship Specialty Start Date End Date Octavio Ulloa MD [address] [place] [address] PCP - General Internal Medicine 01/29/11 Estephania Cates APRN.PACKAGE LINE RELIEF OPERATOR [address] [place] [address] Appellate [facility] 06/21/24 Omar Guidry APRN.DRY CHAIN OFFBEARER [address] [place] [address] [facility] 06/21/24 Puppy Walker Relationship Specialty Start Date End Date Octavio Ulloa MD [address] [place] [address] PCP - General Internal Medicine 01/29/11 Estephania Cates TAILINGS MAN.PACKAGE LINE RELIEF OPERATOR [address] [place] [address] Appellate [facility] 06/21/24 Omar Guidry APRN.DRY CHAIN OFFBEARER [address] [place] [address] [facility] 06/21/24 Puppy Walker Relationship Specialty Start Date End Date Octavio Ulloa MD [address] [place] [address] PCP - General Internal Medicine 01/29/11 Estephania Cates TAILINGS MAN.PACKAGE LINE RELIEF OPERATOR [address] [place] [address] [facility] 06/21/24 Omar Guidry APRN.DRY CHAIN OFFBEARER [address] [place] [address] [facility] 06/21/24 Puppy Walker Relationship Specialty Start Date End Date Octavio Ulloa MD [address] [place] [address] PCP - General Internal Medicine 01/29/11 Estephania Cates, TAILINGS MAN.PACKAGE LINE RELIEF OPERATOR [address] [place] [address] [facility] Internal Medicine 06/21/24 Omar Guidry TAILINGS MAN.DRY CHAIN OFFBEARER [address] [place] [address] [facility] Internal Medicine 06/21/24 Puppy Walker Relationship Specialty Start Date End Date Octavio Ulloa MD [address] [place] [address] PCP - General Internal Medicine 01/29/11 Estephania Cates, TAILINGS MAN.PACKAGE LINE RELIEF OPERATOR [address] [place] [address] [facility] Internal Medicine 06/21/24 Omar Guidry TAILINGS MAN.DRY CHAIN OFFBEARER [address] [place] [address] [facility] Internal Medicine 10/05/24 Puppy Walker Relationship Specialty Start Date End Date Octavio Ulloa MD [address] [place] [address] PCP - General Internal Medicine 01/29/11 Estephania Cates, TAILINGS MAN.PACKAGE LINE RELIEF OPERATOR [address] [place] [address] [facility] Internal Medicine 06/21/24 Omar Guidry TAILINGS MAN.DRY CHAIN OFFBEARER [address] [place] [address] [facility] 06/21/24 10/01/24 Omar Guidry, TAILINGS MAN.DRY CHAIN OFFBEARER [address] [place] [address] Appellate [facility] 10/05/24 Team Status: Active Member Role Status Dates Dr. Octavio Ulloa MD Primary Care Provider Active Team Status: Inactive Member Role Status Dates Dr. Octavio Ulloa MD Primary Care Provider Active Start: December 29, 2024 End: December 29, 2024 Dr. Elliott Moura DO Emergency Provider Active Start: December 29, 2024 End: December 29, 2024 Puppy Walker Relationship Specialty Start Date End Date Octavio Ulloa MD [address] [place] [address] PCP - General Internal Medicine 01/29/11 Omar Guidry APRN.DRY CHAIN OFFBEARER [address] [place] [address] [facility] Internal Medicine 10/05/24 Estephania Cates, TAILINGS MAN.PACKAGE LINE RELIEF OPERATOR [address] [place] [address] [facility] Internal Medicine 12/01/24 Puppy Walker Relationship Specialty Start Date End Date Octavio Ulloa MD [address] [place] [address] PCP - General Internal Medicine 01/29/11 Omar Guidry APRN.DRY CHAIN OFFBEARER [address] [place] [address] [facility] 10/05/24 Estephania Cates, TAILINGS MAN.PACKAGE LINE RELIEF OPERATOR [address] [place] [address] [facility] Internal Medicine 12/01/24 Puppy Walker Relationship Specialty Start Date End Date Octavio Ulloa MD [address] [place] [address] PCP - General Internal Medicine 01/29/11 Omar Guidry TAILINGS MAN.DRY CHAIN OFFBEARER [address] [place] [address] [facility] Internal Medicine 10/05/24 Estephania Cates, TAILINGS MAN.PACKAGE LINE RELIEF OPERATOR [address] [place] [address] [facility] Internal Medicine 12/01/24 Puppy Walker Relationship Specialty Start Date End Date Octavio Ulloa MD [address] [place] [address] PCP - General Internal Medicine 01/29/11 Omar Guidry TAILINGS MAN.DRY CHAIN OFFBEARER [address] [place] [address] [facility] Internal Medicine 10/05/24 Estephania Cates, TAILINGS MAN.PACKAGE LINE RELIEF OPERATOR [address] [place] [address] [facility] Internal Medicine 12/01/24 Puppy Walker Relationship Specialty Start Date End Date Octavio Ulloa MD [address] [place] [address] PCP - General Internal Medicine 01/29/11 Chao, Omar, TAILINGS MAN.DRY CHAIN OFFBEARER [address] [place] [address] Appellate [facility] 10/05/24 Estephania Cates, ERICA.PACKAGE LINE RELIEF OPERATOR [address] [place] [address] [facility] 12/01/24 Puppy Walker Relationship Specialty Start Date End Date Octavio Ulloa MD [address] [facility] [address] PCP - General Internal Medicine 01/29/11 Omar Guidry APRN.DRY CHAIN OFFBEARER [address] [facility] [address] [facility] 10/05/24 Estephania Cates, TAILINGS MAN.PACKAGE LINE RELIEF OPERATOR [address] [facility] [place] [address] [facility] 12/01/24 Puppy Walker Relationship Specialty Start Date End Date Octavio Ulloa MD [address] [place] [address] PCP - General Internal Medicine 01/29/11 Omar Guidry TAILINGS MAN.DRY CHAIN OFFBEARER [address] [facility] [place] [address] Appellate [facility] 10/05/24 Estephania Cates, TAILINGS MAN.PACKAGE LINE RELIEF OPERATOR [address] [place] [address] [facility] 12/01/24 Puppy Walker Relationship Specialty Start Date End Date Octavio Ulloa MD [address] [facility] [address] PCP - General Internal Medicine 01/29/11 Omar Guidry APRN.DRY CHAIN OFFBEARER [address] [place] [address] Appellate [facility] 10/05/24 Estephania Cates, TAILINGS MAN.PACKAGE LINE RELIEF OPERATOR [address] [place] [address] Appellate [facility] 12/01/24 Puppy Walker Relationship Specialty Start Date End Date Octavio Ulloa MD [address] [place] [address] PCP - General Internal Medicine 01/29/11 Omar Guidry TAILINGS MAN.DRY CHAIN OFFBEARER [address] [facility] [address] Appellate [facility] 10/05/24 Estephania Cates, TAILINGS MAN.PACKAGE LINE RELIEF OPERATOR [address] [place] [address] [facility] 12/01/24 Puppy Walker Relationship Specialty Start Date End Date Octavio Ulloa MD [address] [place] [address] PCP - General Internal Medicine 01/29/11 Omar Guidry TAILINGS MAN.DRY CHAIN OFFBEARER [address] [facility] [address] Appellate [facility] 10/05/24 Estephania Cates, TAILINGS MAN.PACKAGE LINE RELIEF OPERATOR [address] [place] [address] Appellate [facility] 12/01/24 Goals (unrecognized section and content) Goals may be documented in a n alternate section INFORMATION SOURCE (unrecogn ized section and content) DATE CREATED AUTHOR 01/06/2025 [facility] DATE CREATED AUTHOR AUTHOR'Minerva LOPEZ 05/25/2025 [facility] FOR RECORDS PERTAINING TO PATIENTS WHO ARE OR HAVE BEEN ENROLLED IN A CHEMICAL DEPENDENCY/SUBSTANCEABUSE PROGRAM, SOME INFORMATION MAY BE OMITTED. This clinical summary was aggregated from multiple sources. Caution should be exercised in using it in the provision of clinical care. This summary normalizes information from multiple sources, and as a consequence, information in this document may materially change the coding, format and clinical context of patient data. In addition, data may be omitted in some cases. CLINICAL DECISIONS SHOULD BE BASED ON THE PRIMARY CLINICAL RECORDS. [employer] provides no warranty or guarantee of the accuracy or completeness of information in this document.
[2025-07-09 19:27] LABS: AST(SGOT) 28 U/L (<=31); Alanine Aminotransfer ALT/SGPT 22 U/L (<=34); Albumin, Serum 4.4 g/dL (3.4-4.8); Alkaline Phosphatase 84 U/L (35-104); Anion Gap 9 (7-18); BUN 19 mg/dL (4-19); BUN/Creat Ratio 22.5 RATIO (10-20); Calcium,Total 9.0 mg/dL (7.6-11.0); Carbon Dioxide 27.9 mmol/L (20.0-29.0); Chloride 101 mmol/L (96-106); Estimated Creatinine Clearance 56.98 ml/min (50-250); Globulin 2.0 g/dL (2.2-4.2); Glucose 122 mg/dL (70-99); Potassium 4.1 mmol/L (3.5-5.1); Troponin T High Sensitivity 8 ng/L (<=14)
[2025-07-09 19:29] LABS: Lipase 34 U/L (13-75)
[2025-07-09 19:35] VITALS: BP 122/63; PULSE 101; RESP 16; O2SAT 100
[2025-07-09 20:00] VITALS: BP 129/69; PULSE 102; RESP 28; O2SAT 98
--- NOTE | 2025-07-09 20:31 | EKG12_ITS ---
Test Reason : CP Blood Pressure : */* mmHG Vent. Rate : 97 BPM Atrial Rate : 97 BPM P-R Int : 146 ms QRS Dur : 74 ms QT Int : 352 ms P-R-T Axes : -9 -14 16 degrees QTcB Int : 447 ms Normal sinus rhythm Normal ECG Confirmed by Juan Luis Barrera ([id number]), newspaper copy editor STEPHEN CASTREJON ([id number]) on 07/15/2025 7:27:59 AM Referred By: MARY Confirmed By: Juan Luis Barrera
[2025-07-09 21:00] VITALS: BP 130/63; PULSE 98; RESP 15; O2SAT 97
[2025-07-09] MEDS: Lidocaine 2% Viscous15 ML UDC 15 ML PO (21:15)
[2025-07-09] MEDS: Mag /Aluminum/Simeth WCH UDC 30 ML ORAL.SUSP PO (21:15)
[2025-07-09 21:21] VITALS: BP 124/66; PULSE 105; RESP 20; TEMP 36.6; O2SAT 97
[2025-07-09 22:00] VITALS: BP 125/67; PULSE 96; RESP 14; O2SAT 95
[2025-07-09 22:21] LABS: Troponin T High Sens 2 HR 9 ng/L (<=14)
== END 2025-07-09 22:50 | disposition home or self-care (01) ==
PROVIDERS: Emergency Provider Emergency Medicine; PCP Internal Medicine; Visit Provider Emergency Medicine
DX: R07.9 Chest pain, unspecified (principal); R10.13 Epigastric pain
CPT/HCPCS: 71045; 74177; 80053; 83690; 84484; 85025; 85379; 93005; 96365; 99284; Q9967; A4216